=== PATIENT | female | born 1950 | race Caucasian/White ===

== ENCOUNTER → 2021-08-09 13:17 | Outpatient (BNVA) | payer MEDICARE, SELFPAY | PROVIDERS: PCP Internal Medicine; Visit Provider Internal Medicine | DX: M48.061 Spinal stenosis, lumbar region without neurogenic claudication (principal); M54.51 Vertebrogenic low back pain | CPT/HCPCS: 99202 ==

== ENCOUNTER → 2021-08-30 11:36 | Outpatient (BNVA) | payer MEDICARE, SELFPAY | PROVIDERS: PCP Internal Medicine; Visit Provider Internal Medicine | DX: M54.51 Vertebrogenic low back pain (principal); M48.061 Spinal stenosis, lumbar region without neurogenic claudication; M47.816 Spondylosis without myelopathy or radiculopathy, lumbar region; C95.90 Leukemia, unspecified not having achieved remission | CPT/HCPCS: 99212 ==

== ENCOUNTER 2021-10-27 06:04 | Outpatient (REF) | payer MEDICARE, SELFPAY ==
--- NOTE | ~2021-10-27 | FL_ITS ---
EXAMINATION: XR FLUOROSCOPY WITH IMAGES CLINICAL INFORMATION: M47.816 - Spondylosis without myelopathy or radiculopathy COMPARISON: MR lumbar spine 08/17/2021 (RAYUS, [place], MD). TECHNIQUE: Fluoroscopy performed by Dr. Bruce Rojo. Fluoroscopy time: 0.3 minutes DAP: 0.496 Gycm2 Images: 3 FINDINGS: There are spinal needles overlying the bilateral outer L3, L4, and L5 neural foramen. There is contrast seen in the respective nerve sheaths. Some early transforaminal epidural extension is suggested. No visible vascular communication. FL/FL guidance in treatment room IMPRESSION: Fluoroscopy for pain management procedures.
== END 2021-10-27 06:05 | disposition home or self-care (01) ==
LOC: HO.RADIR 06:04
PROVIDERS: Visit Provider Internal Medicine
DX: M47.816 Spondylosis without myelopathy or radiculopathy, lumbar region (principal)
CPT/HCPCS: 64493; 64494; J2795; Q9967

== ENCOUNTER → 2021-11-08 15:32 | Outpatient (BNVA) | payer MEDICARE, SELFPAY | PROVIDERS: PCP Internal Medicine; Visit Provider Internal Medicine | DX: M47.816 Spondylosis without myelopathy or radiculopathy, lumbar region (principal); C95.90 Leukemia, unspecified not having achieved remission | CPT/HCPCS: Q3014 ==

== ENCOUNTER → 2021-11-26 11:25 | Outpatient (BNVA) | payer MEDICARE, SELFPAY | PROVIDERS: PCP Internal Medicine; Visit Provider Internal Medicine | DX: M47.816 Spondylosis without myelopathy or radiculopathy, lumbar region (principal); M54.51 Vertebrogenic low back pain | CPT/HCPCS: Q3014 ==

== ENCOUNTER 2022-03-10 08:19 | Outpatient (REF) | payer MEDICARE, SELFPAY ==
--- NOTE | ~2022-03-10 | XR_ITS ---
EXAMINATION: XR CERVICAL SPINE XR THORACIC SPINE XR LUMBAR SPINE XR SACROILIAC JOINT CLINICAL INFORMATION: Pain throughout the spine. COMPARISON: None TECHNIQUE: Cervical spine 3 views. Dorsal spine 3 views. Lumbar spine 6 views. SI joints 4 views. FINDINGS: CERVICAL SPINE: There is minimal straightening of cervical lordosis. Mild loss of C7-T1 disc height seen. Rest of the disc heights are maintained normal. No visible acute fracture, dislocation or lytic process seen. THORACIC SPINE: There is normal thoracic kyphosis. The vertebral heights, alignment and disc heights are normal. No fracture, lytic or sclerotic process seen. The paravertebral soft tissues are normal. LUMBAR SPINE: There is maintained lumbar lordosis. The vertebral heights, alignment and disc heights are normal. No visible acute fracture, dislocation or lytic process seen. The paravertebral soft tissues are normal. There is no pars defect on oblique views. No lytic or sclerotic process seen. The paravertebral soft tissues are normal. SI JOINTS: The SI joints are symmetrical without bony erosive changes. No fracture or dislocation seen. The soft tissues are normal. XR/XR lumbar spine 6V w bending IMPRESSION: Mild degenerative changes C7-T1 disc levels otherwise no visible acute fracture or dislocation seen. Unremarkable lumbar spine exam. No pars defect or listhesis seen. Unremarkable dorsal spine and SI joints.
--- NOTE | ~2022-03-10 | XR_ITS ---
EXAMINATION: XR CERVICAL SPINE XR THORACIC SPINE XR LUMBAR SPINE XR SACROILIAC JOINT CLINICAL INFORMATION: Pain throughout the spine. COMPARISON: None TECHNIQUE: Cervical spine 3 views. Dorsal spine 3 views. Lumbar spine 6 views. SI joints 4 views. FINDINGS: CERVICAL SPINE: There is minimal straightening of cervical lordosis. Mild loss of C7-T1 disc height seen. Rest of the disc heights are maintained normal. No visible acute fracture, dislocation or lytic process seen. THORACIC SPINE: There is normal thoracic kyphosis. The vertebral heights, alignment and disc heights are normal. No fracture, lytic or sclerotic process seen. The paravertebral soft tissues are normal. LUMBAR SPINE: There is maintained lumbar lordosis. The vertebral heights, alignment and disc heights are normal. No visible acute fracture, dislocation or lytic process seen. The paravertebral soft tissues are normal. There is no pars defect on oblique views. No lytic or sclerotic process seen. The paravertebral soft tissues are normal. SI JOINTS: The SI joints are symmetrical without bony erosive changes. No fracture or dislocation seen. The soft tissues are normal. XR/XR thoracic spine 2V IMPRESSION: Mild degenerative changes C7-T1 disc levels otherwise no visible acute fracture or dislocation seen. Unremarkable lumbar spine exam. No pars defect or listhesis seen. Unremarkable dorsal spine and SI joints.
--- NOTE | ~2022-03-10 | XR_ITS ---
EXAMINATION: XR CERVICAL SPINE XR THORACIC SPINE XR LUMBAR SPINE XR SACROILIAC JOINT CLINICAL INFORMATION: Pain throughout the spine. COMPARISON: None TECHNIQUE: Cervical spine 3 views. Dorsal spine 3 views. Lumbar spine 6 views. SI joints 4 views. FINDINGS: CERVICAL SPINE: There is minimal straightening of cervical lordosis. Mild loss of C7-T1 disc height seen. Rest of the disc heights are maintained normal. No visible acute fracture, dislocation or lytic process seen. THORACIC SPINE: There is normal thoracic kyphosis. The vertebral heights, alignment and disc heights are normal. No fracture, lytic or sclerotic process seen. The paravertebral soft tissues are normal. LUMBAR SPINE: There is maintained lumbar lordosis. The vertebral heights, alignment and disc heights are normal. No visible acute fracture, dislocation or lytic process seen. The paravertebral soft tissues are normal. There is no pars defect on oblique views. No lytic or sclerotic process seen. The paravertebral soft tissues are normal. SI JOINTS: The SI joints are symmetrical without bony erosive changes. No fracture or dislocation seen. The soft tissues are normal. XR/XR cervical spine 3V IMPRESSION: Mild degenerative changes C7-T1 disc levels otherwise no visible acute fracture or dislocation seen. Unremarkable lumbar spine exam. No pars defect or listhesis seen. Unremarkable dorsal spine and SI joints.
--- NOTE | ~2022-03-10 | XR_ITS ---
EXAMINATION: XR CERVICAL SPINE XR THORACIC SPINE XR LUMBAR SPINE XR SACROILIAC JOINT CLINICAL INFORMATION: Pain throughout the spine. COMPARISON: None TECHNIQUE: Cervical spine 3 views. Dorsal spine 3 views. Lumbar spine 6 views. SI joints 4 views. FINDINGS: CERVICAL SPINE: There is minimal straightening of cervical lordosis. Mild loss of C7-T1 disc height seen. Rest of the disc heights are maintained normal. No visible acute fracture, dislocation or lytic process seen. THORACIC SPINE: There is normal thoracic kyphosis. The vertebral heights, alignment and disc heights are normal. No fracture, lytic or sclerotic process seen. The paravertebral soft tissues are normal. LUMBAR SPINE: There is maintained lumbar lordosis. The vertebral heights, alignment and disc heights are normal. No visible acute fracture, dislocation or lytic process seen. The paravertebral soft tissues are normal. There is no pars defect on oblique views. No lytic or sclerotic process seen. The paravertebral soft tissues are normal. SI JOINTS: The SI joints are symmetrical without bony erosive changes. No fracture or dislocation seen. The soft tissues are normal. XR/XR sacroiliac joint min 3V IMPRESSION: Mild degenerative changes C7-T1 disc levels otherwise no visible acute fracture or dislocation seen. Unremarkable lumbar spine exam. No pars defect or listhesis seen. Unremarkable dorsal spine and SI joints.
== END 2022-03-10 08:20 | disposition home or self-care (01) ==
LOC: HO.XRAY 08:19
PROVIDERS: PCP Internal Medicine; Visit Provider Student in an Organized Health Care Education/Training Program
DX: M54.51 Vertebrogenic low back pain (principal); M54.2 Cervicalgia; M54.6 Pain in thoracic spine
CPT/HCPCS: 72040; 72070; 72114; 72202; 99202

== ENCOUNTER 2022-03-23 11:46 | Outpatient (REF) | payer MEDICARE, SELFPAY ==
--- NOTE | ~2022-03-23 | XR_ITS ---
EXAMINATION: XR THORACIC SPINE XR LUMBAR SPINE CLINICAL INFORMATION: Lower back pain COMPARISON: 03/10/2022 TECHNIQUE: 3 views of the thoracic spine. 4 views of the lumbar spine. FINDINGS: Thoracic spine: No fracture or subluxation. Osteopenia. Vertebral body height and alignment maintained. Mild disc space narrowing throughout with small osteophytes. The paravertebral soft tissues are unremarkable. The visualized lungs are clear. Aortic calcifications. Lumbar spine: No fracture or subluxation. Vertebral body height and alignment maintained. Disc spaces are maintained. Mild facet arthropathy. The sacroiliac joints are symmetric. The sacrum is intact. Normal bowel gas pattern. Moderate colonic stool burden. XR/XR lumbar spine 4V min IMPRESSION: Mild degenerative changes throughout the thoracic and lumbar spine. Moderate colonic stool burden.
--- NOTE | ~2022-03-23 | XR_ITS ---
EXAMINATION: XR THORACIC SPINE XR LUMBAR SPINE CLINICAL INFORMATION: Lower back pain COMPARISON: 03/10/2022 TECHNIQUE: 3 views of the thoracic spine. 4 views of the lumbar spine. FINDINGS: Thoracic spine: No fracture or subluxation. Osteopenia. Vertebral body height and alignment maintained. Mild disc space narrowing throughout with small osteophytes. The paravertebral soft tissues are unremarkable. The visualized lungs are clear. Aortic calcifications. Lumbar spine: No fracture or subluxation. Vertebral body height and alignment maintained. Disc spaces are maintained. Mild facet arthropathy. The sacroiliac joints are symmetric. The sacrum is intact. Normal bowel gas pattern. Moderate colonic stool burden. XR/XR thoracic spine 3V IMPRESSION: Mild degenerative changes throughout the thoracic and lumbar spine. Moderate colonic stool burden.
== END 2022-03-23 11:47 | disposition home or self-care (01) ==
LOC: HO.XRAY 11:46
PROVIDERS: PCP Internal Medicine; Visit Provider Student in an Organized Health Care Education/Training Program
DX: M54.50 Low back pain, unspecified (principal); G89.29 Other chronic pain
CPT/HCPCS: 72072; 72110; 99212

== ENCOUNTER → 2022-07-11 13:03 | Outpatient (BNVA) | payer MEDICARE, SELFPAY | PROVIDERS: PCP Internal Medicine; Visit Provider Internal Medicine | DX: M47.816 Spondylosis without myelopathy or radiculopathy, lumbar region (principal); G89.29 Other chronic pain; M54.50 Low back pain, unspecified | CPT/HCPCS: 99212 ==

== ENCOUNTER 2022-08-03 13:16 | Day surgery (SDC) | payer MEDICARE, SELFPAY ==
--- NOTE | ~2022-08-03 | FL_ITS ---
EXAMINATION: XR FLUOROSCOPY WITH IMAGES CLINICAL INFORMATION: Low back pain. Pain management procedure. COMPARISON: Lumbar radiographs 04/23/2022 TECHNIQUE: Fluoroscopy Supervised By: Dr. Bruce Rojo. Fluoroscopy Time: 0.1 minutes. Cumulative Dose: 1.29 mGy. DAP: 0.184 Gycm2. Images: 1. FINDINGS: There are is a spinal needle/electrode overlying the outer L5 neural foramen, presumably on right. FL/FL guidance in OR IMPRESSION: Fluoroscopy for pain management procedures.
[2022-08-03 09:32] VITALS: BMI 22.6
[2022-08-03 13:24] VITALS: BP 133/69; PULSE 90; RESP 20; TEMP 36.8; O2SAT 96
--- NOTE | 2022-08-03 14:47 | MHC.SHP ---
Pre-Procedural Eval Section A Date of Service: 08/03/22 The patient is an INPATIENT: No Changes since office visit: Yes Patient answered all questions The History & Physical has been completed within 30 days and I have reviewed it.: No Section B Chief Complaint: Spondylosis, lumbar; chronic intractable pain Relevant Family History (Specify if Yes): No Relevant Social History: None Present Medications: see Short Stay Collaborative assessment Medical History: No relevant PMH History of Previous Operations: No relevant previous surgery Allergies: Allergies Allergy/AdvReac Type Severity Reaction Status Date / Time sulfamethoxazole Allergy Mild Hives Verified 07/11/22 13:19 [From Bactrim] trimethoprim [From Bactrim] Allergy Mild Hives Verified 07/11/22 13:19 Review of Systems Sugical H&P ROS: Negative: Constitution, Cardiovascular and Respiratory Exam Surgical H&P Exam: Normal: HEENT, Normal: Heart and Normal: Lungs Plan Diagnosis/Plan: Change I have reviewed the history and physical and performed a pertinent physical examination on my patient. No changes have occurred unless specified. Plan to proceed with right sided treatment today based on patient preference. Time Spent With Patient Time: Total time managing care of this patient today ____ minutes.
[2022-08-03 15:45] VITALS: BP 140/66; PULSE 99; RESP 18; TEMP 36.7; O2SAT 97
--- NOTE | 2022-08-03 15:46 | PM.OP ---
Brief Operative Note Date of Service: 08/03/22 Pre-op diagnosis: Chronic low back pain, lumbar spondylosis Post-op diagnosis: same Procedure: Temporary right L4 medial branch nerve stimulator Implants: Sprint PNS system Surgeon: Bruce Rojo MD Anesthesia: local Was an Machine Maintenance Technician used for this Procedure?: No Estimated blood loss (mL): 1 Pathology: none sent Condition: stable Disposition: same day
--- NOTE | 2022-08-03 15:47 | W.PM.OPN ---
Operative Note Operative Note Date of Service: 08/03/22 Narrative: Lumbar Medial Branch Nerve Stimulation Lead Placement, SPR (Sprint) System, Right L4 ? After the risks, benefits and alternatives were discussed with the patient and informed consent was obtained, patient was placed in the prone position and padded to foster comfort. The skin overlying the lumbosacral spine was prepped and draped in sterile fashion. Fluoroscopy was used to identify the spinous process and lamina in the center of the patient?s region of pain. After identifying and marking the intended target along the course of the medial branch nerve, the skin around the planned entry point and the subcutaneous tissues were injected with lidocaine 1%. An introducer needle and stimulating probe were assembled, inserted and advanced along the intended course of the medial branch nerve as it traverses the lamina medial and inferior to the zygapophyseal joint, taking care to maintain the proper depth of insertion as the introducer is advanced under fluoroscopic guidance. The introducer needle was delivered to a location in proximity to the nerve. Multiple stimulation parameters were used to deliver stimulation to the target medial branch nerve in concert with stimulating at multiple positions around the nerve. Nerve target acquisition was confirmed noting generation of paresthesias in the paravertebral regions corresponding to the level being stimulated. Various electrical parameter combinations were tested, and the lead location was adjusted (physically relocated) until the patient indicated paresthesia/muscle tension overlapping the distribution of the patient?s typical region of pain. The L3 medial branch was targetted first before the needle was relocated to the L4 branch based on paresthesia mapping. The stimulating probe was removed from the introducer and a percutaneous lead was guided through the needle and delivered to a location in similar proximity to the nerve. Final location was verified with electrical stimulation and documented with fluoroscopy. The introducer needle was removed, and the exposed end of the percutaneous lead was attached to an external stimulator unit. Various electrical parameter combinations were again tested until the patient indicated paresthesia or muscle tension overlapping the distribution of the patient?s typical region of pain. After confirming that lead impedance was in the normal range, the external unit was detached, the needle was removed, and the lead was anchored at the skin. The lead was threaded into the connector block and electrical continuity and desired patient response was confirmed. The connector block was attached to the external stimulator unit. The site was covered with a sterile occlusive dressing. The patient was observed for stability of vital signs and comfort.
[2022-08-03 16:00] VITALS: BP 125/70; PULSE 98; RESP 16; TEMP 36.4; O2SAT 98
== END 2022-08-03 16:06 | disposition home or self-care (01) ==
PROVIDERS: PCP Internal Medicine; Visit Provider Internal Medicine
PROC: (CPT 64555; principal; 2022-08-03 14:20)
DX: M47.816 Spondylosis without myelopathy or radiculopathy, lumbar region (principal); M54.50 Low back pain, unspecified; G89.29 Other chronic pain; C95.90 Leukemia, unspecified not having achieved remission; D58.9 Hereditary hemolytic anemia, unspecified; D47.Z9 Other specified neoplasms of uncertain behavior of lymphoid, hematopoietic and related tissue; M48.061 Spinal stenosis, lumbar region without neurogenic claudication; Z79.899 Other long term (current) drug therapy; Z88.2 Allergy status to sulfonamides; Z87.891 Personal history of nicotine dependence
CPT/HCPCS: 64555; C1778

== ENCOUNTER → 2022-08-08 08:37 | Outpatient (BNVA) | payer MEDICARE, SELFPAY | PROVIDERS: PCP Internal Medicine; Visit Provider Internal Medicine | DX: M54.50 Low back pain, unspecified (principal); M47.816 Spondylosis without myelopathy or radiculopathy, lumbar region; G89.29 Other chronic pain | CPT/HCPCS: 99212 ==

== ENCOUNTER → 2022-08-26 08:00 | Outpatient (BNVA) | payer MEDICARE, SELFPAY | PROVIDERS: PCP Internal Medicine; Visit Provider Internal Medicine | DX: M81.0 Age-related osteoporosis without current pathological fracture (principal); M54.6 Pain in thoracic spine | CPT/HCPCS: 72070; 99212 ==

== ENCOUNTER 2022-08-26 08:42 | Outpatient (REF) | payer MEDICARE, SELFPAY ==
--- NOTE | ~2022-08-26 | XR_ITS ---
EXAMINATION: XR THORACOLUMBAR SPINE CLINICAL INFORMATION: Age-related osteoporosis without recurrent pathological fracture. COMPARISON: None available. TECHNIQUE: 3 views FINDINGS: There is normal thoracic kyphosis. The vertebral heights and alignment is normal. There is minimal dextro scoliosis of dorsolumbar spine. No acute fracture, dislocation or lytic process seen. The paravertebral soft tissues are normal. XR/XR thoracic spine 2V IMPRESSION: Mild dextroscoliosis of dorsolumbar spine. No visible acute fracture, dislocation or lytic process seen. No aggressive lytic or sclerotic process seen
== END 2022-08-26 08:43 | disposition home or self-care (01) ==
LOC: HO.XRAY 08:42
PROVIDERS: PCP Internal Medicine; Visit Provider Internal Medicine
DX: Z13.89 Encounter for screening for other disorder (principal)
CPT/HCPCS: 72070

== ENCOUNTER → 2022-09-21 12:48 | Outpatient (BNVA) | payer MEDICARE, SELFPAY | PROVIDERS: PCP Internal Medicine; Visit Provider Internal Medicine ==

== ENCOUNTER → 2022-10-21 09:17 | Outpatient (BNVA) | payer MEDICARE, SELFPAY | PROVIDERS: PCP Internal Medicine; Visit Provider Internal Medicine | DX: M47.816 Spondylosis without myelopathy or radiculopathy, lumbar region (principal) | CPT/HCPCS: 99212 ==

== ENCOUNTER 2023-10-05 10:21 | Outpatient (AMB) | payer MEDICARE, SELFPAY ==
--- NOTE | 2023-10-05 10:39 | MHC.PC.OV ---
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 Intake Note: New patient visit Link Knitting Machine Operator Required: No Allergies sulfamethoxazole [From Bactrim] Allergy (Mild, Verified 10/05/23 10:41) Hives trimethoprim [From Bactrim] Allergy (Mild, Verified 10/05/23 10:41) Hives Tobacco use date assessed: 10/05/23 Fall risk assessment: No Falls in past year Last assessed Fall Risk: 10/05/23 Dental Screening Dental Screen Date: 10/05/23 Did you have a dental visit in the last 12 months?: Yes Did you have a dental problem in the last 6 months where you did not have access to dental care?: No Was dental information given to patient?: Patient has dentist HPI HPI Comments History of Present Illness Details 73 year old female with a past medical history CLL, anxiety, tachycardia presenting t reestablish care Heme/Onc: Follows at [facility], Dr Dubois. On Brukinsa Chronic pain: Bony metastates, ddd spine. On morphine ER TID, gabapentin, methocarbamal. Doing well with pain control. BH: Anxiety. 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 Leukemia Vertebrogenic low back pain Lumbar spinal stenosis Family History (Updated 10/05/23 @ 10:50 by Janet De La Vega CMA) Mother Anxiety Brother Anxiety Sister Anxiety Maternal Grandmother Breast cancer Other FH: mental illness Social History (Updated 10/05/23 @ 10:52 by Janet De La Vega CMA) Household Members: Spouse Housing: House Alcohol intake: never Patient Tobacco Use Status: Former Tobacco user Years Smoked: 10, Quit 42 years ago e-Cigarette/Vaping Use: Never Used Second Hand Smoke Exposure: Yes (past ) service: No Current occupational status: retired 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 1. Little interest or pleasure in doing things: not at all 2. Feeling down, depressed, or hopeless: not at all 3. Trouble falling or staying asleep, or sleeping too much: not at all 4. Feeling tired or having little energy: not at all 5. Poor appetite or overeating: not at all 6. Feeling bad about yourself - or that you are a failure or have let yourself or your family down: not at all 7. Trouble concentrating on things, such as reading the newspaper or watching television: not at all 8. Moving or speaking so slowly that other people could have noticed. Or the opposite - being so fidgety or restless that you have been moving around a lot more than usual: not at all 9. Thoughts that you would be better off or of hurting yourself in some way: not at all Total score: 0 Depression Screening Interpretation: Negative (Neg) Depression Screening Done: Yes Source: Developed by Drs. Dane Wong, Joana Bradford, Darin Reese and colleagues, with an educational key from [employer]. Thrive Questionnaire Date Thrive assessed: 10/05/23 I am a: Patient What is your living situation today?: I have a steady place to live Within the past 12 months, did the food you bought not last and you didn't have the money to get more?: Never true Within the past 12 months, did you worry whether your food would run out before you got money to buy more?: Never true Do you have trouble paying for medicines?: No Do you have trouble getting transportation to medical appointments?: No Do you have trouble paying your heating and electricity bill?: No Do you have trouble taking care of your child, family member or friend?: No Do you have trouble with day-to-day activities such as bathing, preparing meals, shopping, managing finances, etc.?: No Are you currently unemployed and looking for a job?: No Are you interested in more education?: No Please select the resources that you would like help with: None Currently or been in a relationship where the following occur: no concerns reported THRIVE Score: 0 CHARLOTTE-7 AMB Questionnaire CHARLOTTE-7 Date CHARLOTTE - 7 assessed: 10/05/23 Feeling nervous, anxious, or on edge: 1 = Several days Not being able to stop or control worryin = Not at all Worrying too much about different things: 1 = Several days Trouble relaxin = Not at all Being so restless that it is hard to sit still: 0 = Not at all Becoming easily annoyed or irritable: 1 = Several days Feeling afraid as if something awful might happen: 0 = Not at all Total CHARLOTTE-7 score (0-4 normal; 5-9 mild; 10-14 moderate; 15-21 severe): 3 Source: Developed by Drs. Dane Wong, Joana Bradford, Darin Reese and colleagues, with an educational key from [employer]. CHARLOTTE-7 Assessment Billing CHARLOTTE-7 Assessment Tool: CHARLOTTE-7 Assessment 63732 ACT Questionnaire In the past 4 weeks, how much of the time did your asthma keep you from getting as much done at work, school or at home?: None of the time During the past 4 weeks, how often have you had shortness of breath?: Not at all During the past 4 weeks, how often did your asthma symptoms wake you up at night or earlier than usual in the morning?: Not at all During the past 4 weeks, how often have you had to use your rescue inhaler or nebulizer medication?: Not at all How would you rate your asthma control during the past 4 weeks?: Completely controlled ACT Interpretation: Negative Score: 25 Review of Systems Const Details: see HPI Physical exam (Primary Care) Vital Signs: Last Vital Signs Temp 98.1 F 10/05/23 10:55 Pulse 104 H 10/05/23 10:55 Resp 14 10/05/23 10:55 BP 124/68 10/05/23 10:55 Pulse Ox 95 10/05/23 10:55 Oxygen Delivery Method Room Air 10/05/23 10:55 PHYSICAL EXAM: GENERAL: Alert and oriented x 3. NAD EYES: EOMI. Anicteric. HENT: Moist mucous membranes. No scleral icterus. No cervical lymphadenopathy. LUNGS: Clear to auscultation bilaterally. CARDIOVASCULAR: Regular rate and rhythm. No murmur. No JVD. ABDOMEN: Soft, non-tender +bs EXTREMITIES: No edema. Non-tender. SKIN: No rashes or lesions. Warm. NEUROLOGIC: No focal neurological deficits. CN II-XII grossly intact PSYCHIATRIC: Cooperative. Appropriate mood and affect BMI result Body Mass Index 23.1 Tobacco/Smoking Status: Tobacco use Status Tobacco use date assessed 10/05/23 10/05/23 10:57 Patient Tobacco Use Status Former Tobacco user 10/05/23 10:52 e-Cigarette/Vaping Use Never Used 10/05/23 10:52 PHQ-9: PHQ-9 Score PHQ-9: Total score 0 10/05/23 11:29 Depression Screening Interpretation: Negative (Neg) Thrive Assessment: Date of Thrive Assessment Date Thrive assessed 10/05/23 10/05/23 10:57 Currently or been in a relationship where the following occur: no concerns reported Assessment and Plan Assessment & Plan (1) Thoracic spine pain: Code(s): M54.6 - Pain in thoracic spine (2) Chronic low back pain: Code(s): M54.50 - Low back pain, unspecified; G89.29 - Other chronic pain Qualifiers: Back pain laterality: bilateral Sciatica presence: without sciatica Qualified Code(s): M54.50 - Low back pain, unspecified; G89.29 - Other chronic pain Plan: continue current medications (3) Osteoporosis: Comment: continue meds Code(s): M81.0 - Age-related osteoporosis without current pathological fracture Qualifiers: Osteoporosis type: unspecified Presence of current pathological fracture: with current pathological fracture Encounter type: subsequent encounter Fracture healing: with routine healing Qualified Code(s): M80.00XD - Age-related osteoporosis with current pathological fracture, unspecified site, subsequent encounter for fracture with routine healing (4) Lumbar spondylosis: Code(s): M47.816 - Spondylosis without myelopathy or radiculopathy, lumbar region (5) Leukemia: Comment: continue DCFI follow up Code(s): C95.90 - Leukemia, unspecified not having achieved remission Qualifiers: Leukemia type: lymphoid Lymphoid leukemia type: chronic lymphocytic B-cell Leukemia Active/Remission status: in remission Qualified Code(s): C91.11 - Chronic lymphocytic leukemia of B-cell type in remission (6) Vertebrogenic low back pain: Code(s): M54.51 - Vertebrogenic low back pain (7) Lumbar spinal stenosis: Code(s): M48.061 - Spinal stenosis, lumbar region without neurogenic claudication Qualifiers: Neurogenic claudication status: without neurogenic claudication Qualified Code(s): M48.061 - Spinal stenosis, lumbar region without neurogenic claudication Coding Level of Care Code Est Pt Level 5 (40060) Diagnoses Thoracic spine pain M54.6 Chronic bilateral low back pain without sciatica M54.50; G89.29 Back pain laterality: bilateral Sciatica presence: without sciatica Osteoporosis with current pathological fracture with routine healing, unspecified osteoporosis type, subsequent encounter M80.00XD Osteoporosis type: unspecified Presence of current pathological fracture: with current pathological fracture Encounter type: subsequent encounter Fracture healing: with routine healing Lumbar spondylosis M47.816 Chronic lymphocytic leukemia of B-cell type in remission C91.11 Leukemia type: lymphoid Lymphoid leukemia type: chronic lymphocytic B-cell Leukemia Active/Remission status: in remission Vertebrogenic low back pain M54.51 Spinal stenosis of lumbar region without neurogenic claudication M48.061 Neurogenic claudication status: without neurogenic claudication Additional Codes CHARLOTTE-7 Assessment Billing - CHARLOTTE-7 Assessment Tool: CHARLOTTE-7 Assessment [id number] ([id number]) Time Spent (min) 44
[2023-10-05 10:55] VITALS: BP 124/68; PULSE 104; RESP 14; TEMP 36.7; O2SAT 95; BMI 23.1
== END 2023-10-05 11:30 | disposition home or self-care (01) ==
PROVIDERS: PCP Internal Medicine; Visit Provider Internal Medicine
DX: M54.6 Pain in thoracic spine (principal); C91.11 Chronic lymphocytic leukemia of B-cell type in remission; M54.50 Low back pain, unspecified; G89.29 Other chronic pain; M80.00XD Age-related osteoporosis with current pathological fracture, unspecified site, subsequent encounter for fracture with routine healing; M47.816 Spondylosis without myelopathy or radiculopathy, lumbar region; M54.51 Vertebrogenic low back pain; M48.061 Spinal stenosis, lumbar region without neurogenic claudication
CPT/HCPCS: 99215

== ENCOUNTER 2023-11-23 11:15 | Outpatient (AMB) | payer OTHER, MEDICARE, SELFPAY ==
[2023-11-23 11:16] VITALS: BP 110/68; PULSE 97; TEMP 36.4; O2SAT 96; BMI 23.0
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
--- OUTSIDE RECORDS SUMMARY | 2023-11-30 06:13 | XMS_ITS | Continuity of Care Document ---
Author Organization [facility] Address [address] [place] [id number]- Care Team Providers Care Head Of Partner Development Name Role Phone Radha PULLIAM, Portia Dumont Primary Care Physician Yazmin morales Encounter [facility] Date(s): 09/22/23 - 10/22/[address] [address]- Attending Physician: AdmLes negro Admitting Physician: Admtr, [id number] Referring Physician: Admtr, [id number] Allergies, Adverse Reactions, Alerts Substance Reaction Severity Status Bactrim Active Immunizations Given and Recorded Vaccine Date Status Refusal Reason RSV vaccine, preF A-preF B, recombinant 04/01/23 R ecorded SARS-CoV-2(COVID-19)mRNA-LNP vac([id number]) 03/04/23 Recorded influenza virus vaccine, inactivated 02/13/23 Thom rded influenza virus vaccine, inactivated 02/09/21 Thom rded influenza virus vaccine, inactivated 01/19/20 Thom rded influenza virus vaccine, inactivated 02/25/19 Thom rded influenza virus vaccine, inactivated 02/06/18 Thom rded influenza virus vaccine, inactivated 02/22/17 Thom rded influenza virus vaccine, inactivated 02/24/16 Thom rded influenza virus vaccine, inactivated 03/11/15 Thom rded influenza virus vaccine, inactivated 03/07/14 Thom rded influenza virus vaccine, inactivated 03/18/13 Thom rded influenza virus vaccine, inactivated 03/12/12 Thom rded influenza virus vaccine, inactivated 02/22/11 Thom rded influenza virus vaccine, inactivated 03/09/10 Thom rded influenza virus vaccine, inactivated 03/05/09 Thom rded influenza virus vaccine, inactivated 03/31/08 Thom rded influenza virus vaccine, inactivated 03/30/07 Thom rded influenza virus vaccine, inactivated 04/05/06 Thom rded [id number] bivalent booster vax 04/30/22 Recorded SARS-CoV-2 mRNA ([id number]) vax 08/07/21 Recorded SARS-CoV-2 (COVID-19) mRNA BNT-162b2 vac 01/17/21 Recorded SARS-CoV-2 (COVID-19) mRNA BNT-162b2 vac 07/02/20 Recorded SARS-CoV-2 (COVID-19) mRNA BNT-162b2 vac 06/11/20 Recorded pneumococcal 13-valent vaccine 03/21/19 Recorded zoster vaccine, inactivated 05/17/18 Recorded zoster vaccine, inactivated 02/28/18 Recorded pneumococcal 23-valent vaccine 09/17/14 Recorded tetanus/diphtheria/pertussis, acel(Tdap) 06/25/10 Recorded Zoster Vaccine Live 11/03/09 Recorded tetanus-diphtheria toxoids (Td) 07/06/01 Recorded Medications Aerochamber See Instructions, # 1 each, Maintenance, always use with inhaler, 12/07/22 10:07:00 EDT, Supply, 158, cm, 12/07/22 9:30:00 EDT, Height, 55, kg, 09/14/22 4:47:00 EDT, Dry Weight Start Date: 12/07/22 Status: Ordered Albuterol (Eqv-Ventolin HFA) 90 mcg/inh inhalation aerosol 2 puffs, Inhalation, Every 4 hours, PRN cough, SOB, wheeze, # 18 Gm, 0 Refills, Maintenance, 12/07/22 10:07:00 EDT, [facility] #[id number], with dose counter. any albuterol inhaler covered by insurance is fine., 2 puffs Inhalation Every 4 hours,P... Start Date: 12/07/22 Status: Ordered aspirin 81 mg oral capsule 1 capsule = 81 mg, By Mouth, Every 24 hours, 0 Refills, Maintenance, 04/12/23 11:11:00 EST, Partialfill upon patient request if the prescription is for a schedule II opioid drug. Start Date: 04/12/23 Status: Ordered benzonatate 100 mg oral capsule See Instructions, TAKE 1 CAPSULE BY MOUTH THREE TIMES DAILY FOR 7 DAYS NEEDED FOR COUGH, # 21 tablet, 0 Refills, Maintenance, 12/24/22 16:22:00 EDT, [facility] #[id number], 158, cm, 12/07/22 9:30:00 EDT, Height, 55, kg, 09/14/22 4:47:00 EDT, D... Start Date: 12/24/22 Status: Ordered Brukinsa 80 mg oral capsule 0 Refills, Maintenance, 04/12/23 11:11:00 EST, Partial fill upon patient request if the prescription is for a schedule II opioid drug. Start Date: 04/12/23 Status: Ordered calcium carbonate 600 mg oral tablet 2 tablet = 1,200 mg, By Mouth, Daily, 0 Refills, Maintenance, 04/25/22 11:51:00 EST, Partial fill upon patient request if the prescription is for a schedule II opioid drug. Start Date: 04/25/22 Status: Ordered clonazePAM 0.5 mg oral tablet See Instructions, 1-2 tab oral once daily prn anxiety, # 56 tablet, 0 Refills, Maintenance, 06/21/23 12:20:00 EST, Tablet, [facility] #[id number], Partial fill upon patient request if the prescription is for a schedule II opioid drug., 158, cm, 1... Start Date: 06/21/23 Status: Ordered clonazePAM 0.5 mg oral tablet See Instructions, TAKE 1 TO 2 TABLETS BY MOUTH EVERY DAY NEEDED FOR ANXIETY, # 56 tablet, 1 Refills, 06/30/23 16:36:00 EST, [facility] #[id number], 158, cm, 04/12/23 11:12:00 EST, Height, 55,kg, 09/14/22 4:47:00 EDT, Dry Weight Start Date: 06/30/23 Status: Ordered FLUoxetine 10 mg oral capsule 1, capsule, By Mouth, Daily, # 90 capsule, Refills 3, Maintenance, 12/23/22 16:02:00 EDT, Route to Pharmacy Electronically, [facility] #[id number], 158, cm, 12/07/22 9:30:00 EDT, Height, 55, kg,09/14/22 4:47:00 EDT, Dry Weight Start Date: 12/23/22 Status: Ordered gabapentin 100 mg oral capsule 200 mg, 2, capsule, By Mouth, Daily at bedtime, for 90 days, # 180 capsule, Refills 3, Tot. Refills3, Hard Stop 01/01/24 9:19:00 EDT, 01/06/23 9:19:00 EDT, Route to Pharmacy Electronically, [facility] #[id number], Partial fill upon patient reque... Start Date: 01/06/23 Stop Date: 01/01/24 Status: Ordered gabapentin 100 mg oral capsule 200 mg, 2, capsule, By Mouth, Daily at bedtime, # 180 capsule, Refills 3, Tot. Refills 3, Maintenance, 01/01/24 9:19:00 EDT, Route to Pharmacy Electronically, [facility] #[id number], Partial fill upon patient request if the prescription is for a... Start Date: 01/01/24 Stop Date: 12/26/24 Status: Ordered LORazepam 1 mg oral tablet 1 tablet = 1 mg, By Mouth, 3 times a day, TAKE 1 TABLET BY MOUTH THREE TIMES DAILY NEEDED FOR ANXIETY, # 90 tablet, 3 Refills, Maintenance, 09/21/22 10:50:00 EDT, [facility] #[id number], 158,cm, 09/20/22 10:01:00 EDT, Height, 55, kg, 09/14/22... Start Date: 09/21/22 Stop Date: 01/19/23 Status: Ordered Magnesium Oxide = 140 mg, By Mouth, Daily, 0 Refills, Maintenance, 09/14/22 4:54:00 EDT, Partial fill upon patient request if the prescription is for a schedule II opioid drug. Start Date: 09/14/22 Status: Ordered methocarbamol 500 mg oral tablet 2 tablet = 1,000 mg, By Mouth, 4 times a day, # 80 tablet, 0 Refills, Maintenance, 05/02/23 6:19:00EST, Tablet, [facility] #[id number], Partial fill upon patient request if the prescription is for a schedule II opioid drug., 158, cm, 04/12/23 11... Start Date: 05/02/23 Stop Date: 05/12/23 Status: Ordered morphine 30 mg/8 to 12 hr oral tablet, extended release See Instructions, TAKE 1 TABLET BY MOUTH EVERY 8 HOURS, # 84 tablet, 0 Refills, Maintenance, 09/14/23 10:53:00 EDT, [facility] #[id number], 158, cm, 04/12/23 11:12:00 EST, Height, 55, kg, 09/14/22 4:47:00 EDT, Dry Weight Start Date: 09/14/23 Status: Ordered Narcan 4 mg/0.1 mL nasal spray = 4 mg, Inhalation, Once, as needed for altered mental status/accidental overdose, # 2 each, 0 Refills, Soft Stop, 09/20/22 10:51:00 EDT, [facility] #[id number], Partial fill upon patient request if the prescription is for a schedule II opioid dr... Start Date: 09/20/22 Status: Ordered nortriptyline 50 mg oral capsule 50 mg, 1, capsule, By Mouth, Daily at bedtime, # 90 capsule, Refills 3, Tot. Refills 3, Maintenance, 10/02/23 15:49:00 EDT, Route to Pharmacy Electronically, [facility] #[id number], Partial fillupon patient request if the prescription is for a s... Start Date: 10/02/23 Stop Date: 09/26/24 Status: Ordered omeprazole 20 mg oral enteric coated capsule 1 capsule = 20 mg, By Mouth, 2 times a day, # 180 capsule, 3 Refills, Maintenance, 04/06/24 11:40:00 EDT, CR Capsule, [facility] #[id number], Partial fill upon patient request if the prescription is for a schedule II opioid drug., 158, cm, ... Start Date: 04/06/24 Stop Date: 04/01/25 Status: Ordered omeprazole 20 mg oral enteric coated capsule 1 capsule = 20 mg, By Mouth, 2 times a day, for 90 days, # 180 capsule, 3 Refills, Hard Stop 04/06/24 11:40:00 EDT, 04/12/23 11:40:00 EST, CR Capsule, [facility] #[id number], Partial fill upon patient request if the prescription is for a schedule... Start Date: 04/12/23 Stop Date: 04/06/24 Status: Ordered Prolia 60 mg/mL subcutaneous solution 1 mL = 60 mg, Subcutaneous Injection, Every 6 months, # 1 mL, 0 Refills, Maintenance, 09/14/22 4:53:00 EDT, Solution, Partial fill upon patient request if the prescription is for a schedule II opioiddrug. Start Date: 09/14/22 Status: Ordered Vitamin D2 By Mouth, 0 Refills, Maintenance, 04/25/22 11:51:00 EST, Partial fill upon patient request if the prescription is for a schedule II opioid drug. Start Date: 04/25/22 Status: Ordered Xarelto 10 mg oral tablet 1 tablet = 10 mg, Daily, 0 Refills, Maintenance, 01/06/23 8:28:00 EDT, Partial fill upon patient request if the prescription is for a schedule II opioid drug. Start Date: 01/06/23 Status: Ordered Problem List Condition Confirmation Course Effective Dates Status H ealth Status Informant Anemia Confirmed Active Anxiety Confirmed Active Anxiety Confirmed 06/15/18 Active Chronic low back pain Confirmed 06/17/19 Active CLL (chronic lymphocytic leukemia) Confirmed 2017 Active Chronic lymphoid leukemia, disease Confirmed 12/01/17 Active Compression fracture of spine Confirmed Active Gastroesophageal reflux disease without esophagitis Confirmed 12/01/17 Active H/O: breast problem Confirmed Active Insomnia Confirmed 12/01/17 Active Leukemia Confirmed 2017 Active Loose stools Confirmed Active Lymphadenopathy Confirmed Active Social History Social History Type Response Smoking Status Former smoker, quit more than 30 days ago; Other: Quit 1979; Number of years: 10; Started at age: 19; Stopped at age: 29; entered on: 07/28/21 Sex Patient Care team information Care Team Personnel Name: Portia Garcia MD Position: [facility] Physician - Primary Care Member Role: PCP Care Team Related Persons Name: NATHAN LING Address: [address] [place] [address]
--- OUTSIDE RECORDS SUMMARY | 2023-11-30 06:14 | XMS_ITS | Continuity of Care Document ---
Author Organization [facility] Address [address] [place] [address]- Care Team Providers Care Golf Sales Manager Name Role Phone Portia Garcia MD Primary Care Physician [phone] [place] [facility] [place] 12/07/22 - 12/14/22 [facility] [address] [place] [address]- Encounter Diagnosis Asthma(Discharge Diagnosis) - 12/07/22 Cough(Discharge Diagnosis) - 12/07/22 CLL (chronic lymphocytic leukemia)(Discharge Diagnosis) - 12/07/22 Attending Physician: Jose PULLIAM, Allegra Peterson Referring Physician: Portia Garcia MD Allergies, Adverse Reactions, Alerts Substance Reaction Severity Status Bactrim Active Immunizations Given and Recorded Vaccine Date Status Refusal Reason [id number] bivalent booster vax 04/30/22 Recorded SARS-CoV-2 mRNA ([id number]) vax 08/07/21 Recorded influenza virus vaccine, inactivated 02/09/21 Thom rded [...] influenza virus vaccine, inactivated 04/05/06 Thom rded SARS-CoV-2 (COVID-19) mRNA BNT-162b2 vac 01/17/21 Recorded [...] Gm, 0 Refills, Maintenance, 12/07/22 10:07:00 EDT, [facility] #[id number], with dose counter. any albuterol inhaler covered by insurance is fine., 2 puffs Inhalation Every 4 hours,P... Start Date: 12/07/22 Status: Ordered calcium carbonate 600 mg oral tablet 2 tablet = 1,200 mg, By Mouth, Daily, 0 Refills, Maintenance, 04/25/22 11:51:00 EST, Partial fill upon patient request if the prescription is for a schedule II opioid drug. Start Date: 04/25/22 Status: Ordered clonazePAM 0.5 mg oral tablet See Instructions, 1-2 tab oral once daily prn anxiety, # 56 tablet, 0 Refills, Maintenance, 11/10/22 10:53:00 EDT, Tablet, [facility] #[id number], Partial fill upon patient request if the prescription is for a schedule II opioid drug., 158, cm, 0... Start Date: 11/10/22 Status: Ordered FLUoxetine 10 mg oral capsule 1, capsule, By Mouth, Daily, # 90 capsule, Refills 0, Maintenance, 09/16/22 7:11:00 EDT, Route to Pharmacy Electronically, [facility] #[id number], 158, cm, 09/14/22 4:47:00 EDT, Height, 55, kg, 09/14/22 4:47:00 EDT, Dry Weight Start Date: 09/16/22 Status: Ordered gabapentin 100 mg oral capsule 200 mg, 2, capsule, By Mouth, Daily at bedtime, # 120 capsule, Refills 0, Maintenance, 09/14/22 4:52:00 EDT, Partial fill upon patient request if the prescription is for a schedule II opioid drug. Start Date: 09/14/22 Status: Ordered LORazepam 1 mg oral tablet 1 tablet = 1 mg, By Mouth, 3 times a day, TAKE 1 TABLET BY MOUTH THREE TIMES DAILY NEEDED FOR ANXIETY, # 90 tablet, 3 Refills, Maintenance, 09/21/22 10:50:00 EDT, [facility] #[id number], 158,cm, 09/20/22 10:01:00 EDT, Height, 55, kg, [...] day, # 80 tablet, 0 Refills, Maintenance, 09/20/22 10:52:00 EDT, Tablet, [facility] #[id number], Partial fill upon patient request if the prescription isfor a schedule II opioid drug., 158, cm, 09/20/22 1... Start Date: 09/20/22 Stop Date: 09/30/22 Status: Ordered morphine 15 mg/8 to 12 hr oral tablet, extended release 1 tablet = 15 mg, By Mouth, Every 12 hours, # 56 tablet, 0 Refills, Maintenance, 11/22/22 6:26:00 EDT, [facility] #[id number], Partial fill upon patient request if the prescription is for a schedule II opioid drug., 158, cm, 10/07/22 14:49:00 EDT... Start Date: 11/22/22 Stop Date: 12/20/22 Status: Ordered Narcan 4 mg/0.1 mL nasal spray = 4 mg, Inhalation, Once, as needed for altered mental status/accidental overdose, # 2 each, 0 Refills, Soft Stop, 09/20/22 10:51:00 EDT, [facility] #[id number], Partial fill upon patient request if the prescription is for a schedule II opioid dr... Start Date: 09/20/22 Status: Ordered nortriptyline 50 mg oral capsule 50 mg, 1, capsule, By Mouth, Daily at bedtime, # 90 capsule, Refills 3, Tot. Refills 3, Maintenance, 10/07/22 15:49:00 EDT, Route to Pharmacy Electronically, [facility] #[id number], Partial fillupon patient request if the prescription is for a s... Start Date: 10/07/22 Stop Date: 10/02/23 Status: Ordered omeprazole 20 mg oral enteric coated capsule 1 capsule = 20 mg, By Mouth, Daily, # 90 capsule, 3 Refills, Maintenance, 09/07/22 6:44:00 EDT, EC Capsule, [facility] #[id number], Partial fill upon patient request if the prescription is for aschedule II opioid drug., 157.25, cm, 04/25/22 11:4... Start Date: 09/07/22 Status: Ordered Prolia 60 mg/mL subcutaneous solution [...] opioid drug. Start Date: 04/25/22 Status: Ordered Problem List Condition Confirmation Course [...] Loose stools Confirmed Active Lymphadenopathy Confirmed Active Diagnosis Diagnosis Type Effective Dates Health Status Clinical Service Informant Asthma Discharge Diagnosis 12/07/22 Cough Discharge Diagnosis 12/07/22 CLL (chronic lymphocytic leukemia) Discharge Diagnosis 12/07/22 Vital Signs Most recent to oldest [Reference Range]: 1 Height 158 cm (12/07/22 9:30 AM) Oxygen Saturation [94-100 %] 100 % (12/07/22 9:30 AM) Pulse Rate [55-90 bpm] 117 bpm *H* (12/07/22 9:30 AM) Blood Pressure [90-138/55-84 mm Hg] 125/ 68mm Hg (12/07/22 9:30 AM) Respiratory Rate [16-30 br/min] 16 br/mi n (12/07/22 9:30 AM) Temperature [96.8-100.4 DegF] 98.7 DegF (12/07/22 9:30 AM) Mode of Delivery (Oxygen) Room air (12/07/22 9:30 AM) Blood pressure sites Arm, left (12/07/22 9:30 AM) Temperature Route Temporal (12/07/22 9:30 AM) Social History Social History Type Response Smoking Status Former smoker, quit more than 30 days ago; Other: Quit 1979; Number of years: 10; Started at age: 19; Stopped at age: 29; entered on: 07/28/21 Sex Note * Julissa Lawson: PERFORM, SIGN, VERIFY Event Display: Patient Education/Instruction Authored Date: [id number] [facility] *[facility] Clinical Summary Name JORGE LING Age 72 Years 1950 PCP Radha PULLIAM, Portia Dumont PCP Visit Date 12/07/2022 09:23:00 Additional Instructions: Scheduled Appointments?? Future Appointments ?*[facility] [address] ?[address] ?[place],??[place],??[address] ?Phone:??--?Fax:??-- ?Appt. Date:??12/20/2022?11:50 AM ?Scheduled Provider:??Radha PULLIAM, Portia Dumont Follow-Up Instructions ?? Diagnosis Unspecified asthma, uncomplicated; Chronic lymphocytic leukemia of B-cell type not having achieved remission; Cough, unspecified Medications: Please continue your medications until treatment is completed or stopped by your provider. Discuss any questions related to medications with your provider. New Medications [facility] #[id number], [address] [place] [id number], [phone] Albuterol (Albuterol (Eqv-Ventolin HFA) 90 mcg/inh inhalation aerosol) 2 puff(s) Inhalation every 4hours as needed cough, SOB, wheeze. Refills: 0. Next Dose: Benzonatate (benzonatate 100 mg oral capsule) 1 capsule Oral 3 times a day as needed Cough for 7 Days. Refills: 0. Next Dose: Durable Medical Equipment (Aerochamber) always use with inhaler. Refills: 0. Next Dose: Medications to Continue with No Changes These medications were not printed or sent to your pharmacy Calcium Carbonate (calcium carbonate 600 mg oral tablet) 2 tab(s) Oral Daily. Next Dose: Clonazepam (clonazePAM 0.5 mg oral tablet) 1-2 tab oral once daily prn anxiety. Refills: 0. Next Dose: denosumab (Prolia 60 mg/mL subcutaneous solution) 1 Milliliter Subcutaneous Injection Every 6 months. Next Dose: Ergocalciferol (Vitamin D2) Oral. Next Dose: Fluoxetine (FLUoxetine 10 mg oral capsule) 1 capsule Oral Daily. Refills: 0. Next Dose: Gabapentin (gabapentin 100 mg oral capsule) 2 capsule Oral Daily at Bedtime. Next Dose: Lorazepam (LORazepam 1 mg oral tablet) 1 tab(s) Oral 3 times a day for 30 Days. TAKE 1 TABLET BY MOUTH THREE TIMES DAILY NEEDED FOR ANXIETY. Refills: 3. Next Dose: Magnesium Oxide 140 Milligram Oral Daily. Next Dose: Methocarbamol (methocarbamol 500 mg oral tablet) 2 tab(s) Oral 4 times a day for 10 Days. Refills: 0. Next Dose: Morphine (morphine 15 mg/8 to 12 hr oral tablet, extended release) 1 tab(s) Oral every 12 hours for28 Days. Refills: 0. Next Dose: nalOXONE (Narcan 4 mg/0.1 mL nasal spray) 4 Milligram Inhalation once. as needed for altered mentalstatus/accidental overdose. Refills: 0. Next Dose: Nortriptyline (nortriptyline 50 mg oral capsule) 1 capsule Oral Daily at Bedtime for 90 Days. Refills: 3. Next Dose: Omeprazole (omeprazole 20 mg oral enteric coated capsule) 1 capsule Oral Daily. Refills: 3. Next Dose: Allergy Info:?? Bactrim Medications Given This Visit Future Orders ?No future orders Vital Signs Height 158 cm Weight BMI Blood Pressure 125 mm Hg/68 mm Hg Temperature 98.7 DegF Pulse Rate 117 bpm Respiratory Rate 16 br/min 02 Sat Mode of Delivery 100 %/Room air You can now view a summary of your hospital visit from the comfort of your home through a free online portal called [employer]. [employer] is a website that allows you to securely view your medical information including discharge summary, medications and follow-up visits. ??You can alsosend a secure electronic message to your doctor???s office to request appointments, renew medications or just ask a question. You can enroll at [email or web address] or register during your next office visit. Disclaimer:?? The information provided is of a general nature and is intended to be used in conjunction with the recommendations and advice of your health care practitioner. ??Every effort has been made to ensure that the information provided is accurate and complete at the time it is provided to you however, as your needs change, or, as new ??information becomes available, different or additional instructions may be required. If you have questions, please consult with your primary care provider or pharmacist, as appropriate. ??This information is not intended to serve as substitution for assessment and evaluation by a qualified health care provider. If you do not have a primary care provider, you may find a [facility] provider by calling [facility] at [phone]. For information about the plan of care including goals and instructions for your diagnosis, please see the patient education orders section of this document. Patient Education Materials?? The content of this educational material or handout may have been modified, supplemented, or adapted from its original content and format to support your individualized medical care. Patient Care team information Care Team Personnel Name: Radha PULLIAM, Portia Dumont Position: S Physician - Primary Care Member Role: PCP Address: Address: [address] [place] [address] [place] [address]- Care Team Related Persons Name: NATHAN LING Address: [address] [place] [address]
--- OUTSIDE RECORDS SUMMARY | 2023-11-30 06:14 | XMS_ITS | Continuity of Care Document ---
Author Organization [facility] Address [address] [place] [address]- Care Team Providers Care Metal Fabricator Apprentice Name Role Phone Radha PULLIAM, Portia Dumont Primary Care Physician [phone] [facility]counter [facility] Date(s): 12/07/22 - 01/06/23 [facility] [address] [place], [place] [address] Attending Physician: Les Parra Admitting Physician: Admtr, Les Referring Physician: Admtr, Ar8 Allergies, Adverse Reactions, Alerts Substance Reaction Severity Status Bactrim Active Immunizations Given and Recorded Vaccine Date Status Refusal Reason [id number] bivalent booster vax 04/30/22 Recorded SARS-CoV-2 mRNA (nbyzvik-padm-snffs) vax 08/07/21 Recorded influenza virus vaccine, inactivated [...] Gm, 0 Refills, Maintenance, 12/07/22 10:07:00 EDT, [facility] #[id number], with dose counter. any albuterol inhaler covered by insurance is fine., 2 puffs Inhalation Every 4 hours,P... Start Date: 12/07/22 Status: Ordered benzonatate 100 mg oral capsule See Instructions, TAKE 1 CAPSULE BY MOUTH THREE TIMES DAILY FOR 7 DAYS NEEDED FOR COUGH, # 21 tablet, 0 Refills, Maintenance, 12/24/22 16:22:00 EDT, [facility] #[id number], 158, cm, 12/07/22 9:30:00 EDT, Height, 55, kg, 09/14/22 4:47:00 EDT, D... Start Date: 12/24/22 Status: Ordered calcium carbonate 600 mg oral [...] 0 Refills, Maintenance, 11/10/22 10:53:00 EDT, Tablet, [facility] #[id number], Partial fill upon patient request if the prescription is for a schedule II opioid drug., 158, cm, 0... Start Date: 11/10/22 Status: Ordered FLUoxetine 10 mg oral capsule 1, capsule, By Mouth, Daily, # 90 capsule, Refills 3, Maintenance, 12/23/22 16:02:00 EDT, Route to Pharmacy Electronically, [facility] #[id number], 158, cm, 12/07/22 9:30:00 EDT, Height, 55, kg,09/14/22 4:47:00 EDT, Dry Weight Start Date: 12/23/22 Status: Ordered gabapentin 100 mg oral capsule 200 mg, 2, capsule, By Mouth, Daily at bedtime, # 180 capsule, Refills 3, Tot. Refills 3, Maintenance, 01/06/23 9:19:00 EDT, Route to Pharmacy Electronically, [facility] #[id number], Partial fill upon patient request if the prescription is for a... Start Date: 01/06/23 Stop Date: 01/01/24 Status: Ordered LORazepam 1 mg oral tablet 1 tablet = 1 mg, By Mouth, 3 times a day, TAKE 1 TABLET BY MOUTH THREE TIMES DAILY NEEDED FOR ANXIETY, # 90 tablet, 3 Refills, Maintenance, 09/21/22 10:50:00 EDT, [facility] #[id number], 158,cm, 09/20/22 10:01:00 EDT, Height, 55, kg, [...] 0 Refills, Maintenance, 09/20/22 10:52:00 EDT, Tablet, [facility] #[id number], Partial fill upon patient request if the prescription isfor a schedule II opioid drug., 158, cm, 09/20/22 1... Start Date: 09/20/22 Stop Date: 09/30/22 Status: Ordered morphine 15 mg/8 to 12 hr oral tablet, extended release 1 tablet = 15 mg, By Mouth, Every 12 hours, for 28 days, # 56 tablet, 0 Refills, Hard Stop 01/22/2310:07:00 EDT, 12/25/22 10:07:00 EDT, [facility] #[id number], Partial fill upon patient requestif the prescription is for a schedule II opioid darrell... Start Date: 12/25/22 Stop Date: 01/22/23 Status: Ordered morphine 15 mg/8 to 12 hr oral tablet, extended release 1 tablet = 15 mg, By Mouth, Every 8 hours, # 84 tablet, 0 Refills, Maintenance, 01/22/23 10:07:00 EDT, [facility] #[id number], Partial fill upon patient request if the prescription is for a schedule II opioid drug. change in qty and q 8 h, 158, c... Start Date: 01/22/23 Stop Date: 02/19/23 Status: Ordered Narcan 4 mg/0.1 mL nasal spray = 4 mg, Inhalation, Once, as needed for altered mental status/accidental overdose, # 2 each, 0 Refills, Soft Stop, 09/20/22 10:51:00 EDT, [facility] #[id number], Partial fill upon patient request if the prescription is for a schedule II opioid dr... Start Date: 09/20/22 Status: Ordered nortriptyline 50 mg oral capsule 50 mg, 1, capsule, By Mouth, Daily at bedtime, # 90 capsule, Refills 3, Tot. Refills 3, Maintenance, 10/07/22 15:49:00 EDT, Route to Pharmacy Electronically, [facility] #[id number], Partial fillupon patient request if the prescription is for a s... Start Date: 10/07/22 Stop Date: 10/02/23 Status: Ordered omeprazole 20 mg oral enteric coated capsule 1 capsule = 20 mg, By Mouth, Daily, # 90 capsule, 3 Refills, Maintenance, 09/07/22 6:44:00 EDT, EC Capsule, [facility] #[id number], Partial fill upon patient request if the prescription is for aschedule II opioid drug., 157.25, cm, 04/25/22 11:4... Start Date: 09/07/22 Status: Ordered predniSONE 20 mg oral tablet 3 tablet = 60 mg, Daily, 0 Refills, Maintenance, 01/06/23 8:28:00 EDT, Partial fill upon patient request if the prescription is for a schedule II opioid drug. Start Date: 01/06/23 Status: Ordered Prolia 60 mg/mL subcutaneous solution [...] 06/17/19 Active CLL (chronic lymphocytic leukemia) Confirmed 2018 Active Chronic lymphoid leukemia, disease Confirmed 12/01/17 Active Compression fracture of spine Confirmed Active Gastroesophageal reflux disease without esophagitis Confirmed 12/01/17 Active H/O: breast problem Confirmed Active Insomnia Confirmed 12/01/17 Active Leukemia Confirmed 2018 Active Loose stools Confirmed Active Lymphadenopathy Confirmed [...] Primary Care Member Role: PCP Address: Address: [address] [place] [id number]- Care Team Related Persons Name: NATHAN LING Address: [address] [place] [address]
--- OUTSIDE RECORDS SUMMARY | 2023-11-30 06:14 | XMS_ITS | Continuity of Care Document ---
Author Organization [facility] Address [address] [place] [address]- Care Team Providers Care Food Service Coordinator Name Role Phone Radha PULLIAM, Portia Dumont Primary Care Physician [facility] Date(s): 11/20/22 - 12/20/22 [facility] [address] [place] [id number] Allergies, Adverse Reactions, Alerts Substance Reaction Severity Status Bactrim Active Immunizations Given and Recorded Vaccine Date Status Refusal Reason [id number] bivalent booster vax 04/30/22 Recorded SARS-CoV-2 mRNA (qfacjqo-rhvj-jdxna) vax 08/07/21 Recorded influenza virus vaccine, inactivated [...] Gm, 0 Refills, Maintenance, 12/07/22 10:07:00 EDT, [facility] #[id number], with dose counter. any albuterol inhaler covered [...] 0 Refills, Maintenance, 11/10/22 10:53:00 EDT, Tablet, [facility] #[id number], Partial fill upon patient request if the prescription is for a schedule II opioid drug., 158, cm, 0... Start Date: 11/10/22 Status: Ordered FLUoxetine 10 mg oral capsule 1, capsule, By Mouth, Daily, # 90 capsule, Refills 0, Maintenance, 09/16/22 7:11:00 EDT, Route to Pharmacy Electronically, [facility] #[id number], 158, cm, 09/14/22 4:47:00 EDT, Height, 55, [...] tablet, 3 Refills, Maintenance, 09/21/22 10:50:00 EDT, [facility] #[id number], 158,cm, 09/20/22 10:01:00 EDT, Height, 55, kg, [...] 0 Refills, Maintenance, 09/20/22 10:52:00 EDT, Tablet, [facility] #[id number], Partial fill upon patient request if the prescription isfor a schedule II opioid drug., 158, cm, 09/20/22 1... Start Date: 09/20/22 Stop Date: 09/30/22 Status: Ordered morphine 30 mg/12 to 24 hr oral capsule, extended release 1 capsule = 30 mg, By Mouth, Every 12 hours, # 60 capsule, 0 Refills, Maintenance, 12/20/22 13:01:00 EDT, ER Capsule, [facility] #[id number], Partial fill upon patient request if the prescription is for a schedule II opioid drug., 158, cm, ... Start Date: 12/20/22 Stop Date: 01/19/23 Status: Ordered Narcan 4 mg/0.1 mL nasal spray = 4 mg, Inhalation, Once, as needed for altered mental status/accidental overdose, # 2 each, 0 Refills, Soft Stop, 09/20/22 10:51:00 EDT, [facility] #[id number], Partial fill upon patient request if the prescription is for a schedule II opioid dr... Start Date: 09/20/22 Status: Ordered nortriptyline 50 mg oral capsule 50 mg, 1, capsule, By Mouth, Daily at bedtime, # 90 capsule, Refills 3, Tot. Refills 3, Maintenance, 10/07/22 15:49:00 EDT, Route to Pharmacy Electronically, [facility] #[id number], Partial fillupon patient request if the prescription is for a s... Start Date: 10/07/22 Stop Date: 10/02/23 Status: Ordered omeprazole 20 mg oral enteric coated capsule 1 capsule = 20 mg, By Mouth, Daily, # 90 capsule, 3 Refills, Maintenance, 09/07/22 6:44:00 EDT, EC Capsule, [facility] #[id number], Partial fill upon patient request if the [...] Personnel Name: Radha PULLIAM, Portia Dumont Position: [facility] Physician - Primary Care Member Role: PCP Address: Address: [address] [place] [address] [place] [address]- Care Team Related Persons Name: NATHAN LING Address: [address] [place] [address]
--- OUTSIDE RECORDS SUMMARY | 2023-11-30 06:14 | XMS_ITS | Continuity of Care Document ---
Author Organization [facility] Address [address] [place] [id number]- Care Team Providers Care Security Program Manager Name Role Phone Radha PULLIAM, Portia Dumont Primary Care Physician Yazmin morales [facility]counter [facility] R [id number] Date(s): 09/16/23 - 10/22/[address] [address]- Attending Physician: Ariane Zimmerman Admitting Physician: Ariane Zimmerman Referring Physician: Ariane Zimmerman Allergies, Adverse Reactions, Alerts Substance Reaction Severity Status Bactrim Active Immunizations Given and Recorded Vaccine Date Status Refusal Reason RSV vaccine, preF A-preF B, recombinant 04/01/23 R ecorded SARS-CoV-2(COVID-19)mRNA-LNP vac([id number]) 03/04/23 Recorded influenza virus vaccine, inactivated 02/13/23 [...] influenza virus vaccine, inactivated 04/05/06 Thom rded [id number] bivalent booster vax 04/30/22 Recorded SARS-CoV-2 mRNA (brguxpq-eyqs-pwyiq) vax 08/07/21 Recorded SARS-CoV-2 (COVID-19) mRNA BNT-162b2 [...] Gm, 0 Refills, Maintenance, 12/07/22 10:07:00 EDT, [facility] #[id number], with dose counter. any albuterol inhaler covered [...] tablet, 0 Refills, Maintenance, 12/24/22 16:22:00 EDT, [facility] #[id number], 158, cm, 12/07/22 9:30:00 EDT, Height, 55, [...] 0 Refills, Maintenance, 06/21/23 12:20:00 EST, Tablet, [facility] #[id number], Partial fill upon patient request if the prescription is for a schedule II opioid drug., 158, cm, 1... Start Date: 06/21/23 Status: Ordered clonazePAM 0.5 mg oral tablet See Instructions, TAKE 1 TO 2 TABLETS BY MOUTH EVERY DAY NEEDED FOR ANXIETY, # 56 tablet, 1 Refills, 06/30/23 16:36:00 EST, [facility] #[id number], 158, cm, 04/12/23 11:12:00 EST, Height, 55,kg, 09/14/22 4:47:00 EDT, Dry Weight Start Date: 06/30/23 Status: Ordered FLUoxetine 10 mg oral capsule 1, capsule, By Mouth, Daily, # 90 capsule, Refills 3, Maintenance, 12/23/22 16:02:00 EDT, Route to Pharmacy Electronically, [facility] #[id number], 158, cm, 12/07/22 9:30:00 EDT, Height, 55, kg,09/14/22 4:47:00 EDT, Dry Weight Start Date: 12/23/22 Status: Ordered gabapentin 100 mg oral capsule 200 mg, 2, capsule, By Mouth, Daily at bedtime, for 90 days, # 180 capsule, Refills 3, Tot. Refills3, Hard Stop 01/01/24 9:19:00 EDT, 01/06/23 9:19:00 EDT, Route to Pharmacy Electronically, [facility] #[id number], Partial fill upon patient reque... Start Date: 01/06/23 Stop Date: 01/01/24 Status: Ordered gabapentin 100 mg oral capsule 200 mg, 2, capsule, By Mouth, Daily at bedtime, # 180 capsule, Refills 3, Tot. Refills 3, Maintenance, 01/01/24 9:19:00 EDT, Route to Pharmacy Electronically, [facility] #[id number], Partial fill upon patient request if the prescription is for a... Start Date: 01/01/24 Stop Date: 12/26/24 Status: Ordered LORazepam 1 mg oral tablet 1 tablet = 1 mg, By Mouth, 3 times a day, TAKE 1 TABLET BY MOUTH THREE TIMES DAILY NEEDED FOR ANXIETY, # 90 tablet, 3 Refills, Maintenance, 09/21/22 10:50:00 EDT, [facility] #[id number], 158,cm, 09/20/22 10:01:00 EDT, Height, 55, kg, [...] tablet, 0 Refills, Maintenance, 05/02/23 6:19:00EST, Tablet, [facility] #[id number], Partial fill upon patient request if the prescription is for a schedule II opioid drug., 158, cm, 04/12/23 11... Start Date: 05/02/23 Stop Date: 05/12/23 Status: Ordered morphine 30 mg/8 to 12 hr oral tablet, extended release See Instructions, TAKE 1 TABLET BY MOUTH EVERY 8 HOURS, # 84 tablet, 0 Refills, Maintenance, 09/14/23 10:53:00 EDT, [facility] #[id number], 158, cm, 04/12/23 11:12:00 EST, Height, 55, kg, 09/14/22 4:47:00 EDT, Dry Weight Start Date: 09/14/23 Status: Ordered Narcan 4 mg/0.1 mL nasal spray = 4 mg, Inhalation, Once, as needed for altered mental status/accidental overdose, # 2 each, 0 Refills, Soft Stop, 09/20/22 10:51:00 EDT, [facility] #[id number], Partial fill upon patient request if the prescription is for a schedule II opioid dr... Start Date: 09/20/22 Status: Ordered nortriptyline 50 mg oral capsule 50 mg, 1, capsule, By Mouth, Daily at bedtime, # 90 capsule, Refills 3, Tot. Refills 3, Maintenance, 10/02/23 15:49:00 EDT, Route to Pharmacy Electronically, [facility] #[id number], Partial fillupon patient request if the prescription is for a s... Start Date: 10/02/23 Stop Date: 09/26/24 Status: Ordered omeprazole 20 mg oral enteric coated capsule 1 capsule = 20 mg, By Mouth, 2 times a day, # 180 capsule, 3 Refills, Maintenance, 04/06/24 11:40:00 EDT, CR Capsule, [facility] #[id number], Partial fill upon patient request if the prescription is for a schedule II opioid drug., 158, cm, ... Start Date: 04/06/24 Stop Date: 04/01/25 Status: Ordered omeprazole 20 mg oral enteric coated capsule 1 capsule = 20 mg, By Mouth, 2 times a day, for 90 days, # 180 capsule, 3 Refills, Hard Stop 04/06/24 11:40:00 EDT, 04/12/23 11:40:00 EST, CR Capsule, [facility] #[id number], Partial fill upon patient request if the [...] Personnel Name: Radha PULLIAM, Portia Dumont Position: [facility] Physician - Primary Care Member Role: PCP Care Team Related Persons Name: BENNIEROSALINDA NATHAN Address: [address] [place] [address]
--- OUTSIDE RECORDS SUMMARY | 2023-11-30 06:14 | XMS_ITS | Continuity of Care Document ---
Author Organization [facility] Address [address] [place] [address]- Care Team Providers Care Bread Dumper Name Role Phone Radha PULLIAM, Portia Dumont Primary Care Physician [facility]): 08/17/23 - 09/16/23 [facility] [address] [place] [address] Allergies, Adverse Reactions, Alerts Substance Reaction Severity Status Bactrim Active Immunizations Given and Recorded Vaccine Date Status Refusal Reason RSV vaccine, preF A-preF B, recombinant 04/01/23 R ecorded SARS-CoV-2(COVID-19)mRNA-LNP vac([id number]) 03/04/23 Recorded influenza virus vaccine, inactivated 02/13/23 [...] influenza virus vaccine, inactivated 04/05/06 Thom rded [id number] bivalent booster vax 04/30/22 Recorded SARS-CoV-2 mRNA (ggsypyo-dqpw-wgftn) vax 08/07/21 Recorded SARS-CoV-2 (COVID-19) mRNA BNT-162b2 [...] Gm, 0 Refills, Maintenance, 12/07/22 10:07:00 EDT, [facility] #[id number], with dose counter. any albuterol inhaler covered [...] tablet, 0 Refills, Maintenance, 12/24/22 16:22:00 EDT, [facility] #[id number], 158, cm, 12/07/22 9:30:00 EDT, Height, 55, [...] 0 Refills, Maintenance, 06/21/23 12:20:00 EST, Tablet, [facility] #[id number], Partial fill upon patient request if the prescription is for a schedule II opioid drug., 158, cm, 1... Start Date: 06/21/23 Status: Ordered clonazePAM 0.5 mg oral tablet See Instructions, TAKE 1 TO 2 TABLETS BY MOUTH EVERY DAY NEEDED FOR ANXIETY, # 56 tablet, 1 Refills, 06/30/23 16:36:00 EST, [facility] #[id number], 158, cm, 04/12/23 11:12:00 EST, Height, 55,kg, 09/14/22 4:47:00 EDT, Dry Weight Start Date: 06/30/23 Status: Ordered FLUoxetine 10 mg oral capsule 1, capsule, By Mouth, Daily, # 90 capsule, Refills 3, Maintenance, 12/23/22 16:02:00 EDT, Route to Pharmacy Electronically, [facility] #[id number], 158, cm, 12/07/22 9:30:00 EDT, Height, 55, kg,09/14/22 4:47:00 EDT, Dry Weight Start Date: 12/23/22 Status: Ordered gabapentin 100 mg oral capsule 200 mg, 2, capsule, By Mouth, Daily at bedtime, for 90 days, # 180 capsule, Refills 3, Tot. Refills3, Hard Stop 01/01/24 9:19:00 EDT, 01/06/23 9:19:00 EDT, Route to Pharmacy Electronically, [facility] #[id number], Partial fill upon patient reque... Start Date: 01/06/23 Stop Date: 01/01/24 Status: Ordered gabapentin 100 mg oral capsule 200 mg, 2, capsule, By Mouth, Daily at bedtime, # 180 capsule, Refills 3, Tot. Refills 3, Maintenance, 01/01/24 9:19:00 EDT, Route to Pharmacy Electronically, [facility] #[id number], Partial fill upon patient request if the prescription is for a... Start Date: 01/01/24 Stop Date: 12/26/24 Status: Ordered LORazepam 1 mg oral tablet 1 tablet = 1 mg, By Mouth, 3 times a day, TAKE 1 TABLET BY MOUTH THREE TIMES DAILY NEEDED FOR ANXIETY, # 90 tablet, 3 Refills, Maintenance, 09/21/22 10:50:00 EDT, [facility] #[id number], 158,cm, 09/20/22 10:01:00 EDT, Height, 55, kg, [...] tablet, 0 Refills, Maintenance, 05/02/23 6:19:00EST, Tablet, [facility] #[id number], Partial fill upon patient request if the prescription is for a schedule II opioid drug., 158, cm, 04/12/23 11... Start Date: 05/02/23 Stop Date: 05/12/23 Status: Ordered morphine 30 mg/8 to 12 hr oral tablet, extended release See Instructions, TAKE 1 TABLET BY MOUTH EVERY 8 HOURS, # 84 tablet, 0 Refills, Maintenance, 09/14/23 10:53:00 EDT, [facility] #[id number], 158, cm, 04/12/23 11:12:00 EST, Height, 55, kg, 09/14/22 4:47:00 EDT, Dry Weight Start Date: 09/14/23 Status: Ordered Narcan 4 mg/0.1 mL nasal spray = 4 mg, Inhalation, Once, as needed for altered mental status/accidental overdose, # 2 each, 0 Refills, Soft Stop, 09/20/22 10:51:00 EDT, [facility] #[id number], Partial fill upon patient request if the prescription is for a schedule II opioid dr... Start Date: 09/20/22 Status: Ordered nortriptyline 50 mg oral capsule 50 mg, 1, capsule, By Mouth, Daily at bedtime, # 90 capsule, Refills 3, Tot. Refills 3, Maintenance, 10/02/23 15:49:00 EDT, Route to Pharmacy Electronically, [facility] #[id number], Partial fillupon patient request if the prescription is for a s... Start Date: 10/02/23 Stop Date: 09/26/24 Status: Ordered nortriptyline 50 mg oral capsule 50 mg, 1, capsule, By Mouth, Daily at bedtime, for 90 days, # 90 capsule, Refills 3, Tot. Refills 3, Hard Stop 10/02/23 15:49:00 EDT, 10/07/22 15:49:00 EDT, Route to Pharmacy Electronically, [facility] #[id number], Partial fill upon patient reque... Start Date: 10/07/22 Stop Date: 10/02/23 Status: Ordered omeprazole 20 mg oral enteric coated capsule 1 capsule = 20 mg, By Mouth, 2 times a day, # 180 capsule, 3 Refills, Maintenance, 04/06/24 11:40:00 EDT, CR Capsule, [facility] #[id number], Partial fill upon patient request if the prescription is for a schedule II opioid drug., 158, cm, ... Start Date: 04/06/24 Stop Date: 04/01/25 Status: Ordered omeprazole 20 mg oral enteric coated capsule 1 capsule = 20 mg, By Mouth, 2 times a day, for 90 days, # 180 capsule, 3 Refills, Hard Stop 04/06/24 11:40:00 EDT, 04/12/23 11:40:00 EST, CR Capsule, [facility] #[id number], Partial fill upon patient request if the [...] Primary Care Member Role: PCP Address: Address: [address] [place] [id number]- Care Team Related Persons Name: NATHAN LING Address: home [address] [place] [address] [place] [address]
--- OUTSIDE RECORDS SUMMARY | 2023-11-30 06:14 | XMS_ITS | Continuity of Care Document ---
Author Organization [facility]i [employer] [facility] Address [address] [place] [address], [address] [place] [address]- Care Team Providers Care Special Needs Librarian Name Role Phone Radha PULLIAM, Portia Dumont Primary Care Physician Yazmin morales Encounter [facility] Date(s): 10/23/23 - 11/22/23 [facility] [employer] [facility] [address] 4th [address] [place], [place] [address] Allergies, Adverse Reactions, Alerts Substance Reaction Severity Status Bactrim Active Immunizations Given and Recorded Vaccine Date Status Refusal Reason RSV vaccine, preF A-preF B, recombinant 04/01/23 R ecorded SARS-CoV-2(COVID-19)mRNA-LNP vac([id number]) 03/04/23 Recorded influenza virus vaccine, inactivated 02/13/23 [...] influenza virus vaccine, inactivated 04/05/06 Thom rded [id number] bivalent booster vax 04/30/22 Recorded SARS-CoV-2 mRNA ([id number]-[id number]-guagv) vax 08/07/21 Recorded SARS-CoV-2 (COVID-19) mRNA BNT-162b2 [...] Gm, 0 Refills, Maintenance, 12/07/22 10:07:00 EDT, [facility] #[id number], with dose counter. any albuterol inhaler covered [...] tablet, 0 Refills, Maintenance, 12/24/22 16:22:00 EDT, [email or web address] #[id number], 158, cm, 12/07/22 9:30:00 EDT, Height, 55, [...] 0 Refills, Maintenance, 06/21/23 12:20:00 EST, Tablet, [facility][id number], Partial fill upon patient request if the prescription is for a schedule II opioid drug., 158, cm, 1... Start Date: 06/21/23 Status: Ordered clonazePAM 0.5 mg oral tablet See Instructions, TAKE 1 TO 2 TABLETS BY MOUTH EVERY DAY NEEDED FOR ANXIETY, # 56 tablet, 1 Refills, 06/30/23 16:36:00 EST, [email or web address] #[id number], 158, cm, 04/12/23 11:12:00 EST, Height, 55,kg, 09/14/22 4:47:00 EDT, Dry Weight Start Date: 06/30/23 Status: Ordered FLUoxetine 10 mg oral capsule 1, capsule, By Mouth, Daily, # 90 capsule, Refills 3, Maintenance, 12/23/22 16:02:00 EDT, Route to Pharmacy Electronically, [email or web address] #[id number], 158, cm, 12/07/22 9:30:00 EDT, Height, 55, kg,09/14/22 4:47:00 EDT, Dry Weight Start Date: 12/23/22 Status: Ordered gabapentin 100 mg oral capsule 200 mg, 2, capsule, By Mouth, Daily at bedtime, for 90 days, # 180 capsule, Refills 3, Tot. Refills3, Hard Stop 01/01/24 9:19:00 EDT, 01/06/23 9:19:00 EDT, Route to Pharmacy Electronically, [email or web address] #[id number], Partial fill upon patient reque... Start Date: 01/06/23 Stop Date: 01/01/24 Status: Ordered gabapentin 100 mg oral capsule 200 mg, 2, capsule, By Mouth, Daily at bedtime, # 180 capsule, Refills 3, Tot. Refills 3, Maintenance, 01/01/24 9:19:00 EDT, Route to Pharmacy Electronically, [email or web address] #[id number], Partial fill upon patient request if the prescription is for a... Start Date: 01/01/24 Stop Date: 12/26/24 Status: Ordered LORazepam 1 mg oral tablet 1 tablet = 1 mg, By Mouth, 3 times a day, TAKE 1 TABLET BY MOUTH THREE TIMES DAILY NEEDED FOR ANXIETY, # 90 tablet, 3 Refills, Maintenance, 09/21/22 10:50:00 EDT, [email or web address] #[id number], 158,cm, 09/20/22 10:01:00 EDT, Height, 55, kg, [...] tablet, 0 Refills, Maintenance, 05/02/23 6:19:00EST, Tablet, [email or web address] #[id number], Partial fill upon patient request if the prescription is for a schedule II opioid drug., 158, cm, 04/12/23 11... Start Date: 05/02/23 Stop Date: 05/12/23 Status: Ordered morphine 30 mg/8 to 12 hr oral tablet, extended release See Instructions, TAKE 1 TABLET BY MOUTH EVERY 8 HOURS, # 84 tablet, 0 Refills, Maintenance, 09/14/23 10:53:00 EDT, [email or web address] #[id number], 158, cm, 04/12/23 11:12:00 EST, Height, 55, kg, 09/14/22 4:47:00 EDT, Dry Weight Start Date: 09/14/23 Status: Ordered Narcan 4 mg/0.1 mL nasal spray = 4 mg, Inhalation, Once, as needed for altered mental status/accidental overdose, # 2 each, 0 Refills, Soft Stop, 09/20/22 10:51:00 EDT, [facility] #[id number], Partial fill upon patient request if the prescription is for a schedule II opioid dr... Start Date: 09/20/22 Status: Ordered nortriptyline 50 mg oral capsule 50 mg, 1, capsule, By Mouth, Daily at bedtime, # 90 capsule, Refills 3, Tot. Refills 3, Maintenance, 10/02/23 15:49:00 EDT, Route to Pharmacy Electronically, [email or web address] #[id number], Partial fillupon patient request if the prescription is for a s... Start Date: 10/02/23 Stop Date: 09/26/24 Status: Ordered omeprazole 20 mg oral enteric coated capsule 1 capsule = 20 mg, By Mouth, 2 times a day, # 180 capsule, 3 Refills, Maintenance, 04/06/24 11:40:00 EDT, CR Capsule, [email or web address] #[id number], Partial fill upon patient request if the prescription is for a schedule II opioid drug., 158, cm, ... Start Date: 04/06/24 Stop Date: 04/01/25 Status: Ordered omeprazole 20 mg oral enteric coated capsule 1 capsule = 20 mg, By Mouth, 2 times a day, for 90 days, # 180 capsule, 3 Refills, Hard Stop 04/06/24 11:40:00 EDT, 04/12/23 11:40:00 EST, CR Capsule, [email or web address] #[id number], Partial fill upon patient request if the [...] Team Personnel Name: Portia Garcia MD Position: S Physician - Primary Care Member Role: PCP Care Team Related Persons Name: NATHAN LING Address: home [address] [place] [address] [place] [address]
== END 2023-11-23 12:03 | disposition home or self-care (01) ==
PROVIDERS: PCP Internal Medicine; Visit Provider Nurse Practitioner Family
DX: M54.2 Cervicalgia (principal)
CPT/HCPCS: 99213

== ENCOUNTER 2023-12-28 08:55 | Outpatient (REF) | payer MEDICARE, SELFPAY ==
[2023-12-28 11:13] LABS: Hematocrit 41.6 % (37.0-47.0); Hemoglobin 13.2 g/dl (12.0-16.0); Mean Corpuscular HGB Conc 31.7 g/dl (31.0-35.0); Mean Corpuscular Hemoglobin 30.3 pg (27.0-33.0); Mean Corpuscular Volume 95.6 fL (80.0-98.0); Mean Platelet Volume 11.1 fL (9.4-12.3); Platelet Count 245 X10*3/uL (160-400); Red Blood Count 4.35 X10*6/uL (4.20-5.50); Red Cell Distribution Width 13.2 % (11.0-16.0)
[2023-12-28 11:29] LABS: WBC ABN SCTR FOR CBC 1; White Blood Count 30.2 X10*3/uL (4.8-10.8)
[2023-12-28 11:46] LABS: Alanine Aminotransferase 15 U/L (0-31); Albumin Level 4.3 g/dL (3.5-5.0); Alkaline Phosphatase 57 U/L (39-117); Anion Gap 12 (12-20); Aspartate Amino Transferase 20 U/L (5-31); Bilirubin Total 0.4 mg/dL (0.0-1.0); Blood Urea Nitrogen 9 mg/dL (9-16); Calcium 9.9 mg/dL (8.4-10.2); Carbon Dioxide 29 mmol/L (22-29); Chloride 104 mmol/L (96-108); Cholesterol 238 mg/dL (<200); Estimated Glomerular Filt Rate > 60; Glucose Random 101 mg/dL (60-115); HDL Cholesterol 69 mg/dL (>40); LDL Cholesterol Calculated 144 mg/dL (<100); Potassium 4.2 mmol/L (3.3-5.1); Sodium 141 mmol/L (135-145); TSH reflex Free T4 1.77 uIU/mL (0.32-4.0); Total Protein 6.4 g/dL (6.5-8.0); Triglycerides 128 mg/dL (<150)
[2023-12-28 11:51] LABS: Band Neutrophils Percent 0 % (3-5); Lymphocytes Absolute Manual 25.1 X10*3/uL (1.2-4.9); Lymphocytes Percent Manual 83 % (20-40); Neutrophils Absolute Manual 5.1 X10*3/uL (2.0-8.3); Neutrophils Percent Manual 17 % (45-73)
[2023-12-28 11:52] LABS: Platelet Estimate NORMAL (NORMAL); Platelet Morphology Comment NORMAL; RBC Morphology NORMAL; Smudge Cells PRESENT
[2024-01-03 17:03] LABS: VITAMIN D (1,25 OH) D3 64 pg/mL; Vit D (1,25-Dihydroxy) Total 64 pg/mL (18-72); Vitamin D (1,25 OH) D2 <8 pg/mL
== END 2023-12-28 08:56 | disposition home or self-care (01) ==
LOC: HO.HMGCLDS 08:55
PROVIDERS: PCP Internal Medicine; Visit Provider Internal Medicine
DX: C91.11 Chronic lymphocytic leukemia of B-cell type in remission (principal); M80.00XD Age-related osteoporosis with current pathological fracture, unspecified site, subsequent encounter for fracture with routine healing; Z13.228 Encounter for screening for other metabolic disorders; Z13.220 Encounter for screening for lipoid disorders
CPT/HCPCS: 36415; 80053; 80061; 82652; 84443; 85007; 85025; 85027

== ENCOUNTER 2024-01-15 15:36 | Outpatient (AMB) | payer MEDICARE, SELFPAY ==
--- NOTE | 2024-01-15 15:17 | MHC.PC.OV ---
Intake Visit Reasons: ES-Follow up for substance Allergies sulfamethoxazole [From Bactrim] Allergy (Mild, Verified 11/23/23 11:19) Hives trimethoprim [From Bactrim] Allergy (Mild, Verified 11/23/23 11:19) Hives Tobacco use date assessed: 10/05/23 Dental Screening Dental Screen Date: 10/05/23 HPI HPI Comments History of Present Illness Details 73 year old female with a past medical history CLL, anxiety, tachycardia presenting for follow up. Telehealth today Heme/Onc: Follows at [facility], Dr Dubois. On Brukinsa Chronic pain: Bony metastates, ddd spine. On morphine ER TID, gabapentin, methocarbamal. Doing well with pain control. BH: Anxiety. On prozac, clonazepam, pamelor. Lots of stress. 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 Leukemia Vertebrogenic low back pain Lumbar spinal stenosis Family History (Updated 10/05/23 @ 10:50 by Janet De La Vega CMA) Mother Anxiety Brother Anxiety Sister Anxiety Maternal Grandmother Breast cancer Other FH: mental illness Social History (Updated 10/05/23 @ 10:52 by Janet De La Vega CMA) Household Members: Spouse Housing: House Alcohol intake: never Patient Tobacco Use Status: Former Tobacco user Years Smoked: 10, Quit 42 years ago e-Cigarette/Vaping Use: Never Used Second Hand Smoke Exposure: Yes (past ) service: No Current occupational status: retired 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 Dane Wong, Joana Bradford, Darin Reese and colleagues, with an educational key from [employer]. Physical exam (Primary Care) Tobacco/Smoking Status: Tobacco use Status Tobacco use date assessed 10/05/23 01/15/24 15:18 Patient Tobacco Use Status Former Tobacco user 01/15/24 15:18 e-Cigarette/Vaping Use Never Used 01/15/24 15:18 Thrive Assessment: Date of Thrive Assessment Date Thrive assessed 10/05/23 01/15/24 15:18 Telehealth Telehealth Telehealth Platform: Telephone Location of provider rendering services: practice address Location of patient: address on file Patient Identification confirmed using: Name, : Yes Telehealth method: voice only Patient verbally consented to treatment: Yes Patient verbally consented to billing insurance company: Yes Patient informed of any privacy concerns related to visit: Yes Minutes spent on Phone/Video with Pt.: 25 Assessment and Plan Assessment & Plan Medications: New fluoxetine 20 mg PO DAILY 30 caps 0RF 30 days Discontinued nortriptyline Discontinued Reason: Doctor's Order Take 4 tab oral once nightly for one week then take 3 cap oral nightly for 1 week then take 2 cap oral nightly for one week then take 1 cap oral nightly for one week then stop orally bedtime; 70 caps 0RF Coding Level of Care Code Tele Est Pt Level 3 (65541)
--- OUTSIDE RECORDS SUMMARY | 2024-01-15 15:38 | XMS_ITS | Continuity of Care Document ---
Author Organization [facility] Address [address] [place] [address]- Care Team Providers Care Flight Kitchen Manager Name Role Phone Radha PULLIAM, Portia Dumont Primary Care Physician Yazmin morales Encounter [facility] [place] Date(s): 11/13/23 - 12/13/23 [facility] [address] [place] [address]- Allergies, Adverse Reactions, Alerts Substance Reaction Severity Status Bactrim Active Immunizations Given and Recorded Vaccine Date Status Refusal Reason RSV vaccine, preF A-preF B, recombinant 04/01/23 R ecorded SARS-CoV-2(COVID-19)mRNA-LNP vac([id number]) 03/04/23 Recorded influenza virus vaccine, inactivated 02/13/23 [...] influenza virus vaccine, inactivated 04/05/06 Thom rded [id number] bivalent booster vax 04/30/22 Recorded SARS-CoV-2 mRNA (lzlmziz-ppqf-jgpuc) vax 08/07/21 Recorded SARS-CoV-2 (COVID-19) mRNA BNT-162b2 [...] Gm, 0 Refills, Maintenance, 12/07/22 10:07:00 EDT, [facility] #[id number], with dose counter. any albuterol inhaler covered [...] tablet, 0 Refills, Maintenance, 12/24/22 16:22:00 EDT, [facility] #[id number], 158, cm, 12/07/22 9:30:00 EDT, Height, 55, [...] 0 Refills, Maintenance, 06/21/23 12:20:00 EST, Tablet, [email or web address] #[id number], Partial fill upon patient request if the prescription is for a schedule II opioid drug., 158, cm, 1... Start Date: 06/21/23 Status: Ordered clonazePAM 0.5 mg oral tablet See Instructions, TAKE 1 TO 2 TABLETS BY MOUTH EVERY DAY NEEDED FOR ANXIETY, # 56 tablet, 1 Refills, 06/30/23 16:36:00 EST, [email or web address] #[id number], 158, cm, 04/12/23 11:12:00 EST, Height, 55,kg, 09/14/22 4:47:00 EDT, Dry Weight Start Date: 06/30/23 Status: Ordered FLUoxetine 10 mg oral capsule 1, capsule, By Mouth, Daily, # 90 capsule, Refills 3, Maintenance, 12/23/22 16:02:00 EDT, Route to Pharmacy Electronically, [email or web address] #[id number], 158, cm, 12/07/22 9:30:00 EDT, Height, 55, kg,09/14/22 4:47:00 EDT, Dry Weight Start Date: 12/23/22 Status: Ordered gabapentin 100 mg oral capsule 200 mg, 2, capsule, By Mouth, Daily at bedtime, for 90 days, # 180 capsule, Refills 3, Tot. Refills3, Hard Stop 01/01/24 9:19:00 EDT, 01/06/23 9:19:00 EDT, Route to Pharmacy Electronically, [email or web address] #[id number], Partial fill upon patient reque... Start Date: 01/06/23 Stop Date: 01/01/24 Status: Ordered gabapentin 100 mg oral capsule 200 mg, 2, capsule, By Mouth, Daily at bedtime, # 180 capsule, Refills 3, Tot. Refills 3, Maintenance, 01/01/24 9:19:00 EDT, Route to Pharmacy Electronically, [email or web address] #[id number], Partial fill upon patient request if the prescription is for a... Start Date: 01/01/24 Stop Date: 12/26/24 Status: Ordered LORazepam 1 mg oral tablet 1 tablet = 1 mg, By Mouth, 3 times a day, TAKE 1 TABLET BY MOUTH THREE TIMES DAILY NEEDED FOR ANXIETY, # 90 tablet, 3 Refills, Maintenance, 09/21/22 10:50:00 EDT, [email or web address] #[id number], 158,cm, 09/20/22 10:01:00 EDT, Height, 55, kg, [...] tablet, 0 Refills, Maintenance, 05/02/23 6:19:00EST, Tablet, [email or web address] #[id number], Partial fill upon patient request if the prescription is for a schedule II opioid drug., 158, cm, 04/12/23 11... Start Date: 05/02/23 Stop Date: 05/12/23 Status: Ordered morphine 30 mg/8 to 12 hr oral tablet, extended release See Instructions, TAKE 1 TABLET BY MOUTH EVERY 8 HOURS, # 84 tablet, 0 Refills, Maintenance, 09/14/23 10:53:00 EDT, [email or web address] #[id number], 158, cm, 04/12/23 11:12:00 EST, Height, 55, kg, 09/14/22 4:47:00 EDT, Dry Weight Start Date: 09/14/23 Status: Ordered Narcan 4 mg/0.1 mL nasal spray = 4 mg, Inhalation, Once, as needed for altered mental status/accidental overdose, # 2 each, 0 Refills, Soft Stop, 09/20/22 10:51:00 EDT, [email or web address] #[id number], Partial fill upon patient request if the prescription is for a schedule II opioid dr... Start Date: 09/20/22 Status: Ordered nortriptyline 50 mg oral capsule 50 mg, 1, capsule, By Mouth, Daily at bedtime, # 90 capsule, Refills 3, Tot. Refills 3, Maintenance, 10/02/23 15:49:00 EDT, Route to Pharmacy Electronically, [email or web address] #[id number], Partial fillupon patient request if the prescription is for a s... Start Date: 10/02/23 Stop Date: 09/26/24 Status: Ordered omeprazole 20 mg oral enteric coated capsule 1 capsule = 20 mg, By Mouth, 2 times a day, # 180 capsule, 3 Refills, Maintenance, 04/06/24 11:40:00 EDT, CR Capsule, [email or web address] #[id number], Partial fill upon patient request if the prescription is for a schedule II opioid drug., 158, cm, ... Start Date: 04/06/24 Stop Date: 04/01/25 Status: Ordered omeprazole 20 mg oral enteric coated capsule 1 capsule = 20 mg, By Mouth, 2 times a day, for 90 days, # 180 capsule, 3 Refills, Hard Stop 04/06/24 11:40:00 EDT, 04/12/23 11:40:00 EST, CR Capsule, [email or web address] #[id number], Partial fill upon patient request if the [...] Team Related Persons Name: NATHAN LING Address: [address] [place] [address]
--- OUTSIDE RECORDS SUMMARY | 2024-01-15 15:38 | XMS_ITS | Continuity of Care Document ---
Author Organization [facility] Address [address] [place] [address]- Care Team Providers Care Full Fashioned Garment Knitter Name Role Phone Radha PULLIAM, Portia Dumont Primary Care Physician Yazmin morales Encounter [facility] Date(s): 10/24/23 - 11/23/23 [facility] [address] [place] [address]- Attending Physician: Les Parra Admitting Physician: AdmtrLes Referring Physician: AdmtrLes Allergies, Adverse Reactions, Alerts Substance Reaction Severity Status Bactrim Active Immunizations Given and Recorded Vaccine Date Status Refusal Reason RSV vaccine, preF A-preF B, recombinant 04/01/23 R ecorded SARS-CoV-2(COVID-19)mRNA-LNP vac([id number]) 03/04/23 Recorded influenza virus vaccine, inactivated 02/13/23 [...] influenza virus vaccine, inactivated 04/05/06 Thom rded [id number] bivalent booster vax 04/30/22 Recorded SARS-CoV-2 mRNA (rdbxdrb-ajec-eevup) vax 08/07/21 Recorded SARS-CoV-2 (COVID-19) mRNA BNT-162b2 [...] Gm, 0 Refills, Maintenance, 12/07/22 10:07:00 EDT, [facility] #[id number], with dose counter. any albuterol inhaler covered [...] tablet, 0 Refills, Maintenance, 12/24/22 16:22:00 EDT, [facility] #[id number], 158, cm, 12/07/22 9:30:00 EDT, Height, 55, [...] 0 Refills, Maintenance, 06/21/23 12:20:00 EST, Tablet, [email or web address] #[id number], Partial fill upon patient request if the prescription is for a schedule II opioid drug., 158, cm, 1... Start Date: 06/21/23 Status: Ordered clonazePAM 0.5 mg oral tablet See Instructions, TAKE 1 TO 2 TABLETS BY MOUTH EVERY DAY NEEDED FOR ANXIETY, # 56 tablet, 1 Refills, 06/30/23 16:36:00 EST, [email or web address] #[id number], 158, cm, 04/12/23 11:12:00 EST, Height, 55,kg, 09/14/22 4:47:00 EDT, Dry Weight Start Date: 06/30/23 Status: Ordered FLUoxetine 10 mg oral capsule 1, capsule, By Mouth, Daily, # 90 capsule, Refills 3, Maintenance, 12/23/22 16:02:00 EDT, Route to Pharmacy Electronically, [facility] #[id number], 158, cm, 12/07/22 9:30:00 EDT, Height, 55, kg,09/14/22 4:47:00 EDT, Dry Weight Start Date: 12/23/22 Status: Ordered gabapentin 100 mg oral capsule 200 mg, 2, capsule, By Mouth, Daily at bedtime, for 90 days, # 180 capsule, Refills 3, Tot. Refills3, Hard Stop 01/01/24 9:19:00 EDT, 01/06/23 9:19:00 EDT, Route to Pharmacy Electronically, [facility] #[id number], Partial fill upon patient reque... Start Date: 01/06/23 Stop Date: 01/01/24 Status: Ordered gabapentin 100 mg oral capsule 200 mg, 2, capsule, By Mouth, Daily at bedtime, # 180 capsule, Refills 3, Tot. Refills 3, Maintenance, 01/01/24 9:19:00 EDT, Route to Pharmacy Electronically, [facility] #[id number], Partial fill upon patient request if the prescription is for a... Start Date: 01/01/24 Stop Date: 12/26/24 Status: Ordered LORazepam 1 mg oral tablet 1 tablet = 1 mg, By Mouth, 3 times a day, TAKE 1 TABLET BY MOUTH THREE TIMES DAILY NEEDED FOR ANXIETY, # 90 tablet, 3 Refills, Maintenance, 09/21/22 10:50:00 EDT, [facility] #[id number], 158,cm, 09/20/22 10:01:00 EDT, Height, 55, kg, [...] tablet, 0 Refills, Maintenance, 05/02/23 6:19:00EST, Tablet, [facility] #[id number], Partial fill upon patient request if the prescription is for a schedule II opioid drug., 158, cm, 04/12/23 11... Start Date: 05/02/23 Stop Date: 05/12/23 Status: Ordered morphine 30 mg/8 to 12 hr oral tablet, extended release See Instructions, TAKE 1 TABLET BY MOUTH EVERY 8 HOURS, # 84 tablet, 0 Refills, Maintenance, 09/14/23 10:53:00 EDT, [facility] #[id number], 158, cm, 04/12/23 11:12:00 EST, Height, 55, kg, 09/14/22 4:47:00 EDT, Dry Weight Start Date: 09/14/23 Status: Ordered Narcan 4 mg/0.1 mL nasal spray = 4 mg, Inhalation, Once, as needed for altered mental status/accidental overdose, # 2 each, 0 Refills, Soft Stop, 09/20/22 10:51:00 EDT, [facility] #[id number], Partial fill upon patient request if the prescription is for a schedule II opioid dr... Start Date: 09/20/22 Status: Ordered nortriptyline 50 mg oral capsule 50 mg, 1, capsule, By Mouth, Daily at bedtime, # 90 capsule, Refills 3, Tot. Refills 3, Maintenance, 10/02/23 15:49:00 EDT, Route to Pharmacy Electronically, [facility] #[id number], Partial fillupon patient request if the prescription is for a s... Start Date: 10/02/23 Stop Date: 09/26/24 Status: Ordered omeprazole 20 mg oral enteric coated capsule 1 capsule = 20 mg, By Mouth, 2 times a day, # 180 capsule, 3 Refills, Maintenance, 04/06/24 11:40:00 EDT, CR Capsule, [facility] #[id number], Partial fill upon patient request if the prescription is for a schedule II opioid drug., 158, cm, ... Start Date: 04/06/24 Stop Date: 04/01/25 Status: Ordered omeprazole 20 mg oral enteric coated capsule 1 capsule = 20 mg, By Mouth, 2 times a day, for 90 days, # 180 capsule, 3 Refills, Hard Stop 04/06/24 11:40:00 EDT, 04/12/23 11:40:00 EST, CR Capsule, [facility] #[id number], Partial fill upon patient request if the [...] Related Persons Name: NATHAN LING Address: home [address] [place] [address] [place] [address]
== END 2024-01-15 15:37 | disposition home or self-care (01) ==
LOC: HO.HMGFM 15:37
PROVIDERS: PCP Internal Medicine; Visit Provider Internal Medicine
DX: C95.90 Leukemia, unspecified not having achieved remission (principal); M51.36 Other intervertebral disc degeneration, lumbar region
CPT/HCPCS: 99443

== ENCOUNTER 2024-04-22 11:11 | Outpatient (AMB) | payer MEDICARE, SELFPAY ==
--- NOTE | 2024-04-22 11:26 | A.OFFPC_ITS ---
Vital Signs 04/22/24 11:33 Height 5 ft 2 in Weight 129 lb 4 oz BMI 23.6 BP 102/62 Blood Pressure Location Lt brachial Position Sitting Pulse 94 Pulse Source Pulse Oximeter Pulse Oximetry (%) 99 Oxygen Delivery Method Room Air Intake Visit Reasons: Rsch for 04/23 -- 3M F/U Intake Note: Three month follow up. Requesting medication for methocarbomal, and refill on clonazepam. Allergies sulfamethoxazole [From Bactrim] Allergy (Mild, Verified 04/22/24 11:28) Hives trimethoprim [From Bactrim] Allergy (Mild, Verified 04/22/24 11:28) Hives Tobacco use date assessed: 10/05/23 Dental Screening Dental Screen Date: 10/05/23 HPI HPI Comments History of Present Illness Details 73 year old female with a past medical h istory CLL, anxiety, tachycardia presenting for follow up. Heme/Onc: Follows at [facility], Dr Dubois. On Brukinsa. White count is stable. She is feeling well Chronic pain: Bony metastates, ddd spine. On morphine ER TID, gabapentin, methocarbamal. Doing well with pain control. BH: Anxiety. On prozac, clonazepam, pamelor. Lots of stress. Decreased prozac back to 10mg daily. ROS CONSTITUTIONAL: Denies weight loss, fever and chills. HEENT: Denies changes in vision and hearing. RESPIRATORY: Denies SOB and cough. CV: Denies palpitations and CP GI: Denies abdominal pain, nausea, vomiting and diarrhea. : Denies dysuria and urinary frequency. MSK: Denies new myalgia and joint pain. SKIN: Denies rash and pruritus. NEUROLOGICAL: Denies headache PSYCHIATRIC: Denies recent changes in mood. PHYSICAL EXAM: GENERAL: Alert and oriented x 3. NAD EYES: EOMI. Anicteric. HENT: Moist mucous membranes. No scleral icterus. No cervical lymphadenopathy. LUNGS: Clear to auscultation bilaterally. CARDIOVASCULAR: Regular rate and rhythm. No murmur. No JVD. ABDOMEN: Soft, non-tender +bs EXTREMITIES: No edema. Non-tender. SKIN: No rashes or lesions. Warm. NEUROLOGIC: No focal neurological deficits. CN II-XII grossly intact PSYCHIATRIC: Cooperative. 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 Leukemia Vertebrogenic low back pain Lumbar spinal stenosis Family History Mother Anxiety Brother Anxiety Sister Anxiety Maternal Grandmother Breast cancer Other FH: mental illness Social History (Updated 04/22/24 @ 11:44 by Janet De La Vega CMA) Household Members: Spouse Housing: House Alcohol intake: never Patient Tobacco Use Status: Former Tobacco user Years Smoked: 10, Quit 42 years ago e-Cigarette/Vaping Use: Never Used Second Hand Smoke Exposure: Yes (past ) service: No Current occupational status: retired 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 1. Little interest or pleasure in doing things: not at all 2. Feeling down, depressed, or hopeless: not at all 3. Trouble falling or staying asleep, or sleeping too much: not at all 4. Feeling tired or having little energy: not at all 5. Poor appetite or overeating: not at all 6. Feeling bad about yourself - or that you are a failure or have let yourself or your family down: not at all 7. Trouble concentrating on things, such as reading the newspaper or watching television: not at all 8. Moving or speaking so slowly that other people could have noticed. Or the opposite - being so fidgety or restless that you have been moving around a lot more than usual: not at all 9. Thoughts that you would be better off or of hurting yourself in some way: not at all Total score: 0 Depression Screening Interpretation: Negative (neg) Depression Screening Done: Yes 38936 - PHQ-9 Billing: Yes Source: Developed by Drs. Dane Wong, Joana Bradford, Darin Reese and colleagues, with an educational key from [employer]. Thrive Questionnaire Date Thrive assessed: 04/22/24 I am a: Patient What is your living situation today?: I have a steady place to live Within the past 12 months, did the food you bought not last and you didn't have the money to get more?: Never true Within the past 12 months, did you worry whether your food would run out before you got money to buy more?: Never true Do you have trouble paying for medicines?: No Do you have trouble getting transportation to medical appointments?: No Do you have trouble paying your heating and electricity bill?: No Do you have trouble taking care of your child, family member or friend?: No Do you have trouble with day-to-day activities such as bathing, preparing meals, shopping, managing finances, etc.?: No Are you currently unemployed and looking for a job?: No Are you interested in more education?: No Please select the resources that you would like help with: None Currently or been in a relationship where the following occur: No concerns reported THRIVE Score: 0 AUDIT C Alcohol Use Questionnaire (AUDIT-C) 1. How often do you have a drink containing alcohol?: Never 3. How often do you have six or more drinks on one occasion?: Never Total Score: 0 CHARLOTTE-7 AMB Questionnaire CHARLOTTE-7 Date CHARLOTTE - 7 assessed: 10/05/23 Feeling nervous, anxious, or on edge: 1 = Several days Not being able to stop or control worryin = Not at all Worrying too much about different things: 0 = Not at all Trouble relaxin = Not at all Being so restless that it is hard to sit still: 0 = Not at all Becoming easily annoyed or irritable: 0 = Not at all Feeling afraid as if something awful might happen: 0 = Not at all Total CHARLOTTE-7 score (0-4 normal; 5-9 mild; 10-14 moderate; 15-21 severe): 1 Source: Developed by Drs. Dane Wong, Joana Bradford, Darin Reese and colleagues, with an educational key from [employer]. Physical exam (Primary Care) Vital Signs: Last Vital Signs Pulse 94 04/22/24 11:33 BP 102/62 04/22/24 11:33 Pulse Ox 99 04/22/24 11:33 Oxygen Delivery Method Room Air 04/22/24 11:33 BMI result Body Mass Index 23.6 Tobacco/Smoking Status: Tobacco use Status Tobacco use date assessed 10/05/23 04/22/24 11:31 Patient Tobacco Use Status Former Tobacco user 04/22/24 11:44 e-Cigarette/Vaping Use Never Used 04/22/24 11:44 PHQ-9: PHQ-9 Score PHQ-9: Total score 0 04/22/24 12:07 Depression Screening Interpretation: Negative (neg) Thrive Assessment: Date of Thrive Assessment Date Thrive assessed 04/22/24 04/22/24 11:44 Currently or been in a relationship where the following occur: No concerns reported Coding Level of Care Code Est Pt Level 4 (32363) Diagnoses CLL (chronic lymphocytic leukemia) C91.10 Acute bilateral low back pain, unspecified whether sciatica present M54.50 Sciatica presence: unspecified whether sciatica present Anxiety F41.9 Additional Codes PHQ-9 - 28501 - PHQ-9 Billing: Yes ([id number]) Assessment & Plan Assessment & Plan (1) CLL (chronic lymphocytic leukemia): Code(s): C91.10 - Chronic lymphocytic leukemia of B-cell type not having achieved remission Category: Medical Plan: stable. continue follow up heme/onc (2) Acute bilateral low back pain: Code(s): M54.50 - Low back pain, unspecified Category: Medical Qualifiers: Sciatica presence: unspecified whether sciatica present Qualified Code(s): M54.50 - Low back pain, unspecified Plan: stable on current medications (3) Anxiety: Code(s): F41.9 - Anxiety disorder, unspecified Category: Medical Plan: Stable on current medications Medications: New methocarbamol 1,000 mg (2 x 500 mg) PO Q8H PRN 100 tabs 3RF pain Refilled clonazepam 0.5 mg PO BID PRN 60 tabs 0RF anxiety 30 days
[2024-04-22 11:33] VITALS: BP 102/62; PULSE 94; O2SAT 99; BMI 23.6
== END 2024-04-22 11:56 | disposition home or self-care (01) ==
PROVIDERS: PCP Internal Medicine; Visit Provider Internal Medicine
DX: C91.10 Chronic lymphocytic leukemia of B-cell type not having achieved remission (principal); M54.50 Low back pain, unspecified; F41.9 Anxiety disorder, unspecified

== ENCOUNTER → 2024-04-22 11:11 | Outpatient (BNVA) | payer MEDICARE, SELFPAY | PROVIDERS: PCP Internal Medicine; Visit Provider Internal Medicine | DX: C91.10 Chronic lymphocytic leukemia of B-cell type not having achieved remission (principal); M54.50 Low back pain, unspecified; F41.9 Anxiety disorder, unspecified; Z79.891 Long term (current) use of opiate analgesic; Z79.899 Other long term (current) drug therapy | CPT/HCPCS: 96127; 99212 ==

== ENCOUNTER 2024-07-23 16:35 | Outpatient (AMB) | payer MEDICARE, SELFPAY ==
--- NOTE | 2024-07-23 14:43 | MHC.PC.OV ---
Intake Visit Reasons: phone f/up Allergies sulfamethoxazole [From Bactrim] Allergy (Mild, Verified 07/23/24 16:33) Hives trimethoprim [From Bactrim] Allergy (Mild, Verified 07/23/24 16:33) Hives Tobacco use date assessed: 10/05/23 Dental Screening Dental Screen Date: 10/05/23 HPI HPI Comments History of Present Illness Details 73 year old female with a past medical history CLL, anxiety, tachycardia presenting for follow up. Heme/Onc: Follows at [facility], Dr Dubois. On Brukinsa. White count is stable. She is feeling well Chronic pain: Bony metastates, ddd spine. On morphine ER TID, gabapentin, methocarbamal. Doing well with pain control. BH: Anxiety. On prozac, clonazepam, pamelor. Lots of stress. Decreased prozac back to 10mg daily. ROS CONSTITUTIONAL: Denies weight loss, fever and chills. HEENT: Denies changes in vision and hearing. RESPIRATORY: Denies SOB and cough. CV: Denies palpitations and CP GI: Denies abdominal pain, nausea, vomiting and diarrhea. : Denies dysuria and urinary frequency. MSK: Denies new myalgia and joint pain. SKIN: Denies rash and pruritus. NEUROLOGICAL: Denies headache PSYCHIATRIC: Denies recent changes in mood. 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 Leukemia Vertebrogenic low back pain Lumbar spinal stenosis Family History Mother Anxiety Brother Anxiety Sister Anxiety Maternal Grandmother Breast cancer Other FH: mental illness Social History (Updated 04/22/24 @ 11:44 by Janet De La Vega CMA) Household Members: Spouse Housing: House Alcohol intake: never Patient Tobacco Use Status: Former Tobacco user Years Smoked: 10, Quit 42 years ago e-Cigarette/Vaping Use: Never Used Second Hand Smoke Exposure: Yes (past ) service: No Current occupational status: retired 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 Dane Wong, Joana Bradford, Darin Reese and colleagues, with an educational key from [employer]. Physical exam (Primary Care) Tobacco/Smoking Status: Tobacco use Status Tobacco use date assessed 10/05/23 07/23/24 14:43 Patient Tobacco Use Status Former Tobacco user 07/23/24 14:43 e-Cigarette/Vaping Use Never Used 07/23/24 14:43 Thrive Assessment: Date of Thrive Assessment Date Thrive assessed 04/22/24 07/23/24 14:43 Telehealth Telehealth Telehealth Platform: OneTouch Location of provider rendering services: practice address Location of patient: address on file Patient Identification confirmed using: Name, : Yes Telehealth method: voice only Patient verbally consented to treatment: Yes Patient verbally consented to billing insurance company: Yes Patient informed of any privacy concerns related to visit: Yes Minutes spent on Phone/Video with Pt.: 32 Coding Level of Care Code Tele Est Pt Level 4 (81895) Diagnoses CLL (chronic lymphocytic leukemia) C91.10 Chronic bilateral low back pain without sciatica M54.50; G89.29 Back pain laterality: bilateral Sciatica presence: without sciatica Assessment & Plan Assessment & Plan (1) CLL (chronic lymphocytic leukemia): Code(s): C91.10 - Chronic lymphocytic leukemia of B-cell type not having achieved remission Category: Medical Plan: stable. continue follow up with heme/onc (2) Chronic low back pain: Code(s): M54.50 - Low back pain, unspecified; G89.29 - Other chronic pain Category: Medical Qualifiers: Back pain laterality: bilateral Sciatica presence: without sciatica Qualified Code(s): M54.50 - Low back pain, unspecified; G89.29 - Other chronic pain Plan: She is well controlled on current medication regimen. No evidence of misuse Medications: Changed From gabapentin 200 mg PO BEDTIME To gabapentin 200 mg (2 x 100 mg) PO BEDTIME 180 caps 3RF 90 days From methocarbamol 1,000 mg (2 x 500 mg) PO Q8H PRN 100 tabs 3RF pain To methocarbamol May pay out of pocket if not covered by insurance Partial fill upon patient request 1,000 mg (2 x 500 mg) PO Q8H PRN 100 tabs 3RF pain
--- OUTSIDE RECORDS SUMMARY | 2024-07-23 16:45 | XMS_ITS ---
Author Organization [facility] Address [address] [place] [address] Care Team Providers Care Management Technician Name Role Phone Portia Garcia MD Primary Care Provider [phone] Active Problems Problem Noted Date Diagnosed Date Hypokalemia 03/06/2023 Age-related osteoporosis wit hout current pathological fracture 11/03/2022 SIRS (systemic inflammatory response syndrome) 0 01/19/2022 Acquired hemolytic anemia 12/03/2021 Dyspnea 12/03/2021 Weight loss 03/03/2021 Chronic right-sided low back pain with right-jason ed sciatica 06/17/2019 Anxiety 06/15/2018 CLL (chronic lymphocytic leukemia) 12/01/2017 Asymptomatic microscopic hematuria 12/01/2017 Diverticulitis 12/01/2017 Other insomnia 12/01/2017 Gastroesophageal reflux disease without esophagi tis 12/01/2017 [facility]PROLIA[facility] Plan Start Date:11/04/2022 Plan Provider:Liz Portillo MD Linked Problems CLL (chronic lymphocytic kristi kemia) ([facility])Age-related osteoporosis without current pathological fracture Treatment Medications denosumab (PROLIA) Past Plans ONCOLOGY INFUSION THERAPY Plan Name Start Date Discontinue Date Treatment Medications Discontinue Reason Plan Provider [facility] OP EVUSHELD (TIXAGEVIMAB AND CILGAVIMAB INJECTIONS) & [facility] BCN DENOSUMAB 60MG (PROLIA) 12/24/2021 06/30/2022 albuterol (PROVENTIL)denos umab (PROLIA)diphenhy drAMINE (BENADRYL)EPINEP Hrinefamotidine (PF) (PEPCID)hydrocor tisone (SOLU-CORTEF) IVmeperidine (DEMEROL) 25 MG/MLsodium chloride 0.9% bolus (NS)tixagevimab & cilgavimab (EVUSHELD) Therapy Complete Liz Portillo MD ONCOLOGY TREATMENT Plan Name Start Date Discontinue Date Treatment Medications Discontinue Reason Plan Provider [facility] RITUX[facility] (IV/SC) WEEKLY X4 2 06/30/2022 acetaminophen (TYLENOL)albuter ol (PROVENTIL)dexam ethasone (DECADRON)diphen hydrAMINE (BENADRYL)EPINEP Hrinefamotidine (PF) (PEPCID)hydrocor tisone (SOLU-CORTEF) IVmeperidine (DEMEROL) 25 MG/MLrituximab infusionriTUXima b-pvvr (RUXIENCE) infusion (Outpatient record)Saline Flush 0.9 %sodium chloride (NS) 0.9 %sodium chloride 0.9% bolus (NS) Therapy Complete Liz Portillo MD 1 of 1 cycle started Radiation Treatments * No radiation treatments are documented for this patient in [facility]. Treatments may have been administered in another system.
--- OUTSIDE RECORDS SUMMARY | 2024-07-23 16:45 | XMS_ITS | Encounter Summary ---
Author Organization [facility] Address [address] [place] [address] Care Team Providers Care Pesticide Control Inspector Name Role Phone Portia Garcia MD Primary Care Provider [phone] Encounter Details Date Type Department Care Team (Late st Contact Info) Description 01/24/2024 2:45 PM EDT Hospital Encounter TH HISTORIC ENCOUNTERS EASTERN CONVERSION ONLY Liz Alvarez MD [address] [place] [phone] Social History Tobacco Use Types Packs/Day Years Used Date Smoking Tobacco: Former Cigarettes Alcohol Use Standard Drinks/Week Comments Not Currently 0 (1 standard drink = 0.6 oz pur e alcohol) Comments Unknown Sex and Gender Information Value Date Recorded Sex Assigned at Not on file Legal Sex Female 2:45 AM EST Gender Identity Not on file Sexual Orientation Not on file documented as of this encounter Plan of Treatment Upcoming Encounters Date Type Department Care Team (Late st Contact Info) Description 08/27/2024 9:00 AM EDT Office Visit [facility] Hematology Oncology [address] [place] [phone] Liz Alvarez MD [address] [place] [phone] 01/06/2025 11:30 AM EDT Appointment [facility] Infusion Center [address] [place] [phone] documented as of this encounter Visit Diagnoses Not on filedocumented in this encounter Care Teams Pesticide Control Inspector Relationship Specialty Start Date End Date Portia Garcia MD [address] [place] [id number] PCP - General Internal Medicine 01/07/21 documented as of this encounter
--- OUTSIDE RECORDS SUMMARY | 2024-07-23 16:45 | XMS_ITS | Clinical Summary ---
Author Organization [facility] Address [address] [place] [address] Care Team Providers Care Sales Advisor Name Role Phone Portia Garcia MD Primary Care Provider [phone] Allergies Active Allergy Reactions Criticality Noted Date Comments Sulfamethoxazole-Trimethoprim Hives Medium 2017 Medications Medication Sig Dispensed Refills Start Date End Date Status omeprazole (PRILOSEC) 20 MG capsule Take 1 capsule (20 mg total) by mouth daily. 0 Active CRANBERRY PO Take 1 tablet by mouth daily. 0 Active Probiotic Product (PROBIOTIC DAILY PO) Take 1 tablet by mouth daily. 0 Active Calcium Citrate-Vitamin D (CALCIUM + D PO) Take 1 tablet by mouth daily. 0 Active FLUoxetine (PROzac) 10 MG capsule Take 1 capsule (10 mg total) by mouth daily. 0 Active nortriptyline (PAMELOR) 10 MG capsule Take 5 capsules (50 mg total) by mouth every night at bedtime. 0 Active gabapentin (NEURONTIN) 100 MG capsule Take 1 capsule (100 mg total) by mouth daily. 2 tablets at bedtime 0 Active Morphine Sulfate ER (MS CONTIN) 15 MG TBCR Take 1 tablet (15 mg total) by mouth every 12 (twelve) hours. 0 Active clobetasol (TEMOVATE) 0.05 % cream Apply topically 2 (two) times a day. 30 g 1 02/02/2023 Active Benadryl xjbr-Sweoso-Fcycbquj -Lidocaine Visc mouth wash 1:1:1:1 Swish and spit 5 mL every 4 (four) hours as needed for mucositis. 240 mL 1 10/23/2023 Active Aspirin 81 MG CAPS Take 81 mg by mouth. 0 04/12/2023 Active Zanubrutinib 80 MG CAPSIndications:Inflated Pad Buffer neel Lymphocytic Leukemia Take TWO Capsules in the AM then ONE Capsule in the PM. 90 capsule 5 11/28/2023 Active Active Problems Problem Noted Date Diagnosed Date [...] Gastroesophageal reflux disease without esophagi tis 12/01/2017 Social History Tobacco Use Types Packs/Day Years Used Date Smoking Tobacco: Never Assessed Sex and Gender Information Value Date Recorded Sex Assigned at Female 12/30/2022 3:27 PM EDT Gender Identity Not on file Sexual Orientation Not on file Job Start Date Occupation Industry Not on file Not on file Not on file Last Filed Vital Signs Vital Sign Reading Time Taken Comments Blood Pressure 136/74 01/24/2024 2:38 PM EDT Pulse 95 01/24/2024 2:38 PM EDT Temperature 36.4 ??C (97.5 ??F) 01/24/2024 2:38 PM ED T Respiratory Rate 16 01/01/2024 10:04 AM EDT Oxygen Saturation 100% 01/24/2024 2:38 PM EDT Inhaled Oxygen Concentration - - Weight 57.2 kg (126 lb) 01/24/2024 2:38 PM EDT Height 157.5 cm (5' 2 ) 01/24/2024 2:38 PM EDT Body Mass Index 23.05 01/24/2024 2:38 PM EDT Plan of Treatment Health Maintenance Due Date Last Done Comments Hepatitis C Screening 1950 Depression Screening 1961 Preventative Health Evaluation 09/10/1967 Colon Cancer Screening (Colonoscopy) 1994 Breast Cancer Screening (Mammogram) 09/10/1999 Fall Risk Assessment 2014 Osteoporosis Screening (DEXA Scan) 2014 DTap / Tdap / Td (2 - Td or Tdap) 06/25/2020 06/25/2010, 07/06/2001, 07/06/2001 COVID-19 Vaccine ( season) 2024 03/04/2023, 08/07/2021, 01/17/2021, Additional history exists Influenza Vaccine (#1) 2024 3, 02/09/2021, 01/19/2020, Additional history exists Shingrix-Zoster Vaccine Completed 05/17/2018, 02/28 Pneumococcal Vaccine Completed 03/21/2019, 09/18/19 15 RSV Adult > 60+ Yrs or Completed 04/01/2023 Hepatitis B Vaccines Aged Out No long er eligible based on patient's age to complete this topic RSV Ped < 20 months Aged Out No longe r eligible based on patient's age to complete this topic Care Teams Sales Advisor Relationship Specialty Start Date End Date Portia Garcia MD PCP - General Internal Medicine 01/07/21
--- OUTSIDE RECORDS SUMMARY | 2024-07-23 16:46 | XMS_ITS | Data Portability ---
Author Organization MD - [facility], Allergy Address [address] [place] [id number] Assessment Encounter Date Assessment Date Assessment LastModified by Organization Details LastModified Time 02/28/2024 02/28/2024 73-year-old female presents for cerumen removal. Cerumen impaction removed bilaterally. Bilateral TMs are intact. She will follow-up in 6 months for routine debridement. [email or web address] Not available 02/28/2024 15:34:50 Plan of Treatment Reminders Order Date Submit Date Provider Last Modified By Organization Details Last Modified Time Details Appointments Establish ed 15 2024 09:15A M RANGEL RHODES PA-C Not available Not available Not available Lab None recorded. Referral None recorded. Procedures None recorded. Surgeries None recorded. Imaging None recorded. Medication Orders None recorded. Patient TargetsNo targets recorded. Patient InstructionsNo instructions recorded. Reason for Referral None Reported. Problems Name Problem SNOMED Code Status Onset Date Resolution Date Notes Provider Name and Address Organization Details Recorded Time Impacted cerumen of bilateral ears 23663179117 44512 Active 2015 Impacted cerumen, bilateral ; Note: Date Diagnosed : 08/13/2015 10:46 AM (H61.23) Not Available [facility] 4 03:18:47 Impacted cerumen 39289438 Active 2013 Impacted cerumen; Note: Date Diagnosed : 4 4:42 PM (380.4) Not Available [facility] 4 03:18:47 Otalgia 07078865 Active 2013 Otalgia; CMS Risk: moderate risk Note : Date Diagnosed : 4 5:12 PM (388.70) Not Available [facility] 4 03:18:48 Impacted cerumen in left ear 39205544278 53083 Active 2014 Impacted cerumen, left ear; Note: Date Diagnosed : 5 3:54 PM (H61.22) Not Available [facility] 4 03:18:48 Problem Notes None recorded. Procedures Surgical History Date Name Laterality Status Provider Name and Address Organization Details Recorded Time 4 Cerumen removal without microscope bilat completed RANGEL RHODES PA-C [address] [place] [address],[address], [phone], [facility] 02/28/2024 15:34:15 Imaging Results None recorded. Procedure Notes None recorded. Medical Equipment None Reported. Allergies Allergen ID Allergen Name Allergen Category Reaction Reaction Severity Criticality Documentation Date Start Date Code Code System Note Provider Name and Address Organization Details Recorded Time 543018 Bactrim medicatio n other Not available Not available 10/17/2023 80561 9 RxNorm React ion: unkno wn, unspe cifie d;; Not Available [facility] 4 01:19:01 768811 Substance with sulfonami de structure and antibacte rial mechanism of action (substanc e) medicatio n other Not available Not available 10/17/2023 50934 8003 SNOMED React ion: unkno wn, unspe cifie d;; Not Available [facility] 4 01:19:02 Medications Name Sig Start Date Stop Date Status Note LastModified by Organization Details LastModified Time lido/anta chau/diphe n/nystat 1111 SWISH AND SPIT 5 ML BY MOUTH EVERY 4 HOURS NEEDED FOR MUCOSITI S active Not Available Not Available No t Available magic mouth lido/maal ox/diph/n yst SWISH AND SPIT 5 MLS BY MOUTH EVERY 4 HOURS NEEDED FOR MUCOSITI S active Not Available Not Available No t Available carisopro dol 350 mg tablet 2013 active Medicati on ID: [id number] Dur ation Value: 15 Brand Name: carisopr odol Sen d Method: E-Prescr ibed Sub s Allowed: subs OK Medic ationGen ericName : carisopr odol Not Available Not Available Not Available amoxicill in 500 mg capsule TAKE 1 CAPSULE BY MOUTH EVERY 8 HOURS UNTIL ALL TAKEN active Not Available Not Available No t Available methocarb kd 500 mg tablet TAKE 2 TABLETS BY MOUTH FOUR TIMES DAILY active Not Available Not Available No t Available Lidocaine Viscous 2 % mucosal solution active Not Available Not Available Not Available clonazepa m 0.5 mg tablet TAKE 1 TABLET BY MOUTH TWICE DAILY NEEDED FOR ANXIETY active Not Available Not Available No t Available morphine ER 30 mg tablet,ex tended release TAKE 1 TABLET BY MOUTH EVERY 8 HOURS NEEDED FOR PAIN active Not Available Not Available No t Available amoxicill in 500 mg tablet TAKE 2 TABLETS BY MOUTH STAT THEN 1 TABLET BY MOUTH EVERY 8 HOURS UNTIL ALL TAKEN active Not Available Not Available No t Available nortripty line 25 mg capsule TAKE 1 CAPSULE BY MOUTH AT BEDTIME active Not Available Not Available No t Available fluoxetin e 10 mg capsule TAKE 1 CAPSULE BY MOUTH DAILY active Not Available Not Available No t Available butalbita l-aspirin -caffeine 50 mg-325 mg-40 mg capsule 2013 active Medicati on ID: [id number] Dur ation Value: 15 Brand Name: butalbit al-aspir in-caffe ine Send Method: E-Prescr ibed Sub s Allowed: subs OK Medic ationGen ericName : butalbit al-aspir in-caffe ine Not Available Not Available Not Available gabapenti n 300 mg capsule 2018 active Medicati on ID: [id number] D uration Value: 30 Brand Name: gabapent in Send Method: E-Prescr ibed Sub s Allowed: subs OK Speci al Instruct ion: TAKE 1 CAPSULE BY MOUTH TWICE A DAY Medi cationGe nericNam e: gabapent in Not Available Not Available Not Available omeprazol e 20 mg capsule,d elayed release TAKE 1 CAPSULE BY MOUTH TWICE DAILY active Not Available Not Available No t Available morphine ER 15 mg tablet,ex tended release TAKE 1 TABLET BY MOUTH EVERY 8 HOURS active Not Available Not Available No t Available gabapenti n 100 mg capsule TAKE 2 CAPSULES BY MOUTH DAILY AT BEDTIME active Not Available Not Available No t Available clobetaso l 0.05 % topical ointment APPLY TO AFFECTED AREAS ON THE BACK TWICE DAILY FOR 2 WEEKS BREAK FOR A WEEK AND REPEAT NEEDED active Not Available Not Available No t Available clobetaso l 0.05 % scalp solution APPLY TOPICALL Y TO THE SCALP TWICE DAILY FOR 2 WEEKS THEN STOP FOR 1 WEEK. REPEAT CYCLE NEEDED FOR FLAKING active Not Available Not Available No t Available fluoxetin e 20 mg capsule TAKE 1 CAPSULE BY MOUTH DAILY active Not Available Not Available No t Available fluticaso ne propionat e 50 mcg/actua tion nasal spray,jacky pension 2013 active Medicati on ID: [id number] Dur ation Value: 90 Brand Name: fluticas one Send Method: E-Prescr ibed Sub s Allowed: subs OK Medic ationGen ericName : fluticas one Not Available Not Available Not Available naproxen 500 mg tablet 2018 active Medicati on ID: [id number] D uration Value: 90 Brand Name: naproxen Send Method: E-Prescr ibed Sub s Allowed: subs OK Medic ationGen ericName : naproxen Not Available Not Available Not Available nortripty line 50 mg capsule TAKE 1 CAPSULE BY MOUTH DAILY AT BEDTIME active Not Available Not Available No t Available Fluvirin 45 mcg (15 mcg x 3)/0.5 mL intramusc ular suspensio n 09/22 completed Medicati on ID: [id number] Dur ation Value: 1 Reason: () Brand Name: Fluvirin 5 Send Method: E-Prescr ibed Sub s Allowed: subs OK Medic ationGen ericName : Fluvirin 5 Not Available Not Available Not Available Brukinsa 80 mg capsule active Not Available Not Available Not Available Vitals Date Recorded Body height Body mass index (BMI) Body weight Provider Name and Address Organization Details Last Updated DateTime 02/28/2024 172.72 cm 19.5 kg/m2 75111.82 g Ginny Ham [facility] 02/28/2024 15:00:16 Social History None recorded. Functional Status None recorded. Mental Status None recorded. Family History Nothing Reported. Medical History No medical history recorded. Gynecological HistoryNo gynecological history recorded. Obstetrics History GPAL:G 0 P 0 0 0 0 Past Encounters Encounter ID Performer Location Encounter Start Date Encounter Closed Date Diagnosis/Indication Diagnosis SNOMED-CT Code Diagnosis ICD10 Code Diagnosis Note [id number] CASSIE SAHA MD [facility] [address] [place] [address] 02/28/2024 14:57:16 02/29/2024 07:01:40 Impacted cerumen of bilateral ears [id number] 130014 H61.23 Health Concerns Section Related Observation LastModified by Organization Detai ls LastModified Time None Recorded Concern Status LastModified by Organization Details LastModified Time None Recorded Advance Directives Directive None Recorded Payers Encounter Date Sequence Insurance Name Policy Number Policy Cain Covered Member ID Cain Member ID Guarantor Name 02/28/2024 1 [place]ICARE [place]: [employer] Lanny Aguiar [id number] Lanny Aguiar Notes Date Note Type Note Provider Name and Address Organization Details Recorded Time 02/28/2024 text/html 73-year-old female presents for ear cleaning. No concerns today. CASSIE MURDOCK MD [address] [address], [place], [address], [facility] - [facility] 02/28/2024 16:57:55 OBGyn Episode No OBEpisode recorded.
--- OUTSIDE RECORDS SUMMARY | 2024-07-23 16:46 | XMS_ITS | Encounter Summary ---
Author Organization [facility] Address [address] [place] [address] Care Team Providers Care Pv Design And Installation Technician Name Role Phone Portia Garcia MD Primary Care Provider [phone] Encounter Details Date Type Department Care Team Description 01/12/2022 Social Work [facility] [address] [place] [address] [facility] Social History Tobacco Use Types Packs/Day Years Used Date Smoking Tobacco: Never Assessed Sex and Gender Information Value Date Recorded Sex Assigned at Female 12/30/2022 3:27 PM EDT Gender Identity Not on file Sexual Orientation Not on file Job Start Date Occupation Industry Not on file Not on file Not on file COVID-19 Exposure Response Date Recorded In the last 10 days, have yo u been in contact with someone who was confirmed or suspected to have Coronavirus/COVID-19? No / Unsure 01/12/2022 8:42 AM EDT documented as of this encounter Plan of Treatment Not on file documented as of this encounter Visit Diagnoses Not on filedocumented in this encounter Care Teams Pv Design And Installation Technician Relationship Specialty Start Date End Date Portia Garcia MD PCP - General Internal Medicine 01/07/21 documented as of this encounter
--- OUTSIDE RECORDS SUMMARY | 2024-07-23 16:46 | XMS_ITS ---
Author Organization [facility] Address [address] [place] [address] Phone Care Team Providers Care Aeronautical Engineering Teacher Name Role Phone Portia Garcia MD Primary Care Provider [phone] Active Problems Problem Noted Date Diagnosed Date Osteoporosis, post-menopausal 07/08/2024 Lumbar compression fracture, closed, initial enc ounter 05/24/2022 Overview (03/27/2024): Last Assessment & Plan: I reviewed the lumbar spine CT showing slight superior endplate compression fracture at L1 with what appears to be a vertical fracture on the right side on the sagittal images. There is no displacement, no retropulsion and no paravertebral hematoma. There was no inciting event but she has known osteoporosis and is on chemotherapy. I agree with Dr. Barrios that this does not require treatment and encouraged her to continue taking Prolia. Anemia 05/24/2022 Anemia 05/24/2022 Lumbar compression fracture, closed, initial enc ounter 05/24/2022 Dyspnea 12/03/2021 Dyspnea 12/03/2021 Hyperlipidemia 03/07/2019 HLD (hyperlipidemia) 03/07/2019 Vitamin D deficiency 01/19/2019 Vitamin D deficiency 01/19/2019 Chronic lymphocytic leukemia 06/21/2017 Chronic lymphocytic leukemia 06/21/2017 Subclinical hypothyroidism 06/06/2017 Subclinical hypothyroidism 06/06/2017 Osteoarthritis 02/15/2016 Overview (03/27/2024): Lumbar Spine, Hands Osteoarthritis 02/15/2016 Diverticulitis 10/14/2015 Overview (03/27/2024): 08/18 Diverticulitis 10/14/2015 Primary insomnia 07/25/2013 Primary insomnia 07/25/2013 Wrist fracture 07/22/2011 Overview (03/27/2024): Right, 04/15 Wrist fracture 07/22/2011 Carpal tunnel syndrome 05/25/2009 Carpal tunnel syndrome 05/25/2009 Osteoporosis 06/26/2006 Overview (03/27/2024): T-1.8 spine, normal hip 02/18 T score spine -2.4 hip -0.8 01/21 T score spine -3.0 hip -1.2 Osteoporosis 06/26/2006 Allergic rhinitis 05/15/2005 Esophageal reflux 05/15/2005 Asthma 05/15/2005 Anxiety 05/15/2005 Eczema 05/15/2005 Hematuria 05/15/2005 Overview (03/27/2024): chronic microscopic Chronic bilateral low back pain without sciatica 05/15/2005 Overview (03/27/2024): Last Assessment & Plan: I reviewed her situation in detail going over what she was told about her back pain from multiple different specialists including local oncologist, once at [facility], physiatrists at [facility] and the more recent suggestion for a cortisone injection by Dr. Barrios in interventional radiology. We narrowed it down to 3 or so possibilities for her back pain, namely the results of lymphoma whether in lymph nodes or bone marrow, facet mediated pain for which she has had injections and medial branch blocks, sacroiliitis though the recent MRI of the sacroiliac joints was normal and the previously discussed L1 compression fracture. The lumbar spine MRI from August does not show severe bone marrow infiltration though the portion visible on the MRI of the SI joints shows this to be stable. She does have facet disease at L5-S1 bilaterally and on the left at L4-5 and she recalls having at least a 3-month improvement after 1 set of injections early on but not with later treatment. I would have thought sacroiliitis was part of this picture as this is where she demonstrates her pain however she is nontender, she is able to sleep on her sides putting pressure on those joints and the study was normal. The L1 compression fracture is mild and not at the level of her pain. She would like to try a repeat injection so I recommended bilateral L5-S1 facet injections and we will make the referral to [facility] interventional radiology. She may consider pain management for treating cancer related pain and would likely avoid a spinal cord stimulator. Allergic rhinitis 05/15/2005 Anxiety 05/15/2005 Asthma 05/15/2005 Chronic bilateral low back pain without sciatica 05/15/2005 Eczema 05/15/2005 Esophageal reflux 05/15/2005 Hematuria 05/15/2005 Current Oncology Plans DENOSUMAB ( PROLIA ) 60 MG SQ EVERY 6 MONTHS* Plan Start Date:07/08/2024 Plan Provider:Liz Alvarez MD Linked Problems Chronic lymphocytic leukemia (CMS/HCC)Osteoporosis, post-menopausal Treatment Medications No medications scheduled. Past Plans No past plan information found. Radiation Treatments * No radiation treatments are documented for this patient in [facility]. Treatments may have been administered in another system. Resolved Problems Problem Noted Date Diagnosed Date Resolved Date Leukemia 05/24/2022 05/15/2024 Leukemia 05/24/2022 05/15/2024
--- OUTSIDE RECORDS SUMMARY | 2024-07-23 16:46 | XMS_ITS | Clinical Summary ---
Author Organization [facility] Address [address] [place] [address] Phone Care Team Providers Care Shot Polisher And Inspector Name Role Phone Portia Garcia MD Primary Care Provider [phone] Allergies Active Allergy Reactions Criticality Noted Date Comments Sulfamethoxazole-Trimethop rim Hives 05/15/2005 Sulfamethoxazole-Trimethop rim 05/15/2005 Other Reaction(s): Hives/Urticaria Medications calcium carbonate/vitami n D3 (CALCIUM + D ORAL) Take by mouth daily. Active ergocalciferol (VITAMIN D-2) 1,250 mcg (50,000 unit) capsule Take 1 capsule by mouth once a week. 9 Active FLUoxetine (PROzac) 10 mg capsule TAKE 1 CAPSULE BY MOUTH DAILY 2 Active fluticasone propionate (FLONASE) 50 mcg/actuation nasal spray 1 spray in each nostril once daily 1 Active gabapentin (NEURONTIN) 100 mg capsule Take 2 tab po nightly 1 Active methocarbamoL (ROBAXIN) 500 mg tablet TAKE 1 TABLET BY MOUTH EVERY 8 HOURS NEEDED FOR PAIN 1 Active magnesium 250 mg tablet Take by mouth. 0 Active nortriptyline (PAMELOR) 50 mg capsule TAKE 1 CAPSULE BY MOUTH DAILY AT BEDTIME 2 Active omeprazole (PriLOSEC) [address] capsule Take 1 capsule by mouth daily. 1 Active Lactobacillus acidophilus (PROBIOTIC ACIDOPHILUS ORAL) Take 1 Tab by mouth daily. Active nortriptyline (PAMELOR) 50 mg capsule TAKE 1 CAPSULE BY MOUTH DAILY AT BEDTIME Active FLUoxetine (PROzac) 10 mg capsule TAKE 1 CAPSULE BY MOUTH DAILY Active methocarbamoL (ROBAXIN) 500 mg tablet TAKE 1 TABLET BY MOUTH EVERY 8 HOURS NEEDED FOR PAIN Active gabapentin (NEURONTIN) 100 mg capsule Take 2 tab po nightly Active fluticasone propionate (FLONASE) 50 mcg/actuation nasal spray 1 spray in each nostril once daily Active omeprazole (PriLOSEC) [address] capsule Take 1 capsule by mouth daily. Active magnesium 250 mg tablet Take by mouth. Active calcium carbonate/vitami n D3 (CALCIUM + D ORAL) Take by mouth daily. Active Lactobacillus acidophilus (PROBIOTIC ACIDOPHILUS ORAL) Take 1 Tab by mouth daily. Active morphine (MS CONTIN) 30 mg 12 hr tablet Take 1 tablet (30 mg total) by mouth every 8 (eight) hours if needed. for pain 4 Active acyclovir (ZOVIRAX) 400 mg tablet Take 1 tablet (400 mg total) by mouth 2 (two) times a day. 180 each 4 08/19/19 25 Active zanubrutinib (Brukinsa) 80 mg capsuleIndicatio ns:chronic lymphocytic leukemia Take 2 capsules (160 mg total) by mouth 1 (one) time each day Then 1 capsule (80 mg ) by mouth in the evening. Swallow capsules whole with water; do not open, break or chew. 90 capsule 5 4 Active Active Problems Problem Noted Date Diagnosed [...] different specialists including local oncologist, once at [facility], physiatrists at [facility] and the more recent suggestion for a [...] and we will make the referral to [facility] interventional radiology. She may consider pain management for treating cancer related pain and would likely avoid a spinal cord stimulator. Allergic rhinitis 05/15/2005 Anxiety 05/15/2005 Asthma 05/15/2005 Chronic bilateral low back pain without sciatica 05/15/2005 Eczema 05/15/2005 Esophageal reflux 05/15/2005 Hematuria 05/15/2005 Resolved Problems Problem Noted Date Diagnosed Date Resolved Date Leukemia 05/24/2022 05/15/2024 Leukemia 05/24/2022 05/15/2024 Encounters Date Type Department Care Team Description 07/08/2024 10:54 AM EST - 07/08/2024 11:59 PM EST Hospital Encounter [facility] [address] [place] [phone] Chronic lymphocytic leukemia (CMS/HCC) (Primary Dx); Osteoporosis, post-menopausal Discharge Disposition: Home or Self Care 05/20/2024 9:30 AM EST Office Visit [facility] Hematology Oncology [address] [place] [phone] Liz Collins MD Chronic lymphocytic leukemia (CMS/HCC) (Primary Dx); Chronic bilateral low back pain without sciatica 05/13/2024 3:40 PM EST Office Visit Gastroenterology - [address] [place] [address] Yonathan Stone PA Pain of right scapula (Primary Dx); Belching from Last 3 Months Immunizations Name Administration Dates Next Due H1N1 Inj 05/11/2009 H1N1 Inj Preservative Free 05/11/2009 Influenza Quadravalent, 0.5m l (Fluzone High-dose) 65yo and older 02/25/2019 Influenza trivalent, 0.5mL ( Fluzone High-dose) 65yo and older 02/25/2019 Influenza trivalent, with pr eservative (Fluzone; Afluria) 6mo and older 03/07/2014,03/18/2013,03/12/2012,02/22,03/09/2010,03/05/2009,03/31/2008 ,03/30/2007,04/05/2006 Influenza, Unspecified 02/24/2016,2015,03/11/2015,03/11,03/07/2014,03/07/2014,03/18/2013 ,03/12/2012,02/22/2011,03/09/2010,06/2008,03/31/2008,03/30/2007, 6 Pfizer (ages 12 & older) TAI S-CoV-2 COVID-19, mRNA, LNP-S, tasia-sucrose, preservative free 08/07/2021 [facility] SARS-CoV-2 COVID-19, mRNA, LNP-S, preservative free 01/17/2021,07/02/2020,06/11/2020 Pneumococcal conjugate 13 va lent (Prevnar 13, PCV13) 2mo and older 03/21/2019,03/21/2019 Pneumococcal polysaccharide 23 valent (Pneumovax 23) 2yo and older 09/17/2014,09/17/2014 Td Tetanus diptheria (Tdvax) 7yo and older 07/06/2001,07/06/2001 Tdap Tetanus diptheria acell ular pertussis (Boostrix; Adacel) 7yo and older 06/25/2010,06/25/2010 Zoster Live 11/03/2009,11/03/2009 Zoster recombinant (Shingrix ) 19yo and older 05/17/2018,05/17/2018,02/28/2018,02/28 Surgical History Surgery Date Site/Laterality Comments COLONOSCOPY 09/03/2020 - 10/02/2020 multi tics throughout colon. nl random colon bx. COLONOSCOPY 11/04/2015 - 12/03/2015 (Dr. Helms )multi tics sig & descending, 8mm hyperplastic polyp ascending colon ESOPHAGOGASTRODUODENOSCOPY 01/04/2024 - 02/03/2024 small HH, nl small bowl bx ESOPHAGOGASTRODUODENOSCOPY 09/03/2022 - 10/02/2022 nl including bx of small bowel Social History Tobacco Use Types Packs/Day Years Used Date Smoking Tobacco: Former Cigarettes Alcohol Use Standard Drinks/Week Comments Not Currently 0 (1 standard drink = 0.6 oz pur e alcohol) Comments Unknown Sex and Gender Information Value Date Recorded Sex Assigned at Not on file Legal Sex Female 2:45 AM EST Gender Identity Not on file Sexual Orientation Not on file Obstetrics History Last Filed Vital Signs Vital Sign Reading Time Taken Comments Blood Pressure 108/78 07/08/2024 11:19 AM EST Pulse 83 07/08/2024 11:19 AM EST Temperature 36.5 ??C (97.7 ??F) 07/08/2024 11:[address] Respiratory Rate 18 07/08/2024 11:19 AM EST Oxygen Saturation 100% 07/08/2024 11:19 AM EST Inhaled Oxygen Concentration - - Weight 59.1 kg (130 lb 6.4 oz) 05/20/2024 9:49 A M EST Height 157.5 cm (5' 2 ) 05/13/2024 3:42 PM EST Body Mass Index 23.85 05/13/2024 3:42 PM EST Plan of Treatment Upcoming Encounters Date Type Department Care Team (Late st Contact Info) Description 08/27/2024 9:00 AM EDT Office Visit [facility] Oncology [address] [place] [phone] Liz Alvarez MD [address] [place] [address] 01/06/2025 11:30 AM EDT Appointment [facility] [address] [place] [phone] Health Maintenance Due Date Last Done Comments Breast Cancer Screening 11/22/2018 11/23/19, 11/11/2016, 11/02/2016 DTaP,Tdap,and Td Vaccines (5 - Td or Tdap) 06/25/2020 06/25/2010, 06/25/2010, 07/06/2001, Additional history exists Depression Screening 05/08/2022 Medicare Annual Wellness Visit 05/08/2022 Social Influencers of Health Screening 05/08/2022 Falls Risk Assessment 07/08/2025 07/08/2024 Cholesterol Screening (Lipid Panel) 10/23/2025 10/23/2020, 10/23/2020 Colorectal Cancer Screening: Colonoscopy 11/05/2025 11/06/2015, 11/06/2015 Cervical Cancer Screening: HPV 12/08/2025 12/08/2020 Osteoporosis Screening (Bone Density Screening) 01/14/2029 01/14/2019 Hepatitis C Screening Completed 09/04/2013, 014 Zoster Vaccines Completed 05/17/2018, 05/05, 02/28/2018, Additional history exists Pneumococcal Vaccine: 50+ Years Completed 03/21/2019, 03/21/2019, 09/17/2014, Additional history exists RSV Immunization Patients 60+ Years Old Completed 04/01/2023 Influenza Vaccine Completed 02/15/2024, , 03/15/2022, Additional history exists COVID-19 Vaccine Completed 02/24/2024, , 04/30/2022, Additional history exists HIB Vaccines Aged Out No longer eligi ble based on patient's age to complete this topic HPV Vaccines Aged Out No longer eligi ble based on patient's age to complete this topic Hepatitis A Vaccines Aged Out No long er eligible based on patient's age to complete this topic Hepatitis B Vaccines Aged Out No long er eligible based on patient's age to complete this topic IPV Vaccines Aged Out No longer eligi ble based on patient's age to complete this topic MMR Vaccines Aged Out No longer eligi ble based on patient's age to complete this topic Meningococcal ACWY Vaccine Aged Out N o longer eligible based on patient's age to complete this topic Meningococcal B Vacine Aged Out No lo nger eligible based on patient's age to complete this topic RSV Immunization Patients Under 20 months Aged Out No longer eligible based on patient's age to complete this topic Varicella Vaccines Aged Out No longer eligible based on patient's age to complete this topic Procedures Procedure Name Priority Date/Time Associated Diagnosis Comments MANUAL DIFFERENTIAL - SYSMEX WAM Routine 06/25/2024 10:38 AM EST Chronic lymphocytic leukemia (CMS/HCC) CBC WITH AUTO DIFFERENTIAL Routine 06/25/2024 10:38 AM EST Chronic lymphocytic leukemia (CMS/HCC) IMMUNOGLOBULIN IGG Routine 06/25/2024 10 :38 AM EST Chronic lymphocytic leukemia (CMS/HCC) LACTATE DEHYDROGENASE Routine 06/25/2024 10:38 AM EST Chronic lymphocytic leukemia (CMS/HCC) COMPREHENSIVE METABOLIC PANEL Routine 06/25/2024 10:38 AM EST Chronic lymphocytic leukemia (CMS/HCC) CBC AND DIFFERENTIAL Routine 06/25/2024 10:38 AM EST Chronic lymphocytic leukemia (CMS/HCC) MANUAL DIFFERENTIAL - SYSMEX WAM Routine 05/14/2024 2:36 PM EST Chronic lymphoid leukemia, without mention of having achieved remission(204.10) (CMS/HCC) CBC WITH AUTO DIFFERENTIAL Routine 05/14/2024 2:36 PM EST Chronic lymphoid leukemia, without mention of having achieved remission(204.10) (CMS/HCC) LACTATE DEHYDROGENASE Routine 05/14/2024 2:36 PM EST Chronic lymphoid leukemia, without mention of having achieved remission(204.10) (CMS/HCC) CBC AND DIFFERENTIAL Routine 05/14/2024 2:36 PM EST Chronic lymphoid leukemia, without mention of having achieved remission(204.10) (CMS/HCC) COMPREHENSIVE METABOLIC PANEL Routine 05/14/2024 2:36 PM EST Chronic lymphoid leukemia, without mention of having achieved remission(204.10) (CMS/HCC) HPV Routine 12/08/2020 LIPID PANEL Routine 10/23/2020 DXA BONE DENSITY STUDY 1+ SITS AXIAL SKEL Routine 01/14/2019 10:53 AM EDT Disorder of bone, unspecified Disorder of cartilage, unspecified DX MAMMO INCL CAD UNI Routine 11/22/2016 10:38 AM EDT Other abnormal and inconclusive findings on diagnostic imaging of breast COLONOSCOPY Routine 11/06/2015 HEPATITIS C SCREENING Routine 09/04/2013 from Last 3 Months or Most Recently Relevant to Health Maintenance Results * (ABNORMAL) Manual differential (06/25/2024 10:38 AM EST) Only the most recent of2 resultswithin the time period is included. Neutrophils % 21.0 % LAB HEMETOLOGY METHOD 06/25/2024 11:46 AM [facility] Lymphocytes % 73.0 % LAB HEMETOLOGY METHOD 06/25/2024 11:46 AM [facility] Monocytes % 4.0 % LAB HEMETOLOGY METHOD 06/25/2024 11:46 AM [facility] Eosinophils % 2.0 % LAB HEMETOLOGY METHOD 06/25/2024 11:46 AM [facility] Basophils % 1.0 % LAB HEMETOLOGY METHOD 06/25/2024 11:46 AM [facility] Neutrophils Absolute Manual 4.10 1.50 - 7.00 K/mcL LAB HEMETOLOGY METHOD 06/25/2024 11:46 AM [facility] Lymphocytes Absolute 14.24(H) 1.00 - 5.00 K/[facility] LAB HEMETOLOGY METHOD 06/25/2024 11:46 AM EST [facility] Monocytes Absolute Manual 0.78 0.20 - 1.00 K/[facility] LAB HEMETOLOGY METHOD 06/25/2024 11:46 AM EST [facility] Eosinophils Absolute Manual 0.39 0.00 - 0.50 K/[facility] LAB HEMETOLOGY METHOD 06/25/2024 11:46 AM EST [facility] Basophils Absolute Manual 0.20 0.00 - 0.20 K/[facility] LAB HEMETOLOGY METHOD 06/25/2024 11:46 AM [facility] Rbc Morphology Consistent with indices Consistent with indices, Normal for [place] LAB HEMETOLOGY METHOD 06/25/2024 11:46 AM [facility] Comment:RBC: Morphology agre es with CBC Platelet Morphology - WAM See Note(A) Normal LAB HEMETOLOGY METHOD 06/25/2024 11:46 AM EST [facility] Comment:PLT: Normal Blood Venous blood specimen / Unknown Venipuncture / Unknown 06/25/2024 10:38 AM EST 06/25/2024 11:07 AM EST us Liz Alvarez MD LAB BLOOD ORDERABLE S Final Result [facility] [address] [place] [address], * (ABNORMAL) CBC auto differential (06/25/2024 10:38 AM EST) Only the most recent of2 resultswithin the time period is included. WBC 19.5(H) 4.8 - 10.8 K/[facility] LAB HEMETOLOGY METHOD 06/25/2024 11:46 AM [facility] RBC 4.60 3.80 - 4.80 M/[facility] LAB HEMETOLOGY METHOD 06/25/2024 11:46 AM [facility] Hemoglobin 13.4 11.5 - 16.0 g/dL LAB HEMETOLOGY METHOD 06/25/2024 11:46 AM [facility] Hematocrit 43.3 35.0 - 47.0 % LAB HEMETOLOGY METHOD 06/25/2024 11:46 AM [facility] MCV 93.9 79.0 - 98.0 FL LAB HEMETOLOGY METHOD 06/25/2024 11:46 AM [facility] MCH 29.1 27.0 - 32.0 pcg LAB HEMETOLOGY METHOD 06/25/2024 11:46 AM [facility] MCHC 30.9(L) 32.0 - 37.0 g/dL LAB HEMETOLOGY METHOD 06/25/2024 11:46 AM [facility] RDW 14.0 11.0 - 15.0 % LAB HEMETOLOGY METHOD 06/25/2024 11:46 AM [facility] Platelets 261 130 - 400 K/mcL LAB HEMETOLOGY METHOD 06/25/2024 11:46 AM [facility] MPV 11.1(H) 7.0 - 11.0 FL LAB HEMETOLOGY METHOD 06/25/2024 11:46 AM [facility] NRBC 0.0 <1.0 % LAB HEMETOLOGY METHOD 06/25/2024 11:46 AM [facility] NRBC Absolute 0.00 <0.10 K/mcL LAB HEMETOLOGY METHOD 06/25/2024 11:46 AM [facility] Blood Venous blood specimen / Unknown Venipuncture / Unknown 06/25/2024 10:38 AM EST 06/25/2024 11:07 AM EST us Subramshane Alvarez MD LAB BLOOD ORDERABLE S Final Result Performing Organization Address City/State/[facility] de Phone Number [facility] [address] [place] [address], * Lactate dehydrogenase (06/25/2024 10:38 AM EST) Only the most recent of2 resultswithin the time period is included. LDH 140 120 - 246 unit/L LAB CHEMISTRY METHOD 06/25/2024 11:43 AM EST [facility] Blood Venous blood specimen / Unknown Venipuncture / Unknown 06/25/2024 10:38 AM EST 06/25/2024 11:07 AM EST us Liz Alvarez MD LAB BLOOD ORDERABLE S Final Result Performing Organization Address [facility] de Phone Number [facility] [address] [place] [address], * (ABNORMAL) Immunoglobulin IgG (06/25/2024 10:38 AM EST) Total IgG 295(L) 549 - 1,584 mg/dL LAB CHEMISTRY METHOD 06/25/2024 11:43 AM EST [facility] Blood Venous blood specimen / Unknown Venipuncture / Unknown 06/25/2024 10:38 AM EST 06/25/2024 11:07 AM EST us Liz Alvarez MD LAB BLOOD ORDERABLE S Final Result Performing Organization Address [facility] de Phone Number [facility] [address] [place] [address], * Comprehensive metabolic panel (06/25/2024 10:38 AM EST) Only the most recent of2 resultswithin the time period is included. Sodium 136 133 - 145 mmol/L LAB CHEMISTRY METHOD 06/25/2024 11:48 AM EST [facility] Potassium 4.6 3.5 - 5.5 mmol/L LAB CHEMISTRY METHOD 06/25/2024 11:48 AM [facility] Chloride 101 96 - 110 mmol/L LAB CHEMISTRY METHOD 06/25/2024 11:48 AM [facility] CO2 31 21 - 32 mmol/L LAB CHEMISTRY METHOD 06/25/2024 11:48 AM [facility] Anion Gap 4 3 - 11 LAB CHEMISTRY METHOD 06/25/2024 11:48 AM [facility] Glucose 91 70 - 100 mg/dL LAB CHEMISTRY METHOD 06/25/2024 11:48 AM [facility] BUN 17 5 - 25 mg/dL LAB CHEMISTRY METHOD 06/25/2024 11:48 AM [facility] Creatinine 0.89 0.50 - 1.10 mg/dL LAB CHEMISTRY METHOD 06/25/2024 11:48 AM [facility] eGFR 68 >=60 mL/min/1. 73m2 LAB CHEMISTRY METHOD 06/25/2024 11:48 AM [facility] Comment:Calculation based on the??Chronic Kidney Disease Epidemiology Collaboration (CKD-EPI) equation refit??without adjustment for race. BUN/Creatinine Ratio 19.1 LAB CHEMISTRY METHOD 06/25/2024 11:48 AM [facility] Calcium 9.7 8.5 - 10.5 mg/dL LAB CHEMISTRY METHOD 06/25/2024 11:48 AM [facility] AST (SGOT) 22 10 - 42 unit/L LAB CHEMISTRY METHOD 06/25/2024 11:48 AM [facility] ALT (SGPT) 24 10 - 60 unit/L LAB CHEMISTRY METHOD 06/25/2024 11:48 AM [facility] Alkaline Phosphatase 66 42 - 121 unit/L LAB CHEMISTRY METHOD 06/25/2024 11:48 AM [facility] Total Protein 6.4 6.0 - 8.0 g/dL LAB CHEMISTRY METHOD 06/25/2024 11:48 AM EST [facility] Albumin 3.9 3.2 - 5.0 g/dL LAB CHEMISTRY METHOD 06/25/2024 11:48 AM EST [facility] Total Bilirubin 0.3 0.0 - 1.4 mg/dL LAB CHEMISTRY METHOD 06/25/2024 11:48 AM EST [facility] Blood Venous blood specimen / Unknown Venipuncture / Unknown 06/25/2024 10:38 AM EST 06/25/2024 11:07 AM EST Liz Alvarez MD LAB BLOOD ORDERABLE S Final Result [facility] [address] [place] [address], * Cervical Cancer Screening: HPV (12/08/2020) [facility] Cervical Cancer Screening: HPV negative, abstracted Historical Provider HEALTH MAINTENANCE Final Result * (ABNORMAL) Lipid panel (10/23/2020) [facility] LDL/HDL Ratio 5(A) 0 - 4 Triglycerides 150 0 - 150 mg/dL Cholesterol 237(A) 0 - 200 mg/dL HDL 53 >=40 mg/dL LDL Cholesterol 154(A) 0 - 100 mg/dL Blood Venous blood specimen / Unknown Historical Provider LAB BLOOD ORDERABLES Alayna l Result * DXA BONE DENSITY STUDY 1+ SITS AXIAL SKEL (01/14/2019 10:53 AM EDT) Anatomical Region Laterality Modality Bone Densitometr y 10/03/2018 9:33 AM EDT Narrative 01/14/2019 3:15 PM EDT BONE DENSITY ? Lumbar Spine T-score is -3.0 ?? (SD relative to 20-29 y/o adult) Z-score is -0.9 ??(SD relative to age matched peers) This is consistent with osteoporosis by criteria defined by the WHO. Left Hip T-score is -1.2 Z-score is +0.5 This is consistent with osteopenia by criteria defined by the WHO. Comparison exam(s): significant decrease in bone density of ??hip and lumbar spine when compared to most recent bone density examination ?? Confidence level is +/-95%. Impression: Based on the World Health Organization criteria, Lanny Aguiar should be classified as having osteoporosis. The [facility] Department of Internal Medicine recommends using National Osteoporosis Foundation (NOF) guidelines in treatment decisions related to osteoporosis. NOF guidelines suggest considering treatment for postmenopausal women and men aged 50 or older presenting with the following: History of hip or vertebral fracture. T-score less than or equal to -2.5 (DXA) at the femoral neck, total hip, or spine, after appropriate evaluation to exclude secondary causes. Low bone mass (T-score between -1.0 and -2.5 at the femoral neck or spine) AND a 10-year probability of a hip fracture greater than or equal to 3% OR a 10-year probability of a major osteoporosis-related fracture greater than or equal to 20% based on the [place]-adapted WHO algorithm Please note that all treatment decisions require clinical judgment and consideration of individual patient factors, including patient preferences, co-morbidities, previous drug use, risk factors not captured in the FRAX model (e.g., frailty, falls, vitamin D deficiency, increased bone turnover, interval significant decline in bone density) and possible under- or over-estimation of fracture risk by FRAX. Procedure Note Venkata Godfrey - 05/24/2022 BONE DENSITY Lumbar Spine T-score is -3.0 (SD relative to 20-29 y/o adult) Z-score is -0.9 (SD relative to age matched peers) This is consistent with osteoporosis by criteria defined by the WHO. Left Hip T-score is -1.2 Z-score is +0.5 This is consistent with osteopenia by criteria defined by the WHO. Comparison exam(s): significant decrease in bone density of hip andlumbar spine when compared to most recent bone density examination Confidence level is +/-95%. Impression: Based on the World Health Organization criteria, Lanny Aguiar shouldbe classified as having osteoporosis. The [facility] Department of Internal Medicine recommendsusing National Osteoporosis Foundation (NOF) guidelines in treatmentdecisions related to osteoporosis. NOF guidelines suggest consideringtreatment for postmenopausal women and men aged 50 or older presentingwith the following: History of hip or vertebral fracture. T-score less than or equal to -2.5 (DXA) at the femoral neck, total hip,or spine, after appropriate evaluation to exclude secondary causes. Low bone mass (T-score between -1.0 and -2.5 at the femoral neck or spine)AND a 10-year probability of a hip fracture greater than or equal to 3% ORa 10-year probability of a major osteoporosis-related fracture greaterthan or equal to 20% based on the [place]-adapted WHO algorithm Please note that all treatment decisions require clinical judgment andconsideration of individual patient factors, including patientpreferences, co-morbidities, previous drug use, risk factors not capturedin the FRAX model (e.g., frailty, falls, vitamin D deficiency, increasedbone turnover, interval significant decline in bone density) and possibleunder- or over-estimation of fracture risk by FRAX. us Shruthi Capps MD [facility] DXA PROCEDURES Final Result * DX MAMMO INCL CAD UNI (11/22/2016 10:38 AM EDT) Anatomical Region Laterality Modality Mammography 11/11/2016 11:5 8 AM EDT Narrative 11/22/2016 10:42 AM EDT 2 view digital mammogram right breast: See combined report with ultrasound- guided core biopsy x2 and clip placement x2 of the same day. Procedure Note Rachell Boyer MD - 07/07/2023 2 view digital mammogram right breast: See combined report withultrasound-guided core biopsy x2 and clip placement x2 of the same day. us Shruthi Capps MD IMG BI PROCEDURES Final Result * Colonoscopy (11/06/2015) Colonoscopy no interpretation , abstracted Anatomical Region Laterality Modality Other Historical Provider HEALTH MAINTENANCE Final Result * Hepatitis C Screening (09/04/2013) Hepatitis C Screening abstracted Historical Provider HEALTH MAINTENANCE Final Result from Last 3 Months or Most Recently Relevant to Health Maintenance Insurance MEDICARE [facility] Care Teams Shot Polisher And Inspector Relationship Specialty Start Date End Date Portia Garcia MD [address] [place] [id number] PCP - General Internal Medicine 01/07/21
--- OUTSIDE RECORDS SUMMARY | 2024-07-23 16:46 | XMS_ITS | Encounter Summary ---
Author Organization [facility] Address [address] [place] [address] Care Team Providers Care Insurance Billing Specialist Name Role Phone Portia Garcia MD Primary Care Provider [phone] Reason for Visit * Reason Comments Injections Prolia * Episode Based Medications (Routine) - Pending Review Specialty Diagnoses / Procedures Referred By Jeff t Referred To Contact Diagnoses Chronic lymphocytic leukemia (CMS/HCC) Osteoporosis, post-menopausal Subramonia-Liz Dubois MD [address] [place] [phone] Phone: tel: fax: [address] [address] Phone: tel: fax: Referral ID Status Reason Start Date Expiration Date V isits Requested Visits Authorized [id number] Pending Review 04/03/2024 04/03/2025 1 4 Encounter Details Date Type Department Care Team (Latest Contact Info) Description 07/08/2024 10:54 AM EST - 07/08/2024 11:59 PM EST Hospital Encounter [address] [address] Chronic lymphocytic leukemia (CMS/HCC) (Primary Dx); Osteoporosis, post-menopausal Discharge Disposition: Home or Self Care Social History Tobacco Use Types Packs/Day Years [...] on file documented as of this encounter Last Filed Vital Signs Vital Sign Reading Time Taken Comments Blood Pressure 108/78 07/08/2024 11:19 AM EST Pulse 83 07/08/2024 11:19 AM EST Temperature 36.5 ??C (97.7 ??F) 07/08/2024 11:[address] Respiratory Rate 18 07/08/2024 11:19 AM EST Oxygen Saturation 100% 07/08/2024 11:19 AM EST Inhaled Oxygen Concentration - - Weight - - Height - - Body Mass Index - - documented in this encounter Medications at Time of Discharge acyclovir (ZOVIRAX) 400 mg tablet Take 1 tablet (400 mg total) by mouth 2 (two) times a day. 180 each 05/20/2024 calcium carbonate/vitamin D3 (CALCIUM + D ORAL) Take by mouth daily. calcium carbonate/vitamin D3 (CALCIUM + D ORAL) Take by mouth daily. ergocalciferol (VITAMIN D-2) 1,250 mcg (50,000 unit) capsule Take 1 capsule by mouth once a week. 01/19/2019 FLUoxetine (PROzac) 10 mg capsule TAKE 1 CAPSULE BY MOUTH DAILY 03/18/2022 FLUoxetine (PROzac) 10 mg capsule TAKE 1 CAPSULE BY MOUTH DAILY fluticasone propionate (FLONASE) 50 mcg/actuation nasal spray 1 spray in each nostril once daily 10/21/2020 fluticasone propionate (FLONASE) 50 mcg/actuation nasal spray 1 spray in each nostril once daily gabapentin (NEURONTIN) 100 mg capsule Take 2 tab po nightly 10/23/2020 gabapentin (NEURONTIN) 100 mg capsule Take 2 tab po nightly Lactobacillus acidophilus (PROBIOTIC ACIDOPHILUS ORAL) Take 1 Tab by mouth daily. Lactobacillus acidophilus (PROBIOTIC ACIDOPHILUS ORAL) Take 1 Tab by mouth daily. magnesium 250 mg tablet Take by mouth. 01/14/2020 magnesium 250 mg tablet Take by mouth. methocarbamoL (ROBAXIN) 500 mg tablet TAKE 1 TABLET BY MOUTH EVERY 8 HOURS NEEDED FOR PAIN 12/30/2020 methocarbamoL (ROBAXIN) 500 mg tablet TAKE 1 TABLET BY MOUTH EVERY 8 HOURS NEEDED FOR PAIN morphine (MS CONTIN) 30 mg 12 hr tablet Take 1 tablet (30 mg total) by mouth every 8 (eight) hours if needed. for pain 04/27/2024 nortriptyline (PAMELOR) 50 mg capsule TAKE 1 CAPSULE BY MOUTH DAILY AT BEDTIME 05/01/2022 nortriptyline (PAMELOR) 50 mg capsule TAKE 1 CAPSULE BY MOUTH DAILY AT BEDTIME omeprazole (PriLOSEC) [address] capsule Take 1 capsule by mouth daily. 10/21/2020 omeprazole (PriLOSEC) [address] capsule Take 1 capsule by mouth daily. zanubrutinib (Brukinsa) 80 mg capsuleIndication s:chronic lymphocytic leukemia Take 2 capsules (160 mg total) by mouth 1 (one) time each day Then 1 capsule (80 mg ) by mouth in the evening. Swallow capsules whole with water; do not open, break or chew. 90 capsule 5 05/24/2024 documented as of this encounter Discharge Disposition Disposition Code Departure Means Destination Home or Self Care documented in this encounter Progress Notes * Jasmin Mena RN - 07/08/2024 11:30 AM EST Lanny arrives ambulatory with strong nielsen steady gait for her Prolia injection today (due every 6 months). Stable assessment completed - no dental work recently - has appt in December for dental cleaning. Labs reviewed and within treatment parameters. Med released to pharmacy. 1148 - Prolia injection given in left arm per patient request. Well tolerated - patient has next appt in place. Stable upon discharge documented in this encounter Plan of Treatment Upcoming Encounters Date Type Department Care Team (Late st Contact Info) Description 08/27/2024 9:00 AM EDT Office Visit [facility] Hematology Oncology [address] [place] [phone] Martin-Liz Dubois MD [address] [place] [phone] 01/06/2025 11:30 AM EDT Appointment [facility] Infusion Center [address] [place] [address] documented as of this encounter Visit Diagnoses Diagnosis Chronic lymphocytic leukemia (CMS/HCC)- Primary Chronic lymphoid leukemia, without mention of having achieved remission Osteoporosis, post-menopausal Senile osteoporosis documented in this encounter Administered Medications Inactive Administered Medications - up to 3 most recent administrations Medication Order MAR Action Action Date Dose Rate Site denosumab (PROLIA) syringe 60 mg 60 mg, subcutaneous, Once, On Mon07/08/24 at 1200, For 1 dose, Allow product to come to room temperature prior to administration; do not allow to get warm. Protect from light. Do not shake. Inject subcutaneously in the upper arm, abdomen or thigh.Indications:Chronic lymphocytic leukemia (CMS/HCC),Osteoporosis, post-menopausal Given 07/08/2024 11:48 AM EST 60 mg Left Upper Arm (Back) documented in this encounter Orders Medications Ordered That Eleuterio ht Not Have Been Administered Count Last Ordered Date First Ordered Date denosumab (PROLIA) syringe 60 mg 1 07/08/19 Nursing Count Last Ordered Date First Orde red Date ONC NURSING COMMUNICATION 1 07/08/2024 ONC NURSING COMMUNICATION 5 1 07/08/2024 ONC PROVIDER COMMUNICATION 1 07/08/2024 TREATMENT CONDITIONS 1 07/08/2024 documented in this encounter Care Teams Insurance Billing Specialist Relationship Specialty Start Date End Date Portia Garcia MD [address] [place] [id number] PCP - General Internal Medicine 01/07/21 documented as of this encounter
== END 2024-07-23 16:37 | disposition home or self-care (01) ==
LOC: HO.HMCFM 16:35
PROVIDERS: PCP Internal Medicine; Visit Provider Internal Medicine
DX: M54.50 Low back pain, unspecified (principal); C91.10 Chronic lymphocytic leukemia of B-cell type not having achieved remission; G89.29 Other chronic pain

== ENCOUNTER 2024-09-10 09:13 | Outpatient (REF) | payer MEDICARE, SELFPAY ==
[2024-09-10 14:12] LABS: Influenza A PCR NEGATIVE (Negative); Influenza B PCR NEGATIVE (Negative); Resp Syncy Virus RNA Qual PCR NEGATIVE (Negative); SARS COV2 PCR INHOUSE NEGATIVE (Negative)
--- OUTSIDE RECORDS SUMMARY | 2024-09-10 16:15 | XMS_ITS | Clinical Summary ---
Author Organization [facility] Address [address] [place] [address] Care Team Providers Care Machine Maintenance Supervisor Name Role Phone Portia Garcia MD Primary Care Provider [phone] Allergies Active Allergy Reactions Criticality Noted Date [...] day. 30 g 1 02/02/2023 Active Benadryl wlyz-Vpgndj-Qaioqycx -Lidocaine Visc mouth wash 1:1:1:1 Swish and spit 5 mL every 4 (four) hours as needed for mucositis. 240 mL 1 10/23/2023 Active Aspirin 81 MG CAPS Take 81 mg by mouth. 0 04/12/2023 Active Zanubrutinib 80 MG CAPSIndications:Endbander neel Lymphocytic Leukemia Take TWO Capsules in [...] age to complete this topic Care Teams Machine Maintenance Supervisor Relationship Specialty Start Date End Date Portia Garcia MD PCP - General Internal Medicine 01/07/21
--- OUTSIDE RECORDS SUMMARY | 2024-09-10 16:15 | XMS_ITS ---
Author Organization [facility] Address [address] [place] [address] Care Team Providers Care Sap Plant Maintenance Consultant Name Role Phone Portia Garcia MD Primary Care Provider [phone] Active Problems Problem Noted Date Diagnosed Date [...] without esophagi tis 12/01/2017 Current Oncology [facility] DENOSUMAB 60MG (PROLIA)* Plan Start Date:11/04/2022 Plan Provider:Liz Portillo MD Linked Problems CLL (chronic lymphocytic kristi kemia) ([facility])Age-related osteoporosis without current pathological fracture Treatment Medications denosumab (PROLIA) Past Plans ONCOLOGY INFUSION THERAPY Plan Name Start Date Discontinue Date Treatment Medications Discontinue Reason Plan Provider [facility] OP EVUSHELD (TIXAGEVIMAB AND CILGAVIMAB INJECTIONS) & [facility] BCN DENOSUMAB 60MG (PROLIA) 12/24/2021 06/30/2022 albuterol (PROVENTIL)denos umab (PROLIA)diphenhy drAMINE (BENADRYL)EPINEP Hrinefamotidine (PF) (PEPCID)hydrocor tisone (SOLU-CORTEF) IVmeperidine (DEMEROL) 25 MG/MLsodium chloride 0.9% bolus (NS)tixagevimab & cilgavimab (EVUSHELD) Therapy Complete Liz Portillo MD ONCOLOGY TREATMENT Plan Name Start Date Discontinue Date Treatment Medications Discontinue Reason Plan Provider [facility] RIT[facility] (IV/SC) WEEKLY X4 2 06/30/2022 acetaminophen (TYLENOL)albuter ol (PROVENTIL)dexam ethasone (DECADRON)diphen hydrAMINE (BENADRYL)EPINEP Hrinefamotidine (PF) (PEPCID)hydrocor tisone (SOLU-CORTEF) IVmeperidine (DEMEROL) 25 MG/MLrituximab infusionriTUXima b-pvvr (RUXIENCE) infusion (Outpatient record)Saline Flush 0.9 %sodium chloride (NS) 0.9 %sodium chloride 0.9% bolus (NS) Therapy Complete Liz Portillo MD 1 of 1 cycle started Radiation Treatments * No radiation treatments are documented for this patient in [facility]. Treatments may have been administered in another system.
--- OUTSIDE RECORDS SUMMARY | 2024-09-10 16:15 | XMS_ITS | Encounter Summary ---
Author Organization [facility] Address [address] [place] [address] Care Team Providers Care Tar Worker Name Role Phone Portia Garcia MD Primary Care Provider [phone] Encounter Details Date Type Department Care Team (Late st Contact Info) Description 01/24/2024 2:45 PM EDT Hospital Encounter TH HISTORIC ENCOUNTERS EASTERN CONVERSION ONLY Liz Alvarez MD [address] [place] [address] Social History Tobacco Use Types [...] AM EDT Office Visit Gastroenterology - 299 [facility] [address] [phone] Yonathan Stone PA [address] [address] 11/28/2024 9:15 AM EDT Office Visit [facility] Hematology Oncology [address] [place] [address] Martin-Liz Dubois MD [address] [place] [address] 01/06/2025 11:30 AM EDT Appointment [facility] Infusion Center [address] [address] documented as of this encounter Visit Diagnoses Not on filedocumented in this encounter Care Teams Tar Worker Relationship Specialty Start Date End Date Portia Garcia MD [address] [place] [address] PCP - General Internal Medicine 01/07/21 documented as of this encounter
--- OUTSIDE RECORDS SUMMARY | 2024-09-10 16:15 | XMS_ITS | Clinical Summary ---
Author Organization [facility] Address [address] [place] [address] Phone Care Team Providers Care Sash Clamp Operator Name Role Phone Portia Garcia MD Primary Care Provider [phone] Allergies Active Allergy Reactions Criticality Noted Date [...] different specialists including local oncologist, once at [facility], physiatrists at [facility] and the more recent suggestion for a [...] and we will make the referral to [facility] interventional radiology. She may consider pain [...] Description 08/27/2024 9:00 AM EDT Office Visit [facility] Hematology Oncology [address] [place] [address] Liz Collins MD Chronic lymphocytic leukemia (CMS/HCC) (Primary Dx); Anemia in neoplastic disease; Anxiety; Primary insomnia; Chronic bilateral low back pain without sciatica; Vitamin D deficiency; Gastroesophageal reflux disease without esophagitis; Skin rash; Pruritus 07/08/2024 10:54 AM EST - 07/08/2024 11:59 PM EST Hospital Encounter [facility] Center 271 [facility] 2nd [place] [address] Chronic lymphocytic leukemia (CMS/HCC) (Primary [...] COVID-19, mRNA, LNP-S, tasia-sucrose, preservative free 08/07/2021 [employer] SARS-CoV-2 COVID-19, mRNA, LNP-S, preservative free 01/17/2021,07/02/2020,06/11/2020 [...] Office Visit Gastroenterology - 299 [place] [address] [place] [address] Yonathan Stone PA [address] [address] 11/28/2024 9:15 AM EDT Office Visit [facility] Hematology Oncology [address] [place] [address] Liz Alvarez MD [address] [place] [address] 01/06/2025 11:30 AM EDT Appointment [facility] Infusion Center [address] [address] Health Maintenance Due Date Last [...] LAB HEMETOLOGY METHOD 08/05/2024 9:51 PM EST [facility] RBC 4.20 3.80 - 4.80 M/mcL LAB HEMETOLOGY METHOD 08/05/2024 9:51 PM EST [facility] Hemoglobin 12.8 11.5 - 16.0 g/dL LAB HEMETOLOGY METHOD 08/05/2024 9:51 PM [facility] Hematocrit 40.3 35.0 - 47.0 % LAB HEMETOLOGY METHOD 08/05/2024 9:51 PM [facility] MCV 96.9 79.0 - 98.0 FL LAB HEMETOLOGY METHOD 08/05/2024 9:51 PM [facility] MCH 30.8 27.0 - 32.0 pcg LAB HEMETOLOGY METHOD 08/05/2024 9:51 PM [facility] MCHC 31.8(L) 32.0 - 37.0 g/dL LAB HEMETOLOGY METHOD 08/05/2024 9:51 PM [facility] RDW 14.4 11.0 - 15.0 % LAB HEMETOLOGY METHOD 08/05/2024 9:51 PM [facility] Platelets 248 130 - 400 K/mcL LAB HEMETOLOGY METHOD 08/05/2024 9:51 PM [facility] MPV 11.0 7.0 - 11.0 FL LAB HEMETOLOGY METHOD 08/05/2024 9:51 PM [facility] NRBC 0.0 <1.0 % LAB HEMETOLOGY METHOD 08/05/2024 9:51 PM [facility] NRBC Absolute 0.00 <0.10 K/mcL LAB HEMETOLOGY METHOD 08/05/2024 9:51 PM [facility] Neutrophils Relative 27.8 % LAB HEMETOLOGY METHOD 08/05/2024 9:51 PM [facility] Comment:This is an appended report. These results have been appended to a previously preliminary verified report. Lymphocytes Relative 65.3 % LAB HEMETOLOGY METHOD 08/05/2024 9:51 PM [facility] Comment:This is an appended report. These results have been appended to a previously preliminary verified report. Monocytes Relative 3.2 % LAB HEMETOLOGY METHOD 08/05/2024 9:51 PM [facility] Comment:This is an appended report. These results have been appended to a previously preliminary verified report. Eosinophils Relative 2.9 % LAB HEMETOLOGY METHOD 08/05/2024 9:51 PM [facility] Comment:This is an appended report. These results have been appended to a previously preliminary verified report. Basophils Relative 0.6 % LAB HEMETOLOGY METHOD 08/05/2024 9:51 PM [facility] Comment:This is an appended report. These results have been appended to a previously preliminary verified report. Immature Granulocytes Relative 0.2 % LAB HEMETOLOGY METHOD 08/05/2024 9:51 PM [facility] Comment:This is an appended report. These results have been appended to a previously preliminary verified report. Neutrophils Absolute 4.83 1.50 - 7.00 K/mcL LAB HEMETOLOGY METHOD 08/05/2024 9:51 PM [facility] Comment:This is an appended report. These results have been appended to a previously preliminary verified report. Lymphocytes Absolute 11.29(H) 1.00 - 5.00 K/mcL LAB HEMETOLOGY METHOD 08/05/2024 9:51 PM [facility] Comment:This is an appended report. These results have been appended to a previously preliminary verified report. Monocytes Absolute 0.55 0.20 - 1.00 K/mcL LAB HEMETOLOGY METHOD 08/05/2024 9:51 PM [facility] Comment:This is an appended report. These results have been appended to a previously preliminary verified report. Eosinophils Absolute 0.50 0.00 - 0.50 K/mcL LAB HEMETOLOGY METHOD 08/05/2024 9:51 PM [facility] Comment:This is an appended report. These results have been appended to a previously preliminary verified report. Basophils Absolute 0.10 0.00 - 0.20 K/mcL LAB HEMETOLOGY METHOD 08/05/2024 9:51 PM [facility] Comment:This is an appended report. These results have been appended to a previously preliminary verified report. Immature Granulocytes Absolute 0.03 0.00 - 0.03 K/mcL LAB HEMETOLOGY METHOD 08/05/2024 9:51 PM EST [facility] Comment:This is an appended report. These results have been appended to a previously preliminary verified report. Blood Venous blood specimen / Unknown Venipuncture / Unknown 08/05/2024 3:04 PM EST 08/05/2024 5:22 PM EST us Liz Alvarez MD LAB BLOOD ORDERABLE S Final Result Performing Organization Address [facility] Co de Phone Number [facility] [address] [place] [address], [place] [phone] * Lactate dehydrogenase (08/05/2024 3:04 PM EST) Only the most recent of2 resultswithin the time period is included. LDH 168 120 - 246 unit/L LAB CHEMISTRY METHOD 08/05/2024 5:58 PM EST [facility] Blood Venous blood specimen / Unknown Venipuncture / Unknown 08/05/2024 3:04 PM EST 08/05/2024 5:21 PM EST us Liz Alvarez MD LAB BLOOD ORDERABLE S Final Result Performing Organization Address City/[facility]/ZIP Co de Phone Number [facility] [address] [place] [address], [place] [phone] * (ABNORMAL) Immunoglobulin IgG (08/05/2024 3:04 PM EST) Only the most recent of2 resultswithin the time period is included. Total IgG 316(L) 549 - 1,584 mg/dL LAB CHEMISTRY METHOD 08/05/2024 5:58 PM EST [facility] Blood Venous blood specimen / Unknown Venipuncture / Unknown 08/05/2024 3:04 PM EST 08/05/2024 5:21 PM EST Liz Alvarez MD LAB BLOOD ORDERABLE S Final Result [facility] [address] [place] [address], [place] [phone] * (ABNORMAL) Comprehensive metabolic panel (08/05/2024 3:04 PM EST) Only the most recent of2 resultswithin the time period is included. Sodium 137 133 - 145 mmol/L LAB CHEMISTRY METHOD 08/05/2024 5:58 PM [facility] Potassium 3.3(L) 3.5 - 5.5 mmol/L LAB CHEMISTRY METHOD 08/05/2024 5:58 PM [facility] Chloride 103 96 - 110 mmol/L LAB CHEMISTRY METHOD 08/05/2024 5:58 PM [facility] CO2 28 21 - 32 mmol/L LAB CHEMISTRY METHOD 08/05/2024 5:58 PM [facility] Anion Gap 6 3 - 11 LAB CHEMISTRY METHOD 08/05/2024 5:58 PM [facility] Glucose 91 70 - 100 mg/dL LAB CHEMISTRY METHOD 08/05/2024 5:58 PM [facility] BUN 10 5 - 25 mg/dL LAB CHEMISTRY METHOD 08/05/2024 5:58 PM [facility] Creatinine 0.78 0.50 - 1.10 mg/dL LAB CHEMISTRY METHOD 08/05/2024 5:58 PM [facility] eGFR 80 >=60 mL/min/1. 73m2 LAB CHEMISTRY METHOD 08/05/2024 5:58 PM [facility] Comment:Calculation based on the??Chronic Kidney Disease Epidemiology Collaboration (CKD-EPI) equation refit??without adjustment for race. BUN/Creatinine Ratio 12.8 LAB CHEMISTRY METHOD 08/05/2024 5:58 PM [facility] Calcium 9.6 8.5 - 10.5 mg/dL LAB CHEMISTRY METHOD 08/05/2024 5:58 PM [facility] AST (SGOT) 18 10 - 42 unit/L LAB CHEMISTRY METHOD 08/05/2024 5:58 PM [facility] ALT (SGPT) 24 10 - 60 unit/L LAB CHEMISTRY METHOD 08/05/2024 5:58 PM [facility] Alkaline Phosphatase 66 42 - 121 unit/L LAB CHEMISTRY METHOD 08/05/2024 5:58 PM [facility] Total Protein 6.2 6.0 - 8.0 g/dL LAB CHEMISTRY METHOD 08/05/2024 5:58 PM [facility] Albumin 3.9 3.2 - 5.0 g/dL LAB CHEMISTRY METHOD 08/05/2024 5:58 PM [facility] Total Bilirubin 0.2 0.0 - 1.4 mg/dL LAB CHEMISTRY METHOD 08/05/2024 5:58 PM [facility] Blood Venous blood specimen / Unknown Venipuncture / Unknown 08/05/2024 3:04 PM EST 08/05/2024 5:21 PM EST Subramshane Alvarez MD LAB BLOOD ORDERABLE S Final Result [facility] [address] [place] [address], * (ABNORMAL) Manual differential (06/25/2024 10:38 AM EST) Neutrophils % 21.0 % LAB HEMETOLOGY METHOD 06/25/2024 11:46 AM [facility] Lymphocytes % 73.0 % LAB HEMETOLOGY METHOD 06/25/2024 11:46 AM [facility] Monocytes % 4.0 % LAB HEMETOLOGY METHOD 06/25/2024 11:46 AM [facility] Eosinophils % 2.0 % LAB HEMETOLOGY METHOD 06/25/2024 11:46 AM [facility] Basophils % 1.0 % LAB HEMETOLOGY METHOD 06/25/2024 11:46 AM [facility] Neutrophils Absolute Manual 4.10 1.50 - 7.00 K/mcL LAB HEMETOLOGY METHOD 06/25/2024 11:46 AM [facility] Lymphocytes Absolute 14.24(H) 1.00 - 5.00 K/mcL LAB HEMETOLOGY METHOD 06/25/2024 11:46 AM [facility] Monocytes Absolute Manual 0.78 0.20 - 1.00 K/mcL LAB HEMETOLOGY METHOD 06/25/2024 11:46 AM [facility] Eosinophils Absolute Manual 0.39 0.00 - 0.50 K/mcL LAB HEMETOLOGY METHOD 06/25/2024 11:46 AM [facility] Basophils Absolute Manual 0.20 0.00 - 0.20 K/mcL LAB HEMETOLOGY METHOD 06/25/2024 11:46 AM [facility] Rbc Morphology Consistent with indices Consistent with indices, Normal for [place] LAB HEMETOLOGY METHOD 06/25/2024 11:46 AM [facility] Comment:RBC: Morphology agre es with CBC Platelet Morphology - WAM See Note(A) Normal LAB HEMETOLOGY METHOD 06/25/2024 11:46 AM [facility] Comment:PLT: Normal Blood Venous blood specimen / Unknown Venipuncture / Unknown 06/25/2024 10:38 AM EST 06/25/2024 11:07 AM EST us Subramshane Alvarez MD LAB BLOOD ORDERABLE S Final Result [facility] [address] [place] [address], * Cervical Cancer Screening: HPV (12/08/2020) Pathologist [facility] Cervical Cancer Screening: HPV negative, abstracted us Historical Provider HEALTH MAINTENANCE Final Result * (ABNORMAL) Lipid panel (10/23/2020) Pathologist [facility] LDL/HDL Ratio 5(A) 0 - 4 Triglycerides [...] should be classified as having osteoporosis. The [facility] Department of Internal Medicine recommends using [...] Aguiar shouldbe classified as having osteoporosis. The [facility] Department of Internal Medicine recommendsusing National [...] fracture risk by FRAX. Shruthi Capps MD [facility] DXA PROCEDURES Final Result * DX MAMMO [...] of the same day. Shruthi Capps MD [facility] BI PROCEDURES Final Result * Colonoscopy (11/06/2015) [facility] Colonoscopy no interpretation , abstracted Anatomical Region Laterality Modality Other Historical Provider HEALTH MAINTENANCE Final Result * Hepatitis C Screening (09/04/2013) [facility] Hepatitis C Screening abstracted Historical Provider HEALTH MAINTENANCE Final Result from Last 3 Months or Most Recently Relevant to Health Maintenance Insurance MEDICARE [facility] Care Teams Sash Clamp Operator Relationship Specialty Start Date End Date Portia Garcia MD [address] [place] [id number] PCP - General Internal Medicine 01/07/21
--- OUTSIDE RECORDS SUMMARY | 2024-09-10 16:15 | XMS_ITS ---
Author Organization [facility] Address [address] [place] [address] Phone Care Team Providers Care Tube Bender Hand Name Role Phone Portia Garcia MD Primary Care Provider [phone] Active Problems Problem Noted Date Diagnosed Date [...] different specialists including local oncologist, once at [facility], physiatrists at [facility] [...] and we will make the referral to [facility] interventional radiology. She may consider pain [...] treatments are documented for this patient in [facility]. Treatments may have been administered in another system. Resolved Problems Problem Noted Date Diagnosed Date Resolved Date Leukemia 05/24/2022 05/15/2024 Leukemia 05/24/2022 05/15/2024
--- OUTSIDE RECORDS SUMMARY | 2024-09-10 16:15 | XMS_ITS | Encounter Summary ---
Author Organization [facility] Address [address] [place] [address] Care Team Providers Care Woodworking Machine Operator Name Role Phone Portia Garcia MD Primary Care Provider [phone] Encounter Details Date Type Department Care Team Description 01/12/2022 Social Work [facility] Oncology Services [address] [place] [id number] [facility] Social History Tobacco Use Types Packs/Day Years [...] on filedocumented in this encounter Care Teams Woodworking Machine Operator Relationship Specialty Start Date End Date Portia Garcia MD PCP - General Internal Medicine 01/07/21 documented as of this encounter
== END 2024-09-10 09:14 | disposition home or self-care (01) ==
LOC: HO.LNP 09:13
PROVIDERS: PCP Internal Medicine; Visit Provider Physician Assistant
DX: J06.9 Acute upper respiratory infection, unspecified (principal)
CPT/HCPCS: 0241U; 87880; 99212

== ENCOUNTER 2024-09-10 09:13 | Outpatient (AMB) | payer MEDICARE, SELFPAY ==
--- NOTE | 2024-09-10 09:14 | AM.OFFWIN_ITS ---
Intake Vital Signs 09/10/24 09:16 Weight 127 lb BP 120/74 Blood Pressure Location Lt brachial Position Sitting Pulse 102 H Pulse Source Pulse Oximeter Temp 98.3 F Temp Source Oral Pulse Oximetry (%) 99 Intake Visit Reasons: EP sore throat, chest congestion Intake Note: Patient here for sore throat and chest congestion that has been present for about 1 week. Patient Tobacco Use Status: Former Tobacco user Allergies sulfamethoxazole [From Bactrim] Allergy (Mild, Verified 09/10/24 09:16) Hives trimethoprim [From Bactrim] Allergy (Mild, Verified 09/10/24 09:16) Hives Do you need a note to return to daycare/school/sports/work: No HPI HPI Comments History of Present Illness Details This is a 74-year-old female with a past medical history of CLL cur rently maintained on chemotherapy, tachycardia and asthma presenting for evaluation of a sore throat and chest congestion that she has had since Monday. Patient states that she also has mild discomfort in her left ear. She denies having any fevers, chills, chest pain, shortness for breath, hemoptysis, nausea, vomiting or abdominal pain. Patient is taking Robitussin cough and congestion without complete relief of her discomfort. Patient denies any recent sick contacts. 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 Leukemia Vertebrogenic low back pain Lumbar spinal stenosis Family History Mother Anxiety Brother Anxiety Sister Anxiety Maternal Grandmother Breast cancer Other FH: mental illness Social History (Updated 04/22/24 @ 11:44 by Janet De La Vega CMA) Household Members: Spouse Housing: House Alcohol intake: never Patient Tobacco Use Status: Former Tobacco user Years Smoked: 10, Quit 42 years ago e-Cigarette/Vaping Use: Never Used Second Hand Smoke Exposure: Yes (past ) service: No Current occupational status: retired 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 Cognitive needs: No Hearing needs: No Vision needs: Yes (glasses) Review of Systems Const All systems reviewed & are unremarkable except as noted in HPI and below Denies body aches, Denies chills, Denies fatigue, Denies fever(s), Denies headache(s) and Denies weakness Eyes Reports no additional complaints, Denies blurry vision and Denies change in vision ENT Reports no additional complaints, Reports otalgia (left ear discomfort ), Denies headache(s), Denies nasal discharge, Denies sinus pain, Reports sore throat and Denies throat swelling Card Reports no additional complaints and Denies dyspnea Resp Reports chest congestion, Denies cough, Denies hemoptysis, Denies dyspnea, Denies stridor and Denies wheezing GI Reports no additional complaints Reports no additional complaints Musc Reports no additional complaints Skin/Breast Reports system reviewed and no additional complaints, except as documented Neuro Reports no additional complaints, Denies headache(s) and Denies weakness Psych Reports no additional complaints Endo Reports no additional complaints and Denies fatigue Rohan/Lymph Reports no additional complaints Aller/Immun Reports no additional complaints, Denies throat swelling and Denies wheezing Physical Exam Vital Signs: Last Vital Signs Temp 98.3 F 09/10/24 09:16 Pulse 102 H 09/10/24 09:16 BP 120/74 09/10/24 09:16 Pulse Ox 99 09/10/24 09:16 Patient is afebrile and is not hypoxic. Const General: cooperative, healthy appearing, comfortable, no acute distress, well developed, alert, awake and Physically active Nutritional Appearance: average body habitus Orientation/consciousness: patient oriented x3 Limitations: no limitations HEENT Head: Yes normal to inspection and Yes normocephalic Ears: hearing grossly normal bilaterally, external ears normal, TM's normal bilaterally and EAC's normal General nose exam: Normal external nose present Face and sinus: Yes normal facial exam Mouth: Normal oral and palatal mucosa present, oropharynx normal and moist mucous membranes Teeth and gingiva: dentition normal Throat: Yes posterior oropharynx normal and Yes postnasal drainage Eyes General: appearance normal, both eyes and all related structures Visual Galo: normal visual galo by confrontation Conjunctivae: conjunctivae normal Sclerae: sclerae normal Corneas: corneas normal Pupils: Equal, round and reactive pupils present EOM: EOMs intact bilaterally Direct Ophthalmoscopy: normal light reflex Neck Lymphatic: no lymphadenopathy noted Resp Effort & Inspection: normal respiratory effort, able to speak in complete sentences, no audible wheezes, no cough and respiratory effort not decreased Auscultation: clear to auscultation bilaterally Cardio Rate: regular rate Rhythm: regular rhythm Skin General skin exam: no rashes or lesions noted Neuro General: patient oriented x3 Cranial nerves: Yes Equal, round and reactive pupils present Psych Appearance: grossly normal Mental Status: mental status grossly normal Insight: Good insight present (Psych) Judgement: Good judgement present (Psych) Results Reviewed Results Reviewed: Rapid strep test is negative. Assessment & Plan Assessment & Plan (1) Acute upper respiratory infection: Comment: Patient's rapid strep test is negative. Given this patient's immunocompromise, SARs panel is ordered and results are pending. Code(s): J06.9 - Acute upper respiratory infection, unspecified Plan: Mucinex OTC with increased clear fluids, ibuprofen as needed for discomfort. Orders: Orders SARS-CoV2/FLU/RSV Today J06.9 - Acute upper respiratory infection, unspecified Coding Level of Care Code Est Pt Level 3 (41335) Diagnoses Acute upper respiratory infection J06.9 Time Spent (min) 20
[2024-09-10 09:16] VITALS: BP 120/74; PULSE 102; TEMP 36.8; O2SAT 99
--- OUTSIDE RECORDS SUMMARY | 2024-09-10 10:10 | XMS_ITS ---
Author Organization [facility] Address [address] [place] [address] Care Team Providers Care Tunnel Inspector Name Role Phone Portia Garcia MD Primary Care Provider [phone] Active Problems Problem Noted Date Diagnosed Date [...] without esophagi tis 12/01/2017 Current Oncology Plans [facility] DENOSUMAB 60MG (PROLIA)* Plan Start Date:11/04/2022 Plan Provider:Liz Portillo MD Linked Problems CLL (chronic lymphocytic kristi kemia) ([facility])Age-related osteoporosis without current pathological fracture Treatment Medications denosumab (PROLIA) Past Plans ONCOLOGY INFUSION THERAPY Plan Name Start Date Discontinue Date Treatment Medications Discontinue Reason Plan Provider OP EVUSHELD (TIXAGEVIMAB AND CILGAVIMAB INJECTIONS) & BCN DENOSUMAB 60MG (PROLIA) 12/24/2021 06/30/2022 albuterol (PROVENTIL)denos umab (PROLIA)diphenhy drAMINE (BENADRYL)EPINEP Hrinefamotidine (PF) (PEPCID)hydrocor tisone (SOLU-CORTEF) IVmeperidine (DEMEROL) 25 MG/MLsodium chloride 0.9% bolus (NS)tixagevimab & cilgavimab (EVUSHELD) Therapy Complete Liz Portillo MD ONCOLOGY TREATMENT Plan Name Start Date Discontinue Date Treatment Medications Discontinue Reason Plan Provider Cycles [facility] OP RITUXIMAB (IV/SC) WEEKLY X4 2 06/30/2022 acetaminophen (TYLENOL)albuter ol (PROVENTIL)dexam ethasone (DECADRON)diphen hydrAMINE (BENADRYL)EPINEP Hrinefamotidine (PF) (PEPCID)hydrocor tisone (SOLU-CORTEF) IVmeperidine (DEMEROL) 25 MG/MLrituximab infusionriTUXima b-pvvr (RUXIENCE) infusion (Outpatient record)Saline Flush 0.9 %sodium chloride (NS) 0.9 %sodium chloride 0.9% bolus (NS) Therapy Complete Liz Portillo MD 1 of 1 cycle started Radiation Treatments * No radiation treatments are documented for this patient in [facility]. Treatments may have been administered in another system.
--- OUTSIDE RECORDS SUMMARY | 2024-09-10 10:10 | XMS_ITS | Data Portability ---
Author Organization [place] [facility] Address [address] [place] [address] Assessment Encounter Date Assessment Date Assessment LastModified by Organization Details LastModified Time 02/28/2024 02/28/2024 73-year-old female presents for cerumen removal. Cerumen impaction removed bilaterally. Bilateral TMs are intact. She will follow-up in 6 months for routine debridement. Not available 02/28/2024 15:34:50 08/22/2024 08/22/2024 73-year-old female presents for cerumen removal. Cerumen impaction removed bilaterally. Bilateral TMs are intact. She will follow-up in 6 months for routine debridement. [email or web address] Not available 08/22/2024 09:11:53 Plan of Treatment Reminders Order Date Submit [...] Recorded Time Impacted cerumen of bilateral ears 97514223479 33520 Active 2015 Impacted cerumen, bilateral ; Note: Date Diagnosed : 08/13/2015 10:46 AM (H61.23) Not Available [facility] 4 03:18:47 Impacted cerumen 74846821 Active 2013 Impacted cerumen; Note: Date Diagnosed : 4 4:42 PM (380.4) Not Available [facility] 4 03:18:47 Otalgia 23276114 Active 2013 Otalgia; CMS Risk: moderate risk Note : Date Diagnosed : 4 5:12 PM (388.70) Not Available [facility] 4 03:18:48 Impacted cerumen in left ear 65163543802 00882 Active 2014 Impacted cerumen, left ear; Note: Date Diagnosed : 5 3:54 PM (H61.22) Not Available [facility] 4 03:18:48 Problem Notes None recorded. Procedures Surgical History Date Name Laterality Status Provider Name and Address Organization Details Recorded Time 5 Cerumen removal without microscope bilat completed RANGEL RHODES PA-C [address] [place] [address],[address], [phone], [facility] 08/22/2024 09:11:49 4 Cerumen removal without microscope bilat completed RANGEL RHODES PA-C [address] [place] [address],[address], [phone], [facility] 02/28/2024 15:34:15 Imaging Results None recorded. Procedure Notes None recorded. Medical Equipment None Reported. Allergies Allergen ID Allergen Name Allergen Category Reaction Reaction Severity Criticality Documentation Date Start Date Code Code System Note Provider Name and Address Organization Details Recorded Time 367285 Bactrim medicatio n other Not available Not available 10/17/2023 43792 9 RxNorm React ion: unkno wn, unspe cifie d;; Not Available [facility] 4 01:19:01 621100 Substance with sulfonami de structure and antibacte rial mechanism of action (substanc e) medicatio n other Not available Not available 10/17/2023 59564 8003 SNOMED React ion: unkno wn, unspe cifie d;; Not Available [facility] 4 01:19:02 Medications Name Sig Start Date [...] active Not Available Not Available Not Available tizanidin e 4 mg tablet TAKE 1 TABLET BY MOUTH EVERY 8 HOURS NEEDED FOR MUSCLE SPASMS active Not Available Not Available No t Available clonazepa m 0.5 mg tablet TAKE 1 TABLET BY MOUTH TWICE DAILY NEEDED FOR ANXIETY active Not Available Not Available No t Available potassium chloride ER 10 mEq tablet,ex tended release active Not Available Not Available Not Available acyclovir 400 mg tablet active Not Available Not Available Not Available morphine ER 30 mg tablet,ex tended release TAKE 1 TABLET BY MOUTH EVERY 8 HOURS NEEDED FOR PAIN active Not Available Not Available No t Available minoxidil 2.5 mg tablet TAKE 1/2 TABLET BY MOUTH DAILY active Not Available Not Available No t Available amoxicill in 500 mg tablet TAKE 2 TABLETS BY MOUTH STAT THEN 1 TABLET BY MOUTH EVERY 8 HOURS UNTIL ALL TAKEN active Not Available Not Available No t Available nortripty line 25 mg capsule TAKE 1 CAPSULE BY MOUTH AT BEDTIME active Not Available Not Available No t Available imiquimod 5 % topical cream packet APPLY TO THE AFFECTED AREA ON THE LOWER LEG 5 TIMES PER WEEK MONDAY THRU MONDAY FOR 6 WEEKS active Not Available Not Available No t Available tacrolimu s 0.1 % topical ointment APPLY TOPICALL Y TO THE AFFECTED AREA TWICE DAILY active Not Available Not Available No t Available triamcino lone acetonide 0.1 % topical ointment active Not Available Not Available Not Available fluoxetin e 10 mg capsule TAKE [...] mg capsule 2018 active Medicati on ID: [id number] D uration Value: 30 Brand Name: gabapent [...] Not Available Not Available No t Available mupirocin 2 % topical ointment APPLY TOPICALL Y TO THE AFFECTED AREA TWICE DAILY UNTIL RESOLVED active Not Available Not Available No t Available gabapenti n 100 mg capsule TAKE 2 CAPSULES BY MOUTH EVERY NIGHT AT BEDTIME active Not Available Not Available No t Available clobetaso l 0.05 % topical ointment APPLY TO AFFECTED AREAS ON THE BACK TWICE DAILY FOR 2 WEEKS BREAK FOR A WEEK AND REPEAT NEEDED active Not Available Not Available No t Available estradiol 0.01% (0.1 mg/gram) vaginal cream USE 1 GRAM VAGINALL Y EVERY DAY FOR 2 WEEKS THEN USE 1 GRAM VAGINALL Y 2 TIMES A WEEK active Not Available Not Available No t [...] mg tablet 2018 active Medicati on ID: [id number] D uration Value: 90 Brand Name: naproxen [...] and Address Organization Details Last Updated DateTime 08/22/2024 172.72 cm 19.5 kg/m2 89015.82 g Valeria Tobias [facility] 08/22/2024 09:00:29 Date Recorded Body height Body mass index (BMI) Body weight Provider Name and Address Organization Details Last Updated DateTime 02/28/2024 172.72 cm 19.5 kg/m2 60357.82 g Ginny Ham [facility] 02/28/2024 15:00:16 Social History None recorded. Functional Status None recorded. Mental Status None recorded. Family History Nothing Reported. Medical History No medical history recorded. Gynecological HistoryNo gynecological history recorded. Obstetrics History GPAL:G 0 P 0 0 0 0 Past Encounters Encounter ID Performer Location Encounter Start Date Encounter Closed Date Diagnosis/Indication Diagnosis SNOMED-CT Code Diagnosis ICD10 Code Diagnosis Note [id number] CASSIE SAHA MD [facility] [address] [address] 02/28/2024 14:57:16 02/29/2024 07:01:40 Impacted cerumen of bilateral ears [id number] 747933 H61.23 [id number] BLANQUITA MUÑOZ MD [facility] [address] [place] [address] 08/22/2024 08:53:37 08/22/2024 10:41:18 Impacted cerumen of bilateral ears 6259726016 831260 H61.23 Health Concerns Section Related Observation LastModified by Organization Detai ls LastModified Time None Recorded Concern Status LastModified by Organization Details LastModified Time None Recorded Advance Directives Directive None Recorded Payers Encounter Date Sequence Insurance Name Policy Number Policy Cain Covered Member ID Cain Member ID Guarantor Name 02/28/2024 1 MEDICARE [place]: [facility] Lanny A Patingre [id number] 5 Lanny A Patingre 08/22/2024 1 [place] [facility] Lanny A Patingre [id number] 5 Lanny A Patingre Notes Date Note Type Note Provider Name and Address Organization Details Recorded Time 02/28/2024 text/html 73-year-old female presents for ear cleaning. No concerns today. CASSIE MURDOCK MD [address] [place] [address], [phone], [facility] 02/28/2024 16:57:55 08/22/2024 text/html 73-year-old female presents for ear cleaning. No concerns today. BLANQUITA MUÑOZ MD [address] [place] [address], [phone], [facility] 08/23/2024 08:46:45 OBGyn Episode No OBEpisode recorded.
--- OUTSIDE RECORDS SUMMARY | 2024-09-10 10:10 | XMS_ITS | Encounter Summary ---
Author Organization [facility] Address [address] [place] [address] Care Team Providers Care Blacktop Spreader Name Role Phone Portia Garcia MD Primary Care Provider [phone] Encounter Details Date Type Department Care Team (Late st Contact Info) Description 01/24/2024 2:45 PM EDT Hospital Encounter TH HISTORIC ENCOUNTERS EASTERN CONVERSION ONLY Liz Alvarez MD [address] [place] [address] Social History Tobacco Use Types Packs/Day Years [...] Care Team (Late st Contact Info) Description 09/16/2024 11:20 AM EDT Office Visit Gastroenterology - 299 [facility] [address] [phone] Yonathan Stone PA [address] [address] 11/28/2024 9:15 AM EDT Office Visit [facility] Hematology Oncology [address] [place] [address] Martin-Liz Dubois MD [address] [place] [address] 01/06/2025 11:30 AM EDT Appointment [facility] Infusion Center [address] [address] documented as of this encounter Visit Diagnoses Not on filedocumented in this encounter Care Teams Blacktop Spreader Relationship Specialty Start Date End Date Portia Garcia MD [address] [place] [id number] PCP - General Internal Medicine 01/07/21 documented as of this encounter
--- OUTSIDE RECORDS SUMMARY | 2024-09-10 10:10 | XMS_ITS | Clinical Summary ---
Author Organization [facility] Address [address] [place] [address] Phone Care Team Providers Care Chronograph Operator Name Role Phone Portia Garcia MD Primary Care Provider [phone] Allergies Active Allergy Reactions Criticality Noted Date Comments Sulfamethoxazole-Trimethop rim Hives 05/15/2005 Sulfamethoxazole-Trimethop rim 05/15/2005 Other Reaction(s): Hives/Urticaria Medications calcium carbonate/vitam in D3 (CALCIUM + D ORAL) Take by mouth daily. Active ergocalciferol (VITAMIN D-2) 1,250 mcg (50,000 unit) capsule Take 1 capsule by mouth once a week. 01/20/20 19 Active FLUoxetine (PROzac) 10 mg capsule TAKE 1 CAPSULE BY MOUTH DAILY 03/18/20 22 Active fluticasone propionate (FLONASE) 50 mcg/actuation nasal spray 1 spray in each nostril once daily 10/22/19 21 Active gabapentin (NEURONTIN) 100 mg capsule Take 2 tab po nightly 10/24/19 21 Active methocarbamoL (ROBAXIN) 500 mg tablet TAKE 1 TABLET BY MOUTH EVERY 8 HOURS NEEDED FOR PAIN 12/31/19 21 Active magnesium 250 mg tablet Take by mouth. 01/14/20 20 Active nortriptyline (PAMELOR) 50 mg capsule TAKE 1 CAPSULE BY MOUTH DAILY AT BEDTIME 05/01/20 22 Active omeprazole (PriLOSEC) [address] capsule Take 1 capsule by mouth daily. 10/22/19 21 Active Lactobacillus acidophilus (PROBIOTIC ACIDOPHILUS ORAL) Take [...] mg tablet Take by mouth. Active calcium carbonate/vitam in D3 (CALCIUM + D ORAL) Take by mouth daily. Active Lactobacillus acidophilus (PROBIOTIC ACIDOPHILUS ORAL) Take 1 Tab by mouth daily. Active morphine (MS CONTIN) 30 mg 12 hr tablet Take 1 tablet (30 mg total) by mouth every 8 (eight) hours if needed. for pain 04/27/20 24 Active zanubrutinib (Brukinsa) 80 mg capsuleIndicati ons:chronic lymphocytic leukemia Take 2 capsules (160 mg total) by mouth 1 (one) time each day Then 1 capsule (80 mg ) by mouth in the evening. Swallow capsules whole with water; do not open, break or chew. 90 capsule 5 05/24/20 24 Active potassium chloride (KLOR-CON) 10 mEq CR tablet Take 1 tablet (10 mEq total) by mouth 2 (two) times a day. 180 each 1 08/07/19 25 026 Active acyclovir (ZOVIRAX) 400 mg tablet Take 1 tablet (400 mg total) by mouth 2 (two) times a day. 180 each 05/20/20 24 025 Discontinued acyclovir (ZOVIRAX) 400 mg tablet TAKE 1 TABLET(400 MG) BY MOUTH TWICE DAILY 180 tablet 08/20/19 25 025 Discontinued Active Problems Problem Noted Date Diagnosed Date [...] different specialists including local oncologist, once at [facility], physiatrists at [facility] and the more recent suggestion for [...] and we will make the referral to [facility] interventional radiology. She may consider pain [...] Encounters Date Type Department Care Team Description 08/27/2024 9:00 AM EDT Office Visit [facility] Hematology Oncology [address] [place] [address] Liz Collins MD Chronic lymphocytic leukemia (CMS/HCC) (Primary Dx); Anemia in neoplastic disease; Anxiety; Primary insomnia; Chronic bilateral low back pain without sciatica; Vitamin D deficiency; Gastroesophageal reflux disease without esophagitis; Skin rash; Pruritus 07/08/2024 10:54 AM EST - 07/08/2024 11:59 PM EST Hospital Encounter [facility] [address] [facility] 2nd [place] [address] Chronic lymphocytic leukemia (CMS/HCC) (Primary Dx); Osteoporosis, post-menopausal Discharge Disposition: Home or Self Care from Last 3 Months Immunizations Name Administration [...] COVID-19, mRNA, LNP-S, tasia-sucrose, preservative free 08/07/2021 [employer] SARS-CoV-2 COVID-19, mRNA, LNP-S, preservative free 01/17/2021,07/02/2020,06/11/2020 [...] Years Used Date Smoking Tobacco: Former Cigarettes Tobacco Cessation:Counseling Given: Not Answered Alcohol Use Standard Drinks/Week Comments Not Currently 0 (1 standard drink = 0.6 oz pur e alcohol) Comments Unknown Sex and Gender Information Value Date Recorded Sex Assigned at Not on file Legal Sex Female 2:45 AM EST Gender Identity Not on file Sexual Orientation Not on file Obstetrics History Last Filed Vital Signs Vital Sign Reading Time Taken Comments Blood Pressure 117/50 08/27/2024 9:04 AM EDT Pulse 110 08/27/2024 9:04 AM EDT Temperature 37 ??C (98.6 ??F) 08/27/2024 9:04 AM EDT Respiratory Rate 18 07/08/2024 11:19 AM EST Oxygen Saturation 100% 08/27/2024 9:04 AM EDT Inhaled Oxygen Concentration - - Weight 57.2 kg (126 lb) 08/27/2024 9:04 AM EDT Height 157.5 cm (5' 2 ) 05/13/2024 3:42 PM EST Body Mass Index 23.05 05/13/2024 3:42 PM EST Plan of Treatment Upcoming Encounters Date Type Department Care Team (Late st Contact Info) Description 09/16/2024 11:20 AM EDT Office Visit Gastroenterology - [address] [facility] [address] [place] [address] Yonathan Stone PA [address] [address] 11/28/2024 9:15 AM EDT Office Visit [facility] Hematology Oncology [address] [place] [address] Liz Alvarez MD [address] [place] [address] 01/06/2025 11:30 AM EDT Appointment [facility] [address] [address] Health Maintenance Due Date Last Done Comments DTaP,Tdap,and Td Vaccines (5 - Td or [...] 01/14/2019 Hepatitis C Screening Completed 09/04/2013, 014 Breast Cancer Screening Discontinued 11/23/19 17, 11/11/2016, 11/02/2016 Zoster Vaccines Completed 05/17/2018, 05/05, 02/28/2018, Additional history exists Pneumococcal Vaccine: 50+ Years Completed 03/21/2019, 03/21/2019, 09/17/2014, Additional history exists RSV Immunization Adult Patients Completed 04/01/2023 Influenza Vaccine Completed 02/15/2024, , [...] age to complete this topic Meningococcal B Vaccine Aged Out No l onger eligible based on patient's age to complete this topic RSV Immunization Patients Under 20 months Aged Out No longer eligible based on patient's age to complete this topic Varicella Vaccines Aged Out No longer eligible based on patient's age to complete this topic Procedures Procedure Name Priority Date/Time Associated Diagnosis Comments CBC WITH AUTO DIFFERENTIAL Routine 08/05/2024 3:04 PM EST Chronic lymphocytic leukemia (CMS/HCC) CBC AND DIFFERENTIAL Routine 08/05/2024 3:04 PM EST Chronic lymphocytic leukemia (CMS/HCC) COMPREHENSIVE METABOLIC PANEL Routine 08/05/2024 3:04 PM EST Chronic lymphocytic leukemia (CMS/HCC) LACTATE DEHYDROGENASE Routine 08/05/2024 3:04 PM EST Chronic lymphocytic leukemia (CMS/HCC) IMMUNOGLOBULIN IGG Routine 08/05/2024 3: 04 PM EST Chronic lymphocytic leukemia (CMS/HCC) MANUAL DIFFERENTIAL - SYSMEX WAM Routine 06/25/2024 [...] 10:38 AM EST Chronic lymphocytic leukemia (CMS/HCC) HM HPV Routine 12/08/2020 LIPID PANEL Routine 10/23/2020 [...] Relevant to Health Maintenance Results * (ABNORMAL) CBC auto differential (08/05/2024 3:04 PM EST) Only the most recent of2 resultswithin the time period is included. WBC 17.3(H) 4.8 - 10.8 K/mcL LAB HEMETOLOGY METHOD 08/05/2024 9:[address] [facility] RBC 4.20 3.80 - 4.80 M/mcL LAB HEMETOLOGY METHOD 08/05/2024 9:[address] [facility] Hemoglobin 12.8 11.5 - 16.0 g/dL LAB HEMETOLOGY METHOD 08/05/2024 9:[address] [facility] Hematocrit 40.3 35.0 - 47.0 % LAB HEMETOLOGY METHOD 08/05/2024 9:[address] [facility] MCV 96.9 79.0 - 98.0 FL LAB HEMETOLOGY METHOD 08/05/2024 9:[address] [facility] MCH 30.8 27.0 - 32.0 pcg LAB HEMETOLOGY METHOD 08/05/2024 9:[address] [facility] MCHC 31.8(L) 32.0 - 37.0 g/dL LAB HEMETOLOGY METHOD 08/05/2024 9:[address] [facility] RDW 14.4 11.0 - 15.0 % LAB HEMETOLOGY METHOD 08/05/2024 9:[address] [facility] Platelets 248 130 - 400 K/mcL LAB HEMETOLOGY METHOD 08/05/2024 9:[address] [facility] MPV 11.0 7.0 - 11.0 FL LAB HEMETOLOGY METHOD 08/05/2024 9:[address] [facility] NRBC 0.0 <1.0 % LAB HEMETOLOGY METHOD 08/05/2024 9:[address] [facility] NRBC Absolute 0.00 <0.10 K/mcL LAB HEMETOLOGY METHOD 08/05/2024 9:[address] [facility] Neutrophils Relative 27.8 % LAB HEMETOLOGY METHOD 08/05/2024 9:[address] [facility] Comment:This is an appended report. These results have been appended to a previously preliminary verified report. Lymphocytes Relative 65.3 % LAB HEMETOLOGY METHOD 08/05/2024 9:[address] [facility] Comment:This is an appended report. These results have been appended to a previously preliminary verified report. Monocytes Relative 3.2 % LAB HEMETOLOGY METHOD 08/05/2024 9:[address] [facility] Comment:This is an appended report. These results have been appended to a previously preliminary verified report. Eosinophils Relative 2.9 % LAB HEMETOLOGY METHOD 08/05/2024 9:[address] [facility] Comment:This is an appended report. These results have been appended to a previously preliminary verified report. Basophils Relative 0.6 % LAB HEMETOLOGY METHOD 08/05/2024 9:[address] [facility] Comment:This is an appended report. These results have been appended to a previously preliminary verified report. Immature Granulocytes Relative 0.2 % LAB HEMETOLOGY METHOD 08/05/2024 9:[address] [facility] Comment:This is an appended report. These results have been appended to a previously preliminary verified report. Neutrophils Absolute 4.83 1.50 - 7.00 K/mcL LAB HEMETOLOGY METHOD 08/05/2024 9:[address] [facility] Comment:This is an appended report. These results have been appended to a previously preliminary verified report. Lymphocytes Absolute 11.29(H) 1.00 - 5.00 K/mcL LAB HEMETOLOGY METHOD 08/05/2024 9:[address] [facility] Comment:This is an appended report. These results have been appended to a previously preliminary verified report. Monocytes Absolute 0.55 0.20 - 1.00 K/mcL LAB HEMETOLOGY METHOD 08/05/2024 9:[address] [facility] Comment:This is an appended report. These results have been appended to a previously preliminary verified report. Eosinophils Absolute 0.50 0.00 - 0.50 K/mcL LAB HEMETOLOGY METHOD 08/05/2024 9:[address] [facility] Comment:This is an appended report. These results have been appended to a previously preliminary verified report. Basophils Absolute 0.10 0.00 - 0.20 K/mcL LAB HEMETOLOGY METHOD 08/05/2024 9:[address] [facility] Comment:This is an appended report. These results have been appended to a previously preliminary verified report. Immature Granulocytes Absolute 0.03 0.00 - 0.03 K/mcL LAB HEMETOLOGY METHOD 08/05/2024 9:[address] [facility] Comment:This is an appended report. These results have been appended to a previously preliminary verified report. Blood Venous blood specimen / Unknown Venipuncture / Unknown 08/05/2024 3:04 PM EST 08/05/2024 5:22 PM EST us Liz Alvarez MD LAB BLOOD ORDERABLE S Final Result Performing Organization Address [facility] Co de Phone Number [facility] [address] [place] [address], [place] [phone] * Lactate dehydrogenase (08/05/2024 3:04 PM EST) Only the most recent of2 resultswithin the time period is included. LDH 168 120 - 246 unit/L LAB CHEMISTRY METHOD 08/05/2024 5:[address] [facility] Blood Venous blood specimen / Unknown Venipuncture / Unknown 08/05/2024 3:04 PM EST 08/05/2024 5:21 PM EST us Liz Alvarez MD LAB BLOOD ORDERABLE S Final Result Performing Organization Address City/[facility]/ZIP Co de Phone Number [facility] [address] [place] [address], [place] [phone] * (ABNORMAL) Immunoglobulin IgG (08/05/2024 3:04 PM EST) Only the most recent of2 resultswithin the time period is included. Total IgG 316(L) 549 - 1,584 mg/dL LAB CHEMISTRY METHOD 08/05/2024 5:[address] [facility] Blood Venous blood specimen / Unknown Venipuncture / Unknown 08/05/2024 3:04 PM EST 08/05/2024 5:21 PM EST Liz Alvarez MD LAB BLOOD ORDERABLE S Final Result [facility] [address] [place] [address], [place] [phone] * (ABNORMAL) Comprehensive metabolic panel (08/05/2024 3:04 PM EST) Only the most recent of2 resultswithin the time period is included. Sodium 137 133 - 145 mmol/L LAB CHEMISTRY METHOD 08/05/2024 5:[address] [facility] Potassium 3.3(L) 3.5 - 5.5 mmol/L LAB CHEMISTRY METHOD 08/05/2024 5:[address] [facility] Chloride 103 96 - 110 mmol/L LAB CHEMISTRY METHOD 08/05/2024 5:[address] [facility] CO2 28 21 - 32 mmol/L LAB CHEMISTRY METHOD 08/05/2024 5:[address] [facility] Anion Gap 6 3 - 11 LAB CHEMISTRY METHOD 08/05/2024 5:[address] [facility] Glucose 91 70 - 100 mg/dL LAB CHEMISTRY METHOD 08/05/2024 5:[address] [facility] BUN 10 5 - 25 mg/dL LAB CHEMISTRY METHOD 08/05/2024 5:[address] [facility] Creatinine 0.78 0.50 - 1.10 mg/dL LAB CHEMISTRY METHOD 08/05/2024 5:[address] [facility] eGFR 80 >=60 mL/min/1. 73m2 LAB CHEMISTRY METHOD 08/05/2024 5:[address] [facility] Comment:Calculation based on the??Chronic Kidney Disease Epidemiology Collaboration (CKD-EPI) equation refit??without adjustment for race. BUN/Creatinine Ratio 12.8 LAB CHEMISTRY METHOD 08/05/2024 5:[address] [facility] Calcium 9.6 8.5 - 10.5 mg/dL LAB CHEMISTRY METHOD 08/05/2024 5:[address] [facility] AST (SGOT) 18 10 - 42 unit/L LAB CHEMISTRY METHOD 08/05/2024 5:[address] [facility] ALT (SGPT) 24 10 - 60 unit/L LAB CHEMISTRY METHOD 08/05/2024 5:[address] [facility] Alkaline Phosphatase 66 42 - 121 unit/L LAB CHEMISTRY METHOD 08/05/2024 5:[address] [facility] Total Protein 6.2 6.0 - 8.0 g/dL LAB CHEMISTRY METHOD 08/05/2024 5:[address] [facility] Albumin 3.9 3.2 - 5.0 g/dL LAB CHEMISTRY METHOD 08/05/2024 5:[address] [facility] Total Bilirubin 0.2 0.0 - 1.4 mg/dL LAB CHEMISTRY METHOD 08/05/2024 5:[address] [facility] Blood Venous blood specimen / Unknown Venipuncture / Unknown 08/05/2024 3:04 PM EST 08/05/2024 5:21 PM EST Subramshane Alvarez MD LAB BLOOD ORDERABLE S Final Result [facility] [address] [place] [address], * (ABNORMAL) Manual differential (06/25/2024 10:38 AM EST) Neutrophils % 21.0 % LAB HEMETOLOGY METHOD 06/25/2024 11:[address] [facility] Lymphocytes % 73.0 % LAB HEMETOLOGY METHOD 06/25/2024 11:[address] [facility] Monocytes % 4.0 % LAB HEMETOLOGY METHOD 06/25/2024 11:[address] [facility] Eosinophils % 2.0 % LAB HEMETOLOGY METHOD 06/25/2024 11:[address] [facility] Basophils % 1.0 % LAB HEMETOLOGY METHOD 06/25/2024 11:[address] [facility] Neutrophils Absolute Manual 4.10 1.50 - 7.00 K/mcL LAB HEMETOLOGY METHOD 06/25/2024 11:[address] [facility] Lymphocytes Absolute 14.24(H) 1.00 - 5.00 K/mcL LAB HEMETOLOGY METHOD 06/25/2024 11:[address] [facility] Monocytes Absolute Manual 0.78 0.20 - 1.00 K/mcL LAB HEMETOLOGY METHOD 06/25/2024 11:[address] [facility] Eosinophils Absolute Manual 0.39 0.00 - 0.50 K/mcL LAB HEMETOLOGY METHOD 06/25/2024 11:[address] [facility] Basophils Absolute Manual 0.20 0.00 - 0.20 K/mcL LAB HEMETOLOGY METHOD 06/25/2024 11:[address] [facility] Rbc Morphology Consistent with indices Consistent with indices, Normal for [place] LAB HEMETOLOGY METHOD 06/25/2024 11:[address] [facility] Comment:RBC: Morphology agre es with CBC Platelet Morphology - WAM See Note(A) Normal LAB HEMETOLOGY METHOD 06/25/2024 11:[address] [facility] Comment:PLT: Normal Blood Venous blood specimen / Unknown Venipuncture / Unknown 06/25/2024 10:38 AM EST 06/25/2024 11:07 AM EST us Subramshane Alvarez MD LAB BLOOD ORDERABLE S Final Result [facility] [address] [place] [address], * Cervical Cancer Screening: HPV (12/08/2020) Pathologist [facility] Cervical Cancer Screening: HPV negative, abstracted us Historical Provider HEALTH MAINTENANCE Final Result * (ABNORMAL) Lipid panel (10/23/2020) Pathologist [facility] LDL/HDL Ratio 5(A) 0 - 4 Triglycerides 150 0 - 150 mg/dL Cholesterol 237(A) 0 - 200 mg/dL HDL 53 >=40 mg/dL LDL Cholesterol 154(A) 0 - 100 mg/dL Blood Venous blood specimen / Unknown us Historical Provider LAB BLOOD ORDERABLES Alayna l [...] should be classified as having osteoporosis. [facility] Department of Internal Medicine recommends using [...] Aguiar shouldbe classified as having osteoporosis. [facility] Department of Internal Medicine recommendsusing National [...] or over-estimation of fracture risk by FRAX. Shruthi Capps MD [facility] DXA PROCEDURES Final Result * DX MAMMO [...] clip placement x2 of the same day. Shruthi Capps MD [facility] BI PROCEDURES Final Result * Colonoscopy (11/06/2015) [facility] Colonoscopy no interpretation , abstracted Anatomical Region Laterality Modality Other Historical Provider HEALTH MAINTENANCE Final Result * Hepatitis C Screening (09/04/2013) [facility] Hepatitis C Screening abstracted Historical Provider HEALTH MAINTENANCE Final Result from Last 3 Months or Most Recently Relevant to Health Maintenance Insurance MEDICARE [facility] Care Teams Chronograph Operator Relationship Specialty Start Date End Date Portia Garcia MD [address] [place] [id number] PCP - General Internal Medicine 01/07/21
--- OUTSIDE RECORDS SUMMARY | 2024-09-10 10:10 | XMS_ITS | Encounter Summary ---
Author Organization [facility] Address [address] [place] [address] Care Team Providers Care Embossing Unit Operator Name Role Phone Portia Garcia MD Primary Care Provider [phone] Encounter Details Date Type Department Care Team Description 01/12/2022 Social Work [facility] [address] [place] [id number] [facility] Social History Tobacco Use Types Packs/Day [...] on filedocumented in this encounter Care Teams Embossing Unit Operator Relationship Specialty Start Date End Date Portia Garcia MD PCP - General Internal Medicine 01/07/21 documented as of this encounter
--- OUTSIDE RECORDS SUMMARY | 2024-09-10 10:10 | XMS_ITS | Clinical Summary ---
Author Organization [facility] Address [address] [place] [address] Care Team Providers Care Back Sizer Name Role Phone Portia Garcia MD Primary Care Provider [phone] Allergies Active Allergy Reactions Criticality Noted Date [...] day. 30 g 1 02/02/2023 Active Benadryl ybuw-Ffufml-Gadqozai -Lidocaine Visc mouth wash 1:1:1:1 Swish and spit 5 mL every 4 (four) hours as needed for mucositis. 240 mL 1 10/23/2023 Active Aspirin 81 MG CAPS Take 81 mg by mouth. 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
--- OUTSIDE RECORDS SUMMARY | 2024-09-10 10:10 | XMS_ITS ---
Author Organization [facility] Address [address] [place] [address] Phone Care Team Providers Care Menhaden Fishing Crew Member Name Role Phone Portia Garcia MD Primary Care Provider [phone] Active Problems Problem Noted Date Diagnosed Date [...] different specialists including local oncologist, once at [facility], physiatrists at [facility] and the more recent suggestion for [...] and we will make the referral to [facility] interventional radiology. She may consider pain management [...] treatments are documented for this patient in [facility]. Treatments may have been administered in another system. Resolved Problems Problem Noted Date Diagnosed Date Resolved Date Leukemia 05/24/2022 05/15/2024 Leukemia 05/24/2022 05/15/2024
== END 2024-09-10 09:42 | disposition home or self-care (01) ==
PROVIDERS: PCP Internal Medicine; Visit Provider Physician Assistant
DX: J06.9 Acute upper respiratory infection, unspecified (principal); Z13.9 Encounter for screening, unspecified

== ENCOUNTER 2024-10-16 07:56 | Outpatient (REF) | payer MEDICARE, SELFPAY ==
--- OUTSIDE RECORDS SUMMARY | 2024-10-16 07:59 | XMS_ITS | Clinical Summary ---
Author Organization [facility] Address [address] [place] [address] Care Team Providers Care Gear Repair Supervisor Name Role Phone Portia Garcia MD Primary Care Provider [phone] Allergies Active Allergy Reactions Criticality Noted Date [...] day. 30 g 1 02/02/2023 Active Benadryl dlcm-Kfhzcc-Owxiqxnn -Lidocaine Visc mouth wash 1:1:1:1 Swish and spit 5 mL every 4 (four) hours as needed for mucositis. 240 mL 1 10/23/2023 Active Aspirin 81 MG CAPS Take 81 mg by mouth. 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
--- OUTSIDE RECORDS SUMMARY | 2024-10-16 07:59 | XMS_ITS ---
Author Organization [facility] Address [address] [place] [address] Care Team Providers Care Pmp Name Role Phone Portia Garcia MD Primary Care Provider [phone] Active Problems Problem Noted Date Diagnosed Date [...] Oncology Plans [facility] DENOSUMAB 60MG (PROLIA)* Plan Start Date:11/04/2022 Plan Provider:Liz Portillo MD Linked Problems CLL (chronic lymphocytic kristi kemia) ([facility])Age-related osteoporosis without current pathological fracture Treatment Medications denosumab (PROLIA) Past Plans ONCOLOGY INFUSION THERAPY Plan Name Start Date Discontinue Date Treatment Medications Discontinue Reason Plan Provider [facility] OP EVUSHELD (TIXAGEVIMAB AND CILGAVIMAB INJECTIONS) & [facility] BCN DENOSUMAB 60MG (PROLIA) 12/24/2021 06/30/2022 albuterol (PROVENTIL)denos umab (PROLIA)diphenhy drAMINE (BENADRYL)EPINEP Hrinefamotidine (PF) (PEPCID)hydrocor tisone (SOLU-CORTEF) IVmeperidine (DEMEROL) 25 MG/MLsodium chloride 0.9% bolus (NS)tixagevimab & cilgavimab (EVUSHELD) Therapy Complete Liz Portillo MD ONCOLOGY TREATMENT Plan Name Start Date Discontinue Date Treatment Medications Discontinue Reason Plan Provider Cycles [facility] OP RITUXIMAB (IV/SC) WEEKLY X4 2 06/30/2022 acetaminophen (TYLENOL)albuter ol (PROVENTIL)dexam ethasone (DECADRON)diphen hydrAMINE (BENADRYL)EPINEP Hrinefamotidine (PF) (PEPCID)hydrocor tisone (SOLU-CORTEF) IVmeperidine (DEMEROL) 25 MG/MLrituximab infusionriTUXima b-pvvr (RUXIENCE) infusion (Outpatient record)Saline Flush 0.9 %sodium chloride (NS) 0.9 %sodium chloride 0.9% bolus (NS) Therapy Complete Liz Portillo MD 1 of 1 cycle started Radiation Treatments * No radiation treatments are documented for this patient in [facility]. Treatments may have been administered in another system.
--- OUTSIDE RECORDS SUMMARY | 2024-10-16 07:59 | XMS_ITS ---
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 Lumbar compression fracture, closed, initial encounter ([facility] V24, [facility] V28) 05/24/2022 Overview (03/27/2024): Last Assessment & Plan: [...] Anemia 05/24/2022 Lumbar compression fracture, closed, initial encounter ([facility] V24, [facility] V28) 05/24/2022 Dyspnea 12/03/2021 Dyspnea 12/03/2021 Hyperlipidemia 03/07/2019 HLD (hyperlipidemia) 03/07/2019 Vitamin D deficiency 01/19/2019 Vitamin D deficiency 01/19/2019 Chronic lymphocytic leukemia ([facility] V24, [facility]/ CC V28) 06/21/2017 Chronic lymphocytic leukemia ([facility] V24, [facility]/H [facility] V28) 06/21/2017 Subclinical hypothyroidism 06/06/2017 Subclinical hypothyroidism 06/06/2017 [...] different specialists including local oncologist, once at [facility], physiatrists at [facility] and the more recent suggestion for [...] we will make the referral to [facility] interventional radiology. She may consider pain [...] Alvarez MD Linked Problems Chronic lymphocytic leukemia ([facility] V24, [facility] V28)Osteoporosis, post-menopausal Treatment Medications No medications scheduled. Past Plans No past plan information found. Radiation Treatments * No radiation treatments are documented for this patient in [facility]. Treatments may have been administered in another system. Resolved Problems Problem Noted Date Diagnosed Date Resolved Date Leukemia ([facility] V24, [facility] V28) 05/24/2022 05/15/2024 Leukemia ([facility] V24, [facility] V28) 05/24/2022 05/15/2024
--- OUTSIDE RECORDS SUMMARY | 2024-10-16 07:59 | XMS_ITS | Data Portability ---
Author Organization [place] [facility] Address [address] [place] [id number] Assessment Encounter Date Assessment Date Assessment LastModified by Organization Details LastModified Time 02/28/2024 02/28/2024 73-year-old female presents for cerumen removal. Cerumen impaction removed bilaterally. Bilateral TMs are intact. She will follow-up in 6 months for routine debridement. [email or web address] Not available 02/28/2024 15:34:50 08/22/2024 08/22/2024 73-year-old female presents for cerumen removal. Cerumen impaction removed bilaterally. Bilateral TMs are intact. She will follow-up in 6 months for routine debridement. [email or web address] Not available 08/22/2024 09:11:53 Plan of Treatment [...] Recorded Time Impacted cerumen of bilateral ears [id number] 03408 Active 2015 Impacted cerumen, bilateral ; Note: Date Diagnosed : 08/13/2015 10:46 AM (H61.23) Not Available [facility] 4 03:18:47 Impacted cerumen 18978183 Active 2013 Impacted cerumen; Note: Date Diagnosed : 4 4:42 PM (380.4) Not Available [facility] 4 03:18:47 Otalgia 43427107 Active 2013 Otalgia; CMS Risk: moderate risk Note : Date Diagnosed : 4 5:12 PM (388.70) Not Available [facility] 4 03:18:48 Impacted cerumen in left ear 54085448517 85158 Active 2014 Impacted cerumen, left ear; Note: Date Diagnosed : 5 3:54 PM (H61.22) Not Available [facility] 4 03:18:48 Problem Notes None recorded. Procedures Surgical History Date Name Laterality Status Provider Name and Address Organization Details Recorded Time 5 Cerumen removal without microscope bilat completed RANGEL RHODES PA-C [address] [place] [address],[address], [phone], [facility] 08/22/2024 09:11:49 4 Cerumen removal without microscope bilat completed RANGEL RHODES PA-C [address] [place] [address],[address], [phone], [facility] 02/28/2024 15:34:15 Imaging Results None recorded. Procedure Notes None recorded. Medical Equipment None Reported. Allergies Allergen ID Allergen Name Allergen Category Reaction Reaction Severity Criticality Documentation Date Start Date Code Code System Note Provider Name and Address Organization Details Recorded Time 981222 Bactrim medicatio n other Not available Not available 10/17/2023 06222 9 RxNorm React ion: unkno wn, unspe cifie d;; Not Available [facility] 4 01:19:01 651453 Substance with sulfonami de structure and antibacte rial mechanism of action (substanc e) medicatio n other Not available Not available 10/17/2023 29689 8003 SNOMED React ion: unkno wn, unspe cifie d;; Not Available [facility] 4 01:19:02 Medications Name Sig Start Date [...] mg capsule 2018 active Medicati on ID: 894198 D uration Value: 30 Brand Name: gabapent [...] mg tablet 2018 active Medicati on ID: 128255 D uration Value: 90 Brand Name: naproxen [...] Updated DateTime 08/22/2024 172.72 cm 19.5 kg/m2 04299.82 g Valeria Tobias [place] [facility] 08/22/2024 09:00:29 Date Recorded Body height Body mass index (BMI) Body weight Provider Name and Address Organization Details Last Updated DateTime 02/28/2024 172.72 cm 19.5 kg/m2 84239.82 g Ginny Ham [place] [facility] 02/28/2024 15:00:16 Social History None recorded. Functional Status None recorded. Mental Status None recorded. Family History Nothing Reported. Medical History No medical history recorded. Gynecological HistoryNo gynecological history recorded. Obstetrics History GPAL:G 0 P 0 0 0 0 Past Encounters Encounter ID Performer Location Encounter Start Date Encounter Closed Date Diagnosis/Indication Diagnosis SNOMED-CT Code Diagnosis ICD10 Code Diagnosis Note [id number] RANGEL RHODES PA-C [facility] [address] [phone] 02/28/2024 14:57:16 02/29/2024 07:01:40 Impacted cerumen of bilateral ears [id number] 888268 H61.23 [id number] RANGEL RHODES PA-C [facility] [address] [place] [address] 08/22/2024 08:53:37 08/22/2024 10:41:18 Impacted cerumen of bilateral ears [id number] 161493 H61.23 Health Concerns Section Related Observation LastModified by Organization Detai ls LastModified Time None Recorded Concern Status LastModified by Organization Details LastModified Time None Recorded Advance Directives Directive None Recorded Payers Insurance Date Sequence Insurance Name Policy Number Policy Cain Covered Member ID Cain Member ID Guarantor Name 09/13/2024 2 [place]LE[place] Lanny Clancy Patingre 08/13/2024 1 [place] [employer] Lanny A Patingre [id number] Lanny Clancy Patingre Notes Date Note Type Note Provider Name and Address Organization Details Recorded Time 02/28/2024 text/html 73-year-old female presents for ear cleaning. No concerns today. CASSIE MURDOCK MD [address] [place] [address], [phone], [facility] - [facility] 02/28/2024 16:57:55 08/22/2024 text/html 73-year-old female presents for ear cleaning. No concerns today. BLANQUITA MUÑOZ MD [address] [place] [address],[address], [phone], [facility] - [facility] 08/23/2024 08:46:45 OBGyn Episode No OBEpisode recorded.
--- OUTSIDE RECORDS SUMMARY | 2024-10-16 07:59 | XMS_ITS | Encounter Summary ---
Author Organization [facility] Address [address] [place] [address] Care Team Providers Care Machine Gun Mechanic Name Role Phone Portia Garcia MD Primary Care Provider Encounter Details Date Type Department Care Team (Late Contact Info) Description 01/24/2024 2:45 PM EDT Hospital Encounter TH HISTORIC ENCOUNTERS [facility]AST[facility] CONVERSION ONLY Liz Alvarez MD [address] [place] [phone] Social History Tobacco Use Types Packs/Day Years [...] Encounters Date Type Department Care Team (Late Contact Info) Description 11/28/2024 9:15 AM EDT Office Visit [facility] Hematology Oncology [address] [place] [phone] Liz Alvarez MD [address] [place] [phone] 12/19/2024 9:40 AM EDT Office Visit Gastroenterology - [address] [place] [phone] Yonathan Stone PA [address] [facility] [address] [place] [address] 01/06/2025 11:30 AM EDT Appointment [facility] Infusion [facility] [address] [facility] [address] [place] [phone] documented as of this encounter Visit Diagnoses Not on filedocumented in this encounter Care Teams Machine Gun Mechanic Relationship Specialty Start Date End Date Portia Garcia MD [address] [place] [address] [address] [place] [address] PCP - General Internal Medicine 01/07/21 documented as of this encounter
--- OUTSIDE RECORDS SUMMARY | 2024-10-16 07:59 | XMS_ITS | Encounter Summary ---
Author Organization [facility] Address [address] [place] [address] Care Team Providers Care Billposting Supervisor Name Role Phone Portia Garcia MD Primary Care Provider [phone] Encounter Details Date Type Department Care Team Description 01/12/2022 Social Work [facility] Oncology Services [address] [place] [address] [id number] [facility] Social History Tobacco Use Types Packs/Day [...] on filedocumented in this encounter Care Teams Billposting Supervisor Relationship Specialty Start Date End Date Portia Garcia MD PCP - General Internal Medicine 01/07/21 documented as of this encounter
--- OUTSIDE RECORDS SUMMARY | 2024-10-16 07:59 | XMS_ITS | Clinical Summary ---
Author Organization [facility] Address [address] [place] [address] Phone Care Team Providers Care Machine Tender Name Role Phone Portia Garcia MD Primary Care Provider [phone] Allergies Active Allergy Reactions Criticality Noted Date [...] hours if needed. for pain 4 Active zanubrutinib (Brukinsa) 80 mg capsuleIndicatio ns:chronic lymphocytic leukemia Take 2 capsules (160 mg total) by mouth 1 (one) time each day Then 1 capsule (80 mg ) by mouth in the evening. Swallow capsules whole with water; do not open, break or chew. 90 capsule 5 4 Active potassium chloride (KLOR-CON) 10 mEq CR tablet Take 1 tablet (10 mEq total) by mouth 2 (two) times a day. 180 each 1 5 08/07/19 26 Active Active Problems Problem Noted Date Diagnosed Date Osteoporosis, post-menopausal 07/08/2024 Lumbar compression fracture, closed, initial encounter ([facility] V24, [facility] V28) 05/24/2022 Overview (03/27/2024): Last [...] 05/24/2022 Lumbar compression fracture, closed, initial encounter ([facility] V24, [facility] V28) 05/24/2022 Dyspnea 12/03/2021 Dyspnea 12/03/2021 Hyperlipidemia 03/07/2019 HLD (hyperlipidemia) 03/07/2019 Vitamin D deficiency 01/19/2019 Vitamin D deficiency 01/19/2019 Chronic lymphocytic leukemia ([facility] V24, [facility]/ [facility] V28) 06/21/2017 Chronic lymphocytic leukemia ([facility] V24, [facility]/ [facility] V28) 06/21/2017 Subclinical hypothyroidism 06/06/2017 Subclinical [...] different specialists including local oncologist, once at [facility], physiatrists at [facility] and the more recent suggestion for a [...] and we will make the referral to [facility] interventional radiology. She may consider pain management for treating cancer related pain and would likely avoid a spinal cord stimulator. Allergic rhinitis 05/15/2005 Anxiety 05/15/2005 Asthma 05/15/2005 Chronic bilateral low back pain without sciatica 05/15/2005 Eczema 05/15/2005 Esophageal reflux 05/15/2005 Hematuria 05/15/2005 Resolved Problems Problem Noted Date Diagnosed Date Resolved Date Leukemia ([facility]/HCC V24, [facility] V28) 05/24/2022 05/15/2024 Leukemia (CMS/HCC V24, CMS/HCC V28) 05/24/2022 05/15/2024 Encounters Date Type Department Care Team Description 09/16/2024 11:20 AM EDT Office Visit Gastroenterology - [address] [phone] Yonathan Stone PA Belching (Primary Dx); Pain of right scapula; Constipation, unspecified constipation type 08/27/2024 9:00 AM EDT Office Visit [facility] Hematology Oncology [address] [place] [phone] Liz Acosta MD Chronic lymphocytic leukemia ([facility] V24, [facility] V28) (Primary Dx); Anemia in neoplastic disease; Anxiety; Primary insomnia; Chronic bilateral low back pain without sciatica; Vitamin D deficiency; Gastroesophageal reflux disease without esophagitis; Skin rash; Pruritus from Last 3 Months Immunizations Name Administration [...] COVID-19, mRNA, LNP-S, tasia-sucrose, preservative free 08/07/2021 [facility] SARS-CoV-2 COVID-19, mRNA, LNP-S, preservative free 01/17/2021,07/02/2020,06/11/2020 [...] EDT Inhaled Oxygen Concentration - - Weight 55.8 kg (123 lb) 09/16/2024 11:04 AM EDT Height 157.5 cm (5' 2 ) 09/16/2024 11:04 AM EDT Body Mass Index 22.5 09/16/2024 11:04 AM EDT Plan of Treatment Upcoming Encounters Date Type Department Care Team (Late st Contact Info) Description 11/28/2024 9:15 AM EDT Office Visit [facility] Hematology Oncology [address] [place] [phone] Liz Alvarez MD [address] [place] [phone] 12/19/2024 9:40 AM EDT Office Visit Gastroenterology - [address] [place] [address] [facility] [address] [phone] Yonathan Stone PA [address] [address] 01/06/2025 11:30 AM EDT Appointment [facility] Infusion Center [address] [facility] 2nd [place] [phone] Health Maintenance Due Date Last Done Comments DTaP,Tdap,and Td Vaccines (5 - Td or Tdap) 06/25/2020 06/25/2010, 06/25/2010, 07/06/2001, Additional history exists Depression Screening 05/08/2022 Medicare Annual Wellness Visit 05/08/2022 Social Influencers of Health Screening 05/08/2022 COVID-19 Vaccine (8 - Pfizer risk 2023- season) 2024 02/24/2024, 03/04/2023, 04/30/2022, Additional history exists Falls Risk Assessment 07/08/2025 07/08/2024 Cholesterol Screening (Lipid Panel) 10/23/2025 10/23/2020, 10/23/2020 Colorectal Cancer Screening: Colonoscopy 11/05/2025 11/06/2015, 11/06/2015 Cervical Cancer Screening: HPV 12/08/2025 12/08/2020 Osteoporosis Screening (Bone Density Screening) 01/14/2029 01/14/2019 Hepatitis C Screening Completed 09/04/2013, 014 Breast Cancer Screening Discontinued 11/23/19, 11/11/2016, 11/02/2016 Zoster Vaccines Completed 05/17/2018, 05/05, 02/28/2018, Additional history exists Pneumococcal Vaccine: 50+ Years Completed 03/21/2019, 03/21/2019, 09/17/2014, Additional history exists RSV Immunization Adult Patients Completed 04/01/2023 Influenza Vaccine Completed 02/15/2024, , 03/15/2022, Additional history exists HIB Vaccines Aged Out [...] Diagnosis Comments CBC WITH AUTO DIFFERENTIAL Routine 09/16/2024 12:04 PM EDT Chronic lymphocytic leukemia ([facility] V24, [facility] V28) CBC AND DIFFERENTIAL Routine 09/16/2024 12:04 PM EDT Chronic lymphocytic leukemia ([facility] V24, [facility] V28) COMPREHENSIVE METABOLIC PANEL Routine 09/16/2024 12:04 PM EDT Chronic lymphocytic leukemia ([facility] V24, [facility] V28) LACTATE DEHYDROGENASE Routine 09/16/2024 12:04 PM EDT Chronic lymphocytic leukemia ([facility] V24, [facility] V28) IMMUNOGLOBULIN IGG Routine 09/16/2024 12 :04 PM EDT Chronic lymphocytic leukemia ([facility] V24, [facility] V28) CBC WITH AUTO DIFFERENTIAL Routine 08/05/2024 3:04 PM EST Chronic lymphocytic leukemia ([facility]/HCC V24, [facility] V28) CBC AND DIFFERENTIAL Routine 08/05/2024 3:04 PM EST Chronic lymphocytic leukemia ([facility]/HCC V24, [facility] V28) COMPREHENSIVE METABOLIC PANEL Routine 08/05/2024 3:04 PM EST Chronic lymphocytic leukemia ([facility]/HCC V24, [facility]/HCC V28) LACTATE DEHYDROGENASE Routine 08/05/2024 3:04 PM EST Chronic lymphocytic leukemia ([facility] V24, [facility] V28) IMMUNOGLOBULIN IGG Routine 08/05/2024 3: 04 PM EST Chronic lymphocytic leukemia ([facility] V24, [facility] V28) HM HPV Routine 12/08/2020 LIPID PANEL Routine [...] Maintenance Results * (ABNORMAL) CBC auto differential (09/16/2024 12:04 PM EDT) Only the most recent of2 resultswithin the time period is included. WBC 13.5(H) 4.8 - 10.8 K/mcL LAB HEMETOLOGY METHOD 09/16/2024 2:11 PM EDT [facility] RBC 4.30 3.80 - 4.80 M/mcL LAB HEMETOLOGY METHOD 09/16/2024 2:11 PM EDT [facility] Hemoglobin 13.0 11.5 - 16.0 g/dL LAB HEMETOLOGY METHOD 09/16/2024 2:11 PM T [facility] Hematocrit 41.3 35.0 - 47.0 % LAB HEMETOLOGY METHOD 09/16/2024 2:11 PM [facility] MCV 96.0 79.0 - 98.0 FL LAB HEMETOLOGY METHOD 09/16/2024 2:11 PM [facility] MCH 30.2 27.0 - 32.0 pcg LAB HEMETOLOGY METHOD 09/16/2024 2:11 PM [facility] MCHC 31.5(L) 32.0 - 37.0 g/dL LAB HEMETOLOGY METHOD 09/16/2024 2:11 PM [facility] RDW 13.3 11.0 - 15.0 % LAB HEMETOLOGY METHOD 09/16/2024 2:11 PM [facility] Platelets 277 130 - 400 K/mcL LAB HEMETOLOGY METHOD 09/16/2024 2:11 PM [facility] MPV 10.6 7.0 - 11.0 FL LAB HEMETOLOGY METHOD 09/16/2024 2:11 PM [facility] NRBC 0.0 <1.0 % LAB HEMETOLOGY METHOD 09/16/2024 2:11 PM [facility] NRBC Absolute 0.00 <0.10 K/mcL LAB HEMETOLOGY METHOD 09/16/2024 2:11 PM [facility] Neutrophils Relative 27.9 % LAB HEMETOLOGY METHOD 09/16/2024 2:11 PM [facility] Comment:This is an appended report. These results have been appended to a previously preliminary verified report. Lymphocytes Relative 64.1 % LAB HEMETOLOGY METHOD 09/16/2024 2:11 PM [facility] Comment:This is an appended report. These results have been appended to a previously preliminary verified report. Monocytes Relative 5.1 % LAB HEMETOLOGY METHOD 09/16/2024 2:11 PM T [facility] Comment:This is an appended report. These results have been appended to a previously preliminary verified report. Eosinophils Relative 2.0 % LAB HEMETOLOGY METHOD 09/16/2024 2:11 PM [facility] Comment:This is an appended report. These results have been appended to a previously preliminary verified report. Basophils Relative 0.5 % LAB HEMETOLOGY METHOD 09/16/2024 2:11 PM [facility] Comment:This is an appended report. These results have been appended to a previously preliminary verified report. Immature Granulocytes Relative 0.4 % LAB HEMETOLOGY METHOD 09/16/2024 2:11 PM [facility] Comment:This is an appended report. These results have been appended to a previously preliminary verified report. Neutrophils Absolute 3.75 1.50 - 7.00 K/mcL LAB HEMETOLOGY METHOD 09/16/2024 2:11 PM [facility] Comment:This is an appended report. These results have been appended to a previously preliminary verified report. Lymphocytes Absolute 8.62(H) 1.00 - 5.00 K/mcL LAB HEMETOLOGY METHOD 09/16/2024 2:11 PM [facility] Comment:This is an appended report. These results have been appended to a previously preliminary verified report. Monocytes Absolute 0.68 0.20 - 1.00 K/mcL LAB HEMETOLOGY METHOD 09/16/2024 2:11 PM [facility] Comment:This is an appended report. These results have been appended to a previously preliminary verified report. Eosinophils Absolute 0.27 0.00 - 0.50 K/mcL LAB HEMETOLOGY METHOD 09/16/2024 2:11 PM [facility] Comment:This is an appended report. These results have been appended to a previously preliminary verified report. Basophils Absolute 0.07 0.00 - 0.20 K/mcL LAB HEMETOLOGY METHOD 09/16/2024 2:11 PM EDT [facility] Comment:This is an appended report. These results have been appended to a previously preliminary verified report. Immature Granulocytes Absolute 0.06(H) 0.00 - 0.03 K/mcL LAB HEMETOLOGY METHOD 09/16/2024 2:11 PM EDT [facility] Comment:This is an appended report. These results have been appended to a previously preliminary verified report. Blood Venous blood specimen / Unknown Venipuncture / Unknown 09/16/2024 12:04 PM EDT 09/16/2024 1:00 PM EDT us Liz Alvarez MD LAB BLOOD ORDERABLE S Final Result Performing Organization Address [facility]/ZIP Co de Phone Number [facility] [address] [place] [address], [place] [phone] * Lactate dehydrogenase (09/16/2024 12:04 PM EDT) Only the most recent of2 resultswithin the time period is included. LDH 159 120 - 246 unit/L LAB CHEMISTRY METHOD 09/16/2024 1:36 PM EDT [facility] Blood Venous blood specimen / Unknown Venipuncture / Unknown 09/16/2024 12:04 PM EDT 09/16/2024 1:01 PM EDT Liz Alvarez MD LAB BLOOD ORDERABLE S Final Result Performing Organization Address [facility]/ZIP Co de Phone Number [facility] [address] [place] [address], [place] [phone] * (ABNORMAL) Immunoglobulin IgG (09/16/2024 12:04 PM EDT) Only the most recent of2 resultswithin the time period is included. Pathologist [facility] Total IgG 308(L) 549 - 1,584 mg/dL LAB CHEMISTRY METHOD 09/16/2024 1:36 PM T [facility] Blood Venous blood specimen / Unknown Venipuncture / Unknown 09/16/2024 12:04 PM EDT 09/16/2024 1:01 PM EDT Liz Alvarez MD LAB BLOOD ORDERABLE S Final Result [facility] [address] [place] [address], * Comprehensive metabolic panel (09/16/2024 12:04 PM EDT) Only the most recent of2 resultswithin the time period is included. [facility] Sodium 136 133 - 145 mmol/L LAB CHEMISTRY METHOD 09/16/2024 1:36 PM [facility] Potassium 4.4 3.5 - 5.5 mmol/L LAB CHEMISTRY METHOD 09/16/2024 1:36 PM [facility] Chloride 102 96 - 110 mmol/L LAB CHEMISTRY METHOD 09/16/2024 1:36 PM [facility] CO2 29 21 - 32 mmol/L LAB CHEMISTRY METHOD 09/16/2024 1:36 PM [facility] Anion Gap 5 3 - 11 LAB CHEMISTRY METHOD 09/16/2024 1:36 PM [facility] Glucose 95 70 - 100 mg/dL LAB CHEMISTRY METHOD 09/16/2024 1:36 PM [facility] BUN 9 5 - 25 mg/dL LAB CHEMISTRY METHOD 09/16/2024 1:36 PM [facility] Creatinine 0.66 0.50 - 1.10 mg/dL LAB CHEMISTRY METHOD 09/16/2024 1:36 PM [facility] eGFR 92 >=60 mL/min/1. 73m2 LAB CHEMISTRY METHOD 09/16/2024 1:36 PM EDT [facility] Comment:Calculation based on the??Chronic Kidney Disease Epidemiology Collaboration (CKD-EPI) equation refit??without adjustment for race. BUN/Creatinine Ratio 13.6 LAB CHEMISTRY METHOD 09/16/2024 1:36 PM EDT [facility] Calcium 10.0 8.5 - 10.5 mg/dL LAB CHEMISTRY METHOD 09/16/2024 1:36 PM EDT [facility] AST (SGOT) 17 10 - 42 unit/L LAB CHEMISTRY METHOD 09/16/2024 1:36 PM EDT [facility] ALT (SGPT) 22 10 - 60 unit/L LAB CHEMISTRY METHOD 09/16/2024 1:36 PM T [facility] Alkaline Phosphatase 61 42 - 121 unit/L LAB CHEMISTRY METHOD 09/16/2024 1:36 PM EDT [facility] Total Protein 6.4 6.0 - 8.0 g/dL LAB CHEMISTRY METHOD 09/16/2024 1:36 PM EDT [facility] Albumin 3.6 3.2 - 5.0 g/dL LAB CHEMISTRY METHOD 09/16/2024 1:36 PM EDT [facility] Total Bilirubin 0.3 0.0 - 1.4 mg/dL LAB CHEMISTRY METHOD 09/16/2024 1:36 PM EDT [facility] Blood Venous blood specimen / Unknown Venipuncture / Unknown 09/16/2024 12:04 PM EDT 09/16/2024 1:01 PM EDT us Liz Alvarez MD LAB BLOOD ORDERABLE S Final Result [facility] [address] [place] [address], * Cervical Cancer Screening: HPV (12/08/2020) Pathologist [facility] Cervical Cancer Screening: HPV negative, abstracted Historical Provider HEALTH MAINTENANCE Final Result * (ABNORMAL) Lipid panel (10/23/2020) [facility] LDL/HDL Ratio 5(A) 0 - 4 Triglycerides [...] should be classified as having osteoporosis. The [facility] Department of Internal Medicine recommends using National [...] Aguiar shouldbe classified as having osteoporosis. The [facility] Department of Internal Medicine recommendsusing National Osteoporosis [...] over-estimation of fracture risk by FRAX. Shruthi MORGANG DXA PROCEDURES Final Result * DX MAMMO [...] placement x2 of the same day. Shruthi MORGAN BI PROCEDURES Final Result * Colonoscopy (11/06/2015) [facility] Colonoscopy no interpretation , abstracted Anatomical Region Laterality Modality Other Historical Provider HEALTH MAINTENANCE Final Result * Hepatitis C Screening (09/04/2013) [facility] Hepatitis C Screening abstracted Historical Provider HEALTH MAINTENANCE Final Result from Last 3 Months or Most Recently Relevant to Health Maintenance Insurance MEDICARE [facility] Care Teams Machine Tender Relationship Specialty Start Date End Date Portia Garcia MD [address] [place] [address] [id number] PCP - General Internal Medicine 01/07/21
[2024-10-16 10:05] LABS: Basophils Absolute Auto 0.1 X10*3/uL (0.0-0.2); Basophils Percent Auto 0.2 % (0-2); Eosinophils Absolute Auto 0.1 X10*3/uL (0.0-0.4); Eosinophils Percent Auto 0.6 % (0-4); Hemoglobin 13.8 g/dl (12.0-16.0); Imm Gran Abs Auto 0.13 X10*3/uL (0.00-0.03); Imm Gran Pct Auto 0.6 % (0.0-0.4); Lymphocytes Percent Auto 57.7 % (20-40); MANUAL DIFF FLAG SCAN; Mean Corpuscular HGB Conc 32.9 g/dl (31.0-35.0); Mean Corpuscular Hemoglobin 30.9 pg (27.0-33.0); Mean Platelet Volume 10.9 fL (9.4-12.3); Monocytes Absolute Auto 1.1 X10*3/uL (0.1-1.2); Monocytes Percent Auto 4.7 % (2-11); Neutrophils Absolute Auto 8.4 x10*3/uL (2.0-8.3); Neutrophils Percent Auto 36.2 % (45-73); Platelet Count 333 X10*3/uL (160-400); Red Blood Count 4.47 X10*6/uL (4.20-5.50); Red Cell Distribution Width 13.3 % (11.0-16.0); SCAN SMEAR FLAG 1; White Blood Count 23.2 X10*3/uL (4.8-10.8)
[2024-10-16 10:07] LABS: Lymphocytes Absolute Auto 13.4 X10*3/uL (1.2-4.9)
[2024-10-16 10:13] LABS: Estimated Average Glucose 105 mg/dL; Hemoglobin A1C 123.5995 umol/L; Hemoglobin A1c % 5.3 % (<6.0); Total Hemoglobin (HGBA1C) 3587.3814 umol/L
[2024-10-16 10:55] LABS: Alanine Aminotransferase 19 U/L (0-31); Albumin Level 4.7 g/dL (3.5-5.0); Alkaline Phosphatase 57 U/L (39-117); Anion Gap 15 (12-20); Aspartate Amino Transferase 22 U/L (5-31); Bilirubin Total 0.5 mg/dL (0.0-1.0); Blood Urea Nitrogen 15 mg/dL (9-16); Calcium 9.8 mg/dL (8.4-10.2); Carbon Dioxide 27 mmol/L (22-29); Chloride 100 mmol/L (96-108); Cholesterol 261 mg/dL (<200); Estimated Glomerular Filt Rate > 60; Glucose Random 80 mg/dL (60-115); HDL Cholesterol 78 mg/dL (>40); LDL Cholesterol Calculated 160 mg/dL (<100); Potassium 3.5 mmol/L (3.3-5.1); Sodium 138 mmol/L (135-145); TSH reflex Free T4 1.02 uIU/mL (0.32-4.0); Total Protein 6.9 g/dL (6.5-8.0); Triglycerides 117 mg/dL (<150)
[2024-10-16 10:56] LABS: SLIDE REVIEW VERIFIED
[2024-10-21 03:08] LABS: Vitamin D 25-OH, D2 <4 ng/mL; Vitamin D 25-OH, D3 39 ng/mL; Vitamin D 25-OH, Total 39 ng/mL (30-100)
== END 2024-10-16 07:57 | disposition home or self-care (01) ==
LOC: HO.HMGCLDS 07:56
PROVIDERS: PCP Internal Medicine; Visit Provider Internal Medicine
DX: Z13.220 Encounter for screening for lipoid disorders (principal); C91.10 Chronic lymphocytic leukemia of B-cell type not having achieved remission; Z13.228 Encounter for screening for other metabolic disorders; M80.00XD Age-related osteoporosis with current pathological fracture, unspecified site, subsequent encounter for fracture with routine healing; C91.11 Chronic lymphocytic leukemia of B-cell type in remission; Z13.6 Encounter for screening for cardiovascular disorders; Z13.1 Encounter for screening for diabetes mellitus
CPT/HCPCS: 36415; 80053; 80061; 82306; 83036; 84443; 85025

== ENCOUNTER 2024-10-22 13:44 | Outpatient (AMB) | payer MEDICARE, SELFPAY ==
--- NOTE | 2024-10-22 13:55 | MHC.PC.OV ---
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 Leukemia Vertebrogenic low back pain Lumbar spinal stenosis Family History Mother Anxiety Brother Anxiety Sister Anxiety Maternal Grandmother Breast cancer Other FH: mental illness Social History (Updated 04/22/24 @ 11:44 by Janet De La Vega CMA) Household Members: Spouse Housing: House Alcohol intake: never Patient Tobacco Use Status: Former Tobacco user Years Smoked: 10, Quit 42 years ago e-Cigarette/Vaping Use: Never Used Second Hand Smoke Exposure: Yes (past ) service: No Current occupational status: retired 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 Dane Wong, Joana Bradford, Darin Reese and colleagues, with an educational key from [email or web address]. Physical exam (Primary Care) Tobacco/Smoking Status: Tobacco use Status Tobacco use date assessed 10/05/23 07/23/24 14:43 Patient Tobacco Use Status Former Tobacco user 09/10/24 09:14 e-Cigarette/Vaping Use Never Used 07/23/24 14:43 Thrive Assessment: Date of Thrive Assessment Date Thrive assessed 10/22/24 10/22/24 13:45 Coding
--- NOTE | 2024-10-22 14:02 | AM.OFFVISMDC ---
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 Required: No Allergies sulfamethoxazole [From Bactrim] Allergy (Mild, Verified 10/22/24 13:57) Hives trimethoprim [From Bactrim] Allergy (Mild, Verified 10/22/24 13:57) Hives Medication List - Last Reconciled 10/22/24 by Portia Garcia MD acetaminophen (Tylenol Extra Strength) 1,000 mg PO BID aspirin 81 mg PO DAILY clonazepam 0.5 mg PO BID PRN 30 days fluoxetine 10 mg PO DAILY gabapentin 200 mg (2 x 100 mg) PO BEDTIME 90 days methocarbamol 1,000 mg (2 x 500 mg) PO Q8H PRN morphine ER 30 mg PO Q8H nortriptyline 25 mg PO BEDTIME omeprazole 20 mg PO DAILY [potassium PO BID] zanubrutinib (Brukinsa) 160 mg PO TID HPI HPI Comments History of Present Illness Details 73 year old female with a past medical history CLL, anxiety, tachycardia presenting for follow up. Heme/Onc: Follows at [facility], Dr Dubois. On Brukinsa. White count is stable. She is feeling well Chronic pain: Bony metastates, ddd spine. On morphine ER TID, gabapentin, methocarbamal. Doing farly well with pain control. BH: Anxiety. On prozac, clonazepam, pamelor. Lots of stress. Decreased prozac back to 10mg daily. Follows with [facility]-Dr Manzanares. Every third day miralax. Follows with urology-Kayla Lobo. Vaginal dryness. topical estrogens contraindicated Was following with Dr Terrell. She was given a replacement Colonoscopy UTD Mammogram UTD ROS CONSTITUTIONAL: Denies weight loss, fever and chills. HEENT: Denies changes in vision and hearing. RESPIRATORY: Denies SOB and cough. CV: Denies palpitations and CP GI: Denies abdominal pain, nausea, vomiting and diarrhea. : Denies dysuria and urinary frequency. MSK: Denies new myalgia and joint pain. SKIN: Denies rash and pruritus. NEUROLOGICAL: Denies headache PSYCHIATRIC: Denies recent changes in mood. PHYSICAL EXAM: GENERAL: Alert and oriented x 3. NAD EYES: EOMI. Anicteric. HENT: Moist mucous membranes. No scleral icterus. No cervical lymphadenopathy. LUNGS: Clear to auscultation bilaterally. CARDIOVASCULAR: Regular rate and rhythm. No murmur. No JVD. ABDOMEN: Soft, non-tender +bs EXTREMITIES: No edema. Non-tender. SKIN: No rashes or lesions. Warm. NEUROLOGIC: No focal neurological deficits. CN II-XII grossly intact PSYCHIATRIC: Cooperative. 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 Leukemia Vertebrogenic low back pain Lumbar spinal stenosis Family History Mother Anxiety Brother Anxiety Sister Anxiety Maternal Grandmother Breast cancer Other FH: mental illness Social History Household Members: Spouse Housing: House Alcohol intake: never Patient Tobacco Use Status: Former Tobacco user Years Smoked: 10, Quit 42 years ago e-Cigarette/Vaping Use: Never Used Second Hand Smoke Exposure: Yes (past ) service: No Current occupational status: retired 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 Cognitive needs: No Hearing needs: No Vision needs: Yes (glasses) Questionnaire Medicare Wellness Checkup [age] What gender do you identify with?: female During the past 4 weeks, how much have you been bothered by emotional problems such as feeling anxious, depressed, irritable, sad or downhearted, and blue?: not at all During the past 4 weeks, has your physical & emotional health limited your social activities with family, friends, neighbors, or groups?: not at all During the past 4 weeks, how much bodily pain have you generally had?: mild pain During the past 4 weeks, was someone available to help you if you needed & wanted help?: yes, as much as I wanted During the past 4 weeks, what was the hardest physical activity you could do for at least 2 minutes?: moderate Can you get to places out of walking distance without help? (For eg., can you travel alone on buses, taxis or drive your car?): Yes Can you go shopping for groceries or clothes without someone's help?: Yes Can you prepare your own meals?: Yes Can you do your housework without help?: Yes Because of any health problems, do you need the help of another person with your personal care needs such as eating, bathing, dressing or getting around the house?: Yes Can you handle your own money without help?: Yes During the past 4 weeks, how would you rate your health in general?: good During the past 4 weeks how have things been going for you?: pretty well Are you having difficulties driving your car?: no Do you always fasten your seat belt when you are in a car?: yes, usually During past 4 weeks, have you been bothered by the following: never: Falling or dizzy when standing up, Sexual problems?, Trouble eating well?, Teeth or denture problems?, Problems using the telephone? and Tiredness or fatigue? Have you fallen 2 or more times in the past year?: No Are you afraid of falling?: No Are you a smoker?: no During the past 4 weeks, how many drinks of wine, beer, or other alcoholic beverages did you have?: no alcohol at all Have you been given information to help with the following?: yes: Hazards in your house that might hurt you? and yes: Keeping track of your medications? How often do you have trouble taking medicines the way you have been told to take them?: I always take medicine as prescribed How confident are you that you can control & manage most of your health problems?: very confident What is your race?: White Mini Mental State Exam (MMSE) Orientation What is the (year) (season) (date) (day) (month)?: year (2024), season (spring), date (10/22/2024), day and month Where are we (state) (county) (town or city) (hospital) (floor)?: state ([place]), [facility] ([place]), town or city ([place]), hospital/clinic (Clinic) and floor (first) Registration Name of 3 unrelated objects clearly and slowly, then ask patient to repeat all 3 of them. (1st repeat determines score. Make sure they can repeat all three): object 1 (ball), object 2 (flab=g) and object 3 Attention & Calculation (CHOOSE ONE) Ask pt to begin with 100 & count backward by 7. Stop after 5 repeats. If pt cannot ask them to spell the word WORLD backward.: 93 Recall Ask patient to repeat the 3 items from question #3.: object 1 (ball) and object 2 (tree) Language Show patient a wristwatch & ask what it is. Repeat for pencil.: pencil Ask the patient to repeat the phrase 'No ifs, ands, or buts' after you.: correct Print the sentence 'CLOSE YOUR EYES' on a piece. If patient actually closes eyes then score.: followed written direction Give patient a blank piece of paper & ask to write a sentence. Score if it contains a noun & verb.: sentence contains subject and verb Ask patient to copy figure of intersecting pentagons exactly. Score if all 10 angles & 2 intersects are included.: all 10 angles present & 2 are intersected Score Score: 21 Activity of Daily Living Bathing - sponge bath, tub bath or shower: receives no assistance (gets in/out by self, if usual bathing means Dressing - getting clothes from closets & drawers, including inner/outer garments & fasteners.: gets clothes & gets completely dressed without help Toileting - going to the 'toilet room' for urine/bowel elimination & cleaning self/arranging clothes: goes to toilet room, cleans self, arranges clothes without help Transfer: moves in & out of bed and chair without help (may use support object) Continence: controls urination/bowel movements completely by self Feeding: feeds self without help Total Score: 0 Information obtained from: patient Using telephone: independent Traveling: independent Shopping: independent Preparing meals: independent Housework: independent Taking medicine: independent Managing money: independent Assessment & Plan Assessment & Plan (1) Medicare annual wellness visit, subsequent: Code(s): Z00.00 - Encounter for general adult medical examination without abnormal findings (2) CLL (chronic lymphocytic leukemia): Code(s): C91.10 - Chronic lymphocytic leukemia of B-cell type not having achieved remission (3) Chronic low back pain: Code(s): M54.50 - Low back pain, unspecified; G89.29 - Other chronic pain Qualifiers: Back pain laterality: bilateral Sciatica presence: without sciatica Qualified Code(s): M54.50 - Low back pain, unspecified; G89.29 - Other chronic pain Plan MWV CLL stable on Brukinsa Labs ordered 6 months Chronic pain stable on current medications Preventive care is up to date Orders: Orders Complete Blood Count Auto Diff 6 Months C91.10 - Chronic lymphocytic leukemia of B-cell type not having achieved remission, E78.5 - Hyperlipidemia, unspecified, F41.9 - Anxiety disorder, unspecified, M80.00XD - Age-related osteoporosis with current pathological fracture, unspecified site, subsequent encounter for fracture with routine healing, Z00.00 - Encounter for general adult medical examination without abnormal findings Comprehensive Met. Panel 6 Months C91.10 - Chronic lymphocytic leukemia of B-cell type not having achieved remission, E78.5 - Hyperlipidemia, unspecified, F41.9 - Anxiety disorder, unspecified, M80.00XD - Age-related osteoporosis with current pathological fracture, unspecified site, subsequent encounter for fracture with routine healing, Z00.00 - Encounter for general adult medical examination without abnormal findings Lipid Panel 6 Months C91.10 - Chronic lymphocytic leukemia of B-cell type not having achieved remission, E78.5 - Hyperlipidemia, unspecified, F41.9 - Anxiety disorder, unspecified, M80.00XD - Age-related osteoporosis with current pathological fracture, unspecified site, subsequent encounter for fracture with routine healing, Z00.00 - Encounter for general adult medical examination without abnormal findings Vitamin D 25-OH (D2 and D3) 6 Months C91.10 - Chronic lymphocytic leukemia of B-cell type not having achieved remission, E78.5 - Hyperlipidemia, unspecified, F41.9 - Anxiety disorder, unspecified, M80.00XD - Age-related osteoporosis with current pathological fracture, unspecified site, subsequent encounter for fracture with routine healing, Z00.00 - Encounter for general adult medical examination without abnormal findings TSH reflex Free T4 6 Months C91.10 - Chronic lymphocytic leukemia of B-cell type not having achieved remission, E78.5 - Hyperlipidemia, unspecified, F41.9 - Anxiety disorder, unspecified, M80.00XD - Age-related osteoporosis with current pathological fracture, unspecified site, subsequent encounter for fracture with routine healing, Z00.00 - Encounter for general adult medical examination without abnormal findings Medications: New fluticasone propionate 50 mcg/actuation (Allergy Relief (fluticasone)) administer into each nostril 2 sprays intranasal DAILY 16 grams 3RF clobetasol 0.05% 1 appl topical DAILY 60 grams 1RF Changed From omeprazole 20 mg PO BID 90 caps 3RF To omeprazole 20 mg PO DAILY Refilled morphine ER partial fill upon patient request 30 mg PO Q8H 84 tabs 0RF pain M48.061 - Spinal stenosis, lumbar region without neurogenic claudication, M54.6 - Pain in thoracic spine Coding Level of Care Code Medicare Subsequent (G0439) Diagnoses Medicare annual wellness visit, subsequent Z00.00 CLL (chronic lymphocytic leukemia) C91.10 Chronic bilateral low back pain without sciatica M54.50; G89.29 Back pain laterality: bilateral Sciatica presence: without sciatica
--- OUTSIDE RECORDS SUMMARY | 2024-10-22 14:55 | XMS_ITS | Data Portability ---
Author Organization [facility], [facility] Address [address] [place] [address] Care Team Providers Care Liquid Waste Treatment Plant Operator Name Role Phone SILVIA CHINO Primary Care Provider DEANA MOSES OTHER Assessment Encounter Date Assessment Date Assessment LastModified by Organization Details LastModified Time 10/08/2024 10/08/2024 Patient seen und er general supervision of Dr. Fisher who was available but who did not see the patient. HPI: 74-year-old female seen today in urgent care regarding left shoulder pain. Patient reports experiencing pain yesterday. She states initially she was at her yoga class and he tried to oppose his both were strenuous on the shoulder, did not have significant pain thereafter when attempting to get up from her couch later in the day and pushing herself up she felt a sharp pain about the shoulder. Reports she has been unable to sleep and is having difficulty with raising the arm. She did have some trouble with the shoulder approximately 10 years ago for which she received a cortisone injection which helped. She denies numbness or tingling about the left upper extremity. She is right-hand dominant. Past family, medical, social history and review of systems has been reviewed, updated and is located in the patient? s chart. Examination: 74-year-old female no acute distress accompanied by her . On examination of the left shoulder no ecchymosis or erythema and warmth are noted. Limited motion with forward flexion and abduction appreciated, good internal/external rotation with minimal irritability. No significant tenderness to palpation about the a.c. joint noted. Mild irritability about the bicep. Pain with resistive testing of the rotator cuff especially the supraspinatus as well as weakness elicited. Left upper extremity neurovascularly intact. X-rays ordered, obtained and reviewed at [facility] 4 views left shoulder reveal a.c. joint arthrosis as well as type 2/3 acromion. No acute fracture or dislocation noted. Impression: Left shoulder rotator cuff arthropathy Plan: Treatment options are reviewed. At this time role of sling, therapy and watchful waiting discussed. Role of MRI also reviewed. Removal of surgical intervention discussed. Possibility of repeat corticosteroid injection discussed. Negative effects on healing in the future from corticosteroid injections also discussed. Patient wished to proceed with an injection is provided relief in the past and this was performed today without incident. Postinjection precautions reviewed. Patient was nauseous doing in 4-5 weeks' time. Follow-up should she have failure of resolution of her pain. [facility] [employer] speech recognition garde manger software was used to create portions of this document. An attempt at proofreading has been made to minimize errors. Please call for corrections. alexis Not available 10/08/2024 10:29:50 Plan of Treatment Reminders Order Date Submit Date Provider Last Modified By Organization Details Last Modified Time Details Appointments None recorded. Lab None recorded. Referral None recorded. Procedures None recorded. Surgeries None recorded. Imaging XR, shoulder, 2 or more view - UC 5- 4V L shoulder 2024 025 [email or web address] [facility], [address], [address], [place], [address], 5 13:12:31 XR, wrist, 2 view - 2v lt tmj, flooring professional, rm 117 2024 025 [email or web address] [facility], [address], [address], [place], [address], 5 14:42:24 Medication Orders None recorded. Patient TargetsNo targets recorded. Patient InstructionsNo instructions recorded. Reason for Referral None Reported. Results Created Date Observation Date Name Description Value Unit Range Abnormal Flag Note LastModifiedBy Organization Detail LastModifiedTime 07/01/19 25 07/01/2024 XR, wrist , 2 view http:/ [email or web address] ?Encry pted=s hAaTro YD8dLq bEUv6g %2BXZw aYqtaq 0bqfl% 2Fg9IQ a4ajBk vP9nXo QUaueC m3YtLR FvZlgJ JJ8mAn HZtai3 5i4717 AC0Kqb H2FV6q uKiQtr MwF INTERFACE [facility] [address] [facility] [address], [place], [address], 07/01/2024 14:18:21 07/01/19 25 07/01/2024 XR, wrist , 2 view [email or web address]:/ [email or web address] ?Encry pted=s hAaTro YD8dLq bEUv6g %2BXZw aYqtaq 0bqfl% 2Fg9IQ a4ajBk vP9nXo QUaueC m3YtLR FvZlgJ [place] HZtai3 0j0176 AC0Kqb H2FV6q uKiQtr MwF INTERFACE [facility] [address] [address], [place], [address], 07/01/2024 14:18:23 10/09/19 25 10/08/2024 XR, tran yves, 2 or more view http:/ [email or web address] ?Encry pted=s hAaTro YD8dLq bEUv6g %2BXZw aYqtaq 0bqfl% 2Fg9IQ a4ajBk vP9nXo QUaueC m3YtLR FvZlgJ [place] HZtai3 0p1786 AC0Kla nuEWau nKiQtr MwF INTERFACE [facility] [address] [facility] [address] [address], [place], [address], 10/08/2024 09:31:29 10/09/19 25 10/08/2024 XR, shoul yves, 2 or more view http:/ [email or web address] ?Encry pted=s hAaTro YD8dLq bEUv6g %2BXZw aYqtaq 0bqfl% 2Fg9IQ a4ajBk vP9nXo QUaueC m3YtLR FvZlgJ JJ8mAn HZtai3 1y4896 AC0Kla nuEWau nKiQtr MwF INTERFACE [facility] [address], [place], [address], 10/08/2024 09:31:30 Result Notes None recorded. Procedures Surgical History Date Name Laterality Status Provider Name and Address Organization Details Recorded Time 5 PM Shoulder Kenalog 2cc Injection Unilateral completed Fam Delgadillo PA-C [address], [place], [address], [facility] 10/08/2024 10:27:03 5 Trigger Thumb Kenalog Injection completed Los Champion MD [address], [place], [address], [facility] 07/01/2024 17:08:48 Imaging Results Imaging Date Name Status LastModified by Organiz ation Details LastModified Time 07/01/2024 XR, wrist, 2 view completed INTERFACE [facility] [address], [place], [address], 07/01/2024 14:18:21 07/01/2024 XR, wrist, 2 view completed INTERFACE [facility] [address], [place], [address], 07/01/2024 14:18:23 10/08/2024 XR, shoulder, 2 or more view completed INTERFACE [facility] [address], [place], [address], 10/08/2024 09:31:29 10/08/2024 XR, shoulder, 2 or more view completed INTERFACE [facility] [address], [place], [address], 10/08/2024 09:31:30 Procedure Notes None recorded. Medical Equipment None Reported. Allergies Allergen ID Allergen Name Allergen Category Reaction Reaction Severity Criticality Documentation Date Start Date Code Code System Note Provider Name and Address Organization Details Recorded Time 98098 Substance with sulfonami de structure and antibacte rial mechanism of action (substanc e) medicatio n Not available Not available Not available 08/07/20232005 93033 8003 SNOMED Aller gyRea ction : 'Skin React ion'; Not Available [facility] 4 12:08:31 59775 Bactrim medicatio n Not available Not available Not available 08/07/20232014 29876 9 RxNorm Not Available [facility] 4 12:08:32 Medications Name Sig Start Date Stop Date Status Note LastModified by Organization Details LastModified Time lido/antacid/ diphen/nystat 1111 SWISH AND SPIT 5 ML BY MOUTH EVERY 4 HOURS NEEDED FOR MUCOSITIS active Not Available Not Available No t Available amoxicillin 500 mg capsule TAKE 1 CAPSULE BY MOUTH EVERY 8 HOURS UNTIL ALL TAKEN active Not Available Not Available No t Available Lidocaine Viscous 2 % mucosal solution active Not Available Not Available Not Available tizanidine 4 mg tablet TAKE 1 TABLET BY MOUTH EVERY 8 HOURS NEEDED FOR MUSCLE SPASMS active Not Available Not Available No t Available clonazepam 0.5 mg tablet TAKE 1 TABLET BY MOUTH TWICE DAILY NEEDED FOR ANXIETY active Not Available Not Available No t Available acyclovir 400 mg tablet active Not Available Not Available No t Available morphine ER 30 mg tablet,extend ed release TAKE 1 TABLET BY MOUTH EVERY 8 HOURS FOR PAIN active Not Available Not Available No t Available minoxidil 2.5 mg tablet TAKE 1/2 TABLET BY MOUTH DAILY active Not Available Not Available No t Available amoxicillin 500 mg tablet TAKE 2 TABLETS BY MOUTH STAT THEN 1 TABLET BY MOUTH EVERY 8 HOURS UNTIL ALL TAKEN active Not Available Not Available No t Available nortriptyline 25 mg capsule TAKE 1 CAPSULE BY MOUTH AT BEDTIME active Not Available Not Available No t Available imiquimod 5 % topical cream packet APPLY TO THE AFFECTED AREA ON THE LOWER LEG 5 TIMES PER WEEK MONDAY THRU MONDAY FOR 6 WEEKS active Not Available Not Available No t Available tacrolimus 0.1 % topical ointment APPLY TOPICALLY TO THE AFFECTED AREA TWICE DAILY active Not Available Not Available No t Available fluoxetine 10 mg capsule TAKE 1 CAPSULE BY MOUTH DAILY active Not Available Not Available No t Available omeprazole 20 mg capsule,delay ed release TAKE 1 CAPSULE BY MOUTH TWICE DAILY active Not Available Not Available No t Available mupirocin 2 % topical ointment APPLY TOPICALLY TO THE AFFECTED AREA TWICE DAILY UNTIL RESOLVED active Not Available Not Available No t Available gabapentin 100 mg capsule TAKE 2 CAPSULES BY MOUTH EVERY NIGHT AT BEDTIME active Not Available Not Available No t Available clobetasol 0.05 % topical ointment APPLY TO AFFECTED AREAS ON THE BACK TWICE DAILY FOR 2 WEEKS BREAK FOR A WEEK AND REPEAT NEEDED active Not Available Not Available No t Available estradiol 0.01% (0.1 mg/gram) vaginal cream USE 1 GRAM VAGINALLY EVERY DAY FOR 2 WEEKS THEN USE 1 GRAM VAGINALLY 2 TIMES A WEEK active Not Available Not Available No t Available clobetasol 0.05 % scalp solution APPLY TOPICALLY TO THE SCALP TWICE DAILY FOR 2 WEEKS THEN STOP FOR 1 WEEK. REPEAT CYCLE NEEDED FOR FLAKING active Not Available Not Available No t Available fluoxetine 20 mg capsule TAKE 1 CAPSULE BY MOUTH DAILY active Not Available Not Available No t Available nortriptyline 50 mg capsule TAKE 1 CAPSULE BY MOUTH DAILY AT BEDTIME active Not Available Not Available No t Available Brukinsa 80 mg capsule active Not Available Not Available N ot Available Vitals Date Recorded Body height Body mass index (BMI) Body weight Provider Name and Address Organization Details Last Updated DateTime 07/01/2024 160.02 cm 24.8 kg/m2 56767.93 g DANILO MONTIEL [facility] 07/01/2024 14:10:19 Date Recorded Body height Body mass index (BMI) Body weight Provider Name and Address Organization Details Last Updated DateTime 10/08/2024 160.02 cm 21.8 kg/m2 02481.86 g MIGUEL A GOLDMAN [facility] 10/08/2024 09:22:40 Social History None recorded. Functional Status None recorded. Mental Status None recorded. Family History Nothing Reported. Medical History No medical history recorded. Gynecological HistoryNo gynecological history recorded. Obstetrics History GPAL:G 0 P 0 0 0 0 Past Encounters Encounter ID Performer Location Encounter Start Date Encounter Closed Date Diagnosis/Indication Diagnosis SNOMED-CT Code Diagnosis ICD10 Code Diagnosis Note [id number] MD K[facility] [address] [place] [address] 07/01/2024 13:50:18 07/18/2024 12:30:49 Pain of left wrist 9526723133 79074 M25.532 Trigger th umb of left hand 0711388479 15445 M65.312 Arthritis of first carpometacarpal joint of left hand 5499692802 435777 M18.12 [id number] [facility] [address] [place] [address] 10/08/2024 08:50:30 10/10/2024 09:45:17 Pain of left shoulder region 7126542783 M25.512 Tendinitis of left rotator cuff 2844441951 3567547 M75.82 Health Concerns Section Related Observation LastModified by Organization Detai ls LastModified Time None Recorded Concern Status LastModified by Organization Details LastModified Time None Recorded Advance Directives Directive None Recorded Payers Encounter Date Sequence Insurance Name Policy Number Policy Cain Covered Member ID Cain Member ID Guarantor Name 07/01/2024 2 [place] [id number] Lanny A Patingre [id number] Lanny A Patingre 07/01/2024 1 [place] Lanny A Patingre [id number] Lanny A Patingre 10/08/2024 2 [place] [id number] Lanny A Patingre [id number] Lanny A Patingre 10/08/2024 1 [place] Lanny A Patingre [id number] Lanny A Patingre Notes Date Note Type Note Provider Name and Address Organization Details Recorded Time 07/01/2024 text/html Diagnosis: Flexo r tenosynovitis left thumbLeft first CMC arthritis 73-year-old female who presents with locking of her left thumb. This been present for 2 months. It is associated with a mild sharp pain. She has no numbness or tingling. Past family, medical, social history and review of systems has been reviewed, updated and is located in the patient? s chart. Examination: Healthy appearing patient in no apparent distress. Alert and oriented. She has symmetric range of motion of her bilateral wrist and digits. She has triggering of her left thumb with a tender nodule at the A1 radha. Provocative testing the right wrist reveals no instability. Provocative testing left wrist reveals a positive first CMC compression test. No atrophy in either upper extremity. Brisk capillary refill in all digits X-rays ordered, obtained, [facility] [place] and lateral of the right TM joint revealed joint space narrowing, sclerosis and osteophyte production. Plan: I described for the patient the nature of flexor tenosynovitis and her options. The patient has opted for a corticosteroid injection into the flexor tendon sheath. The patient tolerated this well. We also discussed her first CMC arthritis. As she is currently asymptomatic we will treat this with observation. The patient will follow-up with me by phone in a month's time or sooner if there are any concerns. Los Champion MD [address] [place] [address] [address], [place], [address], [facility] [place] [facility] 07/01/2024 17:09:33 OBGyn Episode No OBEpisode recorded.
--- OUTSIDE RECORDS SUMMARY | 2024-10-22 14:55 | XMS_ITS | Encounter Summary ---
Author Organization [facility] Address [address] [place] [address] Care Team Providers Care Shampoo Person Name Role Phone Portia Garcia MD Primary Care Provider [phone] Encounter Details Date Type Department Care Team (Late Contact Info) Description 01/24/2024 2:45 PM EDT Hospital Encounter TH HISTORIC ENCOUNTERS EASTERN CONVERSION ONLY Liz Alvarez MD [address] [place] [phone] Social History Tobacco Use Types Packs/Day Years [...] Description 11/28/2024 9:15 AM EDT Office Visit [facility] H[facility] Oncology [address] [place] [phone] Liz Alvarez MD [address] [place] [phone] 12/19/2024 9:40 AM EDT Office Visit Gastroenterology - [address] [place] [address] Yonathan Stone PA [address] [facility] [address] [place] [address] 01/06/2025 11:30 AM EDT Appointment [facility] In[facility] [address] [facility] 2[address] [place] [phone] documented as of this encounter Visit Diagnoses Not on filedocumented in this encounter Care Teams Shampoo Person Relationship Specialty Start Date End Date Portia Garcia MD [address] [place] [address] [address] [place] [address] PCP - General Internal Medicine 01/07/21 documented as of this encounter
--- OUTSIDE RECORDS SUMMARY | 2024-10-22 14:56 | XMS_ITS | Encounter Summary ---
Author Organization [facility] Address [address] [place] [address] Care Team Providers Care Flat Lock Machine Operator Name Role Phone Portia Garcia MD Primary Care Provider [phone] Encounter Details Date Type Department Care Team Description 01/12/2022 Social Work [facility] [address] [place] [address] [facility] Social History Tobacco Use Types Packs/Day Years [...] on filedocumented in this encounter Care Teams Flat Lock Machine Operator Relationship Specialty Start Date End Date Portia Garcia MD PCP - General Internal Medicine 01/07/21 documented as of this encounter
--- OUTSIDE RECORDS SUMMARY | 2024-10-22 14:56 | XMS_ITS ---
Author Organization [facility] Address [address] [place] [address] Care Team Providers Care Brick Carrier Name Role Phone Portia Garcia MD Primary Care Provider [phone] Active Problems Problem Noted Date Diagnosed Date [...] without esophagi tis 12/01/2017 [facility] Plan Start Date:11/04/2022 Plan Provider:Liz Portillo MD Linked Problems CLL (chronic lymphocytic kristi kemia) ([facility])Age-related osteoporosis without current pathological fracture Treatment Medications denosumab (PROLIA) Past Plans ONCOLOGY INFUSION THERAPY Plan Name Start Date Discontinue Date Treatment Medications Discontinue Reason Plan Provider [facility] OP EVUSHELD (TIXAGEVIMAB AND CILGAVIMAB INJECTIONS) & [facility] BCN DENOSUMAB 60MG (PROLIA) 12/24/2021 06/30/2022 albuterol (PROVENTIL)denos umab (PROLIA)diphenhy drAMINE (BENADRYL)EPINEP Hrinefamotidine (PF) (PEPCID)hydrocor tisone (SOLU-CORTEF) IVmeperidine (DEMEROL) 25 MG/MLsodium chloride 0.9% bolus (NS)tixagevimab & cilgavimab (EVUSHELD) Therapy Complete Liz Portillo MD ONCOLOGY TREATMENT Plan Name Start Date Discontinue Date Treatment Medications Discontinue Reason Plan Provider [facility] RITUXIM[facility] (IV/SC) WEEKLY X4 2 [...] treatments are documented for this patient in [facility]. Treatments may have been administered in another system.
--- OUTSIDE RECORDS SUMMARY | 2024-10-22 14:56 | XMS_ITS | Clinical Summary ---
Author Organization [facility] Address [address] [place] [address] Phone Care Team Providers Care Shot Blaster Name Role Phone Portia Garcia MD Primary Care Provider [phone] Allergies Active Allergy Reactions Criticality Noted Date [...] 07/08/2024 Lumbar compression fracture, closed, initial encounter ([facility] V24, [facility] V28) 05/24/2022 Overview (03/27/2024): Last Assessment & [...] 05/24/2022 Lumbar compression fracture, closed, initial encounter ([facility] V24, [facility] V28) 05/24/2022 Dyspnea 12/03/2021 Dyspnea 12/03/2021 Hyperlipidemia 03/07/2019 HLD (hyperlipidemia) 03/07/2019 Vitamin D deficiency 01/19/2019 Vitamin D deficiency 01/19/2019 Chronic lymphocytic leukemia ([facility] V24, [facility]/ [facility] V28) 06/21/2017 Chronic lymphocytic leukemia ([facility] V24, [facility] V28) 06/21/2017 Subclinical hypothyroidism 06/06/2017 [...] different specialists including local oncologist, once at [facility], physiatrists at [facility] and the more recent suggestion [...] and we will make the referral to [facility] interventional radiology. She may consider pain management for treating cancer related pain and would likely avoid a spinal cord stimulator. Allergic rhinitis 05/15/2005 Anxiety 05/15/2005 Asthma 05/15/2005 Chronic bilateral low back pain without sciatica 05/15/2005 Eczema 05/15/2005 Esophageal reflux 05/15/2005 Hematuria 05/15/2005 Resolved Problems Problem Noted Date Diagnosed Date Resolved Date Leukemia ([facility]/HCC V24, [facility] V28) 05/24/2022 05/15/2024 Leukemia (CMS/HCC V24, CMS/HCC V28) 05/24/2022 05/15/2024 Encounters Date Type Department Care Team Description 09/16/2024 11:20 AM EDT Office Visit Gastroenterology - [address] [address] Yonathan Stone PA Belching (Primary Dx); Pain of right scapula; Constipation, unspecified constipation type 08/27/2024 9:00 AM EDT Office Visit [facility] Hematology Oncology [address] [place] [phone] Liz Acosta MD Chronic lymphocytic leukemia ([facility] V24, [facility] V28) (Primary Dx); Anemia in neoplastic disease; [...] COVID-19, mRNA, LNP-S, tasia-sucrose, preservative free 08/07/2021 [facility] SARS-CoV-2 COVID-19, mRNA, LNP-S, preservative free 01/17/2021,07/02/2020,06/11/2020 [...] Description 11/28/2024 9:15 AM EDT Office Visit [facility] Hematology Oncology [address] [place] [phone] Liz Alvarez MD [address] [place] [address] 12/19/2024 9:40 AM EDT Office Visit Gastroenterology - 299 [address] [address] [facility] [address] [address] Yonathan Stone PA [address] [address] 01/06/2025 11:30 AM EDT Appointment [facility] Infusion Center [address] [facility] 2nd [place] [address] Health Maintenance Due Date Last [...] 09/16/2024 12:04 PM EDT Chronic lymphocytic leukemia ([facility] V24, [facility] V28) CBC AND DIFFERENTIAL Routine 09/16/2024 12:04 PM EDT Chronic lymphocytic leukemia ([facility] V24, CMS/[facility] V28) COMPREHENSIVE METABOLIC PANEL Routine 09/16/2024 12:04 PM EDT Chronic lymphocytic leukemia ([facility] V24, [facility] V28) LACTATE DEHYDROGENASE Routine 09/16/2024 12:04 PM EDT Chronic lymphocytic leukemia ([facility] V24, [facility] V28) IMMUNOGLOBULIN IGG Routine 09/16/2024 12 :04 PM EDT Chronic lymphocytic leukemia ([facility] V24, [facility] V28) CBC WITH AUTO DIFFERENTIAL Routine 08/05/2024 3:04 PM EST Chronic lymphocytic leukemia ([facility]/HCC V24, [facility] V28) CBC AND DIFFERENTIAL Routine 08/05/2024 3:04 PM EST Chronic lymphocytic leukemia ([facility]/HCC V24, [facility] V28) COMPREHENSIVE METABOLIC PANEL Routine 08/05/2024 3:04 PM EST Chronic lymphocytic leukemia ([facility]/HCC V24, [facility]/HCC V28) LACTATE DEHYDROGENASE Routine 08/05/2024 3:04 PM EST Chronic lymphocytic leukemia ([facility] V24, [facility] V28) IMMUNOGLOBULIN IGG Routine 08/05/2024 3: 04 PM EST Chronic lymphocytic leukemia ([facility] V24, [facility] V28) HM HPV Routine 12/08/2020 LIPID PANEL [...] LAB HEMETOLOGY METHOD 09/16/2024 2:11 PM EDT [facility] RBC 4.30 3.80 - 4.80 M/mcL LAB HEMETOLOGY METHOD 09/16/2024 2:11 PM EDT [facility] Hemoglobin 13.0 11.5 - 16.0 g/dL LAB HEMETOLOGY METHOD 09/16/2024 2:11 PM T [facility] Hematocrit 41.3 35.0 - 47.0 % LAB HEMETOLOGY METHOD 09/16/2024 2:11 PM [facility] MCV 96.0 79.0 - 98.0 [place] LAB HEMETOLOGY METHOD 09/16/2024 2:11 PM [facility] MCH 30.2 27.0 - 32.0 pcg LAB HEMETOLOGY METHOD 09/16/2024 2:11 PM [facility] MCHC 31.5(L) 32.0 - 37.0 g/dL LAB HEMETOLOGY METHOD 09/16/2024 2:11 PM [facility] RDW 13.3 11.0 - 15.0 % LAB HEMETOLOGY METHOD 09/16/2024 2:11 PM [facility] Platelets 277 130 - 400 K/mcL LAB HEMETOLOGY METHOD 09/16/2024 2:11 PM [facility] MPV 10.6 7.0 - 11.0 FL LAB HEMETOLOGY METHOD 09/16/2024 2:11 PM [facility] NRBC 0.0 <1.0 % LAB HEMETOLOGY METHOD 09/16/2024 2:11 PM [facility] NRBC Absolute 0.00 <0.10 K/mcL LAB HEMETOLOGY METHOD 09/16/2024 2:11 PM [facility] Neutrophils Relative 27.9 % LAB HEMETOLOGY METHOD 09/16/2024 2:11 PM [facility] Comment:This is an appended report. These results have been appended to a previously preliminary verified report. Lymphocytes Relative 64.1 % LAB HEMETOLOGY METHOD 09/16/2024 2:11 PM [facility] Comment:This is an appended report. These results have been appended to a previously preliminary verified report. Monocytes Relative 5.1 % LAB HEMETOLOGY METHOD 09/16/2024 2:11 PM T [facility] Comment:This is an appended report. These results have been appended to a previously preliminary verified report. Eosinophils Relative 2.0 % LAB HEMETOLOGY METHOD 09/16/2024 2:11 PM [facility] Comment:This is an appended report. These results have been appended to a previously preliminary verified report. Basophils Relative 0.5 % LAB HEMETOLOGY METHOD 09/16/2024 2:11 PM [facility] Comment:This is an appended report. These results have been appended to a previously preliminary verified report. Immature Granulocytes Relative 0.4 % LAB HEMETOLOGY METHOD 09/16/2024 2:11 PM [facility] Comment:This is an appended report. These results have been appended to a previously preliminary verified report. Neutrophils Absolute 3.75 1.50 - 7.00 K/mcL LAB HEMETOLOGY METHOD 09/16/2024 2:11 PM [facility] Comment:This is an appended report. These results have been appended to a previously preliminary verified report. Lymphocytes Absolute 8.62(H) 1.00 - 5.00 K/mcL LAB HEMETOLOGY METHOD 09/16/2024 2:11 PM [facility] Comment:This is an appended report. These results have been appended to a previously preliminary verified report. Monocytes Absolute 0.68 0.20 - 1.00 K/mcL LAB HEMETOLOGY METHOD 09/16/2024 2:11 PM [facility] Comment:This is an appended report. These results have been appended to a previously preliminary verified report. Eosinophils Absolute 0.27 0.00 - 0.50 K/mcL LAB HEMETOLOGY METHOD 09/16/2024 2:11 PM [facility] Comment:This is an appended report. These results have been appended to a previously preliminary verified report. Basophils Absolute 0.07 0.00 - 0.20 K/mcL LAB HEMETOLOGY METHOD 09/16/2024 2:11 PM EDT [facility] Comment:This is an appended report. These results have been appended to a previously preliminary verified report. Immature Granulocytes Absolute 0.06(H) 0.00 - 0.03 K/mcL LAB HEMETOLOGY METHOD 09/16/2024 2:11 PM EDT [facility] Comment:This is an appended report. These results have been appended to a previously preliminary verified report. Blood Venous blood specimen / Unknown Venipuncture / Unknown 09/16/2024 12:04 PM EDT 09/16/2024 1:00 PM EDT us Liz Alvarez MD LAB BLOOD ORDERABLE S Final Result Performing Organization Address [facility]/ZIP Co de Phone Number [facility] [address] [place] [address], [place] [phone] * Lactate dehydrogenase (09/16/2024 12:04 PM EDT) Only the most recent of2 resultswithin the time period is included. LDH 159 120 - 246 unit/L LAB CHEMISTRY METHOD 09/16/2024 1:36 PM EDT [facility] Blood Venous blood specimen / Unknown Venipuncture / Unknown 09/16/2024 12:04 PM EDT 09/16/2024 1:01 PM EDT Liz Alvarez MD LAB BLOOD ORDERABLE S Final Result Performing Organization Address [facility]/ZIP Co de Phone Number [facility] [address] [place] [address], [place] [phone] * (ABNORMAL) Immunoglobulin IgG (09/16/2024 12:04 PM EDT) Only the most recent of2 resultswithin the time period is included. Pathologist [facility] Total IgG 308(L) 549 - 1,584 mg/dL LAB CHEMISTRY METHOD 09/16/2024 1:36 PM T [facility] Blood Venous blood specimen / Unknown Venipuncture / Unknown 09/16/2024 12:04 PM EDT 09/16/2024 1:01 PM EDT Liz Alvarez MD LAB BLOOD ORDERABLE S Final Result [facility] [address] [place] [address], * Comprehensive metabolic panel (09/16/2024 12:04 PM EDT) Only the most recent of2 resultswithin the time period is included. [facility] Sodium 136 133 - 145 mmol/L LAB CHEMISTRY METHOD 09/16/2024 1:36 PM [facility] Potassium 4.4 3.5 - 5.5 mmol/L LAB CHEMISTRY METHOD 09/16/2024 1:36 PM [facility] Chloride 102 96 - 110 mmol/L LAB CHEMISTRY METHOD 09/16/2024 1:36 PM [facility] CO2 29 21 - 32 mmol/L LAB CHEMISTRY METHOD 09/16/2024 1:36 PM [facility] Anion Gap 5 3 - 11 LAB CHEMISTRY METHOD 09/16/2024 1:36 PM [facility] Glucose 95 70 - 100 mg/dL LAB CHEMISTRY METHOD 09/16/2024 1:36 PM [facility] BUN 9 5 - 25 mg/dL LAB CHEMISTRY METHOD 09/16/2024 1:36 PM [facility] Creatinine 0.66 0.50 - 1.10 mg/dL LAB CHEMISTRY METHOD 09/16/2024 1:36 PM [facility] eGFR 92 >=60 mL/min/1. 73m2 LAB CHEMISTRY METHOD 09/16/2024 1:36 PM EDT [facility] Comment:Calculation based on the??Chronic Kidney Disease Epidemiology Collaboration (CKD-EPI) equation refit??without adjustment for race. BUN/Creatinine Ratio 13.6 LAB CHEMISTRY METHOD 09/16/2024 1:36 PM EDT [facility] Calcium 10.0 8.5 - 10.5 mg/dL LAB CHEMISTRY METHOD 09/16/2024 1:36 PM EDT [facility] AST (SGOT) 17 10 - 42 unit/L LAB CHEMISTRY METHOD 09/16/2024 1:36 PM EDT [facility] ALT (SGPT) 22 10 - 60 unit/L LAB CHEMISTRY METHOD 09/16/2024 1:36 PM T [facility] Alkaline Phosphatase 61 42 - 121 unit/L LAB CHEMISTRY METHOD 09/16/2024 1:36 PM EDT [facility] Total Protein 6.4 6.0 - 8.0 g/dL LAB CHEMISTRY METHOD 09/16/2024 1:36 PM EDT [facility] Albumin 3.6 3.2 - 5.0 g/dL LAB CHEMISTRY METHOD 09/16/2024 1:36 PM EDT [facility] Total Bilirubin 0.3 0.0 - 1.4 mg/dL LAB CHEMISTRY METHOD 09/16/2024 1:36 PM EDT [facility] Blood Venous blood specimen / Unknown Venipuncture / Unknown 09/16/2024 12:04 PM EDT 09/16/2024 1:01 PM EDT us Liz Alvarez MD LAB BLOOD ORDERABLE S Final Result [facility] [address] [place] [address], * Cervical Cancer Screening: HPV (12/08/2020) Pathologist [facility] Cervical Cancer Screening: HPV negative, abstracted Historical Provider HEALTH MAINTENANCE Final Result * (ABNORMAL) Lipid panel (10/23/2020) [facility] LDL/HDL Ratio 5(A) 0 - 4 [...] BI PROCEDURES Final Result * Colonoscopy (11/06/2015) [facility] Colonoscopy no interpretation , abstracted Anatomical Region Laterality Modality Other Historical Provider HEALTH MAINTENANCE Final Result * Hepatitis C Screening (09/04/2013) [facility] Hepatitis C Screening abstracted Historical Provider HEALTH MAINTENANCE Final Result from Last 3 Months or Most Recently Relevant to Health Maintenance Insurance MEDICARE [facility] Care Teams Shot Blaster Relationship Specialty Start Date End Date Portia Garcia MD [address] [place] [address] [phone] PCP - General Internal Medicine 01/07/21
--- OUTSIDE RECORDS SUMMARY | 2024-10-22 14:56 | XMS_ITS | Data Portability ---
Author Organization [place] [facility] All[facility] Address [address] [place] [phone] Assessment Encounter Date Assessment Date Assessment LastModified by Organization Details LastModified Time 02/28/2024 02/28/2024 73-year-old female presents for cerumen removal. Cerumen impaction removed bilaterally. Bilateral TMs are intact. She will follow-up in 6 months for routine debridement. [email or web address] Not available 02/28/2024 15:34:50 08/22/2024 08/22/2024 73-year-old female presents for cerumen removal. Cerumen impaction removed bilaterally. Bilateral TMs are intact. She will follow-up in 6 months for routine debridement. [email or web address] Not available 08/22/2024 09:11:53 Plan of Treatment [...] Recorded Time Impacted cerumen of bilateral ears 97757215085 15025 Active 2015 Impacted cerumen, bilateral ; Note: Date Diagnosed : 08/13/2015 10:46 AM (H61.23) Not Available [facility] 4 03:18:47 Impacted cerumen 74348947 Active 2013 Impacted cerumen; Note: Date Diagnosed : 4 4:42 PM (380.4) Not Available [facility] 4 03:18:47 Otalgia 14050977 Active 2013 Otalgia; CMS Risk: moderate risk Note : Date Diagnosed : 4 5:12 PM (388.70) Not Available [facility] 4 03:18:48 Impacted cerumen in left ear 37753497767 94666 Active 2014 Impacted cerumen, left ear; Note: Date Diagnosed : 5 3:54 PM (H61.22) Not Available [facility] 4 03:18:48 Problem Notes None recorded. Procedures Surgical History Date Name Laterality Status Provider Name and Address Organization Details Recorded Time 5 Cerumen removal without microscope bilat completed RANGEL RHODES PA-C [address] [place] [address],[address], [phone], [facility] 08/22/2024 09:11:49 4 Cerumen removal without microscope bilat completed RANGEL RHODES PA-C [address] [place] [address],[address], [phone], [facility] 02/28/2024 15:34:15 Imaging Results None recorded. Procedure Notes None recorded. Medical Equipment None Reported. Allergies Allergen ID Allergen Name Allergen Category Reaction Reaction Severity Criticality Documentation Date Start Date Code Code System Note Provider Name and Address Organization Details Recorded Time 854536 Bactrim medicatio n other Not available Not available 10/17/2023 68591 9 RxNorm React ion: unkno wn, unspe cifie d;; Not Available [facility] 4 01:19:01 428795 Substance with sulfonami de structure and antibacte rial mechanism of action (substanc e) medicatio n other Not available Not available 10/17/2023 31430 8003 SNOMED React ion: unkno wn, unspe cifie d;; Not Available [facility] 4 01:19:02 Medications Name Sig Start Date [...] mg capsule 2018 active Medicati on ID: [id number] D uration Value: 30 Brand Name: gabapent [...] mg tablet 2018 active Medicati on ID: [id number] D uration Value: 90 Brand Name: naproxen [...] Updated DateTime 08/22/2024 172.72 cm 19.5 kg/m2 04976.82 g Valeria Tobias [place] [facility] 08/22/2024 09:00:29 Date Recorded Body height Body mass index (BMI) Body weight Provider Name and Address Organization Details Last Updated DateTime 02/28/2024 172.72 cm 19.5 kg/m2 43089.82 g Ginny Ham [place] [facility] 02/28/2024 15:00:16 Social History None recorded. Functional Status None recorded. Mental Status None recorded. Family History Nothing Reported. Medical History No medical history recorded. Gynecological HistoryNo gynecological history recorded. Obstetrics History GPAL:G 0 P 0 0 0 0 Past Encounters Encounter ID Performer Location Encounter Start Date Encounter Closed Date Diagnosis/Indication Diagnosis SNOMED-CT Code Diagnosis ICD10 Code Diagnosis Note [id number] RANGEL RHODES PA-C [facility] [address] [phone] 02/28/2024 14:57:16 02/29/2024 07:01:40 Impacted cerumen of bilateral ears [id number] 456379 H61.23 [id number] RANGEL RHODES PA-C [facility] [address] [place] [address] 08/22/2024 08:53:37 08/22/2024 10:41:18 Impacted cerumen of bilateral ears [id number] 132016 H61.23 Health Concerns Section Related Observation LastModified by Organization Detai ls LastModified Time None Recorded Concern Status LastModified by Organization Details LastModified Time None Recorded Advance Directives Directive None Recorded Payers Insurance Date Sequence Insurance Name Policy Number Policy Cain Covered Member ID Cain Member ID Guarantor Name 09/13/2024 2 [place] Lanny Clancy Patingre 08/13/2024 1 [place] [employer] Lanny A Patingre [id number] Lanny Clancy Patingre Notes Date Note Type Note Provider Name and Address Organization Details Recorded Time 02/28/2024 text/html 73-year-old female presents for ear cleaning. No concerns today. CASSIE MURDOCK MD [address] [place] [address], [phone], [facility] - [facility] 02/28/2024 16:57:55 08/22/2024 text/html 73-year-old female presents for ear cleaning. No concerns today. BLANQUITA MUÑOZ MD [address] [place] [address],[address], [address], [facility] - [facility] 08/23/2024 08:46:45 OBGyn Episode No OBEpisode recorded.
--- OUTSIDE RECORDS SUMMARY | 2024-10-22 14:56 | XMS_ITS ---
Author Organization [facility] Address [address] [place] [address] Phone Care Team Providers Care Track Welder Name Role Phone Portia Garcia MD Primary Care Provider [phone] Active Problems Problem Noted Date Diagnosed Date Osteoporosis, post-menopausal 07/08/2024 Lumbar compression fracture, closed, initial encounter ([facility] V24, [facility] V28) 05/24/2022 Overview (03/27/2024): Last Assessment [...] 05/24/2022 Lumbar compression fracture, closed, initial encounter ([facility] V24, [facility] V28) 05/24/2022 Dyspnea 12/03/2021 Dyspnea 12/03/2021 Hyperlipidemia 03/07/2019 HLD (hyperlipidemia) 03/07/2019 Vitamin D deficiency 01/19/2019 Vitamin D deficiency 01/19/2019 Chronic lymphocytic leukemia ([facility] V24, [facility]/ [facility] V28) 06/21/2017 Chronic lymphocytic leukemia ([facility] V24, [facility] V28) 06/21/2017 Subclinical hypothyroidism 06/06/2017 Subclinical [...] different specialists including local oncologist, once at [facility], physiatrists at [facility] and the more recent suggestion for [...] and we will make the referral to [facility] interventional radiology. She may consider pain management [...] Alvarez MD Linked Problems Chronic lymphocytic leukemia ([facility] V24, [facility] V28)Osteoporosis, post-menopausal Treatment Medications No medications scheduled. Past Plans No past plan information found. Radiation Treatments * No radiation treatments are documented for this patient in [facility]. Treatments may have been administered in another system. Resolved Problems Problem Noted Date Diagnosed Date Resolved Date Leukemia ([facility] V24, [facility] V28) 05/24/2022 05/15/2024 Leukemia ([facility] V24, [facility] V28) 05/24/2022 05/15/2024
--- OUTSIDE RECORDS SUMMARY | 2024-10-22 14:56 | XMS_ITS | Clinical Summary ---
Author Organization [facility] Address [address] [place] [address] Care Team Providers Care Radio Tester Name Role Phone Portia Garcia MD Primary Care Provider [phone] Allergies Active Allergy Reactions Criticality Noted Date [...] day. 30 g 1 02/02/2023 Active Benadryl eivz-Ptrptg-Ckseakdk -Lidocaine Visc mouth wash 1:1:1:1 Swish and spit 5 mL every 4 (four) hours as needed for mucositis. 240 mL 1 10/23/2023 Active Aspirin 81 MG CAPS Take 81 mg by mouth. 0 04/12/2023 Active Zanubrutinib 80 MG CAPSIndications:[employer]ath [employer] Maker neel Lymphocytic Leukemia Take TWO Capsules in [...] age to complete this topic Care Teams Radio Tester Relationship Specialty Start Date End Date Portia Garcia MD PCP - General Internal Medicine 01/07/21
== END 2024-10-22 14:51 | disposition home or self-care (01) ==
LOC: HO.HMCFM 13:45
PROVIDERS: PCP Internal Medicine; Visit Provider Internal Medicine
DX: Z00.00 Encounter for general adult medical examination without abnormal findings (principal); C91.10 Chronic lymphocytic leukemia of B-cell type not having achieved remission; M54.50 Low back pain, unspecified; G89.29 Other chronic pain

== ENCOUNTER → 2024-10-22 13:44 | Outpatient (BNVA) | payer MEDICARE, SELFPAY | PROVIDERS: PCP Internal Medicine; Visit Provider Internal Medicine | DX: Z13.89 Encounter for screening for other disorder (principal) ==

== ENCOUNTER 2025-01-30 11:48 | Outpatient (REF) | payer MEDICARE, SELFPAY ==
--- OUTSIDE RECORDS SUMMARY | 2024-01-24 14:45 | XMS_ITS | Encounter Summary ---
Author Organization [facility] Address [address] [place] [address] Care Team Providers Care Grinder Carbon Plant Name Role Phone Portia Garcia MD Primary Care Provider [phone] Encounter Details Date Type Department Care Team (Late st Contact Info) Description 01/24/2024 2:45 PM EDT Hospital Encounter TH HISTORIC ENCOUNTERS EASTERN CONVERSION ONLY Liz Alvarez MD [address] [place] [phone] Social History Tobacco Use Types Packs/Day Years [...] Care Team (Late st Contact Info) Description 01/30/2025 1:30 PM EDT Appointment [facility] Bone Density [address] [place] [phone] 03/04/2025 9:00 AM EDT Office Visit [facility] Hematology Oncology [address] [place] [phone] Liz Alvarez MD [address] [place] [phone] 06/23/2025 1:00 PM EST Office Visit Gastroenterology - [address] [phone] Yonathan Stone PA [address] [place] [address] 07/07/2025 11:00 AM EST Appointment [facility] Infusion Center [address] [facility] 2nd [place] [phone] documented as of this encounter Visit Diagnoses Not on filedocumented in this encounter Care Teams Grinder Carbon Plant Relationship Specialty Start Date End Date Portia Garcia MD [address] [place] [address] [address] [place] [address] PCP - General Internal Medicine 01/07/21 documented as of this encounter
--- OUTSIDE RECORDS SUMMARY | 2025-01-30 12:59 | XMS_ITS | Clinical Summary ---
Author Organization [facility] Address [address] [place] [address] Care Team Providers Care Residential Recycle Driver Name Role Phone Portia Garcia MD Primary Care Provider [phone] Allergies Active Allergy Reactions Criticality Noted Date [...] day. 30 g 1 02/02/2023 Active Benadryl lbys-Rgxzay-Nahguyel -Lidocaine Visc mouth wash 1:1:1:1 Swish and spit 5 mL every 4 (four) hours as needed for mucositis. 240 mL 1 10/23/2023 Active Aspirin 81 MG CAPS Take 81 mg by mouth. 0 04/12/2023 Active Zanubrutinib 80 MG CAPSIndications:Gallery Manager neel Lymphocytic Leukemia Take TWO Capsules in [...] 95 01/24/2024 2:38 PM EDT Temperature 36.4 C (97.5 F) 01/24/2024 2:38 PM EDT Respiratory Rate 16 01/01/2024 10:04 AM EDT [...] 01/17/2021, Additional history exists Influenza Vaccine (#1) 2025 , 02/09/2021, 01/19/2020, Additional history exists Shingrix-Zoster Vaccine Completed 05/17/2018, 02/28 Pneumococcal Vaccine Completed 03/21/2019, 09/18/19 15 RSV Adult > 60+ Yrs or Completed 04/01/2023 Hepatitis B Vaccines Aged Out No long er eligible based on patient's age to complete this topic RSV Ped < 20 months Aged Out No longe r eligible based on patient's age to complete this topic Care Teams Residential Recycle Driver Relationship Specialty Start Date End Date Portia Garcia MD PCP - General Internal Medicine 01/07/21
--- OUTSIDE RECORDS SUMMARY | 2025-01-30 12:59 | XMS_ITS ---
Author Organization [facility] Address [address] [place] [address] Care Team Providers Care Brim Curler Name Role Phone Portia Garcia MD Primary Care Provider [phone] Active Problems Problem Noted Date Diagnosed Date [...] without esophagi tis 12/01/2017 Current Oncology Plans [facility] DENOSUMAB 60MG (PROLIA)* Plan Start Date:11/04/2022 Plan Provider:Liz Portillo MD Linked Problems CLL (chronic lymphocytic kristi kemia) ([facility])Age-related osteoporosis without current pathological fracture Treatment Medications denosumab (PROLIA) Past Plans ONCOLOGY INFUSION THERAPY Plan Name Start Date Discontinue Date Treatment Medications Discontinue Reason Plan Provider [facility] OP EVUSHELD (TIXAGEVIMAB AND CILGAVIMAB INJECTIONS) & [facility] BCN DENOSUMAB 60MG (PROLIA) 12/24/2021 06/30/2022 albuterol (PROVENTIL)denos umab (PROLIA)diphenhy drAMINE (BENADRYL)EPINEP Hrinefamotidine (PF) (PEPCID)hydrocor tisone (SOLU-CORTEF) IVmeperidine (DEMEROL) 25 MG/MLsodium chloride 0.9% bolus (NS)tixagevimab & cilgavimab (EVUSHELD) Therapy Complete Liz Portillo MD ONCOLOGY TREATMENT Plan Name Start Date Discontinue Date Treatment Medications Discontinue Reason Plan Provider Cycles [facility] OP RITUXIMAB (IV/SC) WEEKLY X4 2 06/30/2022 acetaminophen (TYLENOL)albuter ol (PROVENTIL)dexam ethasone (DECADRON)diphen hydrAMINE (BENADRYL)EPINEP Hrinefamotidine (PF) (PEPCID)hydrocor tisone (SOLU-CORTEF) IVmeperidine (DEMEROL) 25 MG/MLrituximab infusionriTUXima b-pvvr (RUXIENCE) infusion (Outpatient record)Saline Flush 0.9 %sodium chloride (NS) 0.9 %sodium chloride 0.9% bolus (NS) Therapy Complete Liz Portillo MD 1 of 1 cycle started Radiation Treatments * No radiation treatments are documented for this patient in [facility]. Treatments may have been administered in another system.
--- OUTSIDE RECORDS SUMMARY | 2025-01-30 12:59 | XMS_ITS ---
Author Organization [facility] Address [address] [place] [address] Phone Care Team Providers Care Dock Worker Name Role Phone Portia Garcia MD Primary Care Provider [phone] Active Problems Problem Noted Date Diagnosed Date Loose stools 12/16/2024 Lymphadenopathy 12/16/2024 Pain in joint of left shoulder 10/29/2024 Osteoporosis, post-menopausal 07/08/2024 Hypokalemia 03/06/2023 Lumbar compression fracture, closed, initial encounter ([facility] V24, [facility] V28) 05/24/2022 Overview (03/27/2024): Last [...] 05/24/2022 Lumbar compression fracture, closed, initial encounter ([facility] V24, [facility] V28) 05/24/2022 Dyspnea 12/03/2021 Dyspnea 12/03/2021 Acquired hemolytic anemia ([facility] V24, [facility] V28) 12/03/2021 Weight loss 03/03/2021 Hyperlipidemia 03/07/2019 HLD (hyperlipidemia) 03/07/2019 Vitamin D deficiency 01/19/2019 Vitamin D deficiency 01/19/2019 Asymptomatic microscopic hematuria 12/01/2017 Chronic lymphocytic leukemia ([facility] V24, [facility] V28) 06/21/2017 Chronic lymphocytic leukemia ([facility] V24, [facility] V28) 06/21/2017 Subclinical hypothyroidism 06/06/2017 Subclinical hypothyroidism 06/06/2017 Osteoarthritis 02/15/2016 Overview (03/27/2024): Lumbar Spine, Hands Osteoarthritis 02/15/2016 Diverticulitis 10/14/2015 Overview (03/27/2024): 08/18 Diverticulitis 10/14/2015 Bilateral impacted cerumen 03/23/2015 Overview (12/16/2024): Impacted cerumen, left ear; Note: Date Diagnosed: 03/23/2015 3:54 PM (H61.22) Impacted cerumen 03/24/2014 Overview (12/16/2024): Impacted cerumen; Note: Date Diagnosed: 03/24/2014 4:42 PM (380.4) Primary insomnia 07/25/2013 Primary insomnia 07/25/2013 Wrist fracture 07/22/2011 Overview (03/27/2024): Right, 04/15 Wrist fracture 07/22/2011 Carpal tunnel syndrome 05/25/2009 Carpal tunnel syndrome 05/25/2009 Osteoporosis 06/26/2006 Overview (03/27/2024): T-1.8 spine, normal hip 02/18 T score spine -2.4 hip -0.8 01/21 T score spine -3.0 hip -1.2 Osteoporosis 06/26/2006 Disorder of bone and cartilage 06/26/2006 Overview (12/16/2024): T-1.8 spine, normal hip 02/18 T score spine -2.4 hip -0.8 Allergic rhinitis 05/15/2005 Esophageal reflux 05/15/2005 Asthma 05/15/2005 Anxiety 05/15/2005 Eczema 05/15/2005 Hematuria 05/15/2005 Overview (03/27/2024): chronic microscopic Chronic bilateral low back pain without sciatica 05/15/2005 Overview (03/27/2024): Last Assessment & Plan: I reviewed her situation in detail going over what she was told about her back pain from multiple different specialists including local oncologist, once at [facility], physiatrists at [facility] and the more recent suggestion [...] and we will make the referral to [facility] interventional radiology. She may consider [...] Alvarez MD Linked Problems Chronic lymphocytic leukemia ([facility] V24, [facility] V28)Osteoporosis, post-menopausal Treatment Medications No medications scheduled. Past Plans No past plan information found. Radiation Treatments * No radiation treatments are documented for this patient in [facility]. Treatments may have been administered in another system. Resolved Problems Problem Noted Date Diagnosed Date Resolved Date Leukemia ([facility] V24, [facility] V28) 05/24/2022 05/15/2024 Leukemia ([facility] V24, [facility] V28) 05/24/2022 05/15/2024
--- OUTSIDE RECORDS SUMMARY | 2025-01-30 12:59 | XMS_ITS | Encounter Summary ---
Author Organization [facility] Address [address] [place] [address] Care Team Providers Care Certified Medical Coder Name Role Phone Portia Garcia MD Primary Care Provider [phone] Encounter Details Date Type Department Care Team Description 01/12/2022 Social Work [facility] Oncology [facility] [address] [place] [id number] [facility] Social History Tobacco Use Types Packs/Day [...] on filedocumented in this encounter Care Teams Certified Medical Coder Relationship Specialty Start Date End Date Portia Garcia MD PCP - General Internal Medicine 01/07/21 documented as of this encounter
--- OUTSIDE RECORDS SUMMARY | 2025-01-30 12:59 | XMS_ITS | Clinical Summary ---
Author Organization [facility] Address [address] [place] [address] Phone Care Team Providers Care Homicide Investigator Name Role Phone Portia Garcia MD Primary Care Provider [phone] Allergies Active Allergy Reactions Criticality Noted Date Comments Sulfamethoxazole-Trimethop rim Hives 05/15/2005 Sulfamethoxazole-Trimethop rim 05/15/2005 Other Reaction(s): Hives/Urticaria Medications ergocalciferol (VITAMIN D-2) 1,250 mcg (50,000 unit) capsule Take 1 capsule by mouth once a week. 01/20/20 19 Active nortriptyline (PAMELOR) 50 mg capsule TAKE 1 CAPSULE BY MOUTH DAILY AT BEDTIME 05/01/20 22 Active omeprazole (PriLOSEC) [address] capsule Take 1 capsule by mouth daily. 10/22/19 21 Active methocarbamoL (ROBAXIN) 500 mg tablet TAKE 1 TABLET BY MOUTH EVERY 8 HOURS NEEDED FOR PAIN Active gabapentin (NEURONTIN) 100 mg capsule Take 2 tab po nightly Active fluticasone propionate (FLONASE) 50 mcg/actuation nasal spray 1 spray in each nostril once daily Active magnesium 250 mg tablet Take by mouth. Activ e calcium carbonate/vitam in D3 (CALCIUM + D ORAL) Take by mouth daily. Active Lactobacillus acidophilus (PROBIOTIC ACIDOPHILUS ORAL) Take 1 Tab by mouth daily. Active morphine (MS CONTIN) 30 mg 12 hr tablet Take 1 tablet (30 mg total) by mouth every 8 (eight) hours if needed. for pain 04/27/20 24 Active potassium chloride (KLOR-CON) 10 mEq CR tablet Take 1 tablet (10 mEq total) by mouth 2 (two) times a day. 180 each 1 08/07/19 25 026 Active zanubrutinib (Brukinsa) 80 mg capsuleIndicati ons:chronic lymphocytic leukemia Take 2 capsules (160 mg total) by mouth 1 (one) time each day Then 1 capsule (80 mg ) by mouth in the evening. Swallow capsules whole with water; do not open, break or chew. 90 capsule 5 11/28/19 25 Active aspirin 81 mg capsule Take 81 mg by mouth. 04/12/20 23 Active clobetasoL (TEMOVATE) 0.05 % topical solution APPLY TOPICALLY TO THE SCALP TWICE DAILY FOR 2 WEEKS THEN STOP FOR 1 WEEK. REPEAT CYCLE NEEDED FOR FLAKING Active clonazePAM (KlonoPIN) 0.5 mg tablet Take 1 tablet (0.5 mg total) by mouth 2 (two) times a day if needed. Max Daily Amount: 1 mg 06/21/19 24 Active imiquimod (ALDARA) 5 % cream APPLY TO THE AFFECTED AREA ON THE LOWER LEG 5 TIMES PER WEEK MONDAY THRU MONDAY FOR 6 WEEKS Active tacrolimus (PROTOPIC) 0.1 % ointment Apply 1 Application topically 2 (two) times a day. Active FLUoxetine (PROzac) 20 mg capsule Take 1 capsule (20 mg total) by mouth 1 (one) time each day. Active acyclovir (ZOVIRAX) 400 mg tablet Take 1 tablet (400 mg total) by mouth. 025 Discontinued estradioL (ESTRACE) 0.01 % (0.1 mg/gram) vaginal cream USE 1 GRAM VAGINALLY EVERY DAY FOR 2 WEEKS THEN USE 1 GRAM VAGINALLY 2 TIMES A WEEK 025 Discontinued minoxidiL (LONITEN) 2.5 mg tablet Take 0.5 tablets (1.25 mg total) by mouth 1 (one) time each day. 025 Discontinued Active Problems Problem Noted Date Diagnosed Date Loose stools 12/16/2024 Lymphadenopathy 12/16/2024 Pain in joint of left shoulder 10/29/2024 Osteoporosis, post-menopausal 07/08/2024 Hypokalemia 03/06/2023 Lumbar compression fracture, closed, initial encounter ([facility] V24, [facility] V28) 05/24/2022 Overview (03/27/2024): Last Assessment & [...] 05/24/2022 Lumbar compression fracture, closed, initial encounter ([facility] V24, [facility] V28) 05/24/2022 Dyspnea 12/03/2021 Dyspnea 12/03/2021 Acquired hemolytic anemia ([facility] V24, [facility] V28) 12/03/2021 Weight loss 03/03/2021 Hyperlipidemia 03/07/2019 HLD (hyperlipidemia) 03/07/2019 Vitamin D deficiency 01/19/2019 Vitamin D deficiency 01/19/2019 Asymptomatic microscopic hematuria 12/01/2017 Chronic lymphocytic leukemia ([facility] V24, [facility] V28) 06/21/2017 Chronic lymphocytic leukemia ([facility] V24, [facility] V28) 06/21/2017 Subclinical hypothyroidism 06/06/2017 Subclinical hypothyroidism 06/06/2017 Osteoarthritis 02/15/2016 Overview (03/27/2024): Lumbar Spine, Hands Osteoarthritis 02/15/2016 Diverticulitis 10/14/2015 Overview (03/27/2024): 3/16 Diverticulitis 10/14/2015 Bilateral impacted cerumen 03/23/2015 Overview [...] different specialists including local oncologist, once at [facility], physiatrists at [facility] and the more recent suggestion for a [...] and we will make the referral to [facility] interventional radiology. She may consider pain management for treating cancer related pain and would likely avoid a spinal cord stimulator. Allergic rhinitis 05/15/2005 Anxiety 05/15/2005 Asthma 05/15/2005 Chronic bilateral low back pain without sciatica 05/15/2005 Eczema 05/15/2005 Esophageal reflux 05/15/2005 Hematuria 05/15/2005 Resolved Problems Problem Noted Date Diagnosed Date Resolved Date Leukemia ([facility] V24, [facility] V28) 05/24/2022 05/15/2024 Leukemia ([facility] V24, [facility] V28) 05/24/2022 05/15/2024 Encounters Date Type Department Care Team Description 01/06/2025 11:17 AM EDT - 01/06/2025 11:59 PM EDT Hospital Encounter [facility] [address] [phone] Liz Collins MD Chronic lymphocytic leukemia ([facility] V24, [facility] V28) (Primary Dx); Osteoporosis, post-menopausal Discharge Disposition: Home or Self Care 12/30/2024 Telephone Gastroenterology - [address] [phone] Yonathan Stone PA 12/19/2024 9:40 AM EDT Office Visit Gastroenterology - [address] [phone] Yonathan Stone PA Pain of right scapula (Primary Dx); Constipation, unspecified constipation type; Belching 11/28/2024 9:15 AM EDT Office Visit [facility] Hematology Oncology [address] [place] [phone] Martin-Liz Barlow MD Chronic lymphocytic leukemia ([facility] V24, [facility] V28) (Primary Dx); Anxiety; Primary insomnia; Lumbar compression fracture, closed, initial encounter ([facility] V24, [facility] V28) from Last 3 Months Immunizations Name Administration Dates Next Due H1N1 Inj 05/11/2009 H1N1 Inj Preservative Free 05/11/2009 Influenza Quadravalent, 0.5m l (Fluad) 65yo and older 03/15/2022 Influenza Quadravalent, 0.5m l (Fluzone High-dose) 65yo and older 02/13/2023,02/09/2021,01/19/2020,02/25 Influenza trivalent, 0.5mL ( Fluad) 65yo and older 02/15/2024 Influenza trivalent, 0.5mL ( Fluzone High-dose) 65yo and older 02/25/2019,02/06/2018,02/22/2017,02/23,03/11/2015 Influenza trivalent, with pr eservative (Fluzone; Afluria) 6mo and older 02/25/2019,03/07/2014,03/18/2013,03/12,02/22/2011,03/09/2010,03/05/2009 ,03/31/2008,03/30/2007,04/05/2006 Influenza, Unspecified 02/24/2016,2015,03/11/2015,03/11,03/07/2014,03/07/2014,03/18/2013 ,03/12/2012,02/22/2011,03/09/2010,06/2008,03/31/2008,03/30/2007, 6 Pfizer (ages 12 & older) TAI S-CoV-2 COVID-19, mRNA, LNP-S, tasia-sucrose, preservative free 08/07/2021 Pfizer SARS-CoV-2 COVID-19, mRNA, LNP-S, preservative free 01/17/2021,07/02/2020,06/11/2020 Pneumococcal conjugate 13 va lent (Prevnar 13, PCV13) 2mo and older 03/21/2019,03/21/2019 Pneumococcal polysaccharide 23 valent (Pneumovax 23) 2yo and older 09/17/2014,09/17/2014 RSV, bivalent, protein subun it RSVpreF, 0.5mL, Preservative Free (ABRYSVO) 60yo and older or 32 through 36 wks of 04/01/2023 Td Tetanus diptheria (Tdvax) 7yo and older 07/06/2001,07/06/2001 Td, Unspecified 07/06/2001 Tdap Tetanus diptheria acell ular pertussis (Boostrix; [...] Orientation Straight 01/06/2025 10 :43 AM EDT Obstetrics History Last Filed Vital Signs Vital Sign Reading Time Taken Comments Blood Pressure 125/68 01/06/2025 11:45 AM EDT Pulse 87 01/06/2025 11:45 AM EDT Temperature 36.4 C (97.6 F) 01/06/2025 11:45 AM EDT Respiratory Rate 18 01/06/2025 11:45 AM EDT Oxygen Saturation 98% 01/06/2025 11:45 AM EDT Inhaled Oxygen Concentration - - Weight 58.1 kg (128 lb) 12/19/2024 9:19 AM EDT Height 157.5 cm (5' 2 ) 12/19/2024 9:19 AM EDT Body Mass Index 23.41 12/19/2024 9:19 AM EDT Plan of Treatment Upcoming Encounters Date Type Department Care Team (Late st Contact Info) Description 01/30/2025 1:30 PM EDT Appointment [facility] [address] [place] [phone] 03/04/2025 9:00 AM EDT Office Visit [facility] Hematology Oncology [address] [place] [phone] Liz Alvarez MD [address] [place] [phone] 06/23/2025 1:00 PM EST Office Visit Gastroenterology - 299 [facility] [address] [facility] [address] [place] [phone] Yonathan Stone PA [address] [place] [phone] 07/07/2025 11:00 AM EST Appointment [facility] [address] [facility] 2nd [place] [phone] Health Maintenance Due Date Last Done Comments DTaP,Tdap,and Td Vaccines (6 - Td or Tdap) 06/25/2020 06/25/2010, 06/25/2010, 07/06/2001, Additional history exists Medicare Annual Wellness Visit 05/08/2022 Social Influencers of Health Screening 05/08/2022 Depression Screening 06/05/2024 COVID-19 Vaccine (8 - Pfizer risk 2023- season) 2024 02/24/2024, 03/04/2023, 04/30/2022, Additional history exists Influenza Vaccine (#1) 2025 , 02/13/2023, 03/15/2022, Additional history exists Falls Risk Assessment 07/08/2025 [...] exists RSV Immunization Adult Patients Completed 04/01/2023 HIB Vaccines Aged Out No longer eligi [...] Diagnosis Comments CBC WITH AUTO DIFFERENTIAL Routine 01/28/2025 12:39 PM EDT Chronic lymphocytic leukemia ([facility] V24, [facility] V28) CBC AND DIFFERENTIAL Routine 01/28/2025 12:39 PM EDT Chronic lymphocytic leukemia ([facility]/HCC V24, CMS/HCC V28) COMPREHENSIVE METABOLIC PANEL Routine 01/28/2025 12:39 PM EDT Chronic lymphocytic leukemia (CMS/HCC V24, CMS/HCC V28) LACTATE DEHYDROGENASE Routine 01/28/2025 12:39 PM EDT Chronic lymphocytic leukemia (CMS/HCC V24, CMS/HCC V28) CBC WITH AUTO DIFFERENTIAL Routine 12/16/2024 10:32 AM EDT Chronic lymphocytic leukemia (CMS/HCC V24, CMS/HCC V28) CBC AND DIFFERENTIAL Routine 12/16/2024 10:32 AM EDT Chronic lymphocytic leukemia (CMS/HCC V24, CMS/HCC V28) COMPREHENSIVE METABOLIC PANEL Routine 12/16/2024 10:32 AM EDT Chronic lymphocytic leukemia (CMS/HCC V24, CMS/HCC V28) LACTATE DEHYDROGENASE Routine 12/16/2024 10:32 AM EDT Chronic lymphocytic leukemia (CMS/HCC V24, CMS/HCC V28) HM HPV Routine 12/08/2020 LIPID PANEL Routine 10/23/2020 DXA BONE DENSITY STUDY 1+ SITS AXIAL SKEL Routine 01/14/2019 10:53 AM EDT Disorder of bone, unspecified Disorder of cartilage, unspecified DX MAMMO INCL CAD UNI Routine 11/22/2016 10:38 AM EDT Other abnormal and inconclusive findings on diagnostic imaging of breast HM COLONOSCOPY Routine 11/06/2015 HEPATITIS C SCREENING Routine 09/04/2013 from Last 3 Months or Most Recently Relevant to Health Maintenance Results * (ABNORMAL) CBC auto differential (01/28/2025 12:39 PM EDT) Only the most recent of2 resultswithin the time period is included. WBC 12.4(H) 4.8 - 10.8 K/mcL LAB HEMETOLOGY METHOD 01/28/2025 2:13 PM [facility] RBC 4.00 3.80 - 4.80 M/mcL LAB HEMETOLOGY METHOD 01/28/2025 2:13 PM [facility] Hemoglobin 12.1 11.5 - 16.0 g/dL LAB HEMETOLOGY METHOD 01/28/2025 2:13 PM [facility] Hematocrit 37.9 35.0 - 47.0 % LAB HEMETOLOGY METHOD 01/28/2025 2:13 PM [facility] MCV 95.0 79.0 - 98.0 FL LAB HEMETOLOGY METHOD 01/28/2025 2:13 PM [facility] MCH 30.3 27.0 - 32.0 pcg LAB HEMETOLOGY METHOD 01/28/2025 2:13 PM [facility] MCHC 31.9(L) 32.0 - 37.0 g/dL LAB HEMETOLOGY METHOD 01/28/2025 2:13 PM [facility] RDW 12.9 11.0 - 15.0 % LAB HEMETOLOGY METHOD 01/28/2025 2:13 PM [facility] Platelets 220 130 - 400 K/mcL LAB HEMETOLOGY METHOD 01/28/2025 2:13 PM [facility] MPV 11.3(H) 7.0 - 11.0 FL LAB HEMETOLOGY METHOD 01/28/2025 2:13 PM [facility] NRBC 0.0 <1.0 % LAB HEMETOLOGY METHOD 01/28/2025 2:13 PM [facility] NRBC Absolute 0.00 <0.10 K/mcL LAB HEMETOLOGY METHOD 01/28/2025 2:13 PM [facility] Neutrophils Relative 35.1 % LAB HEMETOLOGY METHOD 01/28/2025 2:13 PM EDT [facility] Comment:This is an appended report. These results have been appended to a previously preliminary verified report. Lymphocytes Relative 56.2 % LAB HEMETOLOGY METHOD 01/28/2025 2:13 PM T [facility] Comment:This is an appended report. These results have been appended to a previously preliminary verified report. Monocytes Relative 5.5 % LAB HEMETOLOGY METHOD 01/28/2025 2:13 PM EDT [facility] Comment:This is an appended report. These results have been appended to a previously preliminary verified report. Eosinophils Relative 2.3 % LAB HEMETOLOGY METHOD 01/28/2025 2:13 PM [facility] Comment:This is an appended report. These results have been appended to a previously preliminary verified report. Basophils Relative 0.6 % LAB HEMETOLOGY METHOD 01/28/2025 2:13 PM [facility] Comment:This is an appended report. These results have been appended to a previously preliminary verified report. Immature Granulocytes Relative 0.3 % LAB HEMETOLOGY METHOD 01/28/2025 2:13 PM T [facility] Comment:This is an appended report. These results have been appended to a previously preliminary verified report. Neutrophils Absolute 4.37 1.50 - 7.00 K/mcL LAB HEMETOLOGY METHOD 01/28/2025 2:13 PM T [facility] Comment:This is an appended report. These results have been appended to a previously preliminary verified report. Lymphocytes Absolute 6.99(H) 1.00 - 5.00 K/mcL LAB HEMETOLOGY METHOD 01/28/2025 2:13 PM [facility] Comment:This is an appended report. These results have been appended to a previously preliminary verified report. Monocytes Absolute 0.68 0.20 - 1.00 K/mcL LAB HEMETOLOGY METHOD 01/28/2025 2:13 PM EDT [facility] Comment:This is an appended report. These results have been appended to a previously preliminary verified report. Eosinophils Absolute 0.29 0.00 - 0.50 K/[facility] LAB HEMETOLOGY METHOD 01/28/2025 2:13 PM EDT [facility] Comment:This is an appended report. These results have been appended to a previously preliminary verified report. Basophils Absolute 0.07 0.00 - 0.20 K/[facility] LAB HEMETOLOGY METHOD 01/28/2025 2:13 PM EDT [facility] Comment:This is an appended report. These results have been appended to a previously preliminary verified report. Immature Granulocytes Absolute 0.04(H) 0.00 - 0.03 /[facility] METHOD 01/28/2025 2:13 PM EDT [facility] Comment:This is an appended report. These results have been appended to a previously preliminary verified report. Blood Venous blood specimen / Unknown Venipuncture / Unknown 01/28/2025 12:39 PM EDT 01/28/2025 1:32 PM EDT Raysaramshane Alvarez MD LAB BLOOD ORDERABLE S Final Result [facility] [address] [place] [address], * Lactate dehydrogenase (01/28/2025 12:39 PM EDT) Only the most recent of2 resultswithin the time period is included. LDH 180 120 - 246 unit/L LAB CHEMISTRY METHOD 01/28/2025 2:03 PM EDT [facility] Blood Venous blood specimen / Unknown Venipuncture / Unknown 01/28/2025 12:39 PM EDT 01/28/2025 2:02 PM EDT us Liz Alvarez MD LAB BLOOD ORDERABLE S Final Result [facility] [address] [place] [address], * (ABNORMAL) Comprehensive metabolic panel (01/28/2025 12:39 PM EDT) Only the most recent of2 resultswithin the time period is included. Pathologist [facility] Sodium 137 133 - 145 mmol/L LAB CHEMISTRY METHOD 01/28/2025 2:08 PM [facility] Potassium 3.9 3.5 - 5.5 mmol/L LAB CHEMISTRY METHOD 01/28/2025 2:08 PM [facility] Chloride 104 96 - 110 mmol/L LAB CHEMISTRY METHOD 01/28/2025 2:08 PM [facility] CO2 27 21 - 32 mmol/L LAB CHEMISTRY METHOD 01/28/2025 2:08 PM [facility] Anion Gap 6 3 - 11 LAB CHEMISTRY METHOD 01/28/2025 2:08 PM [facility] Glucose 83 70 - 100 mg/dL LAB CHEMISTRY METHOD 01/28/2025 2:08 PM [facility] BUN 11 5 - 25 mg/dL LAB CHEMISTRY METHOD 01/28/2025 2:08 PM [facility] Creatinine 0.77 0.50 - 1.10 mg/dL LAB CHEMISTRY METHOD 01/28/2025 2:08 PM [facility] eGFR 81 >=60 mL/min/1. 73m2 LAB CHEMISTRY METHOD 01/28/2025 2:08 PM [facility] Comment:Calculation based on the Chronic Kidney Disease Epidemiology Collaboration (CKD-EPI) equation refit without adjustment for race. BUN/Creatinine Ratio 14.3 LAB CHEMISTRY METHOD 01/28/2025 2:08 PM [facility] Calcium 9.0 8.5 - 10.5 mg/dL LAB CHEMISTRY METHOD 01/28/2025 2:08 PM EDT [facility] AST (SGOT) 19 10 - 42 unit/L LAB CHEMISTRY METHOD 01/28/2025 2:08 PM [facility] ALT (SGPT) 18 10 - 60 unit/L LAB CHEMISTRY METHOD 01/28/2025 2:08 PM T [facility] Alkaline Phosphatase 76 42 - 121 unit/L LAB CHEMISTRY METHOD 01/28/2025 2:08 PM T [facility] Total Protein 5.7(L) 6.0 - 8.0 g/dL LAB CHEMISTRY METHOD 01/28/2025 2:08 PM [facility] Albumin 3.6 3.2 - 5.0 g/dL LAB CHEMISTRY METHOD 01/28/2025 2:08 PM [facility] Total Bilirubin 0.3 0.0 - 1.4 mg/dL LAB CHEMISTRY METHOD 01/28/2025 2:08 PM T [facility] Blood Venous blood specimen / Unknown Venipuncture / Unknown 01/28/2025 12:39 PM EDT 01/28/2025 2:02 PM EDT Liz Alvarez MD LAB BLOOD ORDERABLE S Final Result [facility] [address] [place] [address], * Cervical Cancer Screening: HPV (12/08/2020) [facility] Cervical Cancer Screening: HPV negative, abstracted Historical Provider HEALTH MAINTENANCE Final Result * (ABNORMAL) Lipid panel (10/23/2020) [facility] LDL/HDL Ratio 5(A) 0 - 4 Triglycerides 150 0 - 150 mg/dL Cholesterol 237(A) 0 - 200 mg/dL HDL 53 >=40 mg/dL LDL Cholesterol 154(A) 0 - 100 mg/dL Blood Venous blood specimen / Unknown us Historical Provider LAB BLOOD ORDERABLES Alayna yates Result * DXA BONE DENSITY STUDY 1+ SITS AXIAL SKEL (01/14/2019 10:53 AM EDT) Anatomical Region Laterality Modality Bone Densitometr y 10/03/2018 9:33 AM EDT Narrative 01/14/2019 3:15 PM EDT BONE DENSITY Lumbar Spine T-score is -3.0 (SD relative to 20-29 y/o adult) Z-score is -0.9 (SD relative to age matched peers) This is consistent with osteoporosis by criteria defined by the WHO. Left Hip T-score is -1.2 Z-score is +0.5 This is consistent with osteopenia by criteria defined by the WHO. Comparison exam(s): significant decrease in bone density of hip and lumbar spine when compared to most recent bone density examination Confidence level is +/-95%. Impression: Based on the World Health Organization criteria, Lanny Aguiar should be classified as having osteoporosis. The [facility] Department of Internal Medicine recommends using National [...] Aguiar shouldbe classified as having osteoporosis. The [facility] Department of Internal Medicine recommendsusing National Osteoporosis [...] risk by FRAX. us Shruthi Capps MD [facility] DXA PROCEDURES Final Result * DX MAMMO [...] of the same day. Shruthi Capps MD IMG BI PROCEDURES Final Result * Colonoscopy (11/06/2015) Pathologist Counts include 234 beds at the [facility] Colonoscopy no interpretation , abstracted Anatomical Region Laterality Modality Other Historical Provider HEALTH MAINTENANCE Final Result * Hepatitis C Screening (09/04/2013) [facility] Hepatitis C Screening abstracted Historical Provider HEALTH MAINTENANCE Final Result from Last 3 Months or Most Recently Relevant to Health Maintenance Insurance MEDICARE [facility] Care Teams Homicide Investigator Relationship Specialty Start Date End Date Portia Garcia MD [address] [place] [id number] PCP - General Internal Medicine 01/07/21
--- OUTSIDE RECORDS SUMMARY | 2025-01-30 12:59 | XMS_ITS | Clinical Summary ---
Author Organization [facility] Address [address] [place] [address] Phone Care Team Providers Care Repair Department Supervisor Name Role Phone Liz Alvarez MD Unavailable [phone] Larry Hall MD Unavailable Portia Hernandez MD Primary Care Provider Allergies Active Allergy Reactions Criticality Noted Date Comments Sulfamethoxazole-Trimethoprim Hives 2018 Medications calcium citrate-vitamin D3 (CITRACAL+D) 950 mg (200 mg elemental)-250 units Tab Take by mouth. Activ e nortriptyline (PAMELOR) 10 MG capsule Take 50 mg by mouth. Active calcipotriene (CALCITRENE) 0.005 % ointment daily as needed. 7 Active fluticasone propionate (FLONASE) 50 mcg/actuation nasal spray 1 spray in each nostril once daily 8 Active omeprazole (PRILOSEC) 20 MG capsule TAKE 1 CAPSULE DAILY 9 Active gabapentin (NEURONTIN) 100 MG capsule Take 300 mg by mouth 3 (three) times a day. Active FLUoxetine (PROZAC) 10 MG capsule Take 10 mg by mouth daily. Active methocarbamoL (ROBAXIN) 500 MG tablet Take 500 mg by mouth daily as needed. Active magnesium oxide 250 mg (150 mg elemental) Tab Take 250 mg by mouth daily. Active Medication-Free Text Apply 1 application topically. CBD cream topical prn Active Active Problems Problem Noted Date Diagnosed Date Anxiety 06/15/2018 Asymptomatic microscopic hematuria 12/01/2017 CLL (chronic lymphocytic leukemia) 06/21/2017 Diverticulitis 10/14/2015 Overview (08/29/2018): 08/18 Disorder of bone and cartilage 06/26/2006 Overview (08/29/2018): T-1.8 spine, normal hip 02/18 T score spine -2.4 hip -0.8 Allergic rhinitis 05/15/2005 Asthma 05/15/2005 Gastroesophageal reflux disease without esophagi tis 05/15/2005 Social History Tobacco Use Types Packs/Day Years Used Date Smoking Tobacco: Never Assessed Education Answer Date Recorded Are you interested in more education? Not on zahra e 09/30/2022 Are you concerned about learning? Not on file 09/30/2022 No 09/30/2022 No 09/30/2022 Digital Access Answer Date Recorded No 10/29/2022 No 10/29/2022 No 10/29/2022 Reliable internet access at home? Not on file 10/29/2022 Device with a working camera? Not on file Comments Unknown Sex and Gender Information Value Date Recorded Sex Assigned at Female 05/08/2021 11:42 AM EST Legal Sex Female 1:54 PM EST Gender Identity Female 05/08/2021 11:42 AM EST Sexual Orientation Choose not to disclose 2020 11:42 AM EST Last Filed Vital Signs Vital Sign Reading Time Taken Comments Blood Pressure 120/58 12/29/2022 11:00 AM EDT Pulse 98 12/29/2022 11:00 AM EDT Temperature 36.3 C (97.3 F) 12/29/2022 11:00 AM EDT Respiratory Rate 16 12/29/2022 11:00 AM EDT Oxygen Saturation 99% 12/29/2022 11:00 AM EDT Inhaled Oxygen Concentration - - Weight 50.4 kg (111 lb 1.8 oz) 12/29/2022 11:00 AM EDT Height 158 cm (5' 2.21 ) 12/29/2022 11:00 AM EDT Body Mass Index 20.19 12/29/2022 11:00 AM EDT Plan of Treatment Health Maintenance Due Date Last Done Comments DEPRESSION SCREENING 1961 SMOKING Hx and SMOKELESS TOBACCO SCREENING 1962 HEPATITIS C SCREENING 09/10/1967 COLOGUARD 1994 COLONOSCOPY 1994 COLORECTAL CANCER SCREENING 1994 FIT TEST 1994 FOBT 1994 SIGMOIDOSCOPY 1994 VIRTUAL COLONOSCOPY 1994 OSTEOPOROSIS SCREENING INITIAL (ONE-TIME) 2014 Adult Td,Tdap Booster 06/25/2020 06/25/2010, 002 LIPID PANEL 07/27/2023 07/27/2018 COVID-19 VACCINE ( season) 2024 04/30/2022, 08/07/2021, 01/17/2021, Additional history exists RSV VACCINE (1 - 1-dose 75+ series) 2024 INFLUENZA VACCINE (#1) 2025 , 01/19/2020, 02/25/2019, Additional history exists ZOSTER VACCINES Completed 05/17/2018, 02/04, 11/03/2009 PNEUMOCOCCAL VACCINES (50+ years) Completed 03/21/2019, 09/17/2014 HEPATITIS A VACCINES Aged Out No long er eligible based on patient's age to complete this topic HIB VACCINES Aged Out No longer eligi ble based on patient's age to complete this topic MENINGOCOCCAL VACCINES (ACWY) Aged Out No longer eligible based on patient's age to complete this topic MENINGOCOCCAL VACCINES (B) Aged Out N o longer eligible based on patient's age to complete this topic Medical Devices Not on file Insurance MEDICARE PART A & B [employer] MEDEX SUPPLEMENT MEDICARE PART A & B [employer] MEDEX SUPPLEMENT MEDICARE PART A & B [employer] MEDEX SUPPLEMENT MEDICARE PART A & B [employer] MEDEX SUPPLEMENT MEDICARE PART A & B [employer] MEDEX SUPPLEMENT MEDICARE PART A & B [employer] MEDEX SUPPLEMENT MEDICARE PART A & B [employer] MEDEX SUPPLEMENT MEDICARE PART A & B [employer] MEDEX SUPPLEMENT MEDICARE PART A & B [employer] SUPPLEMENT Care Teams Repair Department Supervisor Relationship Specialty Start Date End Date Portia Hernandez MD [address] [place] [phone] PCP - General Internal Medicine 06/17/21 Liz Alvarez MD [address] [place] [address] [phone] [email or web address] Referring Physician Internal Medicine 06/21/18 Larry Hall MD [address] [place] [id number] [email or web address] Primary Oncologist Medical Oncology 07/03/18 Additional Source Comments The information contained in this document represents components of the legal health record. It is not the complete legal health record.[facility]
== END 2025-01-30 11:49 | disposition home or self-care (01) ==
LOC: HO.HMGCLDS 11:48
PROVIDERS: PCP Internal Medicine; Visit Provider Internal Medicine
DX: R53.83 Other fatigue (principal)
CPT/HCPCS: 87086

== ENCOUNTER 2025-02-27 07:14 | Outpatient (AMB) | payer MEDICARE, SELFPAY ==
--- OUTSIDE RECORDS SUMMARY | 2024-01-24 14:45 | XMS_ITS | Encounter Summary ---
Author Organization [facility] Address [address] [place] [address] Care Team Providers Care Candy Cutter Machine Name Role Phone Portia Garcia MD Primary Care Provider [phone] Encounter Details Date Type Department Care Team (Late st Contact Info) Description 01/24/2024 2:45 PM EDT Hospital Encounter TH HISTORIC ENCOUNTERS EASTERN CONVERSION ONLY Liz Alvarez MD [address] [place] [phone] Social History Tobacco Use Types Packs/Day Years [...] Care Team (Late st Contact Info) Description 03/04/2025 9:00 AM EDT Office Visit [facility] Hematology Oncology [address] [place] [phone] Liz Alvarez MD [address] [place] [phone] 06/23/2025 1:00 PM EST Office Visit Gastroenterology - [address] [facility] [address] [place] [phone] Yonathan Stone PA [address] [place] [address] 07/07/2025 11:00 AM EST Appointment [facility] Infusion Center [address] [facility] 2nd [place] [address] documented as of this encounter Visit Diagnoses Not on filedocumented in this encounter Care Teams Candy Cutter Machine Relationship Specialty Start Date End Date Portia Garcia MD [address] [facility] [address] [place] [address] PCP - General Internal Medicine 01/07/21 documented as of this encounter
--- OUTSIDE RECORDS SUMMARY | 2025-02-27 07:18 | XMS_ITS | Clinical Summary ---
Author Organization [facility] Address [address] [place] [address] Care Team Providers Care Traffic Engineer Name Role Phone Portia Garcia MD Primary Care Provider [phone] Allergies Active Allergy Reactions Criticality Noted Date [...] day. 30 g 1 02/02/2023 Active Benadryl vqkf-Ygpcdt-Uimxqpjp -Lidocaine Visc mouth wash 1:1:1:1 Swish and spit 5 mL every 4 (four) hours as needed for mucositis. 240 mL 1 10/23/2023 Active Aspirin 81 MG CAPS Take 81 mg by mouth. 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
--- OUTSIDE RECORDS SUMMARY | 2025-02-27 07:18 | XMS_ITS | Clinical Summary ---
Author Organization [facility] Address [address] [place] [address] Phone Care Team Providers Care Circulator Name Role Phone Portia Garcia MD Primary Care Provider Allergies Active Allergy Reactions Criticality Noted Date Comments Sulfamethoxazole-Trimethop rim Hives 05/15/2005 Sulfamethoxazole-Trimethop rim 05/15/2005 Other Reaction(s): Hives/Urticaria Medications ergocalciferol (VITAMIN D-2) 1,250 mcg (50,000 unit) capsule Take 1 capsule by mouth once a week. 9 Active nortriptyline (PAMELOR) 50 mg capsule TAKE 1 CAPSULE BY MOUTH DAILY AT BEDTIME 2 Active omeprazole (PriLOSEC) [address] capsule Take 1 capsule by mouth daily. 1 Active methocarbamoL (ROBAXIN) 500 mg tablet TAKE 1 TABLET BY MOUTH EVERY 8 HOURS NEEDED FOR PAIN Active gabapentin (NEURONTIN) 100 mg capsule Take 2 tab po nightly Active fluticasone propionate (FLONASE) 50 mcg/actuation nasal spray 1 spray in each nostril once daily Active magnesium 250 mg tablet Take by mouth. Activ e calcium carbonate/vitami n D3 (CALCIUM + D ORAL) Take by mouth daily. Active Lactobacillus acidophilus (PROBIOTIC ACIDOPHILUS ORAL) Take 1 Tab by mouth daily. Active morphine (MS CONTIN) 30 mg 12 hr tablet Take 1 tablet (30 mg total) by mouth every 8 (eight) hours if needed. for pain 4 Active potassium chloride (KLOR-CON) 10 mEq CR tablet Take 1 tablet (10 mEq total) by mouth 2 (two) times a day. 180 each 1 5 08/07/19 26 Active zanubrutinib (Brukinsa) 80 mg capsuleIndicatio ns:chronic lymphocytic leukemia Take 2 capsules (160 mg total) by mouth 1 (one) time each day Then 1 capsule (80 mg ) by mouth in the evening. Swallow capsules whole with water; do not open, break or chew. 90 capsule 5 5 Active aspirin 81 mg capsule Take 81 mg by mouth. 3 Active clobetasoL (TEMOVATE) 0.05 % topical solution APPLY TOPICALLY TO THE SCALP TWICE DAILY FOR 2 WEEKS THEN STOP FOR 1 WEEK. REPEAT CYCLE NEEDED FOR FLAKING Active clonazePAM (KlonoPIN) 0.5 mg tablet Take 1 tablet (0.5 mg total) by mouth 2 (two) times a day if needed. Max Daily Amount: 1 mg 4 Active imiquimod (ALDARA) 5 % cream APPLY TO THE AFFECTED AREA ON THE LOWER LEG 5 TIMES PER WEEK MONDAY THRU MONDAY FOR 6 WEEKS Active tacrolimus (PROTOPIC) 0.1 % ointment Apply 1 Application topically 2 (two) times a day. Active FLUoxetine (PROzac) 20 mg capsule Take 1 capsule (20 mg total) by mouth 1 (one) time each day. Active Active Problems Problem Noted Date Diagnosed Date Loose stools 12/16/2024 Lymphadenopathy 12/16/2024 Pain in joint of left shoulder 10/29/2024 Osteoporosis, post-menopausal 07/08/2024 Hypokalemia 03/06/2023 Lumbar compression fracture, closed, initial encounter ([facility] V24, [facility] V28) 05/24/2022 Overview (03/27/2024): Last Assessment & [...] 05/24/2022 Lumbar compression fracture, closed, initial encounter ([facility] V24, [facility] V28) 05/24/2022 Dyspnea 12/03/2021 Dyspnea 12/03/2021 Acquired hemolytic anemia ([facility] V24, [facility] V28) 12/03/2021 Weight loss 03/03/2021 Hyperlipidemia 03/07/2019 HLD (hyperlipidemia) 03/07/2019 Vitamin D deficiency 01/19/2019 Vitamin D deficiency 01/19/2019 Asymptomatic microscopic hematuria 12/01/2017 Chronic lymphocytic leukemia ([facility] V24, [facility] V28) 06/21/2017 Chronic lymphocytic leukemia ([facility] V24, [facility] V28) 06/21/2017 Subclinical hypothyroidism 06/06/2017 Subclinical [...] different specialists including local oncologist, once at [facility], physiatrists at [facility] and the more recent suggestion [...] we will make the referral to [facility] interventional radiology. She may consider pain management for treating cancer related pain and would likely avoid a spinal cord stimulator. Allergic rhinitis 05/15/2005 Anxiety 05/15/2005 Asthma 05/15/2005 Chronic bilateral low back pain without sciatica 05/15/2005 Eczema 05/15/2005 Esophageal reflux 05/15/2005 Hematuria 05/15/2005 Resolved Problems Problem Noted Date Diagnosed Date Resolved Date Leukemia ([facility] V24, [facility] V28) 05/24/2022 05/15/2024 Leukemia ([facility] V24, [facility] V28) 05/24/2022 05/15/2024 Encounters Date Type Department Care Team Description 01/30/2025 1:11 PM EDT - 01/30/2025 11:59 PM EDT Hospital Encounter [facility] [address] [place] [address] Discharge Disposition: Home or Self Care 01/06/2025 11:17 AM EDT - 01/06/2025 11:59 PM EDT Hospital Encounter [facility] [address] [phone] Raysaramonia-Iy Liz lomas MD Chronic lymphocytic leukemia ([facility] V24, [facility] V28) (Primary Dx); Osteoporosis, post-menopausal Discharge Disposition: Home or Self Care 12/30/2024 Telephone Gastroenterology - [address] [phone] Yonathan Stone PA 12/19/2024 9:40 AM EDT Office Visit Gastroenterology - [address] [phone] Yonathan Stone PA Pain of right scapula (Primary Dx); Constipation, unspecified constipation type; Belching 11/28/2024 9:15 AM EDT Office Visit [facility] Hematology Oncology [address] [place] [phone] Raysaramonia-Iy Liz lomas MD Chronic lymphocytic leukemia ([facility] V24, [facility] V28) (Primary Dx); Anxiety; Primary insomnia; Lumbar compression fracture, closed, initial encounter ([facility] V24, [facility] V28) from Last 3 Months Immunizations Name [...] Description 03/04/2025 9:00 AM EDT Office Visit [facility] Hematology Oncology [address] [place] [address] Liz Alvarez MD [address] [place] [address] 06/23/2025 1:00 PM EST Office Visit Gastroenterology - 299 [facility] [address] [phone] Yonathan Stone PA [address] [place] [phone] 07/07/2025 11:00 AM EST Appointment [facility] [address] [facility] [address] [place] [phone] Health Maintenance Due Date Last Done Comments DTaP,Tdap,and Td Vaccines (6 - Td or Tdap) 06/25/2020 06/25/2010, 06/25/2010, 07/06/2001, Additional history exists Medicare Annual Wellness Visit 05/08/2022 Social Influencers of Health Screening 05/08/2022 Depression Screening 06/05/2024 COVID-19 Vaccine (8 - Pfizer risk 2023- season) 2025 02/24/2024, 03/04/2023, 04/30/2022, Additional history exists Influenza Vaccine (#1) 2025 , 02/13/2023, 03/15/2022, Additional history exists Falls Risk Assessment 07/08/2025 07/08/2024 Cholesterol Screening (Lipid Panel) 10/23/2025 10/23/2020, 10/23/2020 Colorectal Cancer Screening: Colonoscopy 11/05/2025 11/06/2015, 11/06/2015 Cervical Cancer Screening: HPV 12/08/2025 12/08/2020 Osteoporosis Screening (Bone Density Screening) 01/30/2035 01/30/2025, 01/14/2019 Hepatitis C Screening Completed 09/04/2013, 014 [...] Procedure Name Priority Date/Time Associated Diagnosis Comments BD BONE DENSITY DXA AXIAL SKELETON Routine 01/30/2025 1:41 PM EDT Lumbar compression fracture, closed, initial encounter ([facility] V24, [facility] V28) CBC WITH AUTO DIFFERENTIAL Routine 01/28/2025 12:39 PM EDT Chronic lymphocytic leukemia ([facility] V24, [facility] V28) CBC AND DIFFERENTIAL Routine 01/28/2025 12:39 PM EDT Chronic lymphocytic leukemia ([facility] V24, [facility] V28) COMPREHENSIVE METABOLIC PANEL Routine 01/28/2025 12:39 [...] HPV Routine 12/08/2020 LIPID PANEL Routine 10/23/2020 DX MAMMO INCL CAD UNI Routine 11/22/2016 10:38 AM EDT Other abnormal and inconclusive findings on diagnostic imaging of breast COLONOSCOPY Routine 11/06/2015 HEPATITIS C SCREENING Routine 09/04/2013 from Last 3 Months or Most Recently Relevant to Health Maintenance Results * BD Bone Density DXA Axial Skeleton (01/30/2025 1:41 PM EDT) Anatomical Region Laterality Modality Wrist, Hip, L-spine Bone Densito metry 01/31/2025 7:40 AM EDT Impressions 01/31/2025 7:41 AM EDT 1. Osteoporosis. 2. FRAX analysis yields a 10-year probability of major osteoporotic fracture of 18.1% and a 10-year probability of hip fracture of 4.6%. Code 45352 -------- FINAL REPORT -------- Dictated By: Hernandez Sahu Dictated Date: 01/31/2025 07:40 ET Assigned Physician: Hernandez Sahu Reviewed and Electronically Signed By: Hernandez Sahu Signed Date: 01/31/2025 07:41 ET Workstation ID: [id number] Transcribed By: Self Edit Transcribed Date: 01/31/2025 07:40 ET Narrative 01/31/2025 7:41 AM EDT HISTORY: The patient is a 74-year-old postmenopausal female on chronic glucocorticoid therapy, with clinical concern for metabolic bone disease. FINDINGS: Dual energy x-ray absorptiometry of the lumbar spine and femurs is performed. The mean bone mineral density at L1-L4 is 0.823 gm/cm2 which is 70% of that of young normals and 87% of that of age matched controls. This yields a T-score of -3.0 and a Z-score of -1.1 which is diagnostic of osteoporosis. The mean bone mineral density of the femurs bilaterally is 0.889 gm/cm2 which is 88% of that of young normals and 115% of that of age matched controls. This yields a T-score of -0.9 and a Z-score of 0.9 and there is therefore no evidence of osteoporosis or osteopenia here. However, the T-score of the right femoral neck is -1.6 and that of the left femoral neck is -1.5 which is diagnostic of osteopenia. Procedure Note Hernandez Sahu MD - 01/31/2025 HISTORY: The patient is a 74-year-old postmenopausal female on chronicglucocorticoid therapy, with clinical concern for metabolic bonedisease. FINDINGS: Dual energy x-ray absorptiometry of the lumbar spine and femursis performed. The mean bone mineral density at L1-L4 is 0.823 gm/cm2 whichis 70% of that of young normals and 87% of that of age matched controls.This yields a T-score of -3.0 and a Z-score of -1.1 which is diagnostic ofosteoporosis. The mean bone mineral density of the femurs bilaterally is 0.889 gm/pe3jhank is 88% of that of young normals and 115% of that of age matchedcontrols. This yields a T-score of -0.9 and a Z-score of 0.9 and there istherefore no evidence of osteoporosis or osteopenia here. However, theT-score of the right femoral neck is -1.6 and that of the left femoralneck is -1.5 which is diagnostic of osteopenia. IMPRESSION: 1. Osteoporosis. 2. FRAX analysis yields a 10-year probability of major osteoporoticfracture of 18.1% and a 10-year probability of hip fracture of 4.6%. Code 82555 -------- FINAL REPORT -------- Dictated By: Hernandez Sahu Dictated Date: 01/31/2025 07:40 ET Assigned Physician: Hernandez Sahu Reviewed and Electronically Signed By: Hernandez Sahu Signed Date: 01/31/2025 07:41 ET Workstation ID: [id number] Transcribed By: Self Edit Transcribed Date: 01/31/2025 07:40 ET Subramony Antonio PULLIAM IM DXA PROCEDURES Final Result * (ABNORMAL) CBC auto differential (01/28/2025 12:39 PM EDT) Only the most recent of2 resultswithin the time period is included. WBC 12.4(H) 4.8 - 10.8 K/mcL LAB HEMETOLOGY METHOD 01/28/2025 2:13 PM EDT [facility] RBC 4.00 3.80 - 4.80 M/mcL LAB HEMETOLOGY METHOD 01/28/2025 2:13 PM EDT [facility] Hemoglobin 12.1 11.5 - 16.0 g/dL LAB HEMETOLOGY METHOD 01/28/2025 2:13 PM EDT [facility] Hematocrit 37.9 35.0 - 47.0 % LAB HEMETOLOGY METHOD 01/28/2025 2:13 PM EDT [facility] MCV 95.0 79.0 - 98.0 FL LAB HEMETOLOGY METHOD 01/28/2025 2:13 PM EDT [facility] MCH 30.3 27.0 - 32.0 pcg LAB [facility] MCHC 31.9(L) 32.0 - 37.0 g/dL LAB HEMETOLOGY METHOD 01/28/2025 2:13 PM EDT [facility] RDW 12.9 11.0 - 15.0 % LAB HEMETOLOGY METHOD 01/28/2025 2:13 PM EDT [facility] Platelets 220 130 - 400 K/mcL LAB HEMETOLOGY METHOD 01/28/2025 2:13 PM [facility] MPV 11.3(H) 7.0 - 11.0 FL LAB HEMETOLOGY [facility] NRBC 0.0 <1.0 % LAB HEMETOLOGY METHOD 01/28/2025 2:13 PM [facility] NRBC Absolute 0.00 <0.10 K/mcL LAB HEMETOLOGY METHOD 01/28/2025 2:13 PM [facility] Neutrophils Relative 35.1 % LAB HEMETOLOGY METHOD [facility]28[facility]2025 [facility] Comment:This is an appended report. These results have been appended to a previously preliminary verified report. Lymphocytes Relative 56.2 % LAB HEMETOLOGY METHOD 01/28/2025 2:13 PM EDT [facility] Comment:This is an appended report. These results have been appended to a previously preliminary verified report. Monocytes Relative 5.5 % LAB HEMETOLOGY METHOD 01/28/2025 2:13 PM T [facility] Comment:This is an appended report. These results have been appended to a previously preliminary verified report. Eosinophils Relative 2.3 % LAB HEMETOLOGY METHOD 01/28/2025 2:13 PM [facility] Comment:This is an appended report. These results have been appended to a previously preliminary verified report. Basophils Relative 0.6 % LAB HEMETOLOGY METHOD 01/28/2025 2:13 PM [facility] Comment:This is an appended report. These results have been appended to a previously preliminary verified report. Immature Granulocytes Relative 0.3 % LAB HEMETOLOGY METHOD 01/28/2025 2:13 PM [facility] Comment:This is an appended report. These results have been appended to a previously preliminary verified report. Neutrophils Absolute 4.37 1.50 - 7.00 K/mcL LAB HEMETOLOGY METHOD 01/28/2025 2:13 PM [facility] Comment:This is an appended report. These results have been appended to a previously preliminary verified report. Lymphocytes Absolute 6.99(H) 1.00 - 5.00 K/mcL LAB HEMETOLOGY METHOD 01/28/2025 2:13 PM [facility] Comment:This is an appended report. These results have been appended to a previously preliminary verified report. Monocytes Absolute 0.68 0.20 - 1.00 K/mcL LAB HEMETOLOGY METHOD 01/28/2025 2:13 PM [facility] Comment:This is an appended report. These results have been appended to a previously preliminary verified report. Eosinophils Absolute 0.29 0.00 - 0.50 K/mcL LAB HEMETOLOGY METHOD 01/28/2025 2:13 PM [facility] Comment:This is an appended report. These results have been appended to a previously preliminary verified report. Basophils Absolute 0.07 0.00 - 0.20 K/mcL LAB HEMETOLOGY METHOD 01/28/2025 2:13 PM [facility] Comment:This is an appended report. These results have been appended to a previously preliminary verified report. Immature Granulocytes Absolute 0.04(H) 0.00 - 0.03 K/mcL LAB HEMETOLOGY METHOD 01/28/2025 2:13 PM EDT [facility] Comment:This is an appended report. These results have been appended to a previously preliminary verified report. Blood Venous blood specimen / Unknown Venipuncture / Unknown 01/28/2025 12:39 PM EDT 01/28/2025 1:32 PM EDT us Liz Alvarez MD LAB BLOOD ORDERABLE S Final Result Performing Organization Address [facility] Co de Phone Number [facility] [address] [place] [address], [place] [phone] * Lactate dehydrogenase (01/28/2025 12:39 PM EDT) Only the most recent of2 resultswithin the time period is included. LDH 180 120 - 246 unit/L LAB CHEMISTRY METHOD 01/28/2025 2:03 PM EDT [facility] Blood Venous blood specimen / Unknown Venipuncture / Unknown 01/28/2025 12:39 PM EDT 01/28/2025 2:02 PM EDT us Liz Alvarez MD LAB BLOOD ORDERABLE S Final Result Performing Organization Address [facility]/ZIP Co de Phone Number [facility] [address] [place] [address], [place] [phone] * (ABNORMAL) Comprehensive metabolic panel (01/28/2025 12:39 PM EDT) Only the most recent of2 resultswithin the time period is included. Sodium 137 133 - 145 mmol/L LAB CHEMISTRY METHOD 01/28/2025 2:08 PM EDT [facility] Potassium 3.9 3.5 - 5.5 mmol/L LAB CHEMISTRY METHOD 01/28/2025 2:08 PM EDT [facility] Chloride 104 96 - 110 mmol/L LAB CHEMISTRY METHOD 01/28/2025 2:08 PM [facility] CO2 27 21 - 32 mmol/L LAB CHEMISTRY METHOD 01/28/2025 2:08 PM [facility] Anion Gap 6 3 - 11 LAB CHEMISTRY METHOD 01/28/2025 2:08 PM [facility] Glucose 83 70 - 100 mg/dL LAB CHEMISTRY METHOD 01/28/2025 2:08 PM [facility] BUN 11 5 - 25 mg/dL LAB CHEMISTRY METHOD 01/28/2025 2:08 PM [facility] Creatinine 0.77 0.50 - 1.10 mg/dL LAB CHEMISTRY METHOD 01/28/2025 2:08 PM [facility] eGFR 81 >=60 mL/min/1. 73m2 LAB CHEMISTRY METHOD 01/28/2025 2:08 PM [facility] Comment:Calculation based on the Chronic Kidney Disease Epidemiology Collaboration (CKD-EPI) equation refit without adjustment for race. BUN/Creatinine Ratio 14.3 LAB CHEMISTRY METHOD 01/28/2025 2:08 PM [facility] Calcium 9.0 8.5 - 10.5 mg/dL LAB CHEMISTRY METHOD 01/28/2025 2:08 PM [facility] AST (SGOT) 19 10 - 42 unit/L LAB CHEMISTRY METHOD 01/28/2025 2:08 PM [facility] ALT (SGPT) 18 10 - 60 unit/L LAB CHEMISTRY METHOD 01/28/2025 2:08 PM [facility] Alkaline Phosphatase 76 42 - 121 unit/L LAB CHEMISTRY METHOD 01/28/2025 2:08 PM [facility] Total Protein 5.7(L) 6.0 - 8.0 g/dL LAB CHEMISTRY METHOD 01/28/2025 2:08 PM [facility] Albumin 3.6 3.2 - 5.0 g/dL LAB CHEMISTRY METHOD 01/28/2025 2:08 PM EDT [facility] Total Bilirubin 0.3 0.0 - 1.4 mg/dL LAB CHEMISTRY METHOD 01/28/2025 2:08 PM EDT [facility] Blood Venous blood specimen / Unknown Venipuncture / Unknown 01/28/2025 12:39 PM EDT 01/28/2025 2:02 PM EDT Liz Alvarez MD LAB BLOOD ORDERABLE S Final Result [facility] [address] [place] [address], [place] [phone] * Cervical Cancer Screening: HPV (12/08/2020) Pathologist [facility] Cervical Cancer Screening: HPV negative, abstracted Historical Provider HEALTH MAINTENANCE Final Result * (ABNORMAL) Lipid panel (10/23/2020) Pathologist [facility] LDL/HDL Ratio 5(A) 0 - 4 Triglycerides 150 0 - 150 mg/dL Cholesterol 237(A) 0 - 200 mg/dL HDL 53 >=40 mg/dL LDL Cholesterol 154(A) 0 - 100 mg/dL Blood Venous blood specimen / Unknown Historical Provider LAB BLOOD ORDERABLES Alayna l Result * DX MAMMO INCL CAD UNI [...] PROCEDURES Final Result * Colonoscopy (11/06/2015) Pathologist [facility] Colonoscopy no interpretation , abstracted Anatomical Region Laterality Modality Other Historical Provider HEALTH MAINTENANCE Final Result * Hepatitis C Screening (09/04/2013) Pathologist [facility] Hepatitis C Screening abstracted Historical Provider HEALTH MAINTENANCE Final Result from Last 3 Months or Most Recently Relevant to Health Maintenance Insurance MEDICARE [facility] Care Teams Circulator Relationship Specialty Start Date End Date Portia Garcia MD [address] [place] [phone] PCP - General Internal Medicine 01/07/21
--- OUTSIDE RECORDS SUMMARY | 2025-02-27 07:18 | XMS_ITS | Data Portability ---
Author Organization [facility], [facility] Address [address] [place] [address] Care Team Providers Care Railroad Dining Car Stewardess Name Role Phone SILVIA CHINO Primary Care Provider [phone] DEANA MOSES OTHER Assessment Encounter Date Assessment [...] reviewed, updated and is located in the patient s chart. Examination: 74-year-old female no acute [...] intact. X-rays ordered, obtained and reviewed at [facility] 4 views left shoulder reveal a.c. [...] have failure of resolution of her pain. [facility] speech recognition shoeshiner software was used to create portions of [...] 5- 4V L shoulder [email or web address] [facility] Office, [address], [address], [place], [address], 5 13:12:31 XR, wrist, 2 view - 2v lt tmj, pediatric np, rm [email or web address] [facility] Office, [address], [address], [place], [address], 5 14:42:24 Medication Orders None recorded. Patient [...] a4ajBk vP9nXo QUaueC m3YtLR FvZlgJ JJ8mAn HZtai3 4z0767 AC0Kqb H2FV6q uKiQtr MwF INTERFACE [facility] [address], [place], [address], 07/01/2024 14:18:21 07/01/19 25 07/01/2024 XR, wrist , 2 view [email or web address]:/ [email or web address] ?Encry pted=s hAaTro YD8dLq bEUv6g %2BXZw aYqtaq 0bqfl% 2Fg9IQ a4ajBk vP9nXo QUaueC m3YtLR FvZlg JJ8Clarendon HZtai3 2v3525 AC0Kqb H2FV6q uKiQtr MwF INTERFACE [facility] [address], [address], 07/01/2024 14:18:23 10/09/19 25 10/08/2024 XR, eugenioul yves, 2 or more view [email or web address]:/ [email or web address] ?Encry pted=s hAaTro YD8dLq bEUv6g %2BXZw aYqtaq 0bqfl% 2Fg9IQ a4ajBk vP9nXo QUaueC m3YtLR FvZlg JJ8Clarendon HZtai3 8g3178 AC0Kla nuEWau nKiQtr MwF INTERFACE [facility] 300 [facility] [place] [facility] [place] [address], [place], [address], 10/08/2024 09:31:29 10/09/19 25 10/08/2024 XR, shoul yves, 2 or more view http:/ [email or web address] ?Encry pted=s hAaTro YD8dLq bEUv6g %2BXZw aYqtaq 0bqfl% 2Fg9IQ a4ajBk vP9nXo QUaueC m3YtLR FvZlgJ JJ8mAn HZtai3 8w2645 AC0Kla nuEWau nKiQtr MwF INTERFACE [facility] [address] [facility] [address], [place], [address], 10/08/2024 09:31:30 Result Notes Documentation Provider Name and Address Organization Details Recorded Time Xr, Wrist, 2 View : [email or web address]? Encrypted=dhKmYhbKN0yMpvY Uv6g%5BVEkgWdada1gtvm%2Fg 2UOl5rrGpxT7xYhZLugiUh7Wa HPSaLlfHEN1lEgTUomw14c407 6XH0HhxT0HV9ypNtRvgEqT Not Available [facility] 07/01/2024 14:18: 21 Xr, Wrist, 2 View : [email or web address] Encrypted=zlNdMluFB0cMrvT Uv6g%5GNApcQbrwu4gwya%2Fg 7WDl0fbBqyV4bWfKZzzqOq6Mh HFXiSpvDGX9yHrBYnvf56w208 8OU2LhuD6QI0ayPnQjtEqU Not Available [facility] 07/01/2024 14:18: 23 Xr, Shoulder, 2 Or More View : [email or web address] Encrypted=mqUaZdyGP0uGwjP Uv6g%0HAUuqDyhfg7qgfz%2Fg 4CXo9jgNoxV0zQiWPotwOx5Rf QRCiMotKTE2eSoZCwcy35a718 5MT6SizvgUAdosUiFpsVoR Not Available [facility] 10/08/2024 09:31: 29 Xr, Shoulder, 2 Or More View : [email or web address] Encrypted=ybPfOrtRD3lYtkP Uv6g%8FETwrJjsku8xkak%2Fg 7FFq3upUfdM2zLxOUrxvRl9Wt SVPsYufZEJ8yFjWWpgd16r445 9UG9BmesvBWwfyBzGjaZrQ Not Available [facility] 10/08/2024 09:31: 31 Problems Name Problem SNOMED Code Status Onset Date Resolution Date Notes Provider Name and Address Organization Details Recorded Time Pain of left shoulder joint 740482936839038 09 Active 2024 [facility] 5 11:24:12 Problem Notes None recorded. Procedures Surgical History Date Name Laterality Status Provider Name and Address Organization Details Recorded Time 5 PM Shoulder Kenalog 2cc Injection Unilateral completed aFm Delgadillo PA-C [address] [facility], [place], [address], [facility] 10/08/2024 10:27:03 5 Trigger Thumb Kenalog Injection completed Los Champion MD [address], [place], [address], [facility] 07/01/2024 17:08:48 Imaging Results None recorded. Procedure Notes None recorded. Medical Equipment None Reported. Allergies Allergen ID Allergen Name Allergen Category Reaction Reaction Severity Criticality Documentation Date Start Date Code Code System Note Provider Name and Address Organization Details Recorded Time 04745 Substance with sulfonami de structure and antibacte rial mechanism of action (substanc e) medicatio n Not available Not available Not available 08/07/20232005 23478 8003 SNOMED Aller gyRea ction : 'Skin React ion'; Not Available [facility] 4 12:08:31 70530 Bactrim medicatio n Not available Not available Not available 08/07/20232014 23318 9 RxNorm Not Available [facility] 4 12:08:32 Medications Name Sig Start Date [...] Updated DateTime 07/01/2024 160.02 cm 24.8 kg/m2 17435.93 g DANILO MONTIEL [facility] 07/01/2024 14:10:19 Date Recorded Body height Body mass index (BMI) Body weight Provider Name and Address Organization Details Last Updated DateTime 10/08/2024 160.02 cm 21.8 kg/m2 58800.86 g MIGUEL A GOLDMAN [facility] 10/08/2024 09:22:40 Social History None recorded. Functional Status None recorded. Mental Status None recorded. Family History Nothing Reported. Medical History No medical history recorded. Gynecological HistoryNo gynecological history recorded. Obstetrics History GPAL:G 0 P 0 0 0 0 Past Encounters Encounter ID Performer Location Encounter Start Date Encounter Closed Date Diagnosis/Indication Diagnosis SNOMED-CT Code Diagnosis ICD10 Code Diagnosis IMO Codes Diagnosis Note [id number] MD KAMRYN Bobby [address] [place] [address] 07/01/2024 13:50:18 07/18/2024 12:30:49 Pain of left wrist 8087968629 07188 M25.532 220472 Trigger th umb of left hand 3327752818 49782 M65.312 78132046 Arthritis of first carpometacarpal joint of left hand 4867263855 483489 M18.12 69806688 [id number] [facility] [place] [facility] [place] [address] [place] [address] 10/08/2024 08:50:30 10/10/2024 09:45:17 Pain of left shoulder region 7243687852 M25.512 11562877 Tendinitis of left rotator cuff 0467080170 9967113 M75.82 [id number] Health Concerns Section Related Observation LastModified by Organization Detai ls LastModified Time None Recorded Concern Status LastModified by Organization Details LastModified Time None Recorded Advance Directives Directive None Recorded Payers Insurance Date Sequence Insurance Name Policy Number Policy Cain Covered Member ID Cain Member ID Guarantor Name 10/08/2024 2 [place] [id number] Lanny Portillore [id number] Lanny Clancy Patingre 10/08/2024 1 [place] [employer] SERVICES Lanny Clancy Patingre [id number] Lanny Clancy Patingre Notes Date Note Type Note Provider Name and Address Organization Details Recorded Time 07/01/2024 text/html ROS as noted in the HPI Diagnosis: Flexor tenosynovitis left thumbLeft first [facility]MC arthritis 73-year-old female who presents with locking of her left thumb. This been present for 2 months. It is associated with a mild sharp pain. She has no numbness or tingling. Past family, medical, social history and review of systems has been reviewed, updated and is located in the patient s chart. Examination: Healthy appearing patient in [...] X-rays ordered, obtained, and reviewed today at [facility]: PA and lateral of the right TM [...] there are any concerns. Los Champion MD [address] [place], [place] [address]swap[address] [address], [place], [address], [facility] 07/01/2024 17:09:33 OBGyn Episode No OBEpisode recorded.
--- OUTSIDE RECORDS SUMMARY | 2025-02-27 07:18 | XMS_ITS | Encounter Summary ---
Author Organization [facility] Address [address] [place] [address] Care Team Providers Care Paint Brush Maker Name Role Phone Portia Garcia MD Primary Care Provider [phone] Encounter Details Date Type Department Care Team Description 01/12/[address] [facility] Oncology Services [address] [place] [id number] [facility] Social History Tobacco Use Types [...] on filedocumented in this encounter Care Teams Paint Brush Maker Relationship Specialty Start Date End Date Portia Garcia MD PCP - General Internal Medicine 01/07/21 documented as of this encounter
--- OUTSIDE RECORDS SUMMARY | 2025-02-27 07:18 | XMS_ITS | Data Portability ---
Author Organization [place] [facility] Address [address] [address] Assessment Encounter Date Assessment Date Assessment LastModified by Organization Details LastModified Time 02/28/2024 02/28/2024 73-year-old female presents for cerumen removal. Cerumen impaction removed bilaterally. Bilateral TMs are intact. She will follow-up in 6 months for routine debridement. lula Not available 02/28/2024 15:34:50 08/22/2024 08/22/2024 73-year-old female presents for cerumen removal. Cerumen impaction removed bilaterally. Bilateral TMs are intact. She will follow-up in 6 months for routine debridement. Not available 08/22/2024 09:11:53 Plan of Treatment [...] Address Organization Details Recorded Time Impacted cerumen 85186969 Active 2013 Impacted cerumen; Note: Date Diagnosed : 4 4:42 PM (380.4) Not Available [facility] 4 03:18:47 Otalgia 44193759 Active 2013 Otalgia; CMS Risk: moderate risk Note : Date Diagnosed : 4 5:12 PM (388.70) Not Available [facility] 4 03:18:48 Impacted cerumen in left ear 52563691626 85591 Active 2014 Impacted cerumen, left ear; Note: Date Diagnosed : 5 3:54 PM (H61.22) Not Available [facility] 4 03:18:48 Impacted cerumen of bilateral ears 69987831363 45317 Active 2015 Impacted cerumen, bilateral ; Note: Date Diagnosed : 08/13/2015 10:46 AM (H61.23) Not Available [facility] 4 03:18:47 Problem Notes None recorded. Procedures Surgical History Date Name Laterality Status Provider Name and Address Organization Details Recorded Time 5 Cerumen removal without microscope bilat completed RANGEL RHODES PA-C [address] [place] [address],[address], [address], [facility] 08/22/2024 09:11:49 4 Cerumen removal without microscope bilat completed RANGEL RHODES PA-C [address] [place] [address],[address], [address], [facility] 02/28/2024 15:34:15 Imaging Results None recorded. Procedure Notes None recorded. Medical Equipment None Reported. Allergies Allergen ID Allergen Name Allergen Category Reaction Reaction Severity Criticality Documentation Date Start Date Code Code System Note Provider Name and Address Organization Details Recorded Time 650957 Bactrim medicatio n other Not available Not available 10/17/2023 98223 9 RxNorm React ion: unkno wn, unspe cifie d;; Not Available [facility] 4 01:19:01 074631 Substance with sulfonami de structure and antibacte rial mechanism of action (substanc e) medicatio n other Not available Not available 10/17/2023 17262 8003 SNOMED React ion: unkno wn, unspe cifie d;; Not Available [facility] 4 01:19:02 Medications Name Sig Start [...] t Available clobetaso l 0.05 % topical cream APPLY TOPICALL Y TO THE AFFECTED AREA DAILY active Not Available Not Available No [...] mg capsule 2018 active Medicati on ID: 077521 D uration Value: 30 Brand Name: gabapent [...] e 50 mcg/actua tion nasal spray,jacky pension SHAKE LIQUID AND USE 2 SPRAYS IN EACH NOSTRIL DAILY active Not Available Not Available No t Available naproxen 500 mg tablet 2018 active Medicati on ID: 125091 D uration Value: 90 Brand Name: naproxen [...] Updated DateTime 08/22/2024 172.72 cm 19.5 kg/m2 05461.82 g Valeria [facility] 08/22/2024 09:00:29 Date Recorded Body height Body mass index (BMI) Body weight Provider Name and Address Organization Details Last Updated DateTime 02/28/2024 172.72 cm 19.5 kg/m2 17233.82 g Ginny Ham [facility] 02/28/2024 15:00:16 Social History None recorded. Functional Status None recorded. Mental Status None recorded. Family History Nothing Reported. Medical History No medical history recorded. Gynecological HistoryNo gynecological history recorded. Obstetrics History GPAL:G 0 P 0 0 0 0 Past Encounters Encounter ID Performer Location Encounter Start Date Encounter Closed Date Diagnosis/Indication Diagnosis SNOMED-CT Code Diagnosis ICD10 Code Diagnosis IMO Codes Diagnosis Note [id number] RANGEL RHODES PA-C [facility] [address] [address] 02/28/2024 14:57:16 02/29/2024 07:01:40 Impacted cerumen of bilateral ears 8637745888 838270 H61.23 [id number] RANGEL RHODES PA-C [facility] [address] [place] [address] 08/22/2024 08:53:37 08/22/2024 10:41:18 Impacted cerumen of bilateral ears 8330291414 676623 H61.23 Health Concerns Section Related Observation LastModified by Organization Detai ls LastModified Time None Recorded Concern Status LastModified by Organization Details LastModified Time None Recorded Advance Directives Directive None Recorded Payers Insurance Date Sequence Insurance Name Policy Number Policy Cain Covered Member ID Cain Member ID Guarantor Name 09/13/2024 2 [place]) Lanny Vasquesngregis 02/25/2025 1 [place] [employer] SERVICES Lanny Aston Patingre [id number] Lanny Aston Patingre Notes Date Note Type Note Provider Name and Address Organization Details Recorded Time 02/28/2024 text/html ROS as noted in the [facility] 73-year-old female presents for ear cleaning. No concerns today. CASSIE MURDOCK MD [address] [place] [address], [address], [facility] 02/28/2024 16:57:55 08/22/2024 text/html ROS as noted in the [facility] 73-year-old female presents for ear cleaning. No concerns today. BLANQUITA MUÑOZ MD [address] [place] [address], [address], [facility] 08/23/2024 08:46:45 OBGyn Episode No OBEpisode recorded.
--- OUTSIDE RECORDS SUMMARY | 2025-02-27 07:18 | XMS_ITS ---
Author Organization [facility] Address [address] [place] [address] Care Team Providers Care Wound Specialist Name Role Phone Portia Garcia MD Primary Care Provider [phone] Active Problems Problem Noted Date Diagnosed Date [...] without esophagi tis 12/01/2017 Current Oncology Plans [facility] DENOSUMAB 60MG (PROLIA)* Plan Start Date:11/04/2022 Plan Provider:Liz Portillo MD Linked Problems CLL (chronic lymphocytic kristi kemia) ([facility])Age-related osteoporosis without current pathological fracture Treatment Medications denosumab (PROLIA) Past Plans ONCOLOGY INFUSION THERAPY Plan Name Start Date Discontinue Date Treatment Medications Discontinue Reason Plan Provider [facility] OP EVUSHELD (TIXAGEVIMAB AND CILGAVIMAB INJECTIONS) & [facility] BCN DENOSUMAB 60MG (PROLIA) 12/24/2021 06/30/2022 albuterol (PROVENTIL)denos umab (PROLIA)diphenhy drAMINE (BENADRYL)EPINEP Hrinefamotidine (PF) (PEPCID)hydrocor tisone (SOLU-CORTEF) IVmeperidine (DEMEROL) 25 MG/MLsodium chloride 0.9% bolus (NS)tixagevimab & cilgavimab (EVUSHELD) Therapy Complete Liz Portillo MD ONCOLOGY TREATMENT Plan Name Start Date Discontinue Date Treatment Medications Discontinue Reason Plan Provider Cycles [facility] RITUXIMAB (IV/SC) WEEKLY X4 2 [...] treatments are [facility]. Treatments may have been administered in another system.
--- OUTSIDE RECORDS SUMMARY | 2025-02-27 07:18 | XMS_ITS ---
Author Organization [facility] Address [address] [place] [address] Phone Care Team Providers Care Promotions Manager Name Role Phone Portia Garcia MD Primary Care Provider [phone] Active Problems Problem Noted Date Diagnosed Date Loose stools 12/16/2024 Lymphadenopathy 12/16/2024 Pain in joint of left shoulder 10/29/2024 Osteoporosis, post-menopausal 07/08/2024 Hypokalemia 03/06/2023 Lumbar compression fracture, closed, initial encounter ([facility] V24, [facility] V28) 05/24/2022 Overview (03/27/2024): Last Assessment [...] 05/24/2022 Lumbar compression fracture, closed, initial encounter ([facility] V24, [facility] V28) 05/24/2022 Dyspnea 12/03/2021 Dyspnea 12/03/2021 Acquired hemolytic anemia ([facility] V24, [facility] V28) 12/03/2021 Weight loss 03/03/2021 Hyperlipidemia 03/07/2019 HLD (hyperlipidemia) 03/07/2019 Vitamin D deficiency 01/19/2019 Vitamin D deficiency 01/19/2019 Asymptomatic microscopic hematuria 12/01/2017 Chronic lymphocytic leukemia ([facility] V24, [facility] V28) 06/21/2017 Chronic lymphocytic leukemia ([facility] V24, [facility] V28) 06/21/2017 Subclinical hypothyroidism 06/06/2017 [...] different specialists including local oncologist, once at [facility], physiatrists at [facility] and the more recent suggestion for a [...] [facility]. She may consider pain management for treating cancer related pain and would likely avoid a spinal cord stimulator. Allergic rhinitis 05/15/2005 Anxiety 05/15/2005 Asthma 05/15/2005 Chronic bilateral low back pain without sciatica 05/15/2005 Eczema 05/15/2005 Esophageal reflux 05/15/2005 Hematuria 05/15/2005 Current Oncology Plans DENOSUMAB ( PROLIA ) 60 MG SQ EVERY 6 MONTHS* Plan Start Date:07/08/2024 Plan Provider:Liz Avlarez MD Linked Problems Chronic lymphocytic leukemia ([facility] V24, [facility] V28)Osteoporosis, post-menopausal Treatment Medications No medications scheduled. Past Plans No past plan information found. Radiation Treatments * No radiation treatments are documented for this patient in [facility]. Treatments may have been administered in another system. Resolved Problems Problem Noted Date Diagnosed Date Resolved Date Leukemia ([facility] V24, [facility] V28) 05/24/2022 05/15/2024 Leukemia ([facility] V24, [facility] V28) 05/24/2022 05/15/2024
--- OUTSIDE RECORDS SUMMARY | 2025-02-27 07:18 | XMS_ITS | Clinical Summary ---
Author Organization [facility] Address [address] [place] [address] Phone Care Team Providers Care Centrifugal Spinner Name Role Phone Liz Alvarez MD Unavailable [phone] Larry Hall MD Unavailable Portia Hernandez MD Primary Care Provider [phone] Allergies Active Allergy Reactions Criticality Noted Date [...] you interested in more education? Not on zhara e 09/30/2022 Are you concerned about learning? [...] 06/25/2020 06/25/2010, 002 LIPID PANEL 07/27/2023 07/27/2018 RSV VACCINE (1 - 1-dose 75+ series) 2024 INFLUENZA VACCINE (#1) 2025 , 01/19/2020, 02/25/2019, Additional history exists COVID-19 VACCINE ( season) 2025 04/30/2022, 08/07/2021, 01/17/2021, Additional history exists ZOSTER VACCINES Completed 05/17/2018, [...] file Insurance MEDICARE PART A & B [employer] MEDEX SUPPLEMENT MEDICARE PART A & B [employer] MEDEX SUPPLEMENT MEDICARE PART A & B [employer] MEDEX SUPPLEMENT MEDICARE PART A & B [employer] MEDEX SUPPLEMENT MEDICARE PART A & B [employer] MEDEX SUPPLEMENT MEDICARE PART A & B [employer] MEDEX SUPPLEMENT MEDICARE PART A & B [employer] MEDEX SUPPLEMENT MEDICARE PART A & B [employer] MEDEX SUPPLEMENT MEDICARE PART A & B [employer] [place] MEDEX SUPPLEMENT Care Teams Centrifugal Spinner Relationship Specialty Start Date End Date Portia Hernandez MD [address] [place] [address] PCP - General Internal Medicine 06/17/21 Liz Alvarez MD [address] [place] [phone] [email or web address] Referring Physician Internal Medicine 06/21/18 Larry Hall MD [address] [place] [address] [email or web address] Primary Oncologist Medical Oncology 07/03/18 Additional Source Comments The information contained in this document represents components of the legal health record. It is not the complete legal health record.[facility]
[2025-02-27 07:19] VITALS: BP 125/74; PULSE 125; RESP 17; TEMP 36.9; O2SAT 98; BMI 24.0
--- NOTE | 2025-02-27 07:19 | AM.OFFWIN_ITS ---
Intake Vital Signs 02/27/25 07:19 Height 5 ft 2 in Weight 131 lb BMI 24.0 BP 125/74 Blood Pressure Location Rt brachial Position Sitting Respiration 17 Pulse 125 H Pulse Source Pulse Oximeter Temp 98.5 F Temp Source Oral Pulse Oximetry (%) 98 Oxygen Delivery Method Room Air Intake Visit Reasons: EP UTI? Patient Tobacco Use Status: Former Tobacco user Allergies sulfamethoxazole (From Bactrim) Allergy (Mild, Verified 02/27/25 07:32) Hives trimethoprim (From Bactrim) Allergy (Mild, Verified 02/27/25 07:32) Hives HPI HPI Comments History of Present Illness Details History - The patient is a 74-year-old female pr esenting with urinary symptoms suggestive of a urinary tract infection. - She has a history of frequent urinary tract infections, with three to four episodes annually in the past, but has not experienced a full-blown infection in six to seven years. - Current symptoms include hematuria, ur gency, frequency, and dysuria, described as a razor blade sensation. - The patient has Chronic Lymphocytic Le ukemia (CLL) and is undergoing chemotherapy, which causes constipation. - Constipation is managed with Maalox. - In the past, she would get a course of Cipro for 10 days for her UTIs, with adequate resolution of symptoms. - She denies fever, chills, CP, SOB, vag inal bleeding or discharge. Physical Exam General: Cooperative, healthy appearing, comfortable, no acute distress and well developed Cardiac: Normal S1 and S2. RRR, no M/R/G noted. Respiratory: Normal respiratory effort and able to speak in complete sentences. Clear to auscultation bilaterally. No w/r/r noted. Skin: No rashes or lesions noted. GI: Normal inspection. Normal BS noted. Soft, non-tender, non-distended. No TTP of all 4 quadrants. No guarding or rebound tenderness noted. Reports super soft stools and issues with constipation due to medications. Back: Negative CVA bilaterally Patient was informed and verbally consented to the use of an ambient scribe for clinic note documentation during this visit. 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 Leukemia Vertebrogenic low back pain Lumbar spinal stenosis Family History Mother Anxiety Brother Anxiety Sister Anxiety Maternal Grandmother Breast cancer Other FH: mental illness Social History Household Members: Spouse Housing: House Alcohol intake: never Patient Tobacco Use Status: Former Tobacco user Years Smoked: 10, Quit 42 years ago e-Cigarette/Vaping Use: Never Used Second Hand Smoke Exposure: Yes (past ) service: No Current occupational status: retired 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 Cognitive needs: No Hearing needs: No Vision needs: Yes (glasses) Review of Systems Const All systems reviewed & are unremarkable except as noted in HPI and below Physical Exam Vital Signs: Last Vital Signs Temp 98.5 F 02/27/25 07:19 Pulse 125 H 02/27/25 07:19 Resp 17 02/27/25 07:19 BP 125/74 02/27/25 07:19 Pulse Ox 98 02/27/25 07:19 Oxygen Delivery Method Room Air 02/27/25 07:19 BMI result Body Mass Index 24.0 Results AMB Urinalysis, Automated UA Leukoctes 500 Dom/uL Last Edit by Анна Valdes CMA on 02/27/25 07:39 UA Nitrite Positive Last Edit by Анна Valdes CMA on 02/27/25 07:39 UA Urobilinogen 0.2 mg/dL Last Edit by Анна Valdes CMA on 02/27/25 07:39 UA Protein 100 mg/dL Last Edit by Анна Valdes CMA on 02/27/25 07:39 UA pH 6.5 Last Edit by Анна Valdes CMA on 02/27/25 07:39 UA Blood 200 Chet/uL Last Edit by Анна Valdes CMA on 02/27/25 07:39 UA Specific [place] 1.010 Last Edit by Анна Valdes CMA on 02/27/25 07:39 UA Ketone Negative Last Edit by Анна Valdes CMA on 02/27/25 07:39 UA Bilirubin 0 mg/dL Last Edit by Анна Valdes CMA on 02/27/25 07:39 UA Glucose 0 mg/dL Last Edit by Анна Valdes CMA on 02/27/25 07:39 Results Reviewed Results Reviewed: Laboratory Last Values Urine pH (Auto) 6.5 02/27/25 07:27 Specific [place] (Auto) 1.010 02/27/25 07:27 Urine Protein (Auto) 100 mg/dL 02/27/25 07:27 Glucose (UA)(Auto) 0 mg/dL 02/27/25 07:27 Urine Ketones (Auto) Negative 02/27/25 07:27 Urine Blood (Auto) 200 Chet/uL 02/27/25 07:27 Urine Nitrite (Auto) Positive 02/27/25 07:27 Urine Bilirubin (Auto) 0 mg/dL 02/27/25 07:27 Urine Urobilinogen (Auto) 0.2 mg/dL 02/27/25 07:27 Leukocyte Esterase (Auto) 500 Dom/uL 02/27/25 07:27 Assessment & Plan Assessment & Plan (1) UTI (urinary tract infection): Code(s): N39.0 - Urinary tract infection, site not specified Qualifiers: Urinary tract infection type: acute cystitis Hematuria presence: with hematuria Qualified Code(s): N30.01 - Acute cystitis with hematuria Plan Most likely UTI UA 3+ blood, +nitrates, blood Plan - Start Ciprofloxacin for the urinary tract infection, as it has been effective previously. - Prescribe Azo for relief of dysuria symptoms. - Perform a urine culture to verify infection and modify antibiotics if culture results indicate. - Ensure Ciprofloxacin does not adversely interact with the patient's chemotherapy medication, Brukinsa. - has a f/u with urology - follow up with PCP Orders: Orders Urine Culture Today N39.0 - Urinary tract infection, site not specified AMB Urinalysis Automated Today Z13.9 - Encounter for screening, unspecified Medications: New ciprofloxacin HCl 250 mg PO Q12H 20 tabs 0RF 10 days phenazopyridine 100 mg PO tid PRN 6 tabs 0RF Pain Coding Level of Care Code Est Pt Level 3 (16542) Diagnoses Acute cystitis with hematuria N30.01 Urinary tract infection type: acute cystitis Hematuria presence: with hematuria
== END 2025-02-27 07:46 | disposition home or self-care (01) ==
PROVIDERS: PCP Internal Medicine; Visit Provider Physician Assistant Medical
DX: N30.01 Acute cystitis with hematuria (principal); Z13.9 Encounter for screening, unspecified

== ENCOUNTER 2025-02-27 07:14 | Outpatient (REF) | payer MEDICARE, SELFPAY | END 2025-02-27 07:15 | disposition home or self-care (01) | LOC: HO.LAB 07:14 | PROVIDERS: PCP Internal Medicine; Visit Provider Physician Assistant Medical | DX: N30.01 Acute cystitis with hematuria (principal); C91.10 Chronic lymphocytic leukemia of B-cell type not having achieved remission; K59.00 Constipation, unspecified; Z92.21 Personal history of antineoplastic chemotherapy | CPT/HCPCS: 81003; 87086; 87088; 87186; 99212 ==

== ENCOUNTER 2025-04-03 13:40 | Outpatient (AMB) | payer MEDICARE, SELFPAY ==
--- OUTSIDE RECORDS SUMMARY | 2024-01-24 14:45 | XMS_ITS | Encounter Summary ---
Author Organization [facility] Address [address] [place] [address] Care Team Providers Care Peer Specialist Name Role Phone Portia Garcia MD Primary Care Provider [phone] Encounter Details Date Type Department Care Team (Late st Contact Info) Description 01/24/2024 2:45 PM EDT Hospital Encounter TH HISTORIC ENCOUNTERS [facility] CONVERSION ONLY Liz Alvarez MD [address] [place] [phone] Social History Tobacco Use Types Packs/Day Years [...] Description 06/12/2025 9:15 AM EST Office Visit [facility] Hematology Oncology [address] [place] [phone] Liz Alvarez MD [address] [place] [phone] 06/23/2025 1:00 PM EST Office Visit Gastroenterology - [address] [facility] [address] [place] [address] Yonathan Stone PA [address] [place] [phone] 07/07/2025 11:00 AM EST Appointment [facility] [address] [facility] 2nd [place] [address] documented as of this encounter Visit Diagnoses Not on filedocumented in this encounter Care Teams Peer Specialist Relationship Specialty Start Date End Date Portia Garcia MD 57 [facility] [address] [place] [address] PCP - General Internal Medicine 01/07/21 documented as of this encounter
[2025-04-03 14:12] VITALS: BP 122/72; PULSE 96; TEMP 36.8; O2SAT 97; BMI 24.9
--- NOTE | 2025-04-03 14:12 | AM.OFFWIN_ITS ---
Intake Vital Signs 04/03/25 14:12 Height 5 ft 2 in Weight 136 lb BMI 24.9 BP 122/72 Blood Pressure Location Lt brachial Position Sitting Pulse 96 Pulse Source Pulse Oximeter Temp 98.2 F Temp Source Oral Pulse Oximetry (%) 97 Oxygen Delivery Method Room Air Intake Visit Reasons: EP-rt hand tick bite Intake Note: Patient presents with c/o bite on right hand - unsure if tick or something else. Patient Tobacco Use Status: Former Tobacco user Allergies sulfamethoxazole (From Bactrim) Allergy (Mild, Verified 04/03/25 14:14) Hives trimethoprim (From Bactrim) Allergy (Mild, Verified 04/03/25 14:14) Hives HPI HPI Comments History of Present Illness Details History - The patient is a 74-year-old female pr esenting with concerns of a tick bite and associated erythema. - The patient noticed a red ring around the bite area, which prompted concern due to her history of leukemia. - The tick bite was identified yesterday , and the patient was unsure of the proper removal technique. - The patient has a history of leukemia, which affects her immune system, increasing her concern about potential infections. - She recently completed a course of cip rofloxacin for a urinary tract infection. - The patient walks daily in the [facility] she suspects may be where she encountered the tick. - She denies bleeding, fever, chills, marizol int pain, fatigue, or rashes. Physical Exam General: Cooperative, healthy appearing, comfortable, no acute distress and well developed Orientation: Patient oriented x3 Limitations: No limitations Respiratory: Normal respiratory effort and able to speak in complete sentences. Skin: Small, round dark flat area noted on the right hand between the thumb and first finger. No tick noted. No bleeding noted. No discharge, streaking or bleeding noted. Neuro: Sensation is intact. Patient was informed and verbally consented to the use of an ambient scribe for clinic note documentation during this visit. 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 occupational status: retired 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 Cognitive needs: No Hearing needs: No Vision needs: Yes (glasses) Review of Systems Const All systems reviewed & are unremarkable except as noted in HPI and below Physical Exam Vital Signs: Last Vital Signs Temp 98.2 F 04/03/25 14:12 Pulse 96 04/03/25 14:12 BP 122/72 04/03/25 14:12 Pulse Ox 97 04/03/25 14:12 Oxygen Delivery Method Room Air 04/03/25 14:12 BMI result Body Mass Index 24.9 Assessment & Plan Assessment & Plan (1) Tick bite: Code(s): W57.XXXA - Bitten or stung by nonvenomous insect and other nonvenomous arthropods, initial encounter Qualifiers: Encounter type: initial encounter Site of tick bite: hand Laterality: right Qualified Code(s): S60.561A - Insect bite (nonvenomous) of right hand, initial encounter; W57.XXXA - Bitten or stung by nonvenomous insect and other nonvenomous arthropods, initial encounter Plan Most likely tick bite vs abrasion Area cleaned with normal saline and alcohol. Tweezers used to explore the area and no tick was noted. Bacitracin ointment applied with bandaid Plan - Initiate prophylactic doxycycline to prevent Lyme disease due to the patient's immunocompromised status from leukemia. - Monitor the bite site for signs of infection or worsening erythema, such as pus or increased redness. - Advise the patient to report any new symptoms or changes at the bite site. Medications: New doxycycline hyclate 100 mg PO BID 14 tabs 0RF Coding Level of Care Code Est Pt Level 3 (97259) Diagnoses Tick bite of right hand, initial encounter S60.561A; W57.XXXA Encounter type: initial encounter Site of tick bite: hand Laterality: right
--- OUTSIDE RECORDS SUMMARY | 2025-04-03 16:38 | XMS_ITS ---
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 Hypokalemia 03/06/2023 Lumbar compression fracture, closed, initial encounter ([facility] V24, [facility] V28) 05/24/2022 Overview (03/27/2024): Last Assessment & [...] closed, initial encounter ([facility] V24, [facility] V28) 05/24/2022 Dyspnea 12/03/2021 Dyspnea 12/03/2021 Acquired hemolytic anemia ([facility] V24, [facility] V28) 12/03/2021 Weight loss 03/03/2021 Hyperlipidemia 03/07/2019 HLD (hyperlipidemia) 03/07/2019 Vitamin D deficiency 01/19/2019 Vitamin D deficiency 01/19/2019 Asymptomatic microscopic hematuria 12/01/2017 Chronic lymphocytic leukemia ([facility] V24, [facility] V28) 06/21/2017 Chronic lymphocytic leukemia ([facility] V24, [facility] V28) 06/21/2017 Subclinical hypothyroidism 06/06/2017 Subclinical [...] different specialists including local oncologist, once at [facility], physiatrists at [facility] and the more recent suggestion for [...] and we will make the referral to [facility] interventional radiology. She may consider pain management for treating cancer related pain and would likely avoid a spinal cord stimulator. Allergic rhinitis 05/15/2005 Anxiety 05/15/2005 Asthma 05/15/2005 Chronic bilateral low back pain without sciatica 05/15/2005 Eczema 05/15/2005 Esophageal reflux 05/15/2005 Hematuria 05/15/2005 Current Treatment and Therapy Plans DENOSUMAB ( PROLIA ) 60 MG SQ EVERY 6 MONTHS* Plan Start Date:07/08/2024 Plan Provider:Liz Alvarez MD Linked Problems Chronic lymphocytic leukemia ([facility] V24, [facility] V28)Osteoporosis, post-menopausal Treatment Medications No medications scheduled. Past Treatment and Therapy Plans No past plan information found. Resolved Problems Problem Noted Date Diagnosed Date Resolved Date Leukemia ([facility] V24, [facility] V28) 05/24/2022 05/15/2024 Leukemia ([facility] V24, [facility] V28) 05/24/2022 05/15/2024
--- OUTSIDE RECORDS SUMMARY | 2025-04-03 16:38 | XMS_ITS | Encounter Summary ---
Author Organization [facility] Address [address] [place] [address] Care Team Providers Care Coagulation Operator Name Role Phone Portia Garcia MD Primary Care Provider [phone] Encounter Details Date Type Department Care Team Description 01/12/2022 Social Work [facility] [address] [place] [id number] [facility] Social History Tobacco Use Types [...] on filedocumented in this encounter Care Teams Coagulation Operator Relationship Specialty Start Date End Date Portia Garcia MD PCP - General Internal Medicine 01/07/21 documented as of this encounter
--- OUTSIDE RECORDS SUMMARY | 2025-04-03 16:38 | XMS_ITS | Data Portability ---
Author Organization [facility], [facility] Address [address] [place] [address] Care Team Providers Care Cushion Filler Name Role Phone CHINO VEGA Primary Care Provider [phone] DEANA MOSES OTHER Assessment Encounter Date Assessment [...] intact. X-rays ordered, obtained and reviewed at [facility] 4 views left shoulder reveal a.c. joint [...] have failure of resolution of her pain. [facility] [employer] [facility] speech recognition manager hi software was used to create portions of [...] 5- 4V L shoulder 2024 025 [email or web address] [facility] Office, [address], [address], [place], [address], 5 13:12:31 XR, wrist, 2 view - 2v lt tmj, boiler maker, rm 117 2024 025 [email or web address] [facility] Office, [address], [address], [place], [address], 5 14:42:24 Medication Orders None recorded. Patient [...] a4ajBk vP9nXo QUaueC m3YtLR FvZlgJ JJ8mAn HZtai3 1h9911 AC0Kqb H2FV6q uKiQtr MwF INTERFACE [facility] [address], [place], [address], 07/01/2024 14:18:21 07/01/19 25 07/01/2024 XR, wrist , 2 view [email or web address]:/ [email or web address] ?Encry pted=s hAaTro YD8dLq bEUv6g %2BXZw aYqtaq 0bqfl% 2Fg9IQ a4ajBk vP9nXo QUaueC m3YtLR FvZlg JJ8[place] HZtai3 5v0463 AC0Kqb H2FV6q uKiQtr MwF INTERFACE [facility] [address], [address], 07/01/2024 14:18:23 10/09/19 25 10/08/2024 XR, eugenioul yves, 2 or more view [email or web address]:/ [email or web address] ?Encry pted=s hAaTro YD8dLq bEUv6g %2BXZw aYqtaq 0bqfl% 2Fg9IQ a4ajBk vP9nXo QUaueC m3YtLR FvZlg JJ8[place] HZtai3 8m7559 AC0Kla nuEWau nKiQtr MwF INTERFACE [facility] [address] [facility], [place], [address], 10/08/2024 09:31:29 10/09/19 25 10/08/2024 XR, shoul yves, 2 or more view http:/ [email or web address] ?Encry pted=s hAaTro YD8dLq bEUv6g %2BXZw aYqtaq 0bqfl% 2Fg9IQ a4ajBk vP9nXo QUaueC m3YtLR FvZlgJ JJ8mAn HZtai3 4t3928 AC0Kla nuEWau nKiQtr MwF INTERFACE [facility] [address] [facility] [address], [place], [address], 10/08/2024 09:31:30 Result Notes Documentation Provider Name and Address Organization Details Recorded Time Xr, Wrist, 2 View : [email or web address] Encrypted=iwJkMomYD9vThwI Uv6g%2ZNGqgCpmmb1fsna%2Fg 9IKn4cfTyaQ5iCcZTckbVd2Yl TNWoRgsEJC3vUtEDdrm78k168 1CW1McdI2UK4hvHfZmlZpU Not Available [facility] 07/01/2024 14:18: 21 Xr, Wrist, 2 View : [email or web address] Encrypted=atUhMipSD1qIocB Uv6g%4QZRcaQpyvk8twor%2Fg 3SSu3myLsyZ0pVnQSlozMk0Bd DSGgKvoIOV6lYaMJctc17l645 6CT8QepW9UZ4yuDgTvxGjO Not Available [facility] 07/01/2024 14:18: 23 Xr, Shoulder, 2 Or More View : [email or web address]? Encrypted=oqNhPrpYY0yEzmK Uv6g%1IZHwlAtvhn0ifjf%2Fg 3YYi1oqZitQ1lQcXLiyqCl6To FPAsZtpEHX8gFzRIuxe40u273 9RL1QcikkVHkamXsVckUnY Not Available [facility] 10/08/2024 09:31: 29 Xr, Shoulder, 2 Or More View : [email or web address]? Encrypted=jqWxBkiNV2fUjfH Uv6g%0NNUlsQgkpo2dnde%2Fg 4QKd0dtCkeU1uVnDNpirTz6Iy LCXtNiqFGT9bYeQYcis42g373 5YA1DnvveLXiwiVrEbvHkC Not Available [facility] 10/08/2024 09:31: 31 Problems Name Problem SNOMED Code Status Onset Date Resolution Date Notes Provider Name and Address Organization Details Recorded Time Pain of left shoulder joint 023275861702894 09 Active 20[facility] 5 11:24:12 Problem Notes None recorded. Procedures Surgical History Date Name Laterality Status Provider Name and Address Organization Details Recorded Time 5 PM Shoulder Kenalog 2cc Injection Unilateral completed Fam Delgadillo PA-C [address] [facility], [place], [address], [facility] 10/08/2024 10:27:03 5 Trigger Thumb Kenalog Injection completed Los Champion MD [address], [place], [address], [facility] 07/01/2024 17:08:48 Imaging Results None recorded. Procedure Notes None recorded. Medical Equipment None Reported. Allergies Allergen ID Allergen Name Allergen Category Reaction Reaction Severity Criticality Documentation Date Start Date Code Code System Note Provider Name and Address Organization Details Recorded Time 72379 Substance with sulfonami de structure and antibacte rial mechanism of action (substanc e) medicatio n Not available Not available Not available 08/07/20232005 73434 8003 SNOMED Aller gyRea ction : 'Skin React ion'; Not Available [facility] 4 12:08:31 41872 Bactrim medicatio n Not available Not available Not available 08/07/20232014 73685 9 RxNorm Not Available [facility] 4 12:08:32 Medications Name Sig Start [...] Updated DateTime 07/01/2024 160.02 cm 24.8 kg/m2 39617.93 g DANILO MONTIEL [facility] 07/01/2024 14:10:19 Date Recorded Body height Body mass index (BMI) Body weight Provider Name and Address Organization Details Last Updated DateTime 10/08/2024 160.02 cm 21.8 kg/m2 05124.86 g MIGUEL A GOLDMAN [facility] 10/08/2024 09:22:40 Social History None recorded. Functional Status None recorded. Mental Status None recorded. Family History Nothing Reported. Medical History No medical history recorded. Gynecological HistoryNo gynecological history recorded. Obstetrics History GPAL:G 0 P 0 0 0 0 Past Encounters Encounter ID Performer Location Encounter Start Date Encounter Closed Date Diagnosis/Indication Diagnosis SNOMED-CT Code Diagnosis ICD10 Code Diagnosis IMO Codes Diagnosis Note [id number] MD [facility] [address] [place] [address] 07/01/2024 13:50:18 07/18/2024 12:30:49 Pain of left wrist 9300432761 88264 M25.532 446028 Trigger th umb of left hand 7850724053 40816 M65.312 07081082 Arthritis of first carpometacarpal joint of left hand 7840445535 969221 M18.12 [id number] [id number] [facility] [place] [address] [place] [address] 10/08/2024 08:50:30 10/10/2024 09:45:17 Pain of left shoulder region 8391981073 M25.512 74976608 Tendinitis of left rotator cuff 9565556419 6289804 M75.82 [id number] Health Concerns Section Related Observation LastModified by Organization Detai ls LastModified Time None Recorded Concern Status LastModified by Organization Details LastModified Time None Recorded Advance Directives Directive None Recorded Payers Insurance Date Sequence Insurance Name Policy Number Policy Cain Covered Member ID Cain Member ID Guarantor Name 10/08/2024 2 [place] [id number] Lanny Portillore [id number] Lanny Clancy [place]ating[place] 10/08/2024 1 [place] [employer] Lanny Clancy Patingre [id number] Lanny Clancy Patingre Notes Date Note [...] X-rays ordered, obtained, and reviewed today at [facility]: PA and lateral of the [...] there are any concerns. Los Champion MD [address] [place], [place] [address] [address], [place], [address], [facility] 07/01/2024 17:09:33 OBGyn Episode No OBEpisode recorded.
--- OUTSIDE RECORDS SUMMARY | 2025-04-03 16:39 | XMS_ITS ---
Author Organization [facility] Address [address] [place] [address] Care Team Providers Care Accounting Recruiter Name Role Phone Portia Garcia MD Primary Care Provider [phone] Active Problems Problem Noted Date Diagnosed Date [...] without esophagi tis 12/01/2017 Current On[facility]MG (PROLIA)* Plan Start Date:11/04/2022 Plan Provider:Liz Portillo MD Linked Problems CLL (chronic lymphocytic kristi kemia) ([facility])Age-related osteoporosis without current pathological fracture Treatment Medications denosumab (PROLIA) Past Plans ONCOLOGY INFUSION THERAPY Plan Name Start Date Discontinue Date Treatment Medications Discontinue Reason Plan Provider [facility] OP EVUSHELD (TIXAGEVIMAB AND CILGAVIMAB INJECTIONS) & [facility] BCN DENOSUMAB 60MG (PROLIA) 12/24/2021 06/30/2022 albuterol (PROVENTIL)denos umab (PROLIA)diphenhy drAMINE (BENADRYL)EPINEP Hrinefamotidine (PF) (PEPCID)hydrocor tisone (SOLU-CORTEF) IVmeperidine (DEMEROL) 25 MG/MLsodium chloride 0.9% bolus (NS)tixagevimab & cilgavimab (EVUSHELD) Therapy Complete Liz Portillo MD ONCOLOGY TREATMENT Plan Name Start Date Discontinue Date Treatment Medications Discontinue Reason Plan Provider Cycles [facility] RITUXIMAB (IV/SC) WEEKLY X4 [...] treatments are documented for this patient in [facility]. Treatments may have been administered in another system.
--- OUTSIDE RECORDS SUMMARY | 2025-04-03 16:39 | XMS_ITS | Clinical Summary ---
Author Organization [facility] Address [address] [place] [address] Phone Care Team Providers Care Architect Naval Name Role Phone Liz Alvarez MD Unavailable [phone] Larry Hall MD Unavailable Portia Hernandez MD [...] file Insurance MEDICARE PART A & B [employer] MEDEX SUPPLEMENT MEDICARE PART A & B [employer]. MEDEX SUPPLEMENT MEDICARE PART A & B [employer] MEDEX SUPPLEMENT MEDICARE PART A & B [employer] MEDEX SUPPLEMENT MEDICARE PART A & B [employer] MEDEX SUPPLEMENT MEDICARE PART A & B [employer] MEDEX SUPPLEMENT MEDICARE PART A & B [employer]. MEDEX SUPPLEMENT MEDICARE PART A & B [employer] MEDEX SUPPLEMENT MEDICARE PART A & B Right Skills [employer] MEDEX SUPPLEMENT Care Teams Architect Naval Relationship Specialty Start Date End Date Portia Hernandez MD [address] [place] [address] PCP - General Internal Medicine 06/17/21 Liz Alvarez MD [address] [place] [phone] [email or web address] Referring Physician Internal Medicine 06/21/18 Larry Hall MD [address] [place] [address] [email or web address] Primary Oncologist Medical Oncology 07/03/18 Additional Source Comments The information contained in this document represents components of the legal health record. It is not the complete legal health record.[facility]
--- OUTSIDE RECORDS SUMMARY | 2025-04-03 16:39 | XMS_ITS | Clinical Summary ---
Author Organization [facility] Address [address] [place] [address] Care Team Providers Care Band Attacher Name Role Phone Portia Garcia MD Primary Care Provider [phone] Allergies Active Allergy Reactions Criticality Noted Date [...] day. 30 g 1 02/02/2023 Active Benadryl qfvb-Nftfnp-Oxpauxpl -Lidocaine Visc mouth wash 1:1:1:1 Swish and spit 5 mL every 4 (four) hours as needed for mucositis. 240 mL 1 10/23/2023 Active Aspirin 81 MG CAPS Take 81 mg by mouth. 0 04/12/2023 Active Zanubrutinib 80 MG CAPSIndications:Senior Coldfusion Developer neel Lymphocytic Leukemia Take TWO Capsules in [...] age to complete this topic Care Teams Band Attacher Relationship Specialty Start Date End Date Portia Garcia MD PCP - General Internal Medicine 01/07/21
--- OUTSIDE RECORDS SUMMARY | 2025-04-03 16:39 | XMS_ITS | Clinical Summary ---
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 Active ciprofloxacin (CIPRO) 250 mg tablet Take 1 tablet (250 mg total) by mouth every 12 (twelve) hours. for 10 days 5 Active Active Problems Problem Noted Date Diagnosed Date Loose stools 12/16/2024 Lymphadenopathy 12/16/2024 Pain in joint of left shoulder 10/29/2024 Osteoporosis, post-menopausal 07/08/2024 Hypokalemia 03/06/2023 Lumbar compression fracture, closed, initial encounter ([facility] V24, [facility] V28) 05/24/2022 Overview (03/27/2024): Last Assessment & [...] 05/24/2022 Lumbar compression fracture, closed, initial encounter ([facility] V24, [facility] V28) 05/24/2022 Dyspnea 12/03/2021 Dyspnea 12/03/2021 Acquired hemolytic anemia ([facility] V24, [facility] V28) 12/03/2021 Weight loss 03/03/2021 Hyperlipidemia 03/07/2019 HLD (hyperlipidemia) 03/07/2019 Vitamin D deficiency 01/19/2019 Vitamin D deficiency 01/19/2019 Asymptomatic microscopic hematuria 12/01/2017 Chronic lymphocytic leukemia ([facility] V24, [facility] V28) 06/21/2017 Chronic lymphocytic leukemia ([facility] V24, [facility] V28) 06/21/2017 Subclinical hypothyroidism 06/06/2017 Subclinical [...] different specialists including local oncologist, once at [facility], physiatrists at [facility] and the more recent suggestion for [...] and we will make the referral to [facility] interventional radiology. She may consider pain management for treating cancer related pain and would likely avoid a spinal cord stimulator. Allergic rhinitis 05/15/2005 Anxiety 05/15/2005 Asthma 05/15/2005 Chronic bilateral low back pain without sciatica 05/15/2005 Eczema 05/15/2005 Esophageal reflux 05/15/2005 Hematuria 05/15/2005 Resolved Problems Problem Noted Date Diagnosed Date Resolved Date Leukemia ([facility] V24, [facility] V28) 05/24/2022 05/15/2024 Leukemia ([facility] V24, [facility] V28) 05/24/2022 05/15/2024 Encounters Date Type Department Care Team Description 03/04/2025 9:00 AM EDT Office Visit [facility] Hematology Oncology [address] [place] [phone] Martin-Iy Liz lomas MD Chronic lymphocytic leukemia ([facility] V24, [facility] V28) (Primary Dx); Acquired hemolytic anemia ([facility] V24, [facility] V28); Anxiety; Chronic bilateral low back pain without sciatica; Osteoporosis, post-menopausal 02/27/2025 Telephone [facility] Hematology Oncology [address] [place] [phone] Martin-Iy Liz lomas MD 01/30/2025 1:11 PM EDT - 01/30/2025 11:59 PM EDT Hospital Encounter [facility] Bone Density [address] [place] [phone] Discharge Disposition: Home or Self Care 01/06/2025 11:17 AM EDT - 01/06/2025 11:59 PM EDT Hospital Encounter [facility] Infusion [facility] [address] [place] [phone] Martin-Iy Liz lomas MD Chronic lymphocytic leukemia ([facility] V24, [facility] V28) (Primary Dx); Osteoporosis, post-menopausal Discharge Disposition: Home or Self Care from Last 3 Months Immunizations Immunization Administration Dates Next Due H1N1 Inj 05/11/2009 [...] subun it RSVpreF, 0.5mL, Preservative Free (ABRYSVO) 50yo and older or 32 through 36 wks [...] Sign Reading Time Taken Comments Blood Pressure 128/65 03/04/2025 9:01 AM EDT Pulse 92 03/04/2025 9:01 AM EDT Temperature 36.6 C (97.8 F) 03/04/2025 9:01 AM EDT Respiratory Rate 18 01/06/2025 11:45 AM EDT Oxygen Saturation 100% 03/04/2025 9:01 AM EDT Inhaled Oxygen Concentration - - Weight 60.8 kg (134 lb) 03/04/2025 9:01 AM EDT Height 157.5 cm (5' 2 ) 03/04/2025 9:01 AM EDT Body Mass Index 24.51 03/04/2025 9:01 AM EDT Plan of Treatment Upcoming Encounters Date Type Department Care Team (Late st Contact Info) Description 06/12/2025 9:15 AM EST Office Visit [facility] Hematology Oncology [address] [place] [phone] Liz Alvarez MD [address] [place] [address] 06/23/2025 1:00 PM EST Office Visit Gastroenterology - [address] [facility] [address] [facility] [address] [place] [address] Yonathan Stone PA [address] [place] [phone] 07/07/2025 11:00 AM EST Appointment [facility] [address] [facility] [address] [place] [address] Health Maintenance Due Date Last Done Comments DTaP,Tdap,and Td Vaccines (6 - Td or Tdap) 06/25/2020 06/25/2010, 06/25/2010, 07/06/2001, Additional history exists Medicare Annual Wellness Visit 05/08/2022 Social Influencers of Health Screening 05/08/2022 Depression Screening 06/05/2024 Falls Risk Assessment 07/08/2025 07/08/2024 Cholesterol Screening [...] Adult Patients Completed 04/01/2023 Influenza Vaccine Completed 02/06/2025, , 02/13/2023, Additional history exists COVID-19 Vaccine Completed 02/24/2025, , 03/04/2023, Additional history exists HIB Vaccines Aged Out [...] Diagnosis Comments CBC WITH AUTO DIFFERENTIAL Routine 03/10/2025 3:40 PM EDT Chronic lymphocytic leukemia ([facility] V24, [facility] V28) IMMUNOGLOBULIN IGG Routine 03/10/2025 3: 40 PM EDT Chronic lymphocytic leukemia ([facility] V24, [facility] V28) CBC AND DIFFERENTIAL Routine 03/10/2025 3:40 PM EDT Chronic lymphocytic leukemia ([facility] V24, [facility] V28) COMPREHENSIVE METABOLIC PANEL Routine 03/10/2025 3:40 PM EDT Chronic lymphocytic leukemia ([facility] V24, [facility] V28) LACTATE DEHYDROGENASE Routine 03/10/2025 3:40 PM EDT Chronic lymphocytic leukemia ([facility] V24, [facility] V28) BD BONE DENSITY DXA AXIAL SKELETON Routine 01/30/2025 1:41 PM EDT Lumbar compression fracture, closed, initial encounter ([facility] V24, [facility] V28) CBC WITH AUTO DIFFERENTIAL Routine 01/28/2025 12:39 PM EDT Chronic lymphocytic leukemia ([facility] V24, [facility] V28) CBC AND DIFFERENTIAL Routine 01/28/2025 12:39 PM EDT Chronic lymphocytic leukemia ([facility] V24, [facility] V28) COMPREHENSIVE METABOLIC PANEL Routine 01/28/2025 12:39 PM EDT Chronic lymphocytic leukemia ([facility] V24, [facility] V28) LACTATE DEHYDROGENASE Routine 01/28/2025 12:39 PM EDT Chronic lymphocytic leukemia ([facility] V24, [facility] V28) HM HPV Routine 12/08/2020 LIPID PANEL Routine 10/23/2020 DX MAMMO INCL CAD UNI Routine 11/22/2016 10:38 AM EDT Other abnormal and inconclusive findings on diagnostic imaging of breast COLONOSCOPY Routine 11/06/2015 HEPATITIS C SCREENING Routine 09/04/2013 from Last 3 Months or Most Recently Relevant to Health Maintenance Results * (ABNORMAL) CBC auto differential (03/10/2025 3:40 PM EDT) Only the most recent of2 resultswithin the time period is included. WBC 12.6(H) 4.8 - 10.8 K/[facility] LAB HEMETOLOGY METHOD 03/10/2025 6:12 PM EDT [facility] RBC 4.10 3.80 - 4.80 M/[facility] LAB HEMETOLOGY METHOD 03/10/2025 6:12 PM EDT [facility] Hemoglobin 11.8 11.5 - 16.0 g/dL LAB HEMETOLOGY METHOD 03/10/2025 6:12 PM EDT [facility] Hematocrit 37.9 35.0 - 47.0 % LAB HEMETOLOGY METHOD 03/10/2025 6:[facility] MCV 92.2 79.0 - 98.0 FL LAB HEMETOLOGY METHOD 03/10/2025 6:12 PM EDT [facility] MCH 28.7 27.0 - 32.0 pcg LAB HEMETOLOGY METHOD 03/10/2025 6:12 [facility] MCHC 31.1(L) 32.0 - 37.0 g/dL LAB HEMETOLOGY METHOD 03/10/2025 6:12 PM [facility] RDW 13.3 11.0 - 15.0 % LAB HEMETOLOGY METHOD 03/10/2025 6:12 PM EDT [facility] Platelets 275 130 - 400 K/mcL LAB HEMETOLOGY METHOD 03/10/2025 6:12 PM [facility] MPV 11.5(H) 7.0 - 11.0 FL LAB HEMETOLOGY METHOD 03/10/2025 6:12 PM [facility] NRBC 0.0 <1.0 % LAB HEMETOLOGY METHOD 03/10/2025 6:12 PM EDT [facility] NRBC Absolute 0.00 <0.10 K/mcL LAB HEMETOLOGY METHOD 03/10/2025 6:12 PM [facility] Neutrophils Relative 35.3 % LAB HEMETOLOGY METHOD 03/10/2025 6:12 PM EDT [facility] Comment:This is an appended report. These results have been appended to a previously preliminary verified report. Lymphocytes Relative 54.1 % LAB HEMETOLOGY METHOD 03/10/2025 6:12 PM T [facility] Comment:This is an appended report. These results have been appended to a previously preliminary verified report. Monocytes Relative 6.0 % LAB HEMETOLOGY METHOD 03/10/2025 6:12 PM [facility] Comment:This is an appended report. These results have been appended to a previously preliminary verified report. Eosinophils Relative 3.6 % LAB HEMETOLOGY METHOD 03/10/2025 6:12 PM [facility] Comment:This is an appended report. These results have been appended to a previously preliminary verified report. Basophils Relative 0.7 % LAB HEMETOLOGY METHOD 03/10/2025 6:12 PM [facility] Comment:This is an appended report. These results have been appended to a previously preliminary verified report. Immature Granulocytes Relative 0.3 % LAB HEMETOLOGY METHOD 03/10/2025 6:12 PM [facility] Comment:This is an appended report. These results have been appended to a previously preliminary verified report. Neutrophils Absolute 4.44 1.50 - 7.00 K/mcL LAB HEMETOLOGY METHOD 03/10/2025 6:12 PM [facility] Comment:This is an appended report. These results have been appended to a previously preliminary verified report. Lymphocytes Absolute 6.80(H) 1.00 - 5.00 K/mcL LAB HEMETOLOGY METHOD 03/10/2025 6:12 PM [facility] Comment:This is an appended report. These results have been appended to a previously preliminary verified report. Monocytes Absolute 0.75 0.20 - 1.00 K/mcL LAB HEMETOLOGY METHOD 03/10/2025 6:12 PM [facility] Comment:This is an appended report. These results have been appended to a previously preliminary verified report. Eosinophils Absolute 0.45 0.00 - 0.50 K/mcL LAB HEMETOLOGY METHOD 03/10/2025 6:12 PM EDT [facility] Comment:This is an appended report. These results have been appended to a previously preliminary verified report. Basophils Absolute 0.09 0.00 - 0.20 K/mcL LAB HEMETOLOGY METHOD 03/10/2025 6:12 PM EDT [facility] Comment:This is an appended report. These results have been appended to a previously preliminary verified report. Immature Granulocytes Absolute 0.04(H) 0.00 - 0.03 K/mcL LAB HEMETOLOGY METHOD 03/10/2025 6:12 PM EDT [facility] Comment:This is an appended report. These results have been appended to a previously preliminary verified report. Blood Venous blood specimen / Unknown Venipuncture / Unknown 03/10/2025 3:40 PM EDT 03/10/2025 4:46 PM EDT Liz Alvarez MD LAB BLOOD ORDERABLE S Final Result Performing Organization Address City/[facility]/ZIP Co de Phone Number [facility] [address] [place] [address], [place] [phone] * Lactate dehydrogenase (03/10/2025 3:40 PM EDT) Only the most recent of2 resultswithin the time period is included. LDH 166 120 - 246 unit/L LAB CHEMISTRY METHOD 03/10/2025 5:57 PM EDT [facility] Blood Venous blood specimen / Unknown Venipuncture / Unknown 03/10/2025 3:40 PM EDT 03/10/2025 4:46 PM EDT us Liz Alvarez MD LAB BLOOD ORDERABLE S Final Result Performing Organization Address [facility]/ZIP Co de Phone Number [facility] [address] [place] [address], [place] [phone] * (ABNORMAL) Immunoglobulin IgG (03/10/2025 3:40 PM EDT) [facility] Total IgG 268(L) 549 - 1,584 mg/dL LAB CHEMISTRY METHOD 03/10/2025 5:57 PM T [facility] Blood Venous blood specimen / Unknown Venipuncture / Unknown 03/10/2025 3:40 PM EDT 03/10/2025 4:46 PM EDT Liz Alvarez MD LAB BLOOD ORDERABLE S Final Result [facility] [address] [place] [address], [place] [phone] * (ABNORMAL) Comprehensive metabolic panel (03/10/2025 3:40 PM EDT) Only the most recent of2 resultswithin the time period is included. [facility] Sodium 137 133 - 145 mmol/L LAB CHEMISTRY METHOD 03/10/2025 5:57 PM [facility] Potassium 4.1 3.5 - 5.5 mmol/L LAB CHEMISTRY METHOD 03/10/2025 5:57 PM [facility] Chloride 102 96 - 110 mmol/L LAB CHEMISTRY METHOD 03/10/2025 5:57 PM [facility] CO2 26 21 - 32 mmol/L LAB CHEMISTRY METHOD 03/10/2025 5:57 PM [facility] Anion Gap 9 3 - 11 LAB CHEMISTRY METHOD 03/10/2025 5:57 PM [facility] Glucose 111(H) 70 - 100 mg/dL LAB CHEMISTRY METHOD 03/10/2025 5:57 PM [facility] BUN 12 5 - 25 mg/dL LAB CHEMISTRY METHOD 03/10/2025 5:57 PM [facility] Creatinine 0.82 0.50 - 1.10 mg/dL LAB CHEMISTRY METHOD 03/10/2025 5:57 PM T [facility] eGFR 75 >=60 mL/min/1. 73m2 LAB CHEMISTRY METHOD 03/10/2025 5:57 PM [facility] Comment:Calculation based on the Chronic Kidney Disease Epidemiology Collaboration (CKD-EPI) equation refit without adjustment for race. BUN/Creatinine Ratio 14.6 LAB CHEMISTRY METHOD 03/10/2025 5:57 PM [facility] Calcium 9.5 8.5 - 10.5 mg/dL LAB CHEMISTRY METHOD 03/10/2025 5:57 PM [facility] AST (SGOT) 19 10 - 42 unit/L LAB CHEMISTRY METHOD 03/10/2025 5:57 PM [facility] ALT (SGPT) 27 10 - 60 unit/L LAB CHEMISTRY METHOD 03/10/2025 5:57 PM [facility] Alkaline Phosphatase 67 42 - 121 unit/L LAB CHEMISTRY METHOD 03/10/2025 5:57 PM [facility] Total Protein 5.8(L) 6.0 - 8.0 g/dL LAB CHEMISTRY METHOD 03/10/2025 5:57 PM [facility] Albumin 3.6 3.2 - 5.0 g/dL LAB CHEMISTRY METHOD 03/10/2025 5:57 PM [facility] Total Bilirubin 0.2 0.0 - 1.4 mg/dL LAB CHEMISTRY METHOD 03/10/2025 5:57 PM [facility] Blood Venous blood specimen / Unknown Venipuncture / Unknown 03/10/2025 3:40 PM EDT 03/10/2025 4:46 PM EDT us Liz Alvarez MD LAB BLOOD ORDERABLE S Final Result [facility] [address] [place] [address], * BD Bone Density DXA Axial Skeleton (01/30/2025 1:41 PM EDT) Anatomical Region Laterality Modality Wrist, Hip, L-spine Bone Densito metry 01/31/2025 7:40 AM EDT Impressions 01/31/2025 7:41 AM EDT 1. Osteoporosis. 2. FRAX analysis yields a 10-year probability of major osteoporotic fracture of 18.1% and a 10-year probability of hip fracture of 4.6%. Code 87155 -------- FINAL REPORT -------- Dictated By: Hernandez Sahu Dictated Date: 01/31/2025 07:40 ET Assigned Physician: Hernandez Sahu Reviewed and Electronically Signed By: Hernandez Sahu Signed Date: 01/31/2025 07:41 ET Workstation ID: [id number] Transcribed By: Self Edit Transcribed Date: 01/31/2025 [...] density of the femurs bilaterally is 0.889 gm/gx5huwzi is 88% of that of young normals [...] probability of hip fracture of 4.6%. Code 18361 -------- FINAL REPORT -------- Dictated By: Hernandez Sahu Dictated Date: 01/31/2025 07:40 ET Assigned Physician: Hernandez Sahu Reviewed and Electronically Signed By: Hernandez Sahu Signed Date: 01/31/2025 07:41 ET Workstation ID: [id number] Transcribed By: Self Edit Transcribed Date: 01/31/2025 07:40 ET Raysaramshane Alvarez MD IMG DXA PROCEDURES Final Result * Cervical Cancer Screening: HPV (12/08/2020) [facility] Cervical Cancer Screening: HPV negative, abstracted [facility] Provider HEALTH MAINTENANCE Final Result * (ABNORMAL) Lipid panel (10/23/2020) [facility] LDL/HDL Ratio 5(A) 0 - 4 Triglycerides [...] PROCEDURES Final Result * Colonoscopy (11/06/2015) Pathologist [facility] Colonoscopy no interpretation , abstracted Anatomical Region Laterality Modality Other Historical Provider HEALTH MAINTENANCE Final Result * Hepatitis C Screening (09/04/2013) Pathologist [facility] Hepatitis C Screening abstracted Historical Provider HEALTH MAINTENANCE Final Result from Last 3 Months or Most Recently Relevant to Health Maintenance Insurance MEDICARE [facility] Care Teams Meat Market Manager Relationship Specialty Start Date End Date Portia aGrcia MD [address] [place] [phone] PCP - General Internal Medicine 01/07/21
--- OUTSIDE RECORDS SUMMARY | 2025-04-03 16:39 | XMS_ITS | Data Portability ---
Author Organization [place] - [facility] Address [address] [address] Assessment Encounter Date Assessment Date Assessment LastModified [...] follow-up in 6 months for routine debridement. [email or web address] Not available 08/22/2024 09:11:53 02/27/2025 02/27/2025 74-year-old female presents for cerumen removal. Cerumen impaction removed bilaterally. Bilateral TMs are intact. She will follow-up in 6 months for routine debridement. [email or web address] Not available 02/27/2025 09:03:14 Plan of Treatment Reminders Order Date Submit Date Provider Last Modified By Organization Details Last Modified Time Details Appointments Establish ed 15 2025 09:00A M JOSE CHUN PA-C Not available Not available Not available Lab None recorded. Referral None recorded. Procedures None recorded. Surgeries None recorded. Imaging None recorded. Medication Orders None recorded. Patient TargetsNo targets recorded. Patient InstructionsNo instructions recorded. Reason for Referral None Reported. Problems Name Problem SNOMED Code Status Onset Date Resolution Date Notes Provider Name and Address Organization Details Recorded Time Impacted cerumen 88986906 Active 2013 Impacted cerumen; Note: Date Diagnosed : 4 4:42 PM (380.4) Not Available [facility] 4 03:18:47 Otalgia 70886954 Active 2013 Otalgia; CMS Risk: moderate risk Note : Date Diagnosed : 4 5:12 PM (388.70) Not Available [facility] 4 03:18:48 Impacted cerumen in left ear 45736528560 40721 Active 2014 Impacted cerumen, left ear; Note: Date Diagnosed : 5 3:54 PM (H61.22) Not Available [facility] 4 03:18:48 Impacted cerumen of bilateral ears 88011200168 93825 Active 2015 Impacted cerumen, bilateral ; Note: Date Diagnosed : 08/13/2015 10:46 AM (H61.23) RANGEL RHODES PA-C [address] [place] [address],[address], [address] , [facility] - [facility] 5 09:03:12 Problem Notes None recorded. Procedures Surgical History Date Name Laterality Status Provider Name and Address Organization Details Recorded Time 5 Cerumen removal without microscope bilat completed RANGEL RHODES PA-C [address] [place] [address], [address], [facility] 02/27/2025 09:03:09 5 Cerumen removal without microscope bilat completed RANGEL RHODES PA-C [address] [place] [address], [address], [facility] 08/22/2024 09:11:49 4 Cerumen removal without microscope bilat completed RANGEL RHODES PA-C [address] [place] [address], [address], [facility] 02/28/2024 15:34:15 Imaging Results None recorded. Procedure Notes None recorded. Medical Equipment None Reported. Allergies Allergen ID Allergen Name Allergen Category Reaction Reaction Severity Criticality Documentation Date Start Date Code Code System Note Provider Name and Address Organization Details Recorded Time 194275 Bactrim medicatio n other Not available Not available 10/17/2023 76449 9 RxNorm React ion: unkno wn, unspe cifie d;; Not Available [facility] 4 01:19:01 547461 Substance with sulfonami de structure and antibacte rial mechanism of action (substanc e) medicatio n other Not available Not available 10/17/2023 21155 8003 SNOMED React ion: unkno wn, unspe cifie d;; Not Available [facility] 4 01:19:02 Medications Name Sig Start Date [...] mg capsule 2018 active Medicati on ID: [id number] D uration Value: 30 Brand Name: gabapent [...] mg tablet 2018 active Medicati on ID: [id number] D uration Value: 90 Brand Name: naproxen [...] Updated DateTime 08/22/2024 172.72 cm 19.5 kg/m2 72874.82 g Valeria Tobias [place] - [facility] 08/22/2024 09:00:29 Date Recorded Body height Body mass index (BMI) Body weight Provider Name and Address Organization Details Last Updated DateTime 02/28/2024 172.72 cm 19.5 kg/m2 76370.82 g Ginny Ham [place] - [facility] 02/28/2024 15:00:16 Date Recorded Body height Body mass index (BMI) Body weight Provider Name and Address Organization Details Last Updated DateTime 02/27/2025 172.72 cm 19.5 kg/m2 86243.82 g Valeria Tobias [place] - [facility] 02/27/2025 08:57:02 Social History None recorded. Functional Status None recorded. Mental Status None recorded. Family History Nothing Reported. Medical History No medical history recorded. Gynecological HistoryNo gynecological history recorded. Obstetrics History GPAL:G 0 P 0 0 0 0 Past Encounters Encounter ID Performer Location Encounter Start Date Encounter Closed Date Diagnosis/Indication Diagnosis SNOMED-CT Code Diagnosis ICD10 Code Diagnosis IMO Codes Diagnosis Note [id number] RANGEL RHODES PA-C [facility] [address] [address] 02/28/2024 14:57:16 02/29/2024 07:01:40 Impacted cerumen of bilateral ears [id number] 504417 H61.23 [id number] RANGEL RHODES PA-C [facility] [address] [address] 08/22/2024 08:53:37 08/22/2024 10:41:18 Impacted cerumen of bilateral ears 1209140426 969599 H61.23 [id number] RANGEL RHODES PA-C [facility] [address] [address] 02/27/2025 08:52:55 02/27/2025 09:19:41 Impacted cerumen of bilateral ears 4606037200 570077 H61.23 Health Concerns Section Related Observation LastModified by Organization Detai ls LastModified Time None Recorded Concern Status LastModified by Organization Details LastModified Time None Recorded Advance Directives Directive None Recorded Payers Insurance Date Sequence Insurance Name Policy Number Policy Cain Covered Member ID Cain Member ID Guarantor Name 03/22/2025 2 [place]LE[place] Lanny Aguiar 02/27/2025 1 [place] B[place] [employer] SERVICES Lanny Aguiar [id number] Lanny Aguiar Notes Date Note Type Note Provider Name and Address Organization Details Recorded Time 02/28/2024 text/html ROS as noted in the [facility] 73-year-old female presents for ear cleaning. No concerns today. CASSIE MURDOKC MD 100 [facility],[address], [address], [place] - [facility] 02/28/2024 16:57:55 08/22/2024 text/html ROS as noted in the [facility] 73-year-old female presents for ear cleaning. No concerns today. BLANQUITA MUÑOZ MD 100 [facility],[address], [address], [place] - [facility] 08/23/2024 08:46:45 02/27/2025 text/html ROS as noted in the [facility] 74-year-old female presents for an ear cleaning. No concerns today. PREET BRYAN MD 100 [facility],[address], [address], [place] - [facility] 02/27/2025 16:26:02 OBGyn Episode No OBEpisode recorded.
== END 2025-04-03 15:10 | disposition home or self-care (01) ==
PROVIDERS: PCP Internal Medicine; Visit Provider Physician Assistant Medical
DX: S60.561A Insect bite (nonvenomous) of right hand, initial encounter (principal); W57.XXXA Bitten or stung by nonvenomous insect and other nonvenomous arthropods, initial encounter

== ENCOUNTER → 2025-04-03 13:40 | Outpatient (BNVA) | payer MEDICARE, SELFPAY | PROVIDERS: PCP Internal Medicine; Visit Provider Physician Assistant Medical | DX: S60.561A Insect bite (nonvenomous) of right hand, initial encounter (principal); W57.XXXA Bitten or stung by nonvenomous insect and other nonvenomous arthropods, initial encounter | CPT/HCPCS: 99212 ==

== ENCOUNTER 2025-04-23 06:32 | Outpatient (REF) | payer MEDICARE, SELFPAY ==
--- OUTSIDE RECORDS SUMMARY | 2024-01-24 13:45 | XMS_ITS | Encounter Summary ---
Author Organization [facility] Address [address] [place] [address] Care Team Providers Care Refrigerator Cabinetmaker Name Role Phone Portia Garcia MD Primary Care Provider [phone] Encounter Details Date Type Department Care Team (Late st Contact Info) Description 01/24/2024 2:45 PM EDT Hospital Encounter TH HISTORIC ENCOUNTERS [facility] CONVERSION ONLY Liz Alvarez MD [address] [place] [phone] Social History Tobacco Use Types Packs/Day Years Used Date Smoking Tobacco: Former Cigarettes Alcohol Use Standard Drinks/Week Comments Not Currently 0 (1 standard drink = 0.6 oz pur e alcohol) Comments Unknown Sex and Gender Information Value Date Recorded Sex Assigned at Female 01/06/2025 10:43 AM EDT Legal Sex Female 2:45 AM EST Gender Identity Female 01/06/2025 10:43 AM EDT Sexual Orientation Straight 01/06/2025 10 :43 AM EDT documented as of this encounter Plan of Treatment Upcoming Encounters Date Type Department Care Team (Late st Contact Info) Description 06/12/2025 9:15 AM EST Office Visit [facility] Hematology Oncology [address] [place] [phone] Liz Alvarez MD [address] [place] [phone] 06/23/2025 1:00 PM EST Office Visit Gastroenterology - [address] [facility] [address] [place] [address] Yonathan Stone PA [address] [place] [phone] 07/07/2025 11:00 AM EST Appointment [facility] [address] [facility] 2nd [place] [address] documented as of this encounter Visit Diagnoses Not on filedocumented in this encounter Care Teams Refrigerator Cabinetmaker Relationship Specialty Start Date End Date Portia Garcia MD [address] [facility] [address] [place] [address] PCP - General Internal Medicine 01/07/21 documented as of this encounter
[2025-04-23 10:35] LABS: MANUAL DIFF FLAG NO
[2025-04-23 10:40] LABS: Hematocrit 42.8 % (37.0-47.0); Hemoglobin 13.4 g/dl (12.0-16.0); Imm Gran Abs Auto 0.03 X10*3/uL (0.00-0.03); Imm Gran Pct Auto 0.3 % (0.0-0.4); Lymphocytes Absolute Auto 4.9 X10*3/uL (1.2-4.9); Mean Corpuscular HGB Conc 31.3 g/dl (31.0-35.0); Mean Corpuscular Hemoglobin 29.5 pg (27.0-33.0); Mean Corpuscular Volume 94.1 fL (80.0-98.0); NRBC Abs Auto 0.000 X10*3/uL (0.0-0.012); NRBC Pct Auto 0.0 /100WBC (0.0-0.2); Platelet Count 237 X10*3/uL (160-400); Red Blood Count 4.55 X10*6/uL (4.20-5.50); White Blood Count 9.5 X10*3/uL (4.8-10.8)
[2025-04-23 11:32] LABS: Alanine Aminotransferase 19 U/L (0-31); Albumin Level 4.5 g/dL (3.5-5.0); Alkaline Phosphatase 66 U/L (39-117); Anion Gap 11 (12-20); Aspartate Amino Transferase 25 U/L (5-31); Blood Urea Nitrogen 10 mg/dL (9-16); Calcium 9.7 mg/dL (8.4-10.2); Carbon Dioxide 31 mmol/L (22-29); Chloride 102 mmol/L (96-108); Cholesterol 240 mg/dL (<200); Estimated Glomerular Filt Rate > 60; HDL Cholesterol 68 mg/dL (>40); Potassium 3.9 mmol/L (3.3-5.1); Sodium 140 mmol/L (135-145); Total Protein 6.4 g/dL (6.5-8.0); Triglycerides 151 mg/dL (<150)
--- OUTSIDE RECORDS SUMMARY | 2025-04-23 14:54 | XMS_ITS | Data Portability ---
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 X-rays ordered, obtained and reviewed at [facility] 4 views left shoulder reveal a.c. [...] have failure of resolution of her pain. 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 Patient [...] a4ajBk vP9nXo QUaueC m3YtLR FvZlgJ JJ8mAn HZtai3 0q4116 AC0Kqb H2FV6q uKiQtr MwF INTERFACE [facility] [address], [place], [address], 07/01/2024 14:18:21 07/01/19 25 07/01/2024 XR, wrist , 2 view [email or web address]:/ [email or web address] ?Encry pted=s hAaTro YD8dLq bEUv6g %2BXZw aYqtaq 0bqfl% 2Fg9IQ a4ajBk vP9nXo QUaueC m3YtLR FvZlg [place] HZtai3 3c1768 AC0Kqb H2FV6q uKiQtr MwF INTERFACE [facility] [address], [address], 07/01/2024 14:18:23 10/09/19 25 10/08/2024 XR, eugenioul yves, 2 or more view http:/ [email or web address] ?Encry pted=s hAaTro YD8dLq bEUv6g %2BXZw aYqtaq 0bqfl% 2Fg9IQ a4ajBk vP9nXo QUaueC m3YtLR FvZlg JJ8[place] HZtai3 0w9250 AC0Kla nuEWau nKiQtr MwF INTERFACE [facility] [address] [facility] [address], [place], [address], 10/08/2024 09:31:29 10/09/19 25 10/08/2024 XR, shoul yves, 2 or more view http:/ [email or web address] ?Encry pted=s hAaTro YD8dLq bEUv6g %2BXZw aYqtaq 0bqfl% 2Fg9IQ a4ajBk vP9nXo QUaueC m3YtLR FvZlgJ JJ8mAn HZtai3 1j7089 AC0Kla nuEWau nKiQtr MwF INTERFACE [facility] [address] [facility] [address], [place], [address], 10/08/2024 09:31:30 Result Notes Documentation Provider Name and Address Organization Details Recorded Time Xr, Wrist, 2 View : [email or web address] Encrypted=wdWhPkvSL8cLikC Uv6g%8JBSeePfkxx9wsvk%2Fg 0PCf9qnZomL4yXdHLxvzQe2Fc AUHyPrmJWK3yDfLYwlb73o604 9CI8TwzJ2FG4vhRsCteUgS Not Available [facility] 07/01/2024 14:18: 21 Xr, Wrist, 2 View : [email or web address] Encrypted=xeQsAhaCB4qOzzC Uv6g%2MDMklWgkrf1tgrt%2Fg 7VTs7ukGhoN2pGjVYyyoMe1Cj TLMqCylHLY3yYyIQrfl75y521 6WO5RlqK4HG0gdFuKymJjF Not Available [facility] 07/01/2024 14:18: 23 Xr, Shoulder, 2 Or More View : [email or web address] Encrypted=ozJbNxsUY2qJauT Uv6g%2PFQlnDygeb2mthr%2Fg 5DEz0ndDbjZ4aGsJKivuWn9Xf OFYhTnuLOO6mWrQXqpa02g018 0SJ8XubftFJlzpJwZtvUzQ Not Available [facility] 10/08/2024 09:31: 29 Xr, Shoulder, 2 Or More View : [email or web address] Encrypted=jlToRkoAT8pCqyD Uv6g%6ZQPiyRjlvv9uyds%2Fg 8AYd2tqDxeW4oShXSzqwMh4Wq WSFgAlqAXS8lXfJBgqo09e142 6KQ2OrseqSGxtqQhCssUaK Not Available [facility] 10/08/2024 09:31: 31 Problems Name Problem SNOMED Code Status Onset Date Resolution Date Notes Provider Name and Address Organization Details Recorded Time Pain of left shoulder joint 051602107667057 09 Active 2024 [facility] 5 11:24:12 Problem Notes None recorded. Procedures Surgical History Date Name Laterality Status Provider Name and Address Organization Details Recorded Time 5 PM Shoulder Kenalog 2cc Injection Unilateral completed Fam Delgadillo PA-C [address] [facility], [place], [address], [facility] 10/08/2024 10:27:03 5 Trigger Thumb Kenalog Injection completed Los Champion MD [address], [place], [address], [facility] 07/01/2024 17:08:48 Imaging Results None recorded. Procedure Notes None recorded. Medical Equipment None Reported. Allergies Allergen ID Allergen Name Allergen Category Reaction Reaction Severity Criticality Documentation Date Start Date Code Code System Note Provider Name and Address Organization Details Recorded Time 52278 Substance with sulfonami de structure and antibacte rial mechanism of action (substanc e) medicatio n Not available Not available Not available 08/07/20232005 57584 8003 SNOMED Aller gyRea ction : 'Skin React ion'; Not Available [facility] 4 12:08:31 53691 Bactrim medicatio n Not available Not available Not available 08/07/20232014 39652 9 RxNorm Not Available [facility] 4 12:08:32 Medications Name Sig Start Date [...] Updated DateTime 07/01/2024 160.02 cm 24.8 kg/m2 39956.93 g DANILO MONTIEL [facility] 07/01/2024 14:10:19 Date Recorded Body height Body mass index (BMI) Body weight Provider Name and Address Organization Details Last Updated DateTime 10/08/2024 160.02 cm 21.8 kg/m2 18857.86 g MIGUEL A GOLDMAN [facility] 10/08/2024 09:22:40 Social History None [...] ICD10 Code Diagnosis IMO Codes Diagnosis Note [id number] MD KAMRYN Bobby [address] [place] [address] 07/01/2024 13:50:18 07/18/2024 12:30:49 Pain of left wrist 6940268332 13630 M25.532 510521 Trigger th umb of left hand 2054878216 18716 M65.312 27608700 Arthritis of first carpometacarpal joint of left hand 2618229678 554296 M18.12 15014587 5279044 [facility] [place] [address] [place] [address] 10/08/2024 08:50:30 10/10/2024 09:45:17 Pain of left shoulder region 0997548046 M25.512 45985658 Tendinitis of left rotator cuff 3381731761 2024151 M75.82 33516351 Health Concerns Section Related Observation LastModified by Organization Detai ls LastModified Time None Recorded Concern Status LastModified by Organization Details LastModified Time None Recorded Advance Directives Directive None Recorded Payers Insurance Date Sequence Insurance Name Policy Number Policy Cain Covered Member ID Cain Member ID Guarantor Name 10/08/2024 2 [place] [id number] Lanny Portillore [id number] Lanny Clancy [place] 10/08/2024 1 [place] B[place] [employer] Lanny Clancy [place] [id number] Lanny Clancy [place] Notes Date Note [...] X-rays ordered, obtained, and reviewed today at [facility]: PA and lateral of the [...] there are any concerns. Los Champion MD [address] [place], [place] [address] [address], [place], [address], [facility] 07/01/2024 17:09:33 OBGyn Episode No OBEpisode recorded.
--- OUTSIDE RECORDS SUMMARY | 2025-04-23 14:54 | XMS_ITS | Data Portability ---
Author Organization [place] - [facility] Address [address] [address] Assessment Encounter Date Assessment Date Assessment LastModified [...] for routine debridement. Not available 08/22/2024 09:11:53 02/27/2025 02/27/2025 74-year-old female presents for cerumen removal. Cerumen impaction removed bilaterally. Bilateral TMs are intact. She will follow-up in 6 months for routine debridement. Not available 02/27/2025 09:03:14 Plan of Treatment [...] Address Organization Details Recorded Time Impacted cerumen 59012294 Active 2013 Impacted cerumen; Note: Date Diagnosed : 4 4:42 PM (380.4) Not Available [facility] 4 03:18:47 Otalgia 50503532 Active 2013 Otalgia; CMS Risk: moderate risk Note : Date Diagnosed : 4 5:12 PM (388.70) Not Available [facility] 4 03:18:48 Impacted cerumen in left ear 76890421979 58316 Active 2014 Impacted cerumen, left ear; Note: Date Diagnosed : 5 3:54 PM (H61.22) Not Available [facility] 4 03:18:48 Impacted cerumen of bilateral ears 46597589253 92854 Active 2015 Impacted cerumen, bilateral ; Note: Date Diagnosed : 08/13/2015 10:46 AM (H61.23) RANGEL RHODES PA-C [address] [place] [address],[address], [address] , [facility] - [facility] 5 09:03:12 Problem Notes None recorded. Procedures Surgical History Date Name Laterality Status Provider Name and Address Organization Details Recorded Time 5 Cerumen removal without microscope bilat completed RANGEL RHODES PA-C [address] [place] [address], [address], [facility] 02/27/2025 09:03:09 5 Cerumen removal without microscope bilat completed RANGEL RHODES PA-C [address] [place] [address], [address], [facility] 08/22/2024 09:11:49 4 Cerumen removal without microscope bilat completed RANGEL RHODES PA-C [address] [place] [address], [address], [facility] 02/28/2024 15:34:15 Imaging Results None recorded. Procedure Notes None recorded. Medical Equipment None Reported. Allergies Allergen ID Allergen Name Allergen Category Reaction Reaction Severity Criticality Documentation Date Start Date Code Code System Note Provider Name and Address Organization Details Recorded Time 457028 Bactrim medicatio n other Not available Not available 10/17/2023 34593 9 RxNorm React ion: unkno wn, unspe cifie d;; Not Available [facility] 4 01:19:01 188254 Substance with sulfonami de structure and antibacte rial mechanism of action (substanc e) medicatio n other Not available Not available 10/17/2023 37697 8003 SNOMED React ion: unkno wn, unspe cifie d;; Not Available [facility] 4 01:19:02 Medications Name Sig Start Date [...] mg capsule 2018 active Medicati on ID: [id number] D uration Value: 30 Brand Name: gabapent [...] mg tablet 2018 active Medicati on ID: 079085 D uration Value: 90 Brand Name: naproxen [...] Updated DateTime 08/22/2024 172.72 cm 19.5 kg/m2 24274.82 g Valeria Tobias [place] - [facility] 08/22/2024 09:00:29 Date Recorded Body height Body mass index (BMI) Body weight Provider Name and Address Organization Details Last Updated DateTime 02/28/2024 172.72 cm 19.5 kg/m2 43452.82 g Ginny Ham [place] - [facility] 02/28/2024 15:00:16 Date Recorded Body height Body mass index (BMI) Body weight Provider Name and Address Organization Details Last Updated DateTime 02/27/2025 172.72 cm 19.5 kg/m2 89653.82 g Valeria Tobias [place] - [facility] 02/27/2025 08:57:02 Social History None recorded. Functional Status None recorded. Mental Status None recorded. Family History Nothing Reported. Medical History No medical history recorded. Gynecological HistoryNo gynecological history recorded. Obstetrics History GPAL:G 0 P 0 0 0 0 Past Encounters Encounter ID Performer Location Encounter Start Date Encounter Closed Date Diagnosis/Indication Diagnosis SNOMED-CT Code Diagnosis ICD10 Code Diagnosis IMO Codes Diagnosis Note [id number] RANGEL RHODES PA-C [facility] [address] [address] 02/28/2024 14:57:16 02/29/2024 07:01:40 Impacted cerumen of bilateral ears 3002681174 674301 H61.23 [id number] RANGEL RHODES PA-C [facility] [address] [address] 08/22/2024 08:53:37 08/22/2024 10:41:18 Impacted cerumen of bilateral ears 6828366401 936298 H61.23 [id number] RANGEL RHODES PA-C [facility] [address] [address] 02/27/2025 08:52:55 02/27/2025 09:19:41 Impacted cerumen of bilateral ears 4310981794 162015 H61.23 Health Concerns Section Related Observation LastModified by Organization Detai ls LastModified Time None Recorded Concern Status LastModified by Organization Details LastModified Time None Recorded Advance Directives Directive None Recorded Payers Insurance Date Sequence Insurance Name Policy Number Policy Cain Covered Member ID Cain Member ID Guarantor Name 03/22/2025 2 [place] Lanny Aguiar 02/27/2025 1 MEDICARE B-[place]: [employer] Lanny Aguiar [id number] Lanny Aguiar Notes Date Note Type Note Provider Name and Address Organization Details Recorded Time 02/28/2024 text/html ROS as noted in the [facility] 73-year-old female presents for ear cleaning. No concerns today. CASSIE MURDOCK MD 100 [facility],[address], [address], [place] - [facility] 02/28/2024 16:57:55 08/22/2024 text/html ROS as noted in the [facility] 73-year-old female presents for ear cleaning. No concerns today. BLANQUITA MUÑOZ MD 100 [facility],[address], [address], [place] [facility] 08/23/2024 08:46:45 02/27/2025 text/html ROS as noted in the [facility] 74-year-old female presents for an ear cleaning. No concerns today. PREET BRYAN MD 100 [facility],[address], [address], [place] - [facility] 02/27/2025 16:26:02 OBGyn Episode No OBEpisode recorded.
--- OUTSIDE RECORDS SUMMARY | 2025-04-23 14:55 | XMS_ITS | Clinical Summary ---
Author Organization [facility] Address [address] [place] [address] Phone Care Team Providers Care Informatics Coordinator Name Role Phone Portia Garcia MD Primary Care Provider [phone] Allergies Active Allergy Reactions Criticality Noted Date [...] 03/06/2023 Lumbar compression fracture, closed, initial encounter ([facility] V24, [facility] V28) 05/24/2022 Overview (03/27/2024): Last [...] 05/24/2022 Lumbar compression fracture, closed, initial encounter ([facility] V24, [facility] V28) 05/24/2022 Dyspnea 12/03/2021 Dyspnea 12/03/2021 Acquired hemolytic anemia ([facility] V24, [facility] V28) 12/03/2021 Weight loss 03/03/2021 Hyperlipidemia 03/07/2019 HLD (hyperlipidemia) 03/07/2019 Vitamin D deficiency 01/19/2019 Vitamin D deficiency 01/19/2019 Asymptomatic microscopic hematuria 12/01/2017 Chronic lymphocytic leukemia ([facility] V24, [facility] V28) 06/21/2017 Chronic lymphocytic leukemia ([facility] V24, [facility] V[facility]) 06/21/2017 Subclinical hypothyroidism 06/06/2017 [...] different specialists including local oncologist, once at [facility], physiatrists at [facility] and the more recent suggestion for [...] and we will make the referral to [facility] interventional radiology. She may consider pain management for treating cancer related pain and would likely avoid a spinal cord stimulator. Allergic rhinitis 05/15/2005 Anxiety 05/15/2005 Asthma 05/15/2005 Chronic bilateral low back pain without sciatica 05/15/2005 Eczema 05/15/2005 Esophageal reflux 05/15/2005 Hematuria 05/15/2005 Resolved Problems Problem Noted Date Diagnosed Date Resolved Date Leukemia ([facility] V24, [facility] V28) 05/24/2022 05/15/2024 Leukemia ([facility] V24, [facility] V28) 05/24/2022 05/15/2024 Encounters Date Type Department Care Team Description 04/15/2025 11:10 AM EST Lab Draw Station - [address] [phone] Chronic lymphocytic leukemia ([facility] V24, [facility] V28) 03/04/2025 9:00 AM EDT Office Visit [facility] Hematology Oncology [address] [place] [address] [phone] Raysaramonia-Iy Liz lomas MD Chronic lymphocytic leukemia ([facility] V24, [facility] V28) (Primary Dx); Acquired hemolytic anemia ([facility] V24, [facility] V28); Anxiety; Chronic bilateral low back pain without sciatica; Osteoporosis, post-menopausal 02/27/2025 Telephone [facility] Hematology Oncology [address] [place] [address] [phone] Subramonia-Iy Liz lomas MD 01/30/2025 1:11 PM EDT - 01/30/2025 11:59 PM EDT Hospital Encounter [facility] Bone Density [address] [place] [address] [phone] Discharge Disposition: Home or Self Care from [...] Description 06/12/2025 9:15 AM EST Office Visit [facility] Hematology Oncology [address] [place] [address] Liz Alvarez MD [address] [place] [address] 06/23/2025 1:00 PM EST Office Visit Gastroenterology - [address] [facility] [address] [place] [address] Yonathan Stone PA [address] [place] [address] [phone] 07/07/2025 11:00 AM EST Appointment [facility] Infusion Center [address] [facility] [address] [place] [address] Health Maintenance Due Date Last Done Comments DTaP,Tdap,and Td Vaccines (6 - Td or Tdap) 06/25/2020 06/25/2010, 06/25/2010, 07/06/2001, Additional history exists Medicare Annual Wellness Visit 05/08/2022 Social Influencers of Health Screening 05/08/2022 Depression Screening 06/05/2024 Falls Risk Assessment 07/08/2025 07/08/2024 COVID-19 Vaccine (9 - Pfizer risk season) 2025 02/24/2025, 02/24/2024, 03/04/2023, Additional history exists Cholesterol Screening (Lipid Panel) 10/23/2025 10/23/2020, 10/23/2020 [...] Completed 02/06/2025, , 02/13/2023, Additional history exists HIB Vaccines Aged Out [...] Comments MANUAL DIFFERENTIAL - [facility] WAM Routine 04/15/2025 11:08 AM EST Chronic lymphocytic leukemia (CMS/HCC V24, CMS/HCC V28) CBC WITH AUTO DIFFERENTIAL Routine 04/15/2025 11:08 AM EST Chronic lymphocytic leukemia (CMS/HCC V24, CMS/HCC V28) CBC AND DIFFERENTIAL Routine 04/15/2025 11:08 AM EST Chronic lymphocytic leukemia (CMS/HCC V24, CMS/HCC V28) COMPREHENSIVE METABOLIC PANEL Routine 04/15/2025 11:08 AM EST Chronic lymphocytic leukemia (CMS/HCC V24, CMS/HCC V28) LACTATE DEHYDROGENASE Routine 04/15/2025 11:08 AM EST Chronic lymphocytic leukemia (CMS/HCC V24, CMS/HCC V28) CBC WITH AUTO DIFFERENTIAL Routine 03/10/2025 3:40 PM EDT Chronic lymphocytic leukemia (CMS/HCC V24, CMS/HCC V28) IMMUNOGLOBULIN IGG Routine 03/10/2025 3: 40 PM EDT Chronic lymphocytic leukemia (CMS/HCC V24, CMS/HCC V28) CBC AND DIFFERENTIAL Routine 03/10/2025 3:40 PM EDT Chronic lymphocytic leukemia (CMS/HCC V24, CMS/HCC V28) COMPREHENSIVE METABOLIC PANEL Routine 03/10/2025 3:40 PM EDT Chronic lymphocytic leukemia (CMS/HCC V24, CMS/HCC V28) LACTATE DEHYDROGENASE Routine 03/10/2025 3:40 PM EDT Chronic lymphocytic leukemia (CMS/HCC V24, CMS/HCC V28) BD BONE DENSITY DXA AXIAL SKELETON Routine 01/30/2025 1:41 PM EDT Lumbar compression fracture, closed, initial encounter (CMS/HCC V24, CMS/HCC V28) CBC WITH AUTO DIFFERENTIAL Routine 01/28/2025 12:39 PM EDT Chronic lymphocytic leukemia (CMS/HCC V24, CMS/HCC V28) CBC AND DIFFERENTIAL Routine 01/28/2025 12:39 [...] Health Maintenance Results * (ABNORMAL) Manual differential (04/15/2025 11:08 AM EST) Neutrophils % 51.0 % LAB HEMETOLOGY METHOD 04/15/2025 5:37 PM [facility] Lymphocytes % 36.0 % LAB HEMETOLOGY METHOD 04/15/2025 5:37 PM [facility] Reactive Lymphocyte 4.00 % LAB HEMETOLOGY METHOD 04/15/2025 5:37 PM [facility] Monocytes % 5.0 % LAB HEMETOLOGY METHOD 04/15/2025 5:37 PM [facility] Eosinophils % 4.0 % LAB HEMETOLOGY METHOD 04/15/2025 5:37 PM [facility] Basophils % 0.0 % LAB HEMETOLOGY METHOD 04/15/2025 5:37 PM [facility] Neutrophils Absolute Manual 6.53 1.50 - 7.00 K/mcL LAB HEMETOLOGY METHOD 04/15/2025 5:37 PM [facility] Lymphocytes Absolute 4.61 1.00 - 5.00 K/mcL LAB HEMETOLOGY METHOD 04/15/2025 5:37 PM [facility] Reactive Lymph Abs Manual 0.51(H) 0.00 - 0.00 lym LAB HEMETOLOGY METHOD 04/15/2025 5:37 PM [facility] Monocytes Absolute Manual 0.64 0.20 - 1.00 K/mcL LAB HEMETOLOGY METHOD 04/15/2025 5:37 PM [facility] Eosinophils Absolute Manual 0.51(H) 0.00 - 0.50 K/mcL LAB HEMETOLOGY METHOD 04/15/2025 5:[address] [facility] Basophils Absolute Manual 0.00 0.00 - 0.20 K/[facility] LAB HEMETOLOGY METHOD 04/15/2025 5:[address] [facility] Rbc Morphology Consistent with indices Consistent with indices, Normal for LAB HEMETOLOGY METHOD 04/15/2025 5:[address] [facility] Comment:RBC: Morphology agre es with CBC Platelet Morphology - WAM See Note(A) Normal LAB HEMETOLOGY METHOD 04/15/2025 5:37 PM [facility] Comment:PLT: Normal Blood Venous blood specimen / Unknown Venipuncture / Unknown 04/15/2025 11:08 AM EST 04/15/2025 4:36 PM EST Subramony SubKim PULLIAM LAB BLOOD ORDERABLE S Final Result [facility] [address] [place] [address], * (ABNORMAL) CBC auto differential (04/15/2025 11:08 AM EST) Only the most recent of3 resultswithin the time period is included. WBC 12.8(H) 4.8 - 10.8 K/[facility] LAB HEMETOLOGY METHOD 04/15/2025 5:[address] [facility] RBC 4.10 3.80 - 4.80 M/[facility] LAB HEMETOLOGY METHOD 04/15/2025 5:37 PM [facility] Hemoglobin 12.1 11.5 - 16.0 g/dL LAB HEMETOLOGY METHOD 04/15/2025 5:37 PM [facility] Hematocrit 38.7 35.0 - 47.0 % LAB HEMETOLOGY METHOD 04/15/2025 5:37 PM [facility] MCV 95.1 79.0 - 98.0 FL LAB HEMETOLOGY METHOD 04/15/2025 5:[address] [facility] MCH 29.7 27.0 - 32.0 pcg LAB HEMETOLOGY METHOD 04/15/2025 5:37 PM [facility] MCHC 31.3(L) 32.0 - 37.0 g/dL LAB HEMETOLOGY METHOD 04/15/2025 5:[address] [facility] RDW 13.8 11.0 - 15.0 % LAB HEMETOLOGY METHOD 04/15/2025 5:[address] [facility] Platelets 222 130 - 400 K/mcL LAB HEMETOLOGY METHOD 04/15/2025 5:37 PM [facility] MPV 11.5(H) 7.0 - 11.0 FL LAB HEMETOLOGY METHOD 04/15/2025 5:[address] [facility] NRBC 0.0 <1.0 % LAB HEMETOLOGY METHOD 04/15/2025 5:[address] [facility] NRBC Absolute 0.00 <0.10 K/mcL LAB HEMETOLOGY METHOD 04/15/2025 5:37 PM [facility] Blood Venous blood specimen / Unknown Venipuncture / Unknown 04/15/2025 11:08 AM EST 04/15/2025 4:[address] [facility] - 04/15/2025 5:37 PM EST [id number] us Liz Alvarez MD LAB BLOOD ORDERABLE S Final Result [facility] [address] [place] [address], * Lactate dehydrogenase (04/15/2025 11:08 AM EST) Only the most recent of3 resultswithin the time period is included. LDH 161 120 - 246 unit/L LAB CHEMISTRY METHOD 04/15/2025 5:24 PM [facility] Blood Venous blood specimen / Unknown Venipuncture / Unknown 04/15/2025 11:08 AM EST 04/15/2025 4:35 PM EST Liz Alvarez MD LAB BLOOD ORDERABLE S Final Result [facility] [address] [place] [address], * (ABNORMAL) Comprehensive metabolic panel (04/15/2025 11:08 AM EST) Only the most recent of3 resultswithin the time period is included. Pathologist [facility] Sodium 137 133 - 145 mmol/L LAB CHEMISTRY METHOD 04/15/2025 5:25 PM [facility] Potassium 3.8 3.5 - 5.5 mmol/L LAB CHEMISTRY METHOD 04/15/2025 5:25 PM [facility] Chloride 101 96 - 110 mmol/L LAB CHEMISTRY METHOD 04/15/2025 5:25 PM [facility] CO2 28 21 - 32 mmol/L LAB CHEMISTRY METHOD 04/15/2025 5:25 PM [facility] Anion Gap 8 3 - 11 LAB CHEMISTRY METHOD 04/15/2025 5:25 PM [facility] Glucose 90 70 - 100 mg/dL LAB CHEMISTRY METHOD 04/15/2025 5:25 PM [facility] BUN 13 5 - 25 mg/dL LAB CHEMISTRY METHOD 04/15/2025 5:25 PM [facility] Creatinine 0.75 0.50 - 1.10 mg/dL LAB CHEMISTRY METHOD 04/15/2025 5:25 PM [facility] eGFR 83 >=60 mL/min/1. 73m2 LAB CHEMISTRY METHOD 04/15/2025 5:25 PM [facility] Comment:Calculation based on the Chronic Kidney Disease Epidemiology Collaboration (CKD-EPI) equation refit without adjustment for race. BUN/Creatinine Ratio 17.3 LAB CHEMISTRY METHOD 04/15/2025 5:25 PM [facility] Calcium 9.6 8.5 - 10.5 mg/dL LAB CHEMISTRY METHOD 04/15/2025 5:25 PM [facility] AST (SGOT) 16 10 - 42 unit/L LAB CHEMISTRY METHOD 04/15/2025 5:25 PM [facility] ALT (SGPT) 26 10 - 60 unit/L LAB CHEMISTRY METHOD 04/15/2025 5:25 PM [facility] Alkaline Phosphatase 70 42 - 121 unit/L LAB CHEMISTRY METHOD 04/15/2025 5:25 PM [facility] Total Protein 5.8(L) 6.0 - 8.0 g/dL LAB CHEMISTRY METHOD 04/15/2025 5:25 PM [facility] Albumin 3.7 3.2 - 5.0 g/dL LAB CHEMISTRY METHOD 04/15/2025 5:25 PM [facility] Total Bilirubin 0.3 0.0 - 1.4 mg/dL LAB CHEMISTRY METHOD 04/15/2025 5:25 PM [facility] Blood Venous blood specimen / Unknown Venipuncture / Unknown 04/15/2025 11:08 AM EST 04/15/2025 4:35 PM EST us Liz Alvarez MD LAB BLOOD ORDERABLE S Final Result [facility] [address] [place] [address], * (ABNORMAL) Immunoglobulin IgG (03/10/2025 3:40 PM EDT) Total IgG 268(L) 549 - 1,584 mg/dL LAB CHEMISTRY METHOD 03/10/2025 5:[address] [facility] Blood Venous blood specimen / Unknown Venipuncture / Unknown 03/10/2025 3:40 PM EDT 03/10/2025 4:46 PM EDT Liz Alvarez MD LAB BLOOD ORDERABLE S Final Result [facility] [address] [place] [address], [place] [phone] * BD Bone Density DXA Axial Skeleton (01/30/2025 1:41 PM EDT) Anatomical Region Laterality Modality Wrist, Hip, L-spine Bone Densito metry 01/31/2025 7:40 AM EDT Impressions 01/31/2025 7:41 AM EDT 1. Osteoporosis. 2. FRAX analysis yields a 10-year probability of major osteoporotic fracture of 18.1% and a 10-year probability of hip fracture of 4.6%. Code 44499 -------- FINAL REPORT -------- Dictated By: Hernandez Sahu Dictated Date: 01/31/2025 07:40 ET Assigned Physician: Hernandez Sahu Reviewed and Electronically Signed By: Hernandez Sahu Signed Date: 01/31/2025 07:41 ET Workstation ID: [id number] Transcribed By: Self Edit Transcribed Date: 01/31/2025 [...] density of the femurs bilaterally is 0.889 gm/os1rnbxz is 88% of that of young normals [...] probability of hip fracture of 4.6%. Code 53023 -------- FINAL REPORT -------- Dictated By: Hernandez Sahu Dictated Date: 01/31/2025 07:40 ET Assigned Physician: Hernandez Sahu Reviewed and Electronically Signed By: Hernandez Sahu Signed Date: 01/31/2025 07:41 ET Workstation ID: [id number] Transcribed By: Self Edit Transcribed Date: 01/31/2025 07:[address] [facility] Liz Alvarez MD IMG DXA PROCEDURES Final Result * Cervical Cancer Screening: HPV (12/08/2020) [facility] Cervical Cancer Screening: HPV negative, abstracted Result [facility] Historical Provider HEALTH MAINTENANCE Final Result * (ABNORMAL) Lipid panel (10/23/2020) [facility] LDL/HDL Ratio 5(A) 0 - 4 Triglycerides 150 0 - 150 mg/dL Cholesterol 237(A) 0 - 200 mg/dL HDL 53 >=40 mg/dL LDL Cholesterol 154(A) 0 - 100 mg/dL Blood Venous blood specimen / Unknown Result [facility] Historical Provider LAB BLOOD ORDERABLES Alayna l [...] clip placement x2 of the same day. Result [facility] Shruthi Capps MD IMG BI PROCEDURES Final Result * Colonoscopy (11/06/2015) [facility] Colonoscopy no interpretation , abstracted Anatomical Region Laterality Modality Other Result [facility] Historical Provider HEALTH MAINTENANCE Final Result * Hepatitis C Screening (09/04/2013) [facility] Hepatitis C Screening abstracted Result [facility] Historical Frank PULLIAM HEALTH MAINTENANCE Final Result from Last 3 Months or Most Recently Relevant to Health Maintenance Insurance MEDICARE [facility] Care Teams Informatics Coordinator Relationship Specialty Start Date End Date Portia Garcia MD [address] [place] [id number] PCP - General Internal Medicine 01/07/21
--- OUTSIDE RECORDS SUMMARY | 2025-04-23 14:55 | XMS_ITS ---
Author Organization [facility] Address [address] [place] [address] Care Team Providers Care Software Implementation Specialist Name Role Phone Portia Garcia MD Primary Care Provider [phone] Active Problems Problem Noted Date Diagnosed Date [...] without esophagi tis 12/01/2017 Current On[facility]MG (PROLIA)* Plan Start Date:11/04/2022 Plan Provider:Liz Portillo MD Linked Problems CLL (chronic lymphocytic kristi kemia) ([facility])Age-related osteoporosis without current pathological fracture Treatment Medications denosumab (PROLIA) Past Plans ONCOLOGY INFUSION THERAPY Plan Name Start Date Discontinue Date Treatment Medications Discontinue Reason Plan Provider [facility] OP EVUSHELD (TIXAGEVIMAB AND CILGAVIMAB INJECTIONS) & [facility] BCN DENOSUMAB 60MG (PROLIA) 12/24/2021 06/30/2022 albuterol (PROVENTIL)denos umab (PROLIA)diphenhy drAMINE (BENADRYL)EPINEP Hrinefamotidine (PF) (PEPCID)hydrocor tisone (SOLU-CORTEF) IVmeperidine (DEMEROL) 25 MG/MLsodium chloride 0.9% bolus (NS)tixagevimab & cilgavimab (EVUSHELD) Therapy Complete Liz Portillo MD ONCOLOGY TREATMENT Plan Name Start Date Discontinue Date Treatment Medications Discontinue Reason Plan Provider [facility] RITUXIMAB (IV/SC) WEEKLY X4 2 06/30/2022 [...] documented for this patient in [facility]. Treatments may have been administered in another system.
--- OUTSIDE RECORDS SUMMARY | 2025-04-23 14:55 | XMS_ITS | Clinical Summary ---
Author Organization [facility] Address [address] [place] [address] Care Team Providers Care Shaft Mechanic Name Role Phone Portia Garcia MD Primary Care Provider [phone] Allergies Active Allergy Reactions Criticality Noted Date [...] day. 30 g 1 02/02/2023 Active Benadryl fsyx-Gndtmd-Bibotall -Lidocaine Visc mouth wash 1:1:1:1 Swish and spit 5 mL every 4 (four) hours as needed for mucositis. 240 mL 1 10/23/2023 Active Aspirin 81 MG CAPS Take 81 mg by mouth. 0 04/12/2023 Active Zanubrutinib 80 MG CAPSIndications:Programming Manager neel Lymphocytic Leukemia Take TWO Capsules [...] age to complete this topic Care Teams Shaft Mechanic Relationship Specialty Start Date End Date Portia Garcia MD PCP - General Internal Medicine 01/07/21
--- OUTSIDE RECORDS SUMMARY | 2025-04-23 14:55 | XMS_ITS ---
Author Organization [facility] Address [address] [place] [address] Phone Care Team Providers Care Bomb Technician Name Role Phone Portia Garcia MD Primary Care Provider [phone] Active Problems Problem Noted Date Diagnosed Date Loose stools 12/16/2024 Lymphadenopathy 12/16/2024 Pain in joint of left shoulder 10/29/2024 Osteoporosis, post-menopausal 07/08/2024 Hypokalemia 03/06/2023 Lumbar compression fracture, closed, initial encounter ([facility] V24, [facility] V28) 05/24/2022 Overview (03/27/2024): Last Assessment & [...] 05/24/2022 Lumbar compression fracture, closed, initial encounter ([facility] V24, [facility] V28) 05/24/2022 Dyspnea 12/03/2021 Dyspnea 12/03/2021 Acquired hemolytic anemia ([facility] V24, [facility] V28) 12/03/2021 Weight loss 03/03/2021 Hyperlipidemia 03/07/2019 HLD (hyperlipidemia) 03/07/2019 Vitamin D deficiency 01/19/2019 Vitamin D deficiency 01/19/2019 Asymptomatic microscopic hematuria 12/01/2017 Chronic lymphocytic leukemia ([facility] V24, [facility] V[facility]) 06/21/2017 Chronic lymphocytic leukemia ([facility] V24, [facility] V[facility]) 06/21/2017 Subclinical hypothyroidism 06/06/2017 [...] including local oncologist, once at [facility], physiatrists at [facility] and the more recent suggestion for [...] and we will make the referral to [facility] interventional radiology. She may consider pain management [...] Alvarez MD Linked Problems Chronic lymphocytic leukemia ([facility] V24, [facility] V28)Osteoporosis, post-menopausal Treatment Medications No medications scheduled. Past Treatment and Therapy Plans No past plan information found. Resolved Problems Problem Noted Date Diagnosed Date Resolved Date Leukemia ([facility] V24, [facility] V28) 05/24/2022 05/15/2024 Leukemia ([facility] V24, [facility] V28) 05/24/2022 05/15/2024
--- OUTSIDE RECORDS SUMMARY | 2025-04-23 14:55 | XMS_ITS | Encounter Summary ---
Author Organization [facility] Address [address] [place] [address] Care Team Providers Care Developer Support Engineer Name Role Phone Portia Garcia MD Primary Care Provider [phone] Encounter Details Date Type Department Care Team Description 01/12/2022 Social Work [facility] Oncology Services [address] [place] [id number] [facility] Social History Tobacco Use Types Packs/Day [...] on filedocumented in this encounter Care Teams Developer Support Engineer Relationship Specialty Start Date End Date Portia Garcia MD PCP - General Internal Medicine 01/07/21 documented as of this encounter
--- OUTSIDE RECORDS SUMMARY | 2025-04-23 14:55 | XMS_ITS | Continuity of Care Document ---
Author Organization [place] - [facility], [facility] Address [address] [place] [address] Assessment Encounter Date Assessment Date Assessment LastModified by Organization Details LastModified Time 02/27/2025 02/27/2025 74-year-old female presents for cerumen removal. Cerumen impaction removed bilaterally. Bilateral TMs are intact. She will follow-up in 6 months for routine debridement. [email or web address] Not available 02/27/2025 09:03:14 Plan of Treatment [...] Address Organization Details Recorded Time Impacted cerumen 49325643 Active 2013 Impacted cerumen; Note: Date Diagnosed : 4 4:42 PM (380.4) Not Available [facility] 4 03:18:47 Otalgia 92707459 Active 2013 Otalgia; CMS Risk: moderate risk Note : Date Diagnosed : 4 5:12 PM (388.70) Not Available [facility] 4 03:18:48 Impacted cerumen in left ear [id number] 10610 Active 2014 Impacted cerumen, left ear; Note: Date Diagnosed : 5 3:54 PM (H61.22) Not Available [facility] 4 03:18:48 Impacted cerumen of bilateral ears 78191508824 58359 Active 2015 Impacted cerumen, bilateral ; Note: Date Diagnosed : 08/13/2015 10:46 AM (H61.23) RANGEL RHODES PA-C [address] [facility],[address], [address] , [facility] - [facility] 5 09:03:12 Problem Notes None recorded. Procedures Surgical History Date Name Laterality Status Provider Name and Address Organization Details Recorded Time 5 Cerumen removal without microscope bilat completed RANGEL RHODES PA-C [address] [place] [address],[address], [address], [facility] 02/27/2025 09:03:09 5 Cerumen removal without microscope bilat completed RANGEL RHODES PA-C [address] [place] [address],[address], [address], [facility] 08/22/2024 09:11:49 4 Cerumen removal without microscope bilat completed RANGEL RHODES PA-C [address] [place] [address],[address], [address], [facility] 02/28/2024 15:34:15 Imaging Results None recorded. Procedure Notes None recorded. Medical Equipment None Reported. Allergies Allergen ID Allergen Name Allergen Category Reaction Reaction Severity Criticality Documentation Date Start Date Code Code System Note Provider Name and Address Organization Details Recorded Time 975693 Bactrim medicatio n other Not available Not available 10/17/2023 67286 9 RxNorm React ion: unkno wn, unspe cifie d;; Not Available [facility] 4 01:19:01 526116 Substance with sulfonami de structure and antibacte rial mechanism of action (substanc e) medicatio n other Not available Not available 10/17/2023 47628 8003 SNOMED React ion: unkno wn, unspe cifie d;; Not Available [facility] 4 01:19:02 Medications Name Sig Start Date [...] mg capsule 2018 active Medicati on ID: [id number] D uration Value: 30 Brand Name: gabapent [...] mg tablet 2018 active Medicati on ID: [id number] D uration Value: 90 Brand Name: naproxen [...] Updated DateTime 02/27/2025 172.72 cm 19.5 kg/m2 97956.82 g Valeria Tobias [place] - [facility] 02/27/2025 08:57:02 Social History None recorded. Functional Status None recorded. Mental Status None recorded. Family History Nothing Reported. Medical History No medical history recorded. Gynecological HistoryNo gynecological history recorded. Obstetrics History GPAL:G 0 P 0 0 0 0 Past Encounters Encounter ID Performer Location Encounter Start Date Encounter Closed Date Diagnosis/Indication Diagnosis SNOMED-CT Code Diagnosis ICD10 Code Diagnosis IMO Codes Diagnosis Note [id number] RANGEL RHODES PA-C [facility] of [address] [address] 02/27/2025 08:52:55 02/27/2025 09:19:41 Impacted cerumen of bilateral ears [id number] 888497 H61.23 Health Concerns Section Related Observation LastModified by Organization Detai ls LastModified Time None Recorded Concern Status LastModified by Organization Details LastModified Time None Recorded Payers Encounter Date Sequence Insurance Name Policy Number Policy Cain Covered Member ID Cain Member ID Guarantor Name 02/27/2025 1 MEDICARE B-[place]: [facility] [employer] Lanny Vasquesjuan albertoregis [id number] 5 Lanny Clancy Cosme Notes Date Note Type Note Provider Name and Address Organization Details Recorded Time 02/27/2025 text/html ROS as noted in the HPI 74-year-old female presents for an ear cleaning. No concerns today. PREET BRYAN MD [address] [place] [address], [address] - [facility] 02/27/2025 16:26:02 OBGyn Episode No OBEpisode recorded.
--- OUTSIDE RECORDS SUMMARY | 2025-04-23 14:55 | XMS_ITS | Clinical Summary ---
Author Organization [facility] Address [address] [place] [address] Phone Care Team Providers Care Upsetter Name Role Phone Liz Alvarez MD Unavailable [phone] Larry Hall MD Unavailable [phone] Portia Hernandez MD Primary Care Provider Allergies [...] file Insurance MEDICARE PART A & B [employer] MED[employer] SUPPLEMENT MEDICARE PART A & B [employer] MEDEX SUPPLEMENT MEDICARE PART A & B [employer] MEDEX SUPPLEMENT MEDICARE PART A & B [employer] MEDEX SUPPLEMENT MEDICARE PART A & B [employer] MEDEX SUPPLEMENT MEDICARE PART A & B [employer] MEDEX SUPPLEMENT MEDICARE PART A & B [employer] MEDEX SUPPLEMENT MEDICARE PART A & B [employer] MEDEX SUPPLEMENT MEDICARE PART A & B [employer] MEDEX SUPPLEMENT Care Teams Upsetter Relationship Specialty Start Date End Date Portia Hernandez MD [address] [place] [address] PCP - General Internal Medicine 06/17/21 Liz Alvarez MD [address] [place] [phone] [email or web address] Referring Physician Internal Medicine 06/21/18 Larry Hall MD [address] [place] [address] [email or web address] Primary Oncologist Medical Oncology 07/03/18 Additional Source Comments The information contained in this document represents components of the legal health record. It is not the complete legal health record.[facility]
[2025-04-27 13:09] LABS: Vitamin D 25-OH, D2 <4 ng/mL; Vitamin D 25-OH, D3 60 ng/mL; Vitamin D 25-OH, Total 60 ng/mL (30-100)
== END 2025-04-23 06:33 | disposition home or self-care (01) ==
LOC: HO.HMGCLDS 06:32
PROVIDERS: PCP Internal Medicine; Visit Provider Internal Medicine
DX: Z00.00 Encounter for general adult medical examination without abnormal findings (principal); F41.9 Anxiety disorder, unspecified; E78.5 Hyperlipidemia, unspecified; C91.10 Chronic lymphocytic leukemia of B-cell type not having achieved remission; M80.00XD Age-related osteoporosis with current pathological fracture, unspecified site, subsequent encounter for fracture with routine healing
CPT/HCPCS: 36415; 80053; 80061; 82306; 84443; 85025

== ENCOUNTER 2025-04-25 13:33 | Outpatient (AMB) | payer MEDICARE, SELFPAY ==
--- OUTSIDE RECORDS SUMMARY | 2024-01-24 13:45 | XMS_ITS | Encounter Summary ---
Author Organization [facility] Address [address] [place] [address] Care Team Providers Care Radio Dispatcher Name Role Phone Portia Garcia MD Primary Care Provider [phone] Encounter Details Date Type Department Care Team (Late st Contact Info) Description 01/24/2024 2:45 PM EDT Hospital Encounter TH HISTORIC ENCOUNTERS [facility] CONVERSION ONLY Liz Alvarez MD [address] [place] [phone] Social History Tobacco Use Types Packs/Day Years [...] Description 06/12/2025 9:15 AM EST Office Visit [facility] Hematology Oncology [address] [place] [phone] Liz Alvarez MD [address] [place] [phone] 06/23/2025 1:00 PM EST Office Visit Gastroenterology - [address] [facility] [address] [place] [address] Yonathan Stone PA [address] [place] [phone] 07/07/2025 11:00 AM EST Appointment [facility] [address] [facility] 2nd [place] [address] documented as of this encounter Visit Diagnoses Not on filedocumented in this encounter Care Teams Radio Dispatcher Relationship Specialty Start Date End Date Portia Garcia MD [address] [facility] [address] [place] [address] PCP - General Internal Medicine 01/07/21 documented as of this encounter
--- NOTE | 2025-04-25 13:42 | MHC.PC.OV ---
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: No Allergies sulfamethoxazole (From Bactrim) Allergy (Mild, Verified 04/25/25 13:45) Hives trimethoprim (From Bactrim) Allergy (Mild, Verified 04/25/25 13:45) Hives Tobacco use date assessed: 04/25/25 Fall risk assessment: No Falls in past year Last assessed Fall Risk: 04/25/25 Dental Screening Dental Screen Date: 04/25/25 Did you have a dental visit in the last 12 months?: Yes Did you have a dental problem in the last 6 months where you did not have access to dental care?: No Was dental information given to patient?: Patient has dentist HPI HPI Comments History of Present Illness Details 74 year old female with a past medical history CLL, anxiety, tachycardia presenting for follow up. Heme/Onc: Follows at [facility], Dr Dubois. On Brukinsa. White count is stable. She is feeling well Chronic pain: Bony metastates, ddd spine. On morphine ER TID, gabapentin, methocarbamal. Doing fairly well with pain control. She has osteoporosis. BH: Anxiety. On prozac, clonazepam, pamelor. Current prozac dose 20mg daily Follows with [facility]-Dr Manzanares. Every third day miralax. Follows with urology-Dr Mchugh. Vaginal dryness. topical estrogens contraindicated. History of recurrent UTI in the past resolved. Recent UTI Was following with Dr Terrell. Colonoscopy UTD Mammogram UTD ROS see HPI PHYSICAL EXAM: GENERAL: Alert and oriented x 3. NAD EYES: EOMI. Anicteric. HENT: Moist mucous membranes. No scleral icterus. No cervical lymphadenopathy. LUNGS: Clear to auscultation bilaterally. CARDIOVASCULAR: Regular rate and rhythm. No murmur. No JVD. ABDOMEN: Soft, non-tender +bs EXTREMITIES: No edema. Non-tender. SKIN: No rashes or lesions. Warm. NEUROLOGIC: No focal neurological deficits. CN II-XII grossly intact PSYCHIATRIC: Cooperative. 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 Leukemia Vertebrogenic low back pain Lumbar spinal stenosis Family History Mother Anxiety Brother Anxiety Sister Anxiety Maternal Grandmother Breast cancer Other FH: mental illness Social History Household Members: Spouse Housing: House Alcohol intake: never Patient Tobacco Use Status: Former Tobacco user Years Smoked: 10, Quit 42 years ago e-Cigarette/Vaping Use: Never Used Second Hand Smoke Exposure: Yes (past ) service: No Current occupational status: retired 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 1. Little interest or pleasure in doing things: not at all 2. Feeling down, depressed, or hopeless: not at all 3. Trouble falling or staying asleep, or sleeping too much: not at all 4. Feeling tired or having little energy: several days 5. Poor appetite or overeating: more than half the days 6. Feeling bad about yourself - or that you are a failure or have let yourself or your family down: not at all 7. Trouble concentrating on things, such as reading the newspaper or watching television: not at all 8. Moving or speaking so slowly that other people could have noticed. Or the opposite - being so fidgety or restless that you have been moving around a lot more than usual: not at all 9. Thoughts that you would be better off or of hurting yourself in some way: not at all Total score: 3 Depression Screening Interpretation: Negative Depression Screening Done: Yes 21417 - PHQ-9 Billing: Yes Source: Developed by Drs. Dane Wong, Joana Bradford, Darin Reese and colleagues, with an educational key from [employer]. Thrive Questionnaire Date Thrive assessed: 04/22/24 I am a: Patient What is your living situation today?: I have a steady place to live Within the past 12 months, did the food you bought not last and you didn't have the money to get more?: Never true Within the past 12 months, did you worry whether your food would run out before you got money to buy more?: Never true Do you have trouble paying for medicines?: No Do you have trouble getting transportation to medical appointments?: No Do you have trouble paying your heating and electricity bill?: No Do you have trouble taking care of your child, family member or friend?: No Do you have trouble with day-to-day activities such as bathing, preparing meals, shopping, managing finances, etc.?: No Are you currently unemployed and looking for a job?: No Are you interested in more education?: No Please select the resources that you would like help with: None Currently or been in a relationship where the following occur: No concerns reported THRIVE Score: 0 AUDIT C Alcohol Use Questionnaire (AUDIT-C) 1. How often do you have a drink containing alcohol?: Never 3. How often do you have six or more drinks on one occasion?: Never Total Score: 0 CHARLOTTE-7 AMB Questionnaire CHARLOTTE-7 Date CHARLOTTE - 7 assessed: 10/05/23 Feeling nervous, anxious, or on edge: 1 = Several days Not being able to stop or control worryin = Several days Worrying too much about different things: 1 = Several days Trouble relaxin = Several days Being so restless that it is hard to sit still: 0 = Not at all Becoming easily annoyed or irritable: 1 = Several days Feeling afraid as if something awful might happen: 0 = Not at all Total CHARLOTTE-7 score (0-4 normal; 5-9 mild; 10-14 moderate; 15-21 severe): 5 Source: Developed by Drs. Dane Wong, Joana Bradford, Darin Reese and colleagues, with an educational key from [employer]. Physical exam (Primary Care) Vital Signs: Last Vital Signs Pulse 101 H 04/25/25 13:43 Resp 14 04/25/25 13:43 BP 124/76 04/25/25 13:43 Pulse Ox 96 04/25/25 13:43 Oxygen Delivery Method Room Air 04/25/25 13:43 BMI result Body Mass Index 24.9 Tobacco/Smoking Status: Tobacco use Status Tobacco use date assessed 04/25/25 04/25/25 13:51 Patient Tobacco Use Status Former Tobacco user 04/25/25 13:51 e-Cigarette/Vaping Use Never Used 04/25/25 13:51 PHQ-9: PHQ-9 Score PHQ-9: Total score 3 04/25/25 14:07 Depression Screening Interpretation: Negative Thrive Assessment: Date of Thrive Assessment Date Thrive assessed 04/22/24 04/25/25 13:51 Currently or been in a relationship where the following occur: No concerns reported Coding Level of Care Code Est Pt Level 4 (72570) Diagnoses CLL (chronic lymphocytic leukemia) C91.10 Hyperlipidemia, unspecified hyperlipidemia type E78.5 Hyperlipidemia type: unspecified Recurrent UTI N39.0 Anxiety F41.9 Additional Codes PHQ-9 - 40384 - PHQ-9 Billing: Yes ([id number]) Assessment & Plan Assessment & Plan (1) CLL (chronic lymphocytic leukemia): Code(s): C91.10 - Chronic lymphocytic leukemia of B-cell type not having achieved remission Category: Medical (2) Hyperlipidemia: Code(s): E78.5 - Hyperlipidemia, unspecified Category: Medical Qualifiers: Hyperlipidemia type: unspecified Qualified Code(s): E78.5 - Hyperlipidemia, unspecified (3) Recurrent UTI: Code(s): N39.0 - Urinary tract infection, site not specified Category: Medical (4) Anxiety: Code(s): F41.9 - Anxiety disorder, unspecified Category: Medical Plan CLL-stable. continues follow up hematology Anxiety stable on current medications UTI-continue urology follow up. Cipro rx at home. UA/UCx Orders: Orders Urine Culture 04/25/25 N39.0 - Urinary tract infection, site not specified UA and rflx microscopic 04/25/25 N39.0 - Urinary tract infection, site not specified Medications: New ciprofloxacin HCl 500 mg PO BID 20 tabs 3RF
[2025-04-25 13:43] VITALS: BP 124/76; PULSE 101; RESP 14; O2SAT 96; BMI 24.9
--- OUTSIDE RECORDS SUMMARY | 2025-04-25 13:54 | XMS_ITS | Data Portability ---
Author Organization [facility], [facility] Address [address] [place] [address] Care Team Providers Care Procurement Accountant Name Role Phone CHINO VEGA Primary Care Provider [phone] DEANA MOSES OTHER Assessment Encounter Date Assessment [...] intact. X-rays ordered, obtained and reviewed at [facility] 4 views left shoulder reveal a.c. [...] have failure of resolution of her pain. [facility] speech recognition hearing impaired teacher software was used to create portions of [...] 5- 4V L shoulder 2024 025 [email or web address] [facility], [address], [address], [place], [address], 5 13:12:31 XR, wrist, 2 view - 2v lt tmj, inpatient nursing aide, rm 117 2024 025 [email or web address] [facility], [address], [address], [place], [address], 5 14:42:24 Medication Orders None recorded. Patient [...] a4ajBk vP9nXo QUaueC m3YtLR FvZlgJ JJ8mAn HZtai3 1x4929 AC0Kqb H2FV6q uKiQtr MwF INTERFACE [facility] [address], [place], [address], 07/01/2024 14:18:21 07/01/19 25 07/01/2024 XR, wrist , 2 view [email or web address] ?Encry pted=s hAaTro YD8dLq bEUv6g %2BXZw aYqtaq 0bqfl% 2Fg9IQ a4ajBk vP9nXo QUaueC m3YtLR FvZlg JJ8Lyle HZtai3 0g3541 AC0Kqb H2FV6q uKiQtr MwF INTERFACE [facility] [address], [address], 07/01/2024 14:18:23 10/09/19 25 10/08/2024 XR, eugenioul yves, 2 or more view [email or web address]:/ [email or web address] ?Encry pted=s hAaTro YD8dLq bEUv6g %2BXZw aYqtaq 0bqfl% 2Fg9IQ a4ajBk vP9nXo QUaueC m3YtLR FvZlg JJ8Lyle HZtai3 6p8796 AC0Kla nuEWau nKiQtr MwF INTERFACE [facility] [address] [facility] [address], [place], [address], 10/08/2024 09:31:29 10/09/19 25 10/08/2024 XR, shoul yves, 2 or more view http:/ [email or web address] ?Encry pted=s hAaTro YD8dLq bEUv6g %2BXZw aYqtaq 0bqfl% 2Fg9IQ a4ajBk vP9nXo QUaueC m3YtLR FvZlgJ JJ8mAn HZtai3 5o8803 AC0Kla nuEWau nKiQtr MwF INTERFACE [facility] [address] [facility] [address], [place], [address], 10/08/2024 09:31:30 Result Notes Documentation Provider Name and Address Organization Details Recorded Time Xr, Wrist, 2 View : [email or web address] Encrypted=ziJfIdwXH5yNxyC Uv6g%2HRVjvFpyvb5wbmj%2Fg 5UIp3fbVgsD0xNiZQqowJu6Rn VICqStvQMD4fHpDGkka18a297 3BI8EnzP4RK1cnFmUinGfB Not Available [facility] 07/01/2024 14:18: 21 Xr, Wrist, 2 View : [email or web address] Encrypted=fvTvNzeDL7gKufE Uv6g%1ICUdoBhofx1rzvc%2Fg 8WWt8ehEhwO5jYhEZiitNx1Dy RGMzHdnCUD8jJxDZbvc91r527 4RG7LwsJ0KL8zgLqVayOnL Not Available [facility] 07/01/2024 14:18: 23 Xr, Shoulder, 2 Or More View : [email or web address] Encrypted=sgBhSytBD6rHetD Uv6g%2PZUbgVgunr4vufb%2Fg 2GRt1joRmpD6rTlHUmzlPu6Wv AMTrPsvTCD1eFhYIoie16c508 6KM2YcxxaBIpdaLlCjjEmC Not Available [facility] 10/08/2024 09:31: 29 Xr, Shoulder, 2 Or More View : [email or web address] Encrypted=psMpWxzNQ8fXvwT Uv6g%5RMCcvQizci4qipw%2Fg 0PDj8tuYiwB2sDvDFxprTo0Tm JMBdWttYEA7iWgBIoyj10s262 0YB9CzgkbIXssrJqWvgRlS Not Available [facility] 10/08/2024 09:31: 31 Problems Name Problem SNOMED Code Status Onset Date Resolution Date Notes Provider Name and Address Organization Details Recorded Time Pain of left shoulder joint 964895576556495 09 Active 2024 [facility] 5 11:24:12 Problem Notes None recorded. Procedures Surgical History Date Name Laterality Status Provider Name and Address Organization Details Recorded Time 5 PM Shoulder Kenalog 2cc Injection Unilateral completed Fam Delgadillo PA-C [address] [facility], [place], [address], [facility] 10/08/2024 10:27:03 5 Trigger Thumb Kenalog Injection completed Los Champion MD [address], [place], [address], [facility] 07/01/2024 17:08:48 Imaging Results None recorded. Procedure Notes None recorded. Medical Equipment None Reported. Allergies Allergen ID Allergen Name Allergen Category Reaction Reaction Severity Criticality Documentation Date Start Date Code Code System Note Provider Name and Address Organization Details Recorded Time 25121 Substance with sulfonami de structure and antibacte rial mechanism of action (substanc e) medicatio n Not available Not available Not available 08/07/20232005 07932 8003 SNOMED Aller gyRea ction : 'Skin React ion'; Not Available [facility] 4 12:08:31 90323 Bactrim medicatio n Not available Not available Not available 08/07/20232014 06808 9 RxNorm Not Available [facility] 4 12:08:32 Medications Name Sig Start Date [...] Updated DateTime 07/01/2024 160.02 cm 24.8 kg/m2 40641.93 g DANILO MONTIEL [facility] 07/01/2024 14:10:19 Date Recorded Body height Body mass index (BMI) Body weight Provider Name and Address Organization Details Last Updated DateTime 10/08/2024 160.02 cm 21.8 kg/m2 09669.86 g MIGUEL A GOLDMAN [facility] 10/08/2024 09:22:40 Social History None [...] ICD10 Code Diagnosis IMO Codes Diagnosis Note [id number] MD KAMRYN Bobby [address] [place] [address] 07/01/2024 13:50:18 07/18/2024 12:30:49 Pain of left wrist 4886003424 19611 M25.532 347959 Trigger th umb of left hand 6286509986 93397 M65.312 14242757 Arthritis of first carpometacarpal joint of left hand 8796017882 774657 M18.12 69689821 7877364 [facility] [place] [address] [place] [address] 10/08/2024 08:50:30 10/10/2024 09:45:17 Pain of left shoulder region 1663325308 M25.512 17200823 Tendinitis of left rotator cuff 7301023053 0400646 M75.82 12055933 Health Concerns Section Related Observation LastModified by Organization Detai ls LastModified Time None Recorded Concern Status LastModified by Organization Details LastModified Time None Recorded Advance Directives Directive None Recorded Payers Insurance Date Sequence Insurance Name Policy Number Policy Cain Covered Member ID Cain Member ID Guarantor Name 10/08/2024 2 [place] [id number] Lanny Portillore [id number] Lanny Clancy Patingre 10/08/2024 1 [place] [employer] Lanny Clancy Patingre [id number] Lanny Clancy Patingre Notes Date Note [...] ordered, obtained, and reviewed today at [facility]: PA and lateral of the [...] there are any concerns. Los Champion MD [address] [place], [place] [address] [address], [place], [address], [facility] 07/01/2024 17:09:33 OBGyn Episode No OBEpisode recorded.
--- OUTSIDE RECORDS SUMMARY | 2025-04-25 13:55 | XMS_ITS | Data Portability ---
Author Organization [place] - [facility] Address [address] [address] Assessment Encounter Date Assessment Date Assessment LastModified [...] follow-up in 6 months for routine debridement. [id number] Not available 08/22/2024 09:11:53 02/27/2025 02/27/2025 74-year-old [...] Address Organization Details Recorded Time Impacted cerumen 52747236 Active 2013 Impacted cerumen; Note: Date Diagnosed : 4 4:42 PM (380.4) Not Available [facility] 4 03:18:47 Otalgia 14352765 Active 2013 Otalgia; CMS Risk: moderate risk Note : Date Diagnosed : 4 5:12 PM (388.70) Not Available [facility] 4 03:18:48 Impacted cerumen in left ear [id number] 84377 Active 2014 Impacted cerumen, left ear; Note: Date Diagnosed : 5 3:54 PM (H61.22) Not Available [facility] 4 03:18:48 Impacted cerumen of bilateral ears 80868745305 17725 Active 2015 Impacted cerumen, bilateral ; Note: Date Diagnosed : 08/13/2015 10:46 AM (H61.23) RANGEL RHODES PA-C [address] [place] [address],[address], [address] , [facility] - [facility] 5 09:03:12 Problem Notes None recorded. Procedures Surgical History Date Name Laterality Status Provider Name and Address Organization Details Recorded Time 5 Cerumen removal without microscope bilat completed RANGEL RHODES PA-C [address] [place] [address], [phone], [facility] 02/27/2025 09:03:09 5 Cerumen removal without microscope bilat completed RANGEL RHODES PA-C [address] [place] [address], [phone], [facility] 08/22/2024 09:11:49 4 Cerumen removal without microscope bilat completed RANGEL RHODES PA-C [address] [place] [address], [phone], [facility] 02/28/2024 15:34:15 Imaging Results None recorded. Procedure Notes None recorded. Medical Equipment None Reported. Allergies Allergen ID Allergen Name Allergen Category Reaction Reaction Severity Criticality Documentation Date Start Date Code Code System Note Provider Name and Address Organization Details Recorded Time 925323 Bactrim medicatio n other Not available Not available 10/17/2023 18321 9 RxNorm React ion: unkno wn, unspe cifie d;; Not Available [facility] 4 01:19:01 636238 Substance with sulfonami de structure and antibacte rial mechanism of action (substanc e) medicatio n other Not available Not available 10/17/2023 44724 8003 SNOMED React ion: unkno wn, unspe cifie d;; Not Available [facility] 4 01:19:02 Medications Name Sig [...] mg capsule 2018 active Medicati on ID: [id number] D uration Value: 30 Brand Name: gabapent [...] mg tablet 2018 active Medicati on ID: [id number] D uration Value: 90 Brand Name: naproxen [...] Updated DateTime 08/22/2024 172.72 cm 19.5 kg/m2 67359.82 g Valeria Tobias [place] - [facility] 08/22/2024 09:00:29 Date Recorded Body height Body mass index (BMI) Body weight Provider Name and Address Organization Details Last Updated DateTime 02/28/2024 172.72 cm 19.5 kg/m2 36948.82 g Ginny Ham [place] - [facility] 02/28/2024 15:00:16 Date Recorded Body height Body mass index (BMI) Body weight Provider Name and Address Organization Details Last Updated DateTime 02/27/2025 172.72 cm 19.5 kg/m2 66245.82 g Valeria Tobias [place] [facility] 02/27/2025 08:57:02 Social History None recorded. Functional Status None recorded. Mental Status None recorded. Family History Nothing Reported. Medical History No medical history recorded. Gynecological HistoryNo gynecological history recorded. Obstetrics History GPAL:G 0 P 0 0 0 0 Past Encounters Encounter ID Performer Location Encounter Start Date Encounter Closed Date Diagnosis/Indication Diagnosis SNOMED-CT Code Diagnosis ICD10 Code Diagnosis IMO Codes Diagnosis Note [id number] RANGEL RHODES PA-C [facility] [address] [address] 02/28/2024 14:57:16 02/29/2024 07:01:40 Impacted cerumen of bilateral ears [id number] 079297 H61.23 [id number] RANGEL RHODES PA-C [facility] [address] [address] 08/22/2024 08:53:37 08/22/2024 10:41:18 Impacted cerumen of bilateral ears 4900472790 470521 H61.23 [id number] RANGEL RHODES PA-C [facility] [address] [address] 02/27/2025 08:52:55 02/27/2025 09:19:41 Impacted cerumen of bilateral ears 7939038889 948824 H61.23 Health Concerns Section Related Observation LastModified by Organization Detai ls LastModified Time None Recorded Concern Status LastModified by Organization Details LastModified Time None Recorded Advance Directives Directive None Recorded Payers Insurance Date Sequence Insurance Name Policy Number Policy Cain Covered Member ID Cain Member ID Guarantor Name 03/22/2025 2 [place]LE[place]) Lanny Aguiar 02/27/2025 1 [place] [employer] Lanny Aguiar [id number] Lanny Aguiar Notes Date Note Type Note Provider Name and Address Organization Details Recorded Time 02/28/2024 text/html ROS as noted in the [facility] 73-year-old female presents for ear cleaning. No concerns today. CASSIE MURDOCK MD [address] [facility],[address], [address], [place] - [facility] 02/28/2024 16:57:55 08/22/2024 text/html ROS as noted in the [facility] 73-year-old female presents for ear cleaning. No concerns today. BLANQUITA MUÑOZ MD [address] [facility],[address], [address], [place] - [facility] 08/23/2024 08:46:45 02/27/2025 text/html ROS as noted in the [facility] 74-year-old female presents for an ear cleaning. No concerns today. PREET BRYAN MD [address] [facility],[address], [address], [place] [facility] 02/27/2025 16:26:02 OBGyn Episode No OBEpisode recorded.
--- OUTSIDE RECORDS SUMMARY | 2025-04-25 13:55 | XMS_ITS ---
Author Organization [facility] Address [address] [place] [address] Care Team Providers Care Radio Journalist Name Role Phone Portia Garcia MD Primary Care Provider [phone] Active Problems Problem Noted Date Diagnosed Date [...] without esophagi tis 12/01/2017 Current On[facility]PROL[facility])* Plan Start Date:11/04/2022 Plan Provider:Liz Portillo MD Linked Problems CLL (chronic lymphocytic kristi kemia) ([facility])Age-related osteoporosis without current pathological fracture Treatment Medications denosumab (PROLIA) Past Plans ONCOLOGY INFUSION THERAPY Plan Name Start Date Discontinue Date Treatment Medications Discontinue Reason Plan Provider [facility] OP EVUSHELD (TIXAGEVIMAB AND CILGAVIMAB INJECTIONS) & [facility] BCN DENOSUMAB 60MG (PROLIA) 12/24/2021 06/30/2022 albuterol (PROVENTIL)denos umab (PROLIA)diphenhy drAMINE (BENADRYL)EPINEP Hrinefamotidine (PF) (PEPCID)hydrocor tisone (SOLU-CORTEF) IVmeperidine (DEMEROL) 25 MG/MLsodium chloride 0.9% bolus (NS)tixagevimab & cilgavimab (EVUSHELD) Therapy Complete Liz Portillo MD ONCOLOGY TREATMENT Plan Name Start Date Discontinue Date Treatment Medications Discontinue Reason Plan Provider [facility] RITUX[facility] (IV/SC) WEEKLY X4 [...] treatments are documented for this patient in [facility]. Treatments may have been administered in another system.
--- OUTSIDE RECORDS SUMMARY | 2025-04-25 13:55 | XMS_ITS | Continuity of Care Document ---
Author Organization [place] - [facility], [facility] Address [address] [place] [address] Assessment Encounter Date Assessment Date Assessment LastModified [...] Address Organization Details Recorded Time Impacted cerumen 03257566 Active 2013 Impacted cerumen; Note: Date Diagnosed : 4 4:42 PM (380.4) Not Available [facility] 4 03:18:47 Otalgia 19247914 Active 2013 Otalgia; CMS Risk: moderate risk Note : Date Diagnosed : 4 5:12 PM (388.70) Not Available [facility] 4 03:18:48 Impacted cerumen in left ear 96318615202 42554 Active 2014 Impacted cerumen, left ear; Note: Date Diagnosed : 5 3:54 PM (H61.22) Not Available [facility] 4 03:18:48 Impacted cerumen of bilateral ears 02443824204 36225 Active 2015 Impacted cerumen, bilateral ; Note: Date Diagnosed : 08/13/2015 10:46 AM (H61.23) RANGEL RHODES PA-C [address] [facility],[address], [address] , [facility] - [facility] 5 09:03:12 Problem Notes None recorded. Procedures Surgical History Date Name Laterality Status Provider Name and Address Organization Details Recorded Time 5 Cerumen removal without microscope bilat completed RANGEL RHODES PA-C [address] [place] [address],[address], [address], [facility] 02/27/2025 09:03:09 5 Cerumen removal without microscope bilat completed RANGEL RHODES PA-C [address] [place] [address],[address], [address], [facility] 08/22/2024 09:11:49 4 Cerumen removal without microscope bilat completed RANGEL RHODES PA-C [address] [place] [address],[address], [address], [facility] 02/28/2024 15:34:15 Imaging Results None recorded. Procedure Notes None recorded. Medical Equipment None Reported. Allergies Allergen ID Allergen Name Allergen Category Reaction Reaction Severity Criticality Documentation Date Start Date Code Code System Note Provider Name and Address Organization Details Recorded Time 628501 Bactrim medicatio n other Not available Not available 10/17/2023 34997 9 RxNorm React ion: unkno wn, unspe cifie d;; Not Available [facility] 4 01:19:01 983433 Substance with sulfonami de structure and antibacte rial mechanism of action (substanc e) medicatio n other Not available Not available 10/17/2023 67699 8003 SNOMED React ion: unkno wn, unspe cifie d;; Not Available [facility] 4 01:19:02 Medications Name Sig Start Date Stop Date Status Note LastModified by Organization Details LastModified Time magic mouth lido/maal ox/diph/n yst SWISH AND SPIT 5 MLS BY MOUTH EVERY 4 HOURS NEEDED FOR MUCOSITI S active Not Available Not Available No t Available lido/anta chau/diphe n/nystat 1111 SWISH AND SPIT [...] mg capsule 2018 active Medicati on ID: [id number] D uration Value: 30 Brand Name: gabapent [...] mg tablet 2018 active Medicati on ID: [id number] D uration Value: 90 Brand Name: naproxen [...] Updated DateTime 02/27/2025 172.72 cm 19.5 kg/m2 11370.82 g Valeria Tobias [place] - [facility] 02/27/2025 08:57:02 Social History None recorded. Functional Status None recorded. Mental Status None recorded. Family History Nothing Reported. Medical History No medical history recorded. Gynecological HistoryNo gynecological history recorded. Obstetrics History GPAL:G 0 P 0 0 0 0 Past Encounters Encounter ID Performer Location Encounter Start Date Encounter Closed Date Diagnosis/Indication Diagnosis SNOMED-CT Code Diagnosis ICD10 Code Diagnosis IMO Codes Diagnosis Note [id number] RANGEL RHODES PA-C [facility] [address] [address] 02/27/2025 08:52:55 02/27/2025 09:19:41 Impacted cerumen of bilateral ears [id number] 467880 H61.23 Health Concerns Section Related Observation LastModified by Organization Detai ls LastModified Time None Recorded Concern Status LastModified by Organization Details LastModified Time None Recorded Payers Encounter Date Sequence Insurance Name Policy Number Policy Cain Covered Member ID Cain Member ID Guarantor Name 02/27/2025 1 MEDICARE B-[place]: [facility] [employer] Lanny Vasquesjuan albertoregis [id number] 5 Lanny Clancy Cosme Notes Date Note Type Note Provider Name and Address Organization Details Recorded Time 02/27/2025 text/html ROS as noted in the HPI 74-year-old female presents for an ear cleaning. No concerns today. PREET BRYAN MD [address] [place] [address], [phone] - [facility] 02/27/2025 16:26:02 OBGyn Episode No OBEpisode recorded.
--- OUTSIDE RECORDS SUMMARY | 2025-04-25 13:55 | XMS_ITS | Clinical Summary ---
Author Organization [facility] Address [address] [place] [address] Phone Care Team Providers Care Linux Devops Engineer Name Role Phone Portia Garcia MD Primary Care Provider [phone] Allergies Active Allergy Reactions Criticality Noted Date [...] 03/06/2023 Lumbar compression fracture, closed, initial encounter ([facility] V24, [facility] V28) 05/24/2022 Overview [...] 05/24/2022 Lumbar compression fracture, closed, initial encounter ([facility], [facility] V28) 05/24/2022 Dyspnea 12/03/2021 Dyspnea 12/03/2021 Acquired hemolytic anemia ([facility] V24, [facility] V28) 12/03/2021 Weight loss 03/03/2021 Hyperlipidemia 03/07/2019 HLD (hyperlipidemia) 03/07/2019 Vitamin D deficiency 01/19/2019 Vitamin D deficiency 01/19/2019 Asymptomatic microscopic hematuria 12/01/2017 Chronic lymphocytic leukemia ([facility] V24, [facility] V28) 06/21/2017 Chronic lymphocytic leukemia ([facility], [facility] V28) 06/21/2017 Subclinical hypothyroidism 06/06/2017 [...] different specialists including local oncologist, once at [facility], physiatrists at [facility] and the more recent suggestion for [...] we will make the referral to [facility] interventional radiology. She may consider pain management for treating cancer related pain and would likely avoid a spinal cord stimulator. Allergic rhinitis 05/15/2005 Anxiety 05/15/2005 Asthma 05/15/2005 Chronic bilateral low back pain without sciatica 05/15/2005 Eczema 05/15/2005 Esophageal reflux 05/15/2005 Hematuria 05/15/2005 Resolved Problems Problem Noted Date Diagnosed Date Resolved Date Leukemia ([facility] V[facility], [facility] V28) 05/24/2022 05/15/2024 Leukemia ([facility] V[facility], [facility] V28) 05/24/2022 05/15/2024 Encounters Date Type Department Care Team Description 04/15/2025 11:10 AM EST Lab Draw Station - [address] [phone] Chronic lymphocytic leukemia ([facility], [facility] V28) 03/04/2025 9:00 AM EDT Office Visit [facility] Hematology Oncology [address] [place] [address] [phone] Raysaramonia-Iy Liz lomas MD Chronic lymphocytic leukemia ([facility] V24, [facility] V28) (Primary Dx); Acquired hemolytic anemia ([facility] V[facility], [facility] V28); Anxiety; Chronic bilateral low back pain without sciatica; Osteoporosis, post-menopausal 02/27/2025 Telephone [facility] Hematology Oncology [address] [place] [address] [phone] Subramonia-Iy Liz lomas MD 01/30/2025 1:11 PM EDT - 01/30/2025 11:59 PM EDT Hospital Encounter [facility] Bone Density [address] [place] [address] [phone] Discharge Disposition: Home or Self Care from [...] Description 06/12/2025 9:15 AM EST Office Visit [facility] Hematology Oncology [address] [place] [address] Liz Alvarez MD [address] [place] [address] 06/23/2025 1:00 PM EST Office Visit Gastroenterology - [address] [facility] [address] [place] [address] Yonathan Stone PA [address] [place] [address] [phone] 07/07/2025 11:00 AM EST Appointment [facility] Infusion Center [address] [facility] [address] [place] [address] Health Maintenance Due Date Last [...] % LAB HEMETOLOGY METHOD 04/15/2025 5:37 PM [facility] Lymphocytes % 36.0 % LAB HEMETOLOGY METHOD 04/15/2025 5:37 PM [facility] Reactive Lymphocyte 4.00 % LAB HEMETOLOGY METHOD 04/15/2025 5:37 PM [facility] Monocytes % 5.0 % LAB HEMETOLOGY METHOD 04/15/2025 5:37 PM [facility] Eosinophils % 4.0 % LAB HEMETOLOGY METHOD 04/15/2025 5:37 PM [facility] Basophils % 0.0 % LAB HEMETOLOGY METHOD 04/15/2025 5:37 PM [facility] Neutrophils Absolute Manual 6.53 1.50 - 7.00 K/mcL LAB HEMETOLOGY METHOD 04/15/2025 5:37 PM [facility] Lymphocytes Absolute 4.61 1.00 - 5.00 K/mcL LAB HEMETOLOGY METHOD 04/15/2025 5:37 PM [facility] Reactive Lymph Abs Manual 0.51(H) 0.00 - 0.00 lym LAB HEMETOLOGY METHOD 04/15/2025 5:37 PM [facility] Monocytes Absolute Manual 0.64 0.20 - 1.00 K/mcL LAB HEMETOLOGY METHOD 04/15/2025 5:37 PM [facility] Eosinophils Absolute Manual 0.51(H) 0.00 - 0.50 K/mcL LAB HEMETOLOGY METHOD 04/15/2025 5:37 PM EST [facility] Basophils Absolute Manual 0.00 0.00 - 0.20 K/[facility] LAB HEMETOLOGY METHOD 04/15/2025 5:37 PM EST [facility] Rbc Morphology Consistent with indices Consistent with indices, Normal for LAB HEMETOLOGY METHOD 04/15/2025 5:37 PM EST [facility] Comment:RBC: Morphology agre es with CBC Platelet Morphology - WAM See Note(A) Normal LAB HEMETOLOGY METHOD 04/15/2025 5:37 PM [facility] Comment:PLT: Normal Blood Venous blood specimen / Unknown Venipuncture / Unknown 04/15/2025 11:08 AM EST 04/15/2025 4:36 PM EST Subramony SubKim PULLIAM LAB BLOOD ORDERABLE S Final Result [facility] [address] [place] [address], * (ABNORMAL) CBC auto differential (04/15/2025 11:08 AM EST) Only the most recent of3 resultswithin the time period is included. WBC 12.8(H) 4.8 - 10.8 K/[facility] LAB HEMETOLOGY METHOD 04/15/2025 5:37 PM EST [facility] RBC 4.10 3.80 - 4.80 M/[facility] LAB HEMETOLOGY METHOD 04/15/2025 5:37 PM [facility] Hemoglobin 12.1 11.5 - 16.0 g/dL LAB HEMETOLOGY METHOD 04/15/2025 5:37 PM [facility] Hematocrit 38.7 35.0 - 47.0 % LAB HEMETOLOGY METHOD 04/15/2025 5:37 PM [facility] MCV 95.1 79.0 - 98.0 FL LAB HEMETOLOGY METHOD 04/15/2025 5:37 PM EST [facility] MCH 29.7 27.0 - 32.0 pcg LAB HEMETOLOGY METHOD 04/15/2025 5:37 PM [facility] MCHC 31.3(L) 32.0 - 37.0 g/dL LAB HEMETOLOGY METHOD 04/15/2025 5:37 PM EST [facility] RDW 13.8 11.0 - 15.0 % LAB HEMETOLOGY METHOD 04/15/2025 5:37 PM EST [facility] Platelets 222 130 - 400 K/mcL LAB HEMETOLOGY METHOD 04/15/2025 5:37 PM [facility] MPV 11.5(H) 7.0 - 11.0 FL LAB HEMETOLOGY METHOD 04/15/2025 5:37 PM EST [facility] NRBC 0.0 <1.0 % LAB HEMETOLOGY METHOD 04/15/2025 5:37 PM EST [facility] NRBC Absolute 0.00 <0.10 K/mcL LAB HEMETOLOGY METHOD 04/15/2025 5:37 PM [facility] Blood Venous blood specimen / Unknown Venipuncture / Unknown 04/15/2025 11:08 AM EST 04/15/2025 4:36 PM EST Narrative [facility] - 04/15/2025 5:37 PM EST [id number] us Liz Alvarez MD LAB BLOOD ORDERABLE S Final Result [facility] [address] [place] [address], * Lactate dehydrogenase (04/15/2025 11:08 AM EST) Only the most recent of3 resultswithin the time period is included. LDH 161 120 - 246 unit/L LAB CHEMISTRY METHOD 04/15/2025 5:24 PM [facility] Blood Venous blood specimen / Unknown Venipuncture / Unknown 04/15/2025 11:08 AM EST 04/15/2025 4:35 PM EST Liz Alvarez MD LAB BLOOD ORDERABLE S Final Result [facility] [address] [place] [address], * (ABNORMAL) Comprehensive metabolic panel (04/15/2025 11:08 AM EST) Only the most recent of3 resultswithin the time period is included. Pathologist [facility] Sodium 137 133 - 145 mmol/L LAB CHEMISTRY METHOD 04/15/2025 5:25 PM [facility] Potassium 3.8 3.5 - 5.5 mmol/L LAB CHEMISTRY METHOD 04/15/2025 5:25 PM [facility] Chloride 101 96 - 110 mmol/L LAB CHEMISTRY METHOD 04/15/2025 5:25 PM [facility] CO2 28 21 - 32 mmol/L LAB CHEMISTRY METHOD 04/15/2025 5:25 PM [facility] Anion Gap 8 3 - 11 LAB CHEMISTRY METHOD 04/15/2025 5:25 PM [facility] Glucose 90 70 - 100 mg/dL LAB CHEMISTRY METHOD 04/15/2025 5:25 PM [facility] BUN 13 5 - 25 mg/dL LAB CHEMISTRY METHOD 04/15/2025 5:25 PM [facility] Creatinine 0.75 0.50 - 1.10 mg/dL LAB CHEMISTRY METHOD 04/15/2025 5:25 PM [facility] eGFR 83 >=60 mL/min/1. 73m2 LAB CHEMISTRY METHOD 04/15/2025 5:25 PM [facility] Comment:Calculation based on the Chronic Kidney Disease Epidemiology Collaboration (CKD-EPI) equation refit without adjustment for race. BUN/Creatinine Ratio 17.3 LAB CHEMISTRY METHOD 04/15/2025 5:25 PM [facility] Calcium 9.6 8.5 - 10.5 mg/dL LAB CHEMISTRY METHOD 04/15/2025 5:25 PM [facility] AST (SGOT) 16 10 - 42 unit/L LAB CHEMISTRY METHOD 04/15/2025 5:25 PM [facility] ALT (SGPT) 26 10 - 60 unit/L LAB CHEMISTRY METHOD 04/15/2025 5:25 PM [facility] Alkaline Phosphatase 70 42 - 121 unit/L LAB CHEMISTRY METHOD 04/15/2025 5:25 PM [facility] Total Protein 5.8(L) 6.0 - 8.0 g/dL LAB CHEMISTRY METHOD 04/15/2025 5:25 PM [facility] Albumin 3.7 3.2 - 5.0 g/dL LAB CHEMISTRY METHOD 04/15/2025 5:25 PM [facility] Total Bilirubin 0.3 0.0 - 1.4 mg/dL LAB CHEMISTRY METHOD 04/15/2025 5:25 PM [facility] Blood Venous blood specimen / Unknown Venipuncture / Unknown 04/15/2025 11:08 AM EST 04/15/2025 4:35 PM EST us Liz Alvarez MD LAB BLOOD ORDERABLE S Final Result [facility] [address] [place] [address], * (ABNORMAL) Immunoglobulin IgG (03/10/2025 3:40 PM EDT) Total IgG 268(L) 549 - 1,584 mg/dL LAB CHEMISTRY METHOD 03/10/2025 5:57 PM EDT [facility] Blood Venous blood specimen / Unknown Venipuncture / Unknown 03/10/2025 3:40 PM EDT 03/10/2025 4:46 PM EDT Liz Alvarez MD LAB BLOOD ORDERABLE S Final Result [facility] [address] [place] [address], [place] [phone] * BD Bone Density DXA Axial Skeleton (01/30/2025 1:41 PM EDT) Anatomical Region Laterality Modality Wrist, Hip, L-spine Bone Densito metry 01/31/2025 7:40 AM EDT Impressions 01/31/2025 7:41 AM EDT 1. Osteoporosis. 2. FRAX analysis yields a 10-year probability of major osteoporotic fracture of 18.1% and a 10-year probability of hip fracture of 4.6%. Code 69219 -------- FINAL REPORT -------- Dictated By: Hernandez Sahu Dictated Date: 01/31/2025 07:40 ET Assigned Physician: Hernandez Sahu Reviewed and Electronically Signed By: Hernandez Sahu Signed Date: 01/31/2025 07:41 ET Workstation ID: [id number] Transcribed By: Self Edit Transcribed Date: 01/31/2025 [...] density of the femurs bilaterally is 0.889 gm/ke3ycjzm is 88% of that of young normals [...] probability of hip fracture of 4.6%. Code 48008 -------- FINAL REPORT -------- Dictated By: Hernandez Sahu Dictated Date: 01/31/2025 07:40 ET Assigned Physician: Hernandez Sahu Reviewed and Electronically Signed By: Hernandez Sahu Signed Date: 01/31/2025 07:41 ET Workstation ID: [id number] Transcribed By: Self Edit Transcribed Date: 01/31/2025 07:40 ET Result [facility] Liz Alvarez MD IMG DXA PROCEDURES Final Result * Cervical Cancer Screening: HPV (12/08/2020) [facility] Cervical Cancer Screening: HPV negative, abstracted Result [facility] Historical Provider HEALTH MAINTENANCE Final Result * (ABNORMAL) Lipid panel (10/23/2020) [facility] LDL/HDL Ratio 5(A) 0 - 4 Triglycerides 150 0 - 150 mg/dL Cholesterol 237(A) 0 - 200 mg/dL HDL 53 >=40 mg/dL LDL Cholesterol 154(A) 0 - 100 mg/dL Blood Venous blood specimen / Unknown Result [facility] Historical Provider LAB BLOOD ORDERABLES [...] placement x2 of the same day. Result [facility] Shruthi Capps MD IMG BI PROCEDURES Final Result * Colonoscopy (11/06/2015) [facility] Colonoscopy no interpretation , abstracted Anatomical Region Laterality Modality Other Result [facility] Historical Provider HEALTH MAINTENANCE Final Result * Hepatitis C Screening (09/04/2013) [facility] Hepatitis C Screening abstracted Result [facility] Historical Frank PULLIAM HEALTH MAINTENANCE Final Result from Last 3 Months or Most Recently Relevant to Health Maintenance Insurance MEDICARE [facility] Care Teams Linux Devops Engineer Relationship Specialty Start Date End Date Portia Garcia MD [address] [place] [id number] PCP - General Internal Medicine 01/07/21
--- OUTSIDE RECORDS SUMMARY | 2025-04-25 13:55 | XMS_ITS | Clinical Summary ---
Author Organization [facility] Address [address] [place] [address] Care Team Providers Care Composite Boat Builder Name Role Phone Portia Garcia MD Primary Care Provider [phone] Allergies Active Allergy Reactions Criticality Noted Date [...] day. 30 g 1 02/02/2023 Active Benadryl fsjf-Ulxzoa-Yarngofb -Lidocaine Visc mouth wash 1:1:1:1 Swish and spit 5 mL every 4 (four) hours as needed for mucositis. 240 mL 1 10/23/2023 Active Aspirin 81 MG CAPS Take 81 mg by mouth. 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
--- OUTSIDE RECORDS SUMMARY | 2025-04-25 13:55 | XMS_ITS ---
Author Organization [facility] Address [address] [place] [address] Phone Care Team Providers Care School Bus Attendant Name Role Phone Portia Garcia MD Primary Care Provider [phone] Active Problems Problem Noted Date Diagnosed Date Loose stools 12/16/2024 Lymphadenopathy 12/16/2024 Pain in joint of left shoulder 10/29/2024 Osteoporosis, post-menopausal 07/08/2024 Hypokalemia 03/06/2023 Lumbar compression fracture, closed, initial encounter ([facility] V24, [facility] V28) 05/24/2022 Overview (03/27/2024): Last Assessment & [...] 05/24/2022 Lumbar compression fracture, closed, initial encounter ([facility] V24, [facility] V28) 05/24/2022 Dyspnea 12/03/2021 Dyspnea 12/03/2021 Acquired hemolytic anemia ([facility] V24, [facility] V28) 12/03/2021 Weight loss 03/03/2021 Hyperlipidemia 03/07/2019 HLD (hyperlipidemia) 03/07/2019 Vitamin D deficiency 01/19/2019 Vitamin D deficiency 01/19/2019 Asymptomatic microscopic hematuria 12/01/2017 Chronic lymphocytic leukemia ([facility] V24, [facility] V28) 06/21/2017 Chronic lymphocytic leukemia ([facility] V24, [facility] V28) 06/21/2017 Subclinical hypothyroidism 06/06/2017 [...] different specialists including local oncologist, once at [facility], physiatrists at [facility] and the more recent suggestion for [...] and we will make the referral to [facility] interventional radiology. She may consider pain [...] Alvarez MD Linked Problems Chronic lymphocytic leukemia ([facility] V24, [facility] V28)Osteoporosis, post-menopausal Treatment Medications No medications scheduled. Past Treatment and Therapy Plans No past plan information found. Resolved Problems Problem Noted Date Diagnosed Date Resolved Date Leukemia ([facility] V24, [facility] V28) 05/24/2022 05/15/2024 Leukemia ([facility] V24, [facility] V28) 05/24/2022 05/15/2024
--- OUTSIDE RECORDS SUMMARY | 2025-04-25 13:55 | XMS_ITS | Encounter Summary ---
Author Organization [facility] Address [address] [place] [address] Care Team Providers Care Bowling Alley Floors Installer Name Role Phone Portia Garcia MD Primary Care Provider Encounter Details Date Type Department Care Team Description 01/12/[address] [facility] Oncology Services [address] [place] [id number] [facility] Social History Tobacco Use Types [...] on filedocumented in this encounter Care Teams Bowling Alley Floors Installer Relationship Specialty Start Date End Date Portia Garcia MD PCP - General Internal Medicine 01/07/21 documented as of this encounter
--- OUTSIDE RECORDS SUMMARY | 2025-04-25 13:56 | XMS_ITS | Clinical Summary ---
Author Organization [facility] Address [address] [place] [address] Phone Care Team Providers Care Supervisor Coal Handling Name Role Phone Liz Alvarez MD Unavailable [phone] Larry Hall MD Unavailable [phone] Portia Hernandez MD Primary Care Provider Allergies [...] file Insurance MEDICARE PART A & B [employer] MEDEX SUPPLEMENT MEDICARE PART A & B [employer] MEDEX SUPPLEMENT MEDICARE PART A & B [employer] MEDEX SUPPLEMENT MEDICARE PART A & B [employer] MEDEX SUPPLEMENT MEDICARE PART A & B [employer] MEDEX SUPPLEMENT MEDICARE PART A & B [employer] MEDEX SUPPLEMENT MEDICARE PART A & B [employer] MEDEX SUPPLEMENT MEDICARE PART A & B [employer] MEDEX SUPPLEMENT MEDICARE PART A & B [employer] MEDEX SUPPLEMENT Care Teams Supervisor Coal Handling Relationship Specialty Start Date End Date Portia Hernandez MD [address] [place] [address] PCP - General Internal Medicine 06/17/21 Liz Alvarez MD [address] [place] [phone] [email or web address] Referring Physician Internal Medicine 06/21/18 Larry Hall MD [address] [place] [address] [email or web address] Primary Oncologist Medical Oncology 07/03/18 Additional Source Comments The information contained in this document represents components of the legal health record. It is not the complete legal health record.[facility]
== END 2025-04-25 14:15 | disposition home or self-care (01) ==
LOC: HO.HMCFM 13:34
PROVIDERS: PCP Internal Medicine; Visit Provider Internal Medicine
DX: C91.10 Chronic lymphocytic leukemia of B-cell type not having achieved remission (principal); E78.5 Hyperlipidemia, unspecified; N39.0 Urinary tract infection, site not specified; F41.9 Anxiety disorder, unspecified

== ENCOUNTER → 2025-04-25 13:33 | Outpatient (BNVA) | payer MEDICARE, SELFPAY | PROVIDERS: PCP Internal Medicine; Visit Provider Internal Medicine | DX: G89.3 Neoplasm related pain (acute) (chronic) (principal); C79.51 Secondary malignant neoplasm of bone; C91.10 Chronic lymphocytic leukemia of B-cell type not having achieved remission; E78.5 Hyperlipidemia, unspecified; N39.0 Urinary tract infection, site not specified; F41.9 Anxiety disorder, unspecified; Z13.30 Encounter for screening examination for mental health and behavioral disorders, unspecified; Z79.891 Long term (current) use of opiate analgesic | CPT/HCPCS: 96127; 99212 ==